=== PATIENT | male | born 1965 | race Caucasian/White ===

== ENCOUNTER 2020-11-08 11:32 | Inpatient (IN) | payer MEDICARE, MEDICAID, SELFPAY ==
[2020-11-08] VITALS (7 sets, daily range): BP systolic 86–129; BP diastolic 44–79; PULSE 81–122; RESP 12–20; TEMP 36.4–36.6; O2SAT 94–99
--- NOTE | 2020-11-08 12:13 | CT_ITS ---
WS: [id number] CT ABDOMEN AND PELVIS WITH CONTRAST HISTORY: Abdominal pain. TECHNIQUE: Imaging performed of the abdomen and pelvis with IV contrast. Single phase imaging of the abdomen. Coronal and sagittal reformats are submitted. All CT scans at [facility] use at least one of these dose optimization techniques: automated exposure control; mA and/or kV adjustment per patient size (includes targeted exams where dose is matched to clinical indication); or iterativ e reconstruction. IV CONTRAST: Omnipaque 300; 95 mL IV. Oral contrast: No DLP: 1959.2 mGy.cm COMPARISON: 07/10/2014 Lower thorax: Tree-in-bud opacifications bilaterally throughout the mid and lower lungs. No pneumotho rax. Normal size heart. No hiatal hernia. Liver/biliary system: Normal size with no intrahepatic dilatation. Gallbladder: Normal. No gallstones or wall thickening. No pericholecystic fluid. Pancreas: Normal size pancreas and pancreatic duct. No adjacent inflammation. Spleen: Normal size spleen. No mass or infarct. Adrenal glands: Normal. Right kidney: Normal renal enhancement. There is contrast within the renal pelvis and ureter due to s low injection. Mild RIGHT ureteral dilatation. Left kidney: Abnormal enhancement within the renal parenchyma. There are areas of decreased enhanceme nt and attenuation throughout the kidney. Mild dilatation of the renal pelvis and more significant di latation of the ureter. There is a hypervascular nodular focus in the distal RIGHT ureter seen best o n the coronal reformats. This was not present on the prior study. Aorta: Small caliber aorta with atherosclerotic plaque. There is a moderate stenosis within the infra renal aorta extending into the proximal common iliac arteries. Lymphadenopathy: None. Free fluid: None. GI tract: No obstruction. Abdominal wall: Unremarkable abdominal wall. No hernia. Pelvis: Marked enlarged urinary bladder extending over length of 16 cm. Stable lymph nodes since 2015 measuring 19 mm at the LEFT groin. Bones: Narrowing of the RIGHT hip joint. No osteoblastic or osteolytic bone disease. CT/CT abdomen pelvis w con* [id number] IMPRESSION: 1. Tree-in-bud airspace disease bilaterally in the mid to lower lungs. Typical ly seen with endobronchial infection or atypical infection such as mycobacteriu m avium intracellulare. 2. Multifocal areas of decreased enhancement in the LEFT kidney. Wedge-shaped ischemic infarcts versus infection. There is not a lot of perinephric stranding to suggest pyelonephritis. 3. LEFT hydroureteronephrosis. The ureter is dilated throughout its course. At the UV junction is small peripherally enhancing nodule. This may be causing ob struction of the ureter. Consider ureteroscopy to exclude neoplasm. 4. Markedly distended urinary bladder may be responsible for the bilateral ure teral dilatation.
--- NOTE | 2020-11-08 12:13 | ECG_ITS ---
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 Measurements Intervals [place] Rate: 79 P: 29 ND: 192 QRS: 7 QRSD: 103 T: -3 QT: 390 QTc: 449 Interpretive Statements SINUS RHYTHM Compared to ECG 07/09/2014 16:54:46 T-wave abnormality no longer present Electronically Signed On 11-08-2020 19:25:42 CDT by Nabil Gaming M.D. [email or web address] hospitalSynforaholmes county joel pomerene memorial hospitalApplika/store/OM/[id number]
[2020-11-08] MEDS: iohexol 300 mg/mL 100 mL Btl IV (12:41)
[2020-11-08] MEDS: sodium chloride 0.9% 1,000 ML 999 ML IV ×2 (12:55→15:50)
[2020-11-08] MEDS: ondansetron 2 mg/ML SDV 2 mL 4 MG IVP (12:55)
--- NOTE | 2020-11-08 13:02 | ED_ITS ---
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 Presents with family at the bedside with complaint of nausea and vomiting needs not been eating. Patient is incontinent of stool and bowel said usual number of wet and dirty diapers the last couple of days but has not been eating. He is nonverbal he will follow some commands but does not respond. They have not noticed a cough not noticed any fever. No hematochezia melena hematemesis or coffee-ground emesis per the family caregivers. 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 Developmental delay, profound related to adverse effect from steroids for ulcerative colitis per mother History of cardiac arrhythmia on digoxin chronically Hypothyroidism Nausea & vomiting Seizure disorder on phenobarbital chronically Ulcerative colitis on sulfasalazine Surgical History History of colonoscopy Family History Mother Cancer Currently undergoing chemotherapy Social History Smoking and tobacco status: never smoked Alcohol intake: never Substance/Drug Use: never Caregiver/support person: Yes (Mother) Household members: family Physical Exam Const: COMMON NORMALS: no acute distress Neck/C-Spine: COMMON NORMALS: no lymphadenopathy, supple and no JVD Lymph: LYMPHATIC: no lymphadenopathy noted and no lymphedema noted Resp: COMMON NORMALS: normal respiratory effort, No retractions, No use of accessory muscles and clear to auscultation bilaterally AUSCULTATION: clear to auscultation bilaterally Cardio: COMMON NORMALS: no JVD, regular rate, regular rhythm and No murmurs present (Cardio) RATE: regular rate RHYTHM: regular rhythm GI: COMMON NORMALS: No hepatosplenomegaly present AUSCULTATION: Yes normoactive bowel sounds PALPATION: Yes Tenderness to palpation present (GI) (Bladder palpable to the level of the umbilicus on initial exam patient winc), No Guarding due to palpation present (GI) and Yes No hepatosplenomegaly present Extremity: COMMON NORMALS: normal to inspection, capillary refill normal, no clubbing, cyanosis or edema, no calf tenderness and no pedal edema Skin: COMMON NORMALS: no rashes or lesions noted GENERAL SKIN EXAM: no rashes or lesions noted Course Vital Signs: Vital signs: Vital Signs Temperature 97.8 F 11/10/20 03:40 Pulse Rate 95 11/10/20 03:40 Respiratory Rate 17 11/10/20 03:40 Blood Pressure 112/69 11/10/20 03:40 Pulse Oximetry 96 11/10/20 03:40 MDM - Nausea/Vomiting/Diarrhea MDM Narrative: Medical decision making narrative: Significant urine output after placement of Logan. Patient is anemic hyponatremic and has a cystitis. Discussed with hospitalist will admit. Lab Data: Labs: Lab Results 11/08/20 11/08/20 11/08/20 Range/Units 13:16 13:16 13:16 WBC 8.1 (4.0-10.0) 10^3/ uL RBC 2.84 L (4.1-5.3) 10^6/u L Hgb 9.4 L (11.7-16.6) g/dL Hct 28.8 L (42.0-52.0) % MCV 101.4 H (80-94) fL MCH 33.1 (28.0-34.0) pg MCHC 32.6 (30.0-36.0) g/dL RDW 14.2 (12.1-15.1) % Plt Count 144 (130-400) 10^3/c mm MPV 10.7 H (7.4-10.4) fL Neut % (Auto) 80.8 % Lymph % (Auto) 9.8 % [place] % (Auto) 8.6 % Eos % (Auto) 0.4 % Baso % (Auto) 0.2 % Neut # (Auto) 6.52 (1.8-7.7) 10^3/u L Lymph # (Auto) 0.8 (0.8-4.8) 10^3/u L [place] # (Auto) 0.7 (0.2-0.9) 10^3/u L Eos # (Auto) 0.0 (0.0-0.8) 10^3/u L Baso # (Auto) 0.0 (0.0-0.1) 10^3/u L Nucleated RBC % (a uto) 0 % Nucleated RBCs # 0.0 /100WBC Sodium 118 L* (136-145) mmol/L Potassium 4.0 (3.5-5.1) mmol/L Chloride 88 L (98-107) mmol/L Carbon Dioxide 20 L (22-29) mmol/L Anion Gap 14.0 (5-19) BUN 8 (6-20) mg/dL Creatinine 0.5 L (0.7-1.2) mg/dL GFR Calculation 172.6 H (90-130) mL/min Glucose 134 H (65-115) mg/dL Calculated Osmolal ity 246 L (285-295) mOsm/k g Calcium 7.5 L (8.5-10.5) mg/dL Total Bilirubin 0.4 (0.15-1.2) mg/dL AST 24 (0-40) U/L ALT 20 (0-41) U/L Alkaline Phosphata se 119 (40-130) IU/L Troponin T Baselin e 8 (0-15) ng/L Total Protein 6.9 (6.6-8.7) g/dL Albumin 3.7 (3.5-5.2) g/dL Globulin 3.2 (1.3-4.6) g/dL Lipase 33 (13-60) U/L Urine Color (Yellow) Urine Appearance (CLEAR) Urine pH (5-7) Ur Specific Gravit y (1.005-1.030) Urine Protein (Negative) Urine Glucose (UA) (Normal) Urine Ketones (Negative) Urine Blood (Negative) Urine Nitrate (Negative) Urine Bilirubin (Negative) Urine Urobilinogen (Negative) mg/dL Ur Leukocyte Alka ase (Negative) Urine RBC (0-2) /hpf Urine WBC (0-5) /hpf Ur Squamous Epith Cells (0-5) /hpf Amorphous Sediment Urine Bacteria (NONE) /hpf 11/08/20 Range/Units 13:34 WBC (4.0-10.0) 10^3/ uL RBC (4.1-5.3) 10^6/u L Hgb (11.7-16.6) g/dL Hct (42.0-52.0) % MCV (80-94) fL MCH (28.0-34.0) pg MCHC (30.0-36.0) g/dL RDW (12.1-15.1) % Plt Count (130-400) 10^3/c mm MPV (7.4-10.4) fL Neut % (Auto) % Lymph % (Auto) % [place] % (Auto) % Eos % (Auto) % Baso % (Auto) % Neut # (Auto) (1.8-7.7) 10^3/u L Lymph # (Auto) (0.8-4.8) 10^3/u L [place] # (Auto) (0.2-0.9) 10^3/u L Eos # (Auto) (0.0-0.8) 10^3/u L Baso # (Auto) (0.0-0.1) 10^3/u L Nucleated RBC % (a uto) % Nucleated RBCs # /100WBC Sodium (136-145) mmol/L Potassium (3.5-5.1) mmol/L Chloride (98-107) mmol/L Carbon Dioxide (22-29) mmol/L Anion Gap (5-19) BUN (6-20) mg/dL Creatinine (0.7-1.2) mg/dL GFR Calculation (90-130) mL/min Glucose (65-115) mg/dL Calculated Osmolal ity (285-295) mOsm/k g Calcium (8.5-10.5) mg/dL Total Bilirubin (0.15-1.2) mg/dL AST (0-40) U/L ALT (0-41) U/L Alkaline Phosphata se (40-130) IU/L Troponin T Baselin e (0-15) ng/L Total Protein (6.6-8.7) g/dL Albumin (3.5-5.2) g/dL Globulin (1.3-4.6) g/dL Lipase (13-60) U/L Urine Color Yellow (Yellow) Urine Appearance Hazy A (CLEAR) Urine pH 5 (5-7) Ur Specific Gravit y 1.005 (1.005-1.030) Urine Protein Neg (Negative) Urine Glucose (UA) Norm (Normal) Urine Ketones Negative (Negative) Urine Blood 2+ H (Negative) Urine Nitrate Positive H (Negative) Urine Bilirubin Neg (Negative) Urine Urobilinogen Norm (Negative) mg/dL Ur Leukocyte Alka ase 2+ H (Negative) Urine RBC None (0-2) /hpf Urine WBC 55-80 H (0-5) /hpf Ur Squamous Epith Cells None (0-5) /hpf Amorphous Sediment Not Reportable Urine Bacteria 3+ H (NONE) /hpf Discharge Plan Discharge Patient Disposition: Admitted As Inpatient Admit Provider: Georgette Abel Clinical Impression: Urinary retention, Macrocytic anemia, UTI (urinary tract infection), Hydronephrosis, Seizure disorder, Developmental delay, profound Condition: Stable Coding Level of Care Code ED Soa Integration Architect for Chg Fwd Exam Comprehensive
[2020-11-08 13:26] LABS: Basophils % 0.2 %; Eosinophils % 0.4 %; Hematocrit 28.8 % (42.0-52.0); Hemoglobin 9.4 g/dL (11.7-16.6); Lymphocytes # 0.8 10^3/uL (0.8-4.8); Lymphocytes % 9.8 %; Mean Corpuscular HGB Conc 32.6 g/dL (30.0-36.0); Mean Corpuscular Hemoglobin 33.1 pg (28.0-34.0); Mean Corpuscular Volume 101.4 fL (80-94); Mean Platelet Volume 10.7 fL (7.4-10.4); Monocytes # 0.7 10^3/uL (0.2-0.9); Monocytes % 8.6 %; Neutrophils # 6.52 10^3/uL (1.8-7.7); Neutrophils % 80.8 %; Nucleated Red Blood Cells % 0 %; Platelet Count 144 10^3/cmm (130-400); Red Blood Count 2.84 10^6/uL (4.1-5.3); Red Cell Distribution Width 14.2 % (12.1-15.1); White Blood Count 8.1 10^3/uL (4.0-10.0)
[2020-11-08 13:46] LABS: Alanine Aminotransferase 20 U/L (0-41); Albumin Level 3.7 g/dL (3.5-5.2); Alkaline Phosphatase 119 IU/L (40-130); Aspartate Amino Transferase 24 U/L (0-40); Blood Urea Nitrogen 8 mg/dL (6-20); Calcium 7.5 mg/dL (8.5-10.5); Carbon Dioxide 20 mmol/L (22-29); Chloride 88 mmol/L (98-107); Globulin 3.2 g/dL (1.3-4.6); Glomerular Filtration Rate 172.6 mL/min (90-130); Glucose 134 mg/dL (65-115); Lipase 33 U/L (13-60); Osmolality Calculated 246 mOsm/kg (285-295); Total Bilirubin 0.4 mg/dL (0.15-1.2); Total Protein 6.9 g/dL (6.6-8.7); Troponin(5th) Baseline 8 ng/L (0-15)
[2020-11-08] MEDS: promethazine 25 mg/mL SDV 1 mL IM (13:53)
--- NOTE | 2020-11-08 13:57 | PC.NURSE ---
Catheter emptied at this time. 1200mL of output at this time.
[2020-11-08 14:05] LABS: Bilirubin Urine Neg (Negative); Blood Urine 2+ (Negative); Glucose Urine UA Norm (Normal); Ketones Urine Negative (Negative); Leukocyte Esterase Urine 2+ (Negative); Nitrate Urine Positive (Negative); Protein Urine Neg (Negative); Specific Gravity, Urine 1.005 (1.005-1.030); Urine Appearance Hazy (CLEAR); Urine Color Yellow (Yellow); Urobilinogen Urine Norm (Negative); pH Urine 5 (5-7)
[2020-11-08 14:06] LABS: Add Urine Culture? Yes; Add Urine Microscopic? YES; Bacteria Urine 3+ /hpf; WBC Urine 55-80 /hpf (0-5)
--- NOTE | 2020-11-08 14:13 | ECG_ITS ---
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 Measurements Intervals [place] Rate: 91 P: 34 [place]: 169 QRS: 17 QRSD: 100 T: -5 QT: 368 QTc: 455 Interpretive Statements SINUS RHYTHM Compared to ECG 11/08/2020 13:01:07 No significant changes Electronically Signed On 11-08-2020 19:32:12 CDT by Nabil Gamnig M.D. [email or web address] memorial hospitalJackRabbit Systemsfirelands regional medical center south campusWazzap/store/OM/[id number]
[2020-11-08 14:31] LABS: Sodium 118 mmol/L (136-145)
[2020-11-08] MEDS: cefTRIAXone 2,000 MG in sodium chloride 0.9% (plus) 50 ML 100 MG IV (15:49)
[2020-11-08 17:01] LABS: Troponin 5 2HR 8.17 ng/L (0-15); Troponin 5 2HR Delta 0.17 ABS# (0-10)
--- NOTE | 2020-11-08 18:13 | ECG_ITS ---
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 Measurements Intervals [place] Rate: 98 P: 37 [place]: 160 QRS: 27 QRSD: 105 T: -9 QT: 347 QTc: 445 Interpretive Statements SINUS RHYTHM POSSIBLE LATERAL MYOCARDIAL INFARCTION , PROBABLY OLD [30 ms Q WAVE IN I/aVL/V5/V6] Compared to ECG 11/08/2020 14:44:56 Myocardial infarct finding now present Electronically Signed On 11-08-2020 19:31:19 CDT by Nabil Gaming M.D. [email or web address] healthGrabbitpremier health upper [email or web address] [facility] [email or web address]/[id number]
[2020-11-08] MEDS: sodium chloride 0.9% 1,000 ML 150 ML IV (18:32)
[2020-11-08] MEDS: sodium chloride 0.9% 500 ML IV (19:16)
--- NOTE | 2020-11-08 20:35 | P.HP_ITS ---
Providers/Chief Complaint Admitting Physician: Georgette Abel MD Primary Care Provider: Dora Brady MD Chief Complaint: N/V/D History of Present Illness Awais Macias is a 55 year old male with profound developmental delay/prior brain injury who is cared for by his mother. He has had nausea, vomiting and diarrhea for the last couple of days and not eating. No reports of any fever. No known sick contacts. No change in medications recently. In retrospect when specifically asked, they realize that he had been having some facial grimacing the last few days. In the emergency room he was found to have significant urinary retention with more than 2 L out. Urinalysis was suggestive of urinary tract infection. He had hydronephrosis identified but renal function was okay. Sodium was low and he was anemic. He received some fluids and Rocephin in the emergency room. He is being admitted for further evaluation and treatment. History is obtained from his mother. She is currently undergoing chemotherapy. At baseline patient is blind, he will make some noises but is not verbal in the typical sense. They understand how he reaches for items that he wants which are organized in a structured way at home from my understanding. He does not walk very much as he has extensive muscle wasting in his lower extremities. He has no sores. Usually he will eat. Review of Systems General: Reports: ROS unobtainable due to medical condition and ROS unobtainab le due to mental status Medications/Allergies Home Medications Medication Instructions Recorded Confirmed Last Taken Type aspirin 81 mg PO DAILY 11/08/20 11/08/20 11/07/20 History cholecalciferol (vitamin D3) 125 mcg PO DAILY 11/08/20 11/08/20 11/07/20 History [Vitamin D3] cyanocobalamin (vitamin B-12) 1,000 mcg PO DAILY 11/08/20 11/08/20 11/07/20 History diazepam 5 mg PO BID PRN 11/08/20 11/08/20 Unknown History digoxin 250 mcg PO DAILY 11/08/20 11/08/20 11/07/20 History docusate sodium [DOK] 100 mg PO DAILY PRN 11/08/20 11/08/20 Unknown History ergocalciferol (vitamin D2) 50,000 unit PO Q7D 11/08/20 11/08/20 11/05/20 History [Vitamin D2] ferrous sulfate 325 mg PO DAILY 11/08/20 11/08/20 11/07/20 History folic acid 1 mg PO DAILY 11/08/20 11/08/20 11/07/20 History hydrocodone-acetaminophen 1 tab PO QID PRN 11/08/20 11/08/20 Unknown History levothyroxine 25 mcg PO DAILY 11/08/20 11/08/20 11/07/20 History metoprolol tartrate 50 mg PO BID 11/08/20 11/08/20 11/07/20 History phenobarbital See Rx Instructions .ROUTE .COMPLEX 11/08/20 11/08/20 11/07/20 History phenytoin [Dilantin Infatabs] See Rx Instructions .ROUTE .COMPLEX 11/08/20 11/08/20 11/07/20 History sulfasalazine 500 mg PO TID 11/08/20 11/08/20 11/07/20 History Allergies Allergy/AdvReac Type Severity Reaction Status Date / Time Penicillins Allergy Unknown Verified 11/08/20 11:42 PFSH Acute PFSH: Medical History (Updated 11/08/20 @ 21:00 by Georgette Abel MD) 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 Developmental delay, profound related to adverse effect from steroids for ulcerative colitis per mother History of cardiac arrhythmia on digoxin chronically Hypothyroidism Nausea & vomiting Seizure disorder on phenobarbital chronically Ulcerative colitis on sulfasalazine Surgical History (Updated 11/08/20 @ 20:49 by Georgette Abel MD) History of colonoscopy Family History (Updated 11/08/20 @ 20:54 by Georgette Abel MD) Mother Cancer Currently undergoing chemotherapy Social History (Updated 11/08/20 @ 20:54 by Georgette Abel MD) Smoking and tobacco status: never smoked Alcohol intake: never Substance/Drug Use: never Caregiver/support person: Yes (Mother) Household members: family Vitals/I&O/Wt Last Vital Signs Temp 97.8 F 11/08/20 18:00 Pulse 98 11/08/20 18:00 Resp 18 11/08/20 18:00 BP 86/44 11/08/20 18:00 Pulse Ox 94 11/08/20 18:00 11/08/20 11/08/20 11/08/20 06:59 14:59 22:59 Intake Total 1000 / 1000 1049 / 2049 Output Total 1000 / 1000 Balance 1000 / 1000 50 / 1050 Physical Exam Urinary Catheter Management^: Logan: Cath Placed During This Visit: yes Reason for Continuing Indwelling Catheter: Acute Urinary Retention or Obstructi on Urinary Catheter Date of Insertion: 11/08/20 Urinary Catheter Time of Insertion: 13:35 Data : 11/08/20 13:16 11/08/20 13:16 A&P Assessment and plan (1) Nausea & vomiting: Along with diarrhea and poor oral intake, felt secondary to urinary tract infection Status: Acute Qualifiers: Vomiting type: bilious vomiting Qualified Code(s): R11.14 - Bilious vomiting (2) Hyponatremia: Currently felt secondary to GI losses Status: Acute (3) Urinary retention: Most likely with benign prostatic hypertrophy that has not been identified. When explained how much fluid he was retaining in his bladder, mother reported that he had been facial grimacing quite a bit the last few days. Status: Acute (4) UTI (urinary tract infection): Present on admission, organism unknown Status: Acute Qualifiers: Urinary tract infection type: acute pyelonephritis Qualified Code(s): N10 - Acute pyelonephritis (5) Hydronephrosis: Secondary to degree of bladder distention although CT imaging indicated possibility of an obstruction on the left Status: Acute Qualifiers: Hydronephrosis type: other Qualified Code(s): N13.39 - Other hydronephrosis (6) Macrocytic anemia: Looks to be new, chronically on B12 and folate Status: Acute (7) Seizure disorder: Chronically on phenobarbital Status: Chronic (8) History of cardiac arrhythmia: Chronically on digoxin Status: Chronic (9) 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 Status: Chronic (10) Developmental delay, profound: Does not communicate in the same verbal way others might, uses hand gestures and such and family knows what he may want most of the time Status: Chronic Additional A&P Information CT of the abdomen with tree-in-bud appearance in the lung bases per radiology Indication of possibility of wedge-shaped infarction versus infection in the left kidney Hypothyroidism Increase in blood sugar without a known history of diabetes Extensive lower extremity muscle wasting Inpatient admission Check digoxin level and phenobarbital level IV fluids Recheck electrolytes in a few hours Continue antibiotics Follow-up urine culture Add Flomax Maintain Logan catheter secondary to extent of urinary retention Discuss with urology to review CT images and facilitate outpatient follow-up I discussed with the mother possibility of him needing a Logan catheter upon discharge. He typically pulls everything off that is on him at times so will be a challenge to maintain safely. She is willing to consider what needs to be done with guidance. Check blood cultures, lactic acid Check TSH and hemoglobin A1c Telemetry monitoring for arrhythmias Hemoccult of stool ordered from the emergency room Recheck H&H in the morning Holding sulfasalazine currently Monitor respiratory status for need to evaluate further abnormalities identified on CT, eosinophils are normal Continuing oral levothyroxine and as needed diazepam but remainder of home medications are currently held Will offer a lower dose of hydrocodone if needed for pain Hold phenobarbital and digoxin until clarify levels given clinical condition Seizure precautions Check CK level Allow family member to stay with him as only his family really can determine consistently what his needs are Lovenox for DVT prophylaxis Supportive care otherwise Findings, concerns and plans were discussed with patient's mother and she was given an opportunity to ask questions CODE STATUS reviewed with patient's mother. She would not want chest compressions or defibrillation. If he were to require temporary, meaning no more than a couple of days, intubation and mechanical ventilation that would be okay. She would also be okay with ICU level care for couple of days if needed. Attestations Medical Necessity Statement*: Anticipated stay greater than 2 midnights in a 55-year-old gentleman with issues as noted above. He has need for IV antibiotics, serial laboratory studies, IV fluids and other care as noted. Coding Level of Care Code Acute Drill Press Hand for Nathalia Hagan Diagnoses Nausea & vomiting R11.14 Vomiting type: bilious vomiting Hyponatremia E87.1 Urinary retention R33.9 UTI (urinary tract infection) N10 Urinary tract infection type: acute pyelonephritis Hydronephrosis N13.39 Hydronephrosis type: other Macrocytic anemia D53.9 Seizure disorder G40.909 History of cardiac arrhythmia Z86.79 Blindness of both eyes H54.3 Developmental delay, profound R62.50
[2020-11-08 21:25] LABS: Anion Gap 14.9 (5-19); Blood Urea Nitrogen 5 mg/dL (6-20); Calcium 7.3 mg/dL (8.5-10.5); Carbon Dioxide 21 mmol/L (22-29); Chloride 95 mmol/L (98-107); Glomerular Filtration Rate 139.9 mL/min (90-130); Glucose 133 mg/dL (65-115); Osmolality Calculated 263 mOsm/kg (285-295); Potassium 3.9 mmol/L (3.5-5.1); Sodium 127 mmol/L (136-145)
[2020-11-08 21:27] LABS: Lactic Sepsis W/Reflex 1.7 mmol/L (0.5-2.2)
[2020-11-08 21:45] LABS: Digoxin 0.3 ng/mL (0.6-1.2)
[2020-11-08 21:46] LABS: Troponin 5 6HR 11.49 ng/L (0-15); Troponin 5 6HR Delta 3.49 ng/L (0-12)
[2020-11-08] MEDS: enoxaparin 30 mg/0.3 mL Syringe SUBCUT (22:33)
[2020-11-08] MEDS: levofloxacin-dextrose 5 % 500 MG/100 ML PREMIX 100 MG IV (22:33)
[2020-11-08] MEDS: famotidine 20 mg/2 mL INJ IVP (22:57)
[2020-11-09] VITALS (9 sets, daily range): BP systolic 95–122; BP diastolic 57–76; PULSE 84–122; RESP 16–20; TEMP 36.5–37.6; O2SAT 93–97
[2020-11-09] MEDS: sodium chloride 0.9% 1,000 ML 150 ML IV (05:05)
[2020-11-09] MEDS: phenytoin 50mg Chew Tablet 100 MG PO (05:05)
[2020-11-09] MEDS: PHENobarbital 32.4 mg Tablet 24.3 MG PO (05:06)
[2020-11-09 05:42] LABS: Basophils % 0.3 %; Eosinophils % 0.1 %; Hematocrit 25.1 % (42.0-52.0); Lymphocytes # 0.9 10^3/uL (0.8-4.8); Lymphocytes % 9.2 %; Mean Corpuscular HGB Conc 31.9 g/dL (30.0-36.0); Mean Corpuscular Hemoglobin 32.8 pg (28.0-34.0); Mean Corpuscular Volume 102.9 fL (80-94); Mean Platelet Volume 9.5 fL (7.4-10.4); Monocytes # 1.3 10^3/uL (0.2-0.9); Monocytes % 12.7 %; Neutrophils # 7.72 10^3/uL (1.8-7.7); Neutrophils % 77.4 %; Nucleated Red Blood Cells % 0 %; Platelet Count 174 10^3/cmm (130-400); Red Blood Count 2.44 10^6/uL (4.1-5.3); Red Cell Distribution Width 14.4 % (12.1-15.1)
[2020-11-09 05:56] LABS: INR 1.18 (0.8-1.2)
[2020-11-09 05:57] LABS: Partial Thromboplastin Time 45.7 SECONDS (23.9-36.7)
[2020-11-09 06:34] LABS: Alanine Aminotransferase 19 U/L (0-41); Albumin Level 3.4 g/dL (3.5-5.2); Alkaline Phosphatase 102 IU/L (40-130); Anion Gap 10.7 (5-19); Aspartate Amino Transferase 25 U/L (0-40); Blood Urea Nitrogen 4 mg/dL (6-20); Calcium 7.2 mg/dL (8.5-10.5); Carbon Dioxide 25 mmol/L (22-29); Chloride 101 mmol/L (98-107); Creatine Phosphokinase 300 U/L (39-308); Globulin 3.1 g/dL (1.3-4.6); Glomerular Filtration Rate 117.1 mL/min (90-130); Glucose 108 mg/dL (65-115); Magnesium 1.3 mg/dL (1.7-2.3); Osmolality Calculated 273 mOsm/kg (285-295); Phosphorus 1.5 mg/dL (2.5-4.5); Potassium 3.7 mmol/L (3.5-5.1); Sodium 133 mmol/L (136-145); Thyroid Stimulating Hormone 1.39 uIU/mL (0.27-4.20); Total Bilirubin 0.3 mg/dL (0.15-1.2); Total Protein 6.5 g/dL (6.6-8.7)
[2020-11-09 07:48] LABS: Estmated Average Glucose 71; Hemoglobin A1C 4.1 % (4.0-6.0)
[2020-11-09] MEDS: famotidine 20 mg/2 mL INJ IVP ×2 (08:29→20:53)
[2020-11-09] MEDS: tamsulosin 0.4 mg Capsule PO (08:51)
[2020-11-09] MEDS: levothyroxine 25 mcg Tablet PO (08:51)
[2020-11-09] MEDS: digoxin 250 mcg Tablet PO (08:51)
--- NOTE | 2020-11-09 08:57 | PM.PN ---
Subjective Subjective: Interval history: Patient started babbling his usual level through the night. This morning he is eating breakfast and acting more like his usual self. No vomiting since yesterday afternoon. Logan catheter has remained in place thus far. Urine culture is pending. No diarrhea, normally has a bowel movement a day. Sister was in the room with him. Medications: Reviewed: Yes Vitals/I&O/Wt Last Vital Signs Temp 98.2 F 11/09/20 08:00 Pulse 84 11/09/20 08:00 Resp 18 11/09/20 08:00 BP 95/63 11/09/20 08:00 Pulse Ox 97 11/09/20 08:00 11/08/20 11/09/20 11/09/20 22:59 06:59 14:59 Intake Total 1550 / 2550 1100 / 3650 Output Total 1900 / 1900 650 / 2550 Balance -350 / 650 450 / 1100 Physical Exam Narrative: EXAM NARRATIVE: Constitutional: Awake, eating breakfast, keeps eyes closed, not as ill appearing HEENT: face not as flushed Respiratory: clear to auscultation Cardiovascular: regular Abdomen: soft, nontender, no left flank tenderness Extremities: no edema Neuro: no abnormal movements noted Other: Logan intact, speck of dried blood at meatus, yellow urine Urinary Catheter Management^: Logan: Cath Placed During This Visit: yes Reason for Continuing Indwelling Catheter: Acute Urinary Retention or Obstruction Urinary Catheter Date of Insertion: 11/08/20 Urinary Catheter Time of Insertion: 13:35 Data : 11/09/20 05:22 11/09/20 05:22 Other Labs: Laboratory Tests 11/08/20 11/08/20 11/09/20 21:00 21:00 05:22 MCV 102.9 H Neut % (Auto) 77.4 INR APTT Hemoglobin A1c Lactic Acid 1.7 Creatine Kinase TSH Digoxin 0.3 L Phenobarbital 26.1 11/09/20 11/09/20 11/09/20 05:22 05:22 05:22 MCV Neut % (Auto) INR 1.18 APTT 45.7 H Hemoglobin A1c 4.1 Lactic Acid Creatine Kinase 300 TSH 1.39 Digoxin Phenobarbital Micro: Microbiology 11/09/20 05:22 Blood Culture - Preliminary Blood SPECIMEN COLLECTED 11/08/20 21:00 Blood Culture - Preliminary Blood SPECIMEN COLLECTED A&P Assessment and plan (1) Nausea & vomiting: Along with diarrhea and poor oral intake, felt secondary to urinary tract infection. Much improved. Status: Resolved Qualifiers: Vomiting type: bilious vomiting Qualified Code(s): R11.14 - Bilious vomiting (2) Hyponatremia: Secondary to GI losses, improved Status: Resolved (3) Urinary retention: Most likely with benign prostatic hypertrophy that has not been identified. When explained how much fluid he was retaining in his bladder, mother reported that he had been facial grimacing quite a bit the last few days. Suspect that this has been a gradual process that was not identified due to him being nonverbal. Status: Acute (4) UTI (urinary tract infection): Present on admission, organism unknown Status: Acute Qualifiers: Urinary tract infection type: acute pyelonephritis Qualified Code(s): N10 - Acute pyelonephritis (5) Hydronephrosis: Secondary to degree of bladder distention although CT imaging indicated possibility of an obstruction on the left Status: Acute Qualifiers: Hydronephrosis type: other Qualified Code(s): N13.39 - Other hydronephrosis (6) Macrocytic anemia: Looks to be new, chronically on B12 and folate as well as iron replacement. Last available comparative labs are from 2019 when hemoglobin was 12. With hydration hemoglobin has dropped from 9-8. No gross bleeding noted here. No bleeding reported per family, including no hematochezia or melena. Status: Acute (7) Ulcerative colitis: Chronically on sulfasalazine which is presently held, no reported increased symptoms of late Status: Chronic Qualifiers: Ulcerative colitis location: unspecified ulcerative colitis location Digestive disease complication type: without complication Qualified Code(s): K51.90 - Ulcerative colitis, unspecified, without complications (8) Seizure disorder: Chronically on phenobarbital with appropriate level Status: Chronic (9) History of cardiac arrhythmia: Chronically on metoprolol as well as digoxin (with low level) Status: Chronic (10) Hypothyroidism: Chronically on levothyroxine with appropriate TSH Status: Chronic Qualifiers: Hypothyroidism type: unspecified Qualified Code(s): E03.9 - Hypothyroidism, unspecified (11) 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 Status: Chronic (12) Developmental delay, profound: Does not communicate verbally, uses hand gestures and such and family knows what he may want most of the time Status: Chronic Additional A&P Information CT of the abdomen with tree-in-bud appearance in the lung bases per radiology, no respiratory symptoms or oxygen requirement Indication of possibility of wedge-shaped infarction versus infection in the left kidney, no hematuria, not in apparent pain currently, suspect infection Hypothyroidism Increase in blood sugar without a known history of diabetes, normal hemoglobin A1c Extensive lower extremity muscle wasting Decrease IV fluids as oral intake increases Continue current antibiotics Follow-up urine culture and blood cultures Continue Flomax Monitor for postobstructive diuresis Maintain Logan catheter secondary to extent of urinary retention Have reached out to urology Family aware that he will need Logan catheter at discharge at least short-term, see how he does with the catheter while he is here, will for him Continue telemetry monitoring Continue digoxin Remains off of home beta-neema due to lower blood pressures, will consider resuming a quarter of usual dose later today Hemoccult of stool ordered from the emergency room Monitor for blood in stools Check TIBC Continue to hold home sulfasalazine Phenobarbital has been resumed and has as needed diazepam On home levothyroxine Continue to hold vitamins presently though if doing okay we will look at resuming tomorrow On a lower than usual dose of hydrocodone if needed for pain secondary to drop in pressures Seizure precautions Allow family member to stay with him as only his family can determine consistently what his needs are Lovenox for DVT prophylaxis, if any evidence of bleeding will need to hold Supportive care otherwise Findings, concerns and plans were discussed with patient sister today and she was given an opportunity to ask questions Look into increased services at home to assist with Logan care after discharge CODE STATUS reviewed with patient's mother at admission. She would not want chest compressions or defibrillation. If he were to require temporary, meaning no more than a couple of days, intubation and mechanical ventilation that would be okay. She would also be okay with ICU level care for couple of days if needed. Attestations Medical Necessity Statement*: Requires ongoing inpatient stay for continued antibiotics, IV fluids, monitoring of any evidence of bleeding or postobstructive diuresis and other care as described. Coding Level of Care Code Acute Design Maintenance Engineer for Nathalia Hagan Diagnoses Nausea & vomiting R11.14 Vomiting type: bilious vomiting Hyponatremia E87.1 Urinary retention R33.9 UTI (urinary tract infection) N10 Urinary tract infection type: acute pyelonephritis Hydronephrosis N13.39 Hydronephrosis type: other Macrocytic anemia D53.9 Ulcerative colitis K51.90 Ulcerative colitis location: unspecified ulcerative colitis location Digestive disease complication type: without complication Seizure disorder G40.909 History of cardiac arrhythmia Z86.79 Hypothyroidism E03.9 Hypothyroidism type: unspecified Blindness of both eyes H54.3 Developmental delay, profound R62.50
[2020-11-09] MEDS: sodium chlor 0.45% +KCl 20 mEq 20 MEQ/1,000 ML BAG 75 MEQ IV ×2 (09:31→23:47)
--- NOTE | 2020-11-09 12:49 | PC.CHAP ---
Pastoral Care Encounter/Spiritual Assessment Type of Contact [] Declined radio intelligence operator visit [] Patient/Family/Request visit [] Outpatient visit [] Follow-up visit [] Physician referral [] Code/Alert [xx] Routine visit [] Staff referral [] Actively dying [] Patient sleeping [] Family support [] [] Out of room [] Palliative care [] [] Receiving care in room [] Pre-surgical visit [] Trauma [] Long length of stay [] ICU visit [] Other: Relational/Emotional Strength [xx] Patient feels connected with others/family/visitors/staff [] Distress [] Loneliness/isolation [] Abandonment Spirituality of Patient [xx] Person of Fang [] Attends Anglican of their Fang [xx] Believes in Prayer [] Reads Bible or Tenriism materials [] There are Spiritual issues to be addressed Tyre Finisher And Examiner Interventions [xx] Prayer [xx] Active listening [xx] Non-anxious presence [] Spiritual/emotional support [] Crisis/trauma care [] Spiritual counseling [] Bereavement support [] Provided bereavement packet [] Provided Bible/devotional materials [] Provided toy/stuffed animal, coloring book to patient or family member [] Provided Communion [] Anointing/[place] [] Salvation [xx] Completed spiritual assessment [] Other: Impact on Illness or Injury [] Angry [] Fearful [] Anxious [] Often cries [] Exhaustion [] Unable to work [] Unable to attend evangelical [] Unable to walk/stand [] Unable to read [] Unable to drive [] Unable to eat/drink [] Unable to sleep [] Unable to be with family [] Patient intubated [] Other: Summary Patient lives with his mother due to mental deficiencies. Sister present in room with her brother. She spoke for them both. Patient drowsy and fell asleep during visit. Sister wanted prayer for whole family. Time spent with patient 5 minutes
[2020-11-09 14:08] LABS: Hematocrit 23.8 % (42.0-52.0); Hemoglobin 7.9 g/dL (11.7-16.6)
[2020-11-09] MEDS: phenytoin 50mg Chew Tablet 50 MG PO ×2 (14:25→20:53)
[2020-11-09] MEDS: magnesium sulfate premix 2 GM/50 ML PIGGYBACK IV (14:25)
[2020-11-09] MEDS: PHENobarbital 32.4 mg Tablet PO ×2 (14:26→20:53)
[2020-11-09] MEDS: metoprolol tartrate 25 mg Tablet 12.5 MG PO ×2 (14:26→20:53)
[2020-11-09 15:06] LABS: Iron 46 ug/dL (59-158); Percent Saturation 26.9 % (20-50); Total Iron Binding Capacity 171 mcg/dl; Unsaturated Iron Binding 125 ug/dL (112-347)
[2020-11-09] MEDS: enoxaparin 30 mg/0.3 mL Syringe SUBCUT (20:54)
[2020-11-09] MEDS: levofloxacin-dextrose 5 % 500 MG/100 ML PREMIX 100 MG IV (20:54)
[2020-11-10 03:40] VITALS: BP 112/69; PULSE 95; RESP 17; TEMP 36.6; O2SAT 96
[2020-11-10 05:22] LABS: Blood Urea Nitrogen 2 mg/dL (6-20); Calcium 6.4 mg/dL (8.5-10.5); Carbon Dioxide 22 mmol/L (22-29); Chloride 97 mmol/L (98-107); Glomerular Filtration Rate 139.9 mL/min (90-130); Glucose 100 mg/dL (65-115); Osmolality Calculated 264 mOsm/kg (285-295); Sodium 129 mmol/L (136-145)
[2020-11-10 05:31] LABS: Anion Gap 13.6 (5-19); Potassium 3.6 mmol/L (3.5-5.1)
[2020-11-10 06:09] LABS: Basophils % 0.3 %; Eosinophils # 0.1 10^3/uL (0.0-0.8); Eosinophils % 0.6 %; Hemoglobin 7.6 g/dL (11.7-16.6); Lymphocytes # 1.3 10^3/uL (0.8-4.8); Lymphocytes % 14.5 %; Mean Corpuscular Hemoglobin 33.9 pg (28.0-34.0); Mean Corpuscular Volume 102.7 fL (80-94); Mean Platelet Volume 9.9 fL (7.4-10.4); Monocytes % 11.8 %; Neutrophils # 6.39 10^3/uL (1.8-7.7); Neutrophils % 72.3 %; Nucleated Red Blood Cells % 0 %; Platelet Count 151 10^3/cmm (130-400); Red Blood Count 2.24 10^6/uL (4.1-5.3); Red Cell Distribution Width 14.7 % (12.1-15.1); White Blood Count 8.8 10^3/uL (4.0-10.0)
[2020-11-10] MEDS: phenytoin 50mg Chew Tablet 100 MG PO (06:20)
[2020-11-10] MEDS: PHENobarbital 32.4 mg Tablet 24.3 MG PO (06:20)
[2020-11-10 08:00] VITALS: BP 97/60; PULSE 97; RESP 18; TEMP 37.1; O2SAT 97
[2020-11-10] MEDS: famotidine 20 mg/2 mL INJ IVP ×2 (09:02→21:05)
[2020-11-10 09:03] VITALS: PULSE 97
[2020-11-10] MEDS: tamsulosin 0.4 mg Capsule PO (09:03)
[2020-11-10] MEDS: levothyroxine 25 mcg Tablet PO (09:03)
[2020-11-10] MEDS: metoprolol tartrate 25 mg Tablet 12.5 MG PO ×2 (09:03→21:14)
[2020-11-10] MEDS: digoxin 250 mcg Tablet PO (09:03)
[2020-11-10 12:00] VITALS: BP 118/60; PULSE 108; RESP 18; TEMP 37.8; O2SAT 96
[2020-11-10] MEDS: PHENobarbital 32.4 mg Tablet PO ×2 (12:39→21:09)
[2020-11-10] MEDS: phenytoin 50mg Chew Tablet 50 MG PO ×2 (12:39→21:10)
[2020-11-10] MEDS: sodium chlor 0.45% +KCl 20 mEq 20 MEQ/1,000 ML BAG 75 MEQ IV (12:43)
[2020-11-10] MEDS: diazePAM 5 mg Tablet PO (13:52)
[2020-11-10 16:00] VITALS: BP 117/70; PULSE 103; RESP 18; TEMP 36.9; O2SAT 94
[2020-11-10 19:49] VITALS: BP 108/66; PULSE 105; RESP 18; TEMP 36.7; O2SAT 95
[2020-11-10] MEDS: enoxaparin 30 mg/0.3 mL Syringe SUBCUT (21:05)
[2020-11-10] MEDS: levofloxacin-dextrose 5 % 500 MG/100 ML PREMIX 100 MG IV (21:05)
--- NOTE | 2020-11-10 21:49 | P.PN_ITS ---
Subjective Subjective: Interval history: Has not been bothering the Logan catheter thus far. Returning to his usual self. Had a couple of seizures today that are like his normal ones for which she received Valium. Tolerating oral intake. No longer having diarrhea. Reviewed with mother Logan care management. Medications: Reviewed: Yes Vitals/I&O/Wt Last Vital Signs Temp 98.1 F 11/10/20 19:49 Pulse 105 H 11/10/20 19:49 Resp 18 11/10/20 19:49 BP 108/66 11/10/20 19:49 Pulse Ox 95 11/10/20 19:49 11/10/20 11/10/20 11/10/20 06:59 14:59 22:59 Intake Total 1450 / 1450 Output Total 350 / 1625 1100 / 1100 Balance -350 / 1142 1450 / 1450 -1100 / 350 Weight last 48 hrs Weight 68.946 kg Physical Exam Narrative: EXAM NARRATIVE: Constitutional: Awake, babbling, intermittently sucking on his blanket HEENT: Keeps eyes closed Respiratory: clear to auscultation Cardiovascular: regular Abdomen: soft, nontender, no left flank tenderness Extremities: no edema Neuro: No abnormal movements noted during my examination Other: Logan intact Urinary Catheter Management^: Logan: Cath Placed During This Visit: yes Reason for Continuing Indwelling Catheter: Accurate Measurement of Urinary Output in Critically Ill Patients Urinary Catheter Date of Insertion: 11/08/20 Urinary Catheter Time of Insertion: 13:35 Data : 11/10/20 05:56 11/10/20 04:39 Micro: Microbiology 11/08/20 13:34 Urine Culture - Final Urine,Clean Catch 11/09/20 05:22 Blood Culture - Preliminary Blood NEGATIVE TO DATE 11/08/20 21:00 Blood Culture - Preliminary Blood NEGATIVE TO DATE A&P Assessment and plan (1) Nausea & vomiting: Along with diarrhea and poor oral intake, felt secondary to urinary tract infection. Much improved. Status: Resolved Qualifiers: Vomiting type: bilious vomiting Qualified Code(s): R11.14 - Bilious vomiting (2) Hyponatremia: Secondary to GI losses, improved Status: Resolved (3) Urinary retention: Most likely with benign prostatic hypertrophy that has not been identified. When explained how much fluid he was retaining in his bladder, mother reported that he had been facial grimacing quite a bit the last few days. Suspect that this has been a gradual process that was not identified due to him being nonverbal. Status: Acute (4) UTI (urinary tract infection): Present on admission, organism unknown Status: Acute (5) Hydronephrosis: Secondary to degree of bladder distention although CT imaging indicated possibility of an obstruction on the left Status: Acute (6) Macrocytic anemia: Looks to be new, chronically on B12 and folate as well as iron replacement. Last available comparative labs are from 2019 when hemoglobin was 12. With hydration hemoglobin has dropped from 9-8. No gross bleeding noted here. No bleeding reported per family, including no hematochezia or melena. Status: Acute (7) Ulcerative colitis: Chronically on sulfasalazine which is presently held, no reported increased symptoms of late Status: Chronic Qualifiers: Digestive disease complication type: without complication Ulcerative colitis location: unspecified ulcerative colitis location Qualified Code(s): K51.90 - Ulcerative colitis, unspecified, without complications (8) Seizure disorder: Chronically on phenobarbital with appropriate level Status: Chronic (9) History of cardiac arrhythmia: Chronically on metoprolol as well as digoxin (with low level) Status: Chronic (10) Hypothyroidism: Chronically on levothyroxine with appropriate TSH Status: Chronic Qualifiers: Hypothyroidism type: unspecified Qualified Code(s): E03.9 - Hypothyroidism, unspecified (11) 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 Status: Chronic (12) Developmental delay, profound: Does not communicate verbally, uses hand gestures and such and family knows what he may want most of the time Status: Chronic Additional A&P Information CT of the abdomen with tree-in-bud appearance in the lung bases per radiology, no respiratory symptoms or oxygen requirement Indication of possibility of wedge-shaped infarction versus infection in the left kidney, no hematuria, not in apparent pain currently, suspect infection Hypothyroidism Increase in blood sugar without a known history of diabetes, normal hemoglobin A1c Extensive lower extremity muscle wasting Stop IV fluids Change to oral antibiotics Continue Flomax Maintain Logan catheter secondary to extent of urinary retention Will need follow-up with urology in the next 2 weeks Home health for assistance with Logan management Continue digoxin On lower dose of home beta-blockade Hemoccult of stool ordered from the emergency room Monitor for blood in stools Resumes home vitamins Continue to hold home sulfasalazine Phenobarbital and diazepam on board On home levothyroxine On a lower than usual dose of hydrocodone if needed for pain secondary to drop in pressures Seizure precautions Allow family member to stay with him as only his family can determine consisten tly what his needs are Stop lovenox Supportive care otherwise Findings, concerns and plans were discussed with patient mother today and she was given an opportunity to ask questions Have placed order for home health at [place] CODE STATUS reviewed with patient's mother at admission. She would not want c hest compressions or defibrillation. If he were to require temporary, meaning no more than a couple of days, intubation and mechanical ventilation that would be okay. She would also be okay with ICU level care for couple of days if needed. Attestations Medical Necessity Statement*: Requires ongoing inpatient stay for management as noted above. If remains stable with resumption of other home medications anticipate discharge tomorrow. Coding Level of Care Code Acute Correction Officer Supervisor for Chg Fwd Diagnoses Nausea & vomiting R11.14 Vomiting type: bilious vomiting Hyponatremia E87.1 Urinary retention R33.9 UTI (urinary tract infection) N39.0 Hydronephrosis N13.30 Macrocytic anemia D53.9 Ulcerative colitis K51.90 Digestive disease complication type: without complication Ulcerative colitis location: unspecified ulcerative colitis location Seizure disorder G40.909 History of cardiac arrhythmia Z86.79 Hypothyroidism E03.9 Hypothyroidism type: unspecified Blindness of both eyes H54.3 Developmental delay, profound R62.50
[2020-11-11] VITALS (7 sets, daily range): BP systolic 94–122; BP diastolic 56–77; PULSE 97–103; RESP 16–21; TEMP 36.8–38; O2SAT 93–96
[2020-11-11] MEDS: PHENobarbital 32.4 mg Tablet 24.3 MG PO (05:35)
[2020-11-11] MEDS: levoFLOXacin 500 mg Tablet PO (05:35)
[2020-11-11] MEDS: phenytoin 50mg Chew Tablet 100 MG PO (05:35)
[2020-11-11 06:07] LABS: Blood Urea Nitrogen 3 mg/dL (6-20); Calcium 6.7 mg/dL (8.5-10.5); Carbon Dioxide 21 mmol/L (22-29); Chloride 96 mmol/L (98-107); Glomerular Filtration Rate 172.6 mL/min (90-130); Glucose 113 mg/dL (65-115); Magnesium 1.4 mg/dL (1.7-2.3); Osmolality Calculated 267 mOsm/kg (285-295); Phosphorus 1.8 mg/dL (2.5-4.5); Sodium 130 mmol/L (136-145)
[2020-11-11 06:08] LABS: Anion Gap 16.9 (5-19); Potassium 3.9 mmol/L (3.5-5.1)
[2020-11-11 06:51] LABS: Basophils % 0.4 %; Eosinophils # 0.1 10^3/uL (0.0-0.8); Eosinophils % 1.6 %; Hematocrit 24.7 % (42.0-52.0); Hemoglobin 8.3 g/dL (11.7-16.6); Lymphocytes # 1.3 10^3/uL (0.8-4.8); Lymphocytes % 15.3 %; Mean Corpuscular HGB Conc 33.6 g/dL (30.0-36.0); Mean Corpuscular Hemoglobin 34.3 pg (28.0-34.0); Mean Corpuscular Volume 102.1 fL (80-94); Mean Platelet Volume 10.8 fL (7.4-10.4); Monocytes # 0.9 10^3/uL (0.2-0.9); Neutrophils # 5.83 10^3/uL (1.8-7.7); Neutrophils % 71.2 %; Nucleated Red Blood Cells % 0 %; Red Blood Count 2.42 10^6/uL (4.1-5.3); Red Cell Distribution Width 14.5 % (12.1-15.1); White Blood Count 8.2 10^3/uL (4.0-10.0)
[2020-11-11 07:31] LABS: Platelet Count 160 10^3/cmm (130-400)
[2020-11-11 07:32] LABS: Slide Review Slide Review Perform
[2020-11-11] MEDS: cyanocobalamin 1,000 mcg Tablet 1000 MCG PO (08:27)
[2020-11-11] MEDS: metoprolol tartrate 25 mg Tablet 12.5 MG PO (08:27)
[2020-11-11] MEDS: folic acid 1 mg Tablet PO (08:27)
[2020-11-11] MEDS: cholecalciferol (vitamin D3) 5,000 unit Tablet 5000 UNIT PO (08:27)
[2020-11-11] MEDS: sennosides-docusate Tablet 1 TAB PO ×2 (08:27→17:41)
[2020-11-11] MEDS: digoxin 250 mcg Tablet PO (08:28)
[2020-11-11] MEDS: levothyroxine 25 mcg Tablet PO (08:28)
[2020-11-11] MEDS: ferrous sulfate EC 325 mg Tablet PO ×2 (08:28→17:42)
[2020-11-11] MEDS: famotidine 20 mg/2 mL INJ IVP (08:28)
[2020-11-11] MEDS: tamsulosin 0.4 mg Capsule PO (08:28)
[2020-11-11] MEDS: magnesium sulfate premix 2 GM/50 ML PIGGYBACK IV (08:34)
[2020-11-11] MEDS: magnesium oxide 400 mg tablet PO ×2 (08:34→17:41)
[2020-11-11] MEDS: phosphorus 250 mg Tablet PO ×2 (08:34→17:41)
--- NOTE | 2020-11-11 10:57 | PC.SOCIAL ---
Pg 2 IMM Explained to pt's mother, Pg 2 IMM. No questions voiced. Provided her a copy. Signed, dated, & timed a copy & placed in chart.
[2020-11-11] MEDS: PHENobarbital 32.4 mg Tablet PO (11:49)
[2020-11-11] MEDS: phenytoin 50mg Chew Tablet 50 MG PO (11:49)
--- NOTE | 2020-11-11 15:00 | P.DS_ITS ---
Discharge Providers Date of Admission: 11/08/20 15:41 Date of Discharge: November 11, 2020 Attending Provider at Admission: Georgette Abel MD Attending Provider at Discharge: Georgette Abel MD Primary Care Provider: Dora Brady MD Diagnoses at Discharge Discharge Diagnosis (1) Nausea & vomiting: Status: Resolved Qualifiers: Vomiting type: bilious vomiting Qualified Code(s): R11.14 - Bilious vomiting (2) Hyponatremia: Status: Resolved (3) Urinary retention: Status: Resolved (4) UTI (urinary tract infection): Status: Resolved (5) Hydronephrosis: Status: Resolved (6) Macrocytic anemia: Status: Acute (7) Ulcerative colitis: Status: Chronic Permanent problem details: on sulfasalazine Qualifiers: Digestive disease complication type: without complication Ulcerative colitis location: unspecified ulcerative colitis location Qualified Code(s): K51.90 - Ulcerative colitis, unspecified, without complications (8) Seizure disorder: Status: Chronic Permanent problem details: on phenobarbital chronically (9) History of cardiac arrhythmia: Permanent problem details: on digoxin chronically (10) Hypothyroidism: Status: Chronic Qualifiers: Hypothyroidism type: unspecified Qualified Code(s): E03.9 - Hypothyroidism, unspecified (11) Blindness of both eyes: Status: Chronic Permanent problem details: does not open eyes (12) Developmental delay, profound: Status: Chronic Permanent problem details: related to adverse effect from steroids for ulcerative colitis per mother Reason for Visit 2 Reason for Visit: N/V/D Hospital Course Hospital Course Awais presented with nausea, vomiting and diarrhea as well as poor oral intake and discomfort. He was found to have significant urinary retention of more than [address] imaging showed left hydroureteronephrosis and multifocal areas of decreased enhancement in the left kidney. Additionally there was a small peripherally enhancing nodule at the UV junction on the left possibly causing obstruction. Radiological interpretation was wedge-shaped ischemic infarct versus infection. There was not a lot of perinephric stranding noted. Urinalysis was suggestive of infection. Urine culture grew out 10-20,000 CFU's of mixed superficial roxy. With low-grade fevers and clinical scenario I did go on and treat him with Levaquin and will continue course for 5 days. While prostatic hypertrophy was not indicated on CT imaging strongly suspect it is a contributing factor. Flomax was started. Guan catheter will be maintained to allow the bladder wall time to heal. Case was discussed with Dr. Aleman who agreed to see Mr. Macias in hospital follow-up. Arrangements will be made for home health care to assist in Guan catheter management over the next couple of weeks until that appointment can be arranged. Mother understood that we will s ee how Awais does after treatment with antibiotic and alpha-neema before determining if further work-up needs to be done. Also noted on CT imaging by radiology was a tree-in-bud appearance in the lower lungs. Awais did not have any respiratory issues or need for oxygen while here. This was not further evaluated. He was noted to be anemic with hemoglobin as low as 7.6 after hydration. Iron was low at 46 so oral iron supplementation was started. In addition to anemia he had hypophosphatemia, hypomagnesemia and hypocalcemia. He is chronically on several vitamins. I have added some magnesium supplementation. Also reviewed options to fortify his diet a bit more and provided some handouts that can be used as a guide to maybe increase some variety. There was no evidence of any bleeding noted while here. He was treated with Lovenox for DVT prophylaxis. Recommended taking scheduled laxatives. Sulfasalazine was stopped while here but can be resumed for his ulcerative colitis upon discharge. Digoxin and phenobarbital levels were checked and were within appropriate ranges. TSH was normal. On the day of discharge Awais was eating and drinking well. Vocalizing at ti mes. He seemed ready to get home. He was tolerating Guan catheter without bothering it. Lungs were clear to auscultation bilaterally. He had a regular rhythm. No obvious abdominal or flank tenderness. Guan draining yellow urine. Physical Exam Urinary Catheter Management^: Guan: Cath Placed During This Visit: yes Reason for Continuing Indwelling Catheter: Accurate Measurement of Urinary Output in Critically Ill Patients Urinary Catheter Date of Insertion: 11/08/20 Urinary Catheter Time of Insertion: 13:35 Discharge Data Data Completed and Pending: Completed Studies During Hospitalization Category Date Time Status CT abdomen pelvis w con* [id number] Stat Cat Scan 11/08/20 12:13 Completed Pending at discharge Category Date Time Status Blood Culture Sta t Lab 11/08/20 21:00 Results NGTD Laboratory Results WBC 8.2 10^3/uL (4.0- 10.0) 11/11/20 06:40 Corrected WBC Cancelled 11/11/20 05:20 RBC 2.42 10^6/uL (4.1 -5.3) L 11/11/20 06:40 Hgb 8.3 g/dL (11.7-16 .6) L 11/11/20 06:40 Hct 24.7 % (42.0-52.0 ) L 11/11/20 06:40 MCV 102.1 fL (80-94) H 11/11/20 06:40 MCH 34.3 pg (28.0-34. 0) H 11/11/20 06:40 MCHC 33.6 g/dL (30.0-3 6.0) 11/11/20 06:40 RDW 14.5 % (12.1-15.1 ) 11/11/20 06:40 Plt Count 160 10^3/cmm (130 -400) 11/11/20 06:40 MPV 10.8 fL (7.4-10.4 ) H 11/11/20 06:40 Gran % Cancelled 11/11/20 05:20 Neut % (Auto) 71.2 % 11/11/20 06:40 Lymph % (Auto) 15.3 % 11/11/20 06:40 Keith % (Auto) 11.0 % 11/11/20 06:40 Eos % (Auto) 1.6 % 11/11/20 06:40 Baso % (Auto) 0.4 % 11/11/20 06:40 Neut # (Auto) 5.83 10^3/uL (1.8 -7.7) 11/11/20 06:40 Lymph # (Auto) 1.3 10^3/uL (0.8- 4.8) 11/11/20 06:40 Keith # (Auto) 0.9 10^3/uL (0.2- 0.9) 11/11/20 06:40 Eos # (Auto) 0.1 10^3/uL (0.0- 0.8) 11/11/20 06:40 Baso # (Auto) 0.0 10^3/uL (0.0- 0.1) 11/11/20 06:40 Absolute Gran (aut o) Cancelled 11/11/20 05:20 Nucleated RBC % (a uto) 0 % 11/11/20 06:40 Nucleated RBCs # 0.0 /100WBC 11/11/20 06:40 PT 15.40 SECONDS (12 .1-14.9) H 11/09/20 05:22 INR 1.18 (0.8-1.2) 11/09/20 05:22 APTT 45.7 SECONDS (23. 9-36.7) H 11/09/20 05:22 Sodium 130 mmol/L (136-1 45) L 11/11/20 05:20 Potassium 3.9 mmol/L (3.5-5 .1) 11/11/20 05:20 Chloride 96 mmol/L (98-107 ) L 11/11/20 05:20 Carbon Dioxide 21 mmol/L (22-29) L 11/11/20 05:20 Anion Gap 16.9 (5-19) 11/11/20 05:20 BUN 3 mg/dL (6-20) L 11/11/20 05:20 Creatinine 0.5 mg/dL (0.7-1. 2) L 11/11/20 05:20 GFR Calculation 172.6 mL/min (90- 130) H 11/11/20 05:20 Glucose 113 mg/dL (65-115 ) 11/11/20 05:20 Estimat Average Gl ucose 71 11/09/20 05:22 Hemoglobin A1c 4.1 % (4.0-6.0) 11/09/20 05:22 Calculated Osmolal ity 267 mOsm/kg (285- 295) L 11/11/20 05:20 Lactic Acid 1.7 mmol/L (0.5-2 .2) 11/08/20 21:00 Calcium 6.7 mg/dL (8.5-10 .5) L 11/11/20 05:20 Phosphorus 1.8 mg/dL (2.5-4. 5) L 11/11/20 05:20 Magnesium 1.4 mg/dL (1.7-2. 3) L 11/11/20 05:20 Iron 46 ug/dL (59-158) L 11/09/20 13:53 TIBC 171 mcg/dl 11/09/20 13:53 % Saturation 26.9 % (20-50) 11/09/20 13:53 Unsat Iron Binding 125 ug/dL (112-34 7) 11/09/20 13:53 Total Bilirubin 0.3 mg/dL (0.15-1 .2) 11/09/20 05:22 AST 25 U/L (0-40) 11/09/20 05:22 ALT 19 U/L (0-41) 11/09/20 05:22 Alkaline Phosphata se 102 IU/L (40-130) 11/09/20 05:22 Creatine Kinase 300 U/L (39-308) 11/09/20 05:22 Troponin T Baselin e 8 ng/L (0-15) 11/08/20 13:16 Troponin T 120 Min [place] 8.17 ng/L (0-15) 11/08/20 16:14 Delta Troponin T 0.17 ABS# (0-10) 11/08/20 16:14 Troponin T Hi Sens 6Hr 11.49 ng/L (0-15) 11/08/20 21:00 Troponin T Hi Sens 6Hr Delta 3.49 ng/L (0-12) 11/08/20 21:00 Total Protein 6.5 g/dL (6.6-8.7 ) L 11/09/20 05:22 Albumin 3.4 g/dL (3.5-5.2 ) L 11/09/20 05:22 Globulin 3.1 g/dL (1.3-4.6 ) 11/09/20 05:22 Lipase 33 U/L (13-60) 11/08/20 13:16 TSH 1.39 uIU/mL (0.27 -4.20) 11/09/20 05:22 Urine Color Yellow (Yellow) 11/08/20 13:34 Urine Appearance Hazy (CLEAR) A 11/08/20 13:34 Urine pH 5 (5-7) 11/08/20 13:34 Ur Specific Gravit y 1.005 (1.005-1.0 30) 11/08/20 13:34 Urine Protein Neg (Negative) 11/08/20 13:34 Urine Glucose (UA) Norm (Normal) 11/08/20 13:34 Urine Ketones Negative (Negati ve) 11/08/20 13:34 Urine Blood 2+ (Negative) H 11/08/20 13:34 Urine Nitrate Positive (Negati ve) H 11/08/20 13:34 Urine Bilirubin Neg (Negative) 11/08/20 13:34 Urine Urobilinogen Norm mg/dL (Negat alvaro) 11/08/20 13:34 Ur Leukocyte Alka ase 2+ (Negative) H 11/08/20 13:34 Urine RBC None /hpf (0-2) 11/08/20 13:34 Urine WBC 55-80 /hpf (0-5) H 11/08/20 13:34 Ur Squamous Epith Cells None /hpf (0-5) 11/08/20 13:34 Amorphous Sediment Not Reportable 11/08/20 13:34 Urine Bacteria 3+ /hpf (NONE) H 11/08/20 13:34 Digoxin 0.3 ng/mL (0.6-1. 2) L 11/08/20 21:00 Phenobarbital 26.1 ug/mL (10-30 ) 11/08/20 21:00 Blood Type O Positive 11/09/20 13:53 Rho(D) Type Positive / 4+ 11/09/20 13:53 Antibody Screen Negative 11/09/20 13:53 Impressions Abdomen/Pelvis CT 11/08/20 12:13 Lower thorax: Tree-in-bud opacifications bilaterally throughout the mid and lower lungs. No pneumothorax. Normal size heart. No hiatal hernia. Liver/biliary system: Normal size with no intrahepatic dilatation. Gallbladder: Normal. No gallstones or wall thickening. No pericholecystic fluid. Pancreas: Normal size pancreas and pancreatic duct. No adjacent inflammation. Spleen: Normal size spleen. No mass or infarct. Adrenal glands: Normal. Right kidney: Normal renal enhancement. There is contrast within the renal pelvis and ureter due to slow injection. Mild RIGHT ureteral dilatation. Left kidney: Abnormal enhancement within the renal parenchyma. There are areas of decreased enhancement and attenuation throughout the kidney. Mild dilatation of the renal pelvis and more significant dilatation of the ureter. There is a hypervascular nodular focus in the distal RIGHT ureter seen best on the coronal reformats. This was not present on the prior study. Aorta: Small caliber aorta with atherosclerotic plaque. There is a moderate stenosis within the infrarenal aorta extending into the proximal common iliac arteries. Lymphadenopathy: None. Free fluid: None. GI tract: No obstruction. Abdominal wall: Unremarkable abdominal wall. No hernia. Pelvis: Marked enlarged urinary bladder extending over length of 16 cm. Stable lymph nodes since 2014 measuring 19 mm at the LEFT groin. Bones: Narrowing of the RIGHT hip joint. No osteoblastic or osteolytic bone disease. IMPRESSION: 1. Tree-in-bud airspace disease bilaterally in the mid to lower lungs. Typically seen with endobronchial infection or atypical infection such as mycobacterium avium intracellulare. 2. Multifocal areas of decreased enhancement in the LEFT kidney. Wedge-shaped ischemic infarcts versus infection. There is not a lot of perinephric stranding to suggest pyelonephritis. 3. LEFT hydroureteronephrosis. The ureter is dilated throughout its course. At the UV junction is small peripherally enhancing nodule. This may be causing obstruction of the ureter. Consider ureteroscopy to exclude neoplasm. 4. Markedly distended urinary bladder may be responsible for the bilateral ureteral dilatation. Vitals: Last Vital Signs Temp 98.8 F 11/11/20 11:06 Pulse 101 H 11/11/20 11:06 Resp 17 11/11/20 11:06 BP 104/69 11/11/20 11:06 Pulse Ox 95 11/11/20 11:06 Discharge Plan Discharge Patient Disposition: Home Condition: Stable Prescriptions: New tamsulosin 0.4 mg Capsule 0.4 mg PO BID Qty: 60 RF: 0 metoprolol tartrate 25 mg Tablet 12.5 mg PO BID@0900,2100 Qty: 30 RF: 0 bisacodyl 5 mg Tablet,Delayed Release (Dr/Ec) 10 mg PO DAILY PRN (Reason: Constipation (see protocol)) Qty: 0 RF: 0 MagOx 400 mg (241.3 mg magnesium) tablet 400 mg PO BID Qty: 60 RF: 0 levofloxacin 500 mg tablet 500 mg PO DAILY 5 Days Qty: 5 RF: 0 Continued phenobarbital 16.2 mg tablet See Rx Instructions .ROUTE .COMPLEX RF: 0 cyanocobalamin (vitamin B-12) 1,000 mcg tablet extended release 1,000 mcg PO DAILY RF: 0 sulfasalazine 500 mg tablet 500 mg PO TID RF: 0 Dilantin Infatabs 50 mg tablet,chewable See Rx Instructions .ROUTE .COMPLEX RF: 0 digoxin 250 mcg (0.25 mg) tablet 250 mcg PO DAILY RF: 0 aspirin 81 mg tablet,delayed release (DR/EC) 81 mg PO DAILY RF: 0 levothyroxine 25 mcg tablet 25 mcg PO DAILY RF: 0 hydrocodone-acetaminophen 7.5-325 mg tablet 1 tab PO QID PRN (Reason: Pain) RF: 0 folic acid 1 mg tablet 1 mg PO DAILY RF: 0 Vitamin D2 1,250 mcg (50,000 unit) capsule 50,000 unit PO Q7D RF: 0 diazepam 5 mg tablet 5 mg PO BID PRN (Reason: Seizures) RF: 0 Vitamin D3 125 mcg (5,000 unit) Tablet 125 mcg PO DAILY RF: 0 Changed ferrous sulfate 325 mg (65 mg iron) tablet 325 mg PO BIDWM Qty: 0 RF: 0 DOK 100 mg capsule 100 mg PO DAILY Qty: 0 RF: 0 Discontinued metoprolol tartrate 50 mg tablet 50 mg PO BID RF: 0 Discharge Orders: Discharge Order (Routine); Ordered 11/11/20 Ordered By: Georgette Abel Referrals: [facility] [Outside] Dora Brady MD [Primary Care Provider] - 1 week (hospital follow up as needed) Young Aleman MD [Physician] - 2 weeks (New patient, urinary retention (2L), guan placed for first time, flomax started, Patient discussed with Dr Aleman by Dr Abel) Discharge Diet: Advance as tolerated Discharge Activity: Resume usual activity Patient Instructions: Metoprolol (By mouth), Levofloxacin (By mouth), Tamsulosin (By mouth), Magnesium Oxide (By mouth), Bisacodyl (By mouth), Benign Prostatic Hypertrophy (GEN), Iron Rich Diet (GEN), Guan Catheter Placement and Care (GEN), Regular Diet (GEN), Opioid Safety Activity Restrictions/Additional Instructions: Awais presented with decreased oral intake, nausea, vomiting and diarrhea. He was ultimately found to have a significantly distended urinary bladder. With Guan catheter placement he had more than 2 L urine output. Urinalysis was consistent with possibility of infection though urine culture only showed 10- 20,000 colony-forming units of bacteria. Awais is being treated with an antibiotic for an additional 5 days as there were some changes on CT imaging suggesting either infection or infarction in your left kidney. He had some dilated ureters as well which is not surprising given the degree of urinary retention you had. Other possible abnormalities were described on the CT imaging but I would like to see how he does with treatment with antibiotics for a bit before pursuing any other work-up. These included some nonspecific nodular areas in the ureters and kidney. The case was discussed with Dr. Aleman. While an enlarged prostate was not directly mentioned on CT imaging, strongly suspect prostatic hypertrophy. Flomax has been started. Due to the degree of urinary retention, Guan catheter will be maintained until follow-up with Dr. Aleman. Dr Aleman is out of town this coming week but stated that you could call the office if necessary for any issues with the catheter. If his office does not contact you with an appointment please contact them next week. Possible lung abnormalities were noted on CT of the abdomen. Awais did not have any respiratory symptoms or require any oxygen while here so no further evaluation regarding this was pursued at this point in time. I have decreased the dose of metoprolol secondary to low normal blood pressures on a quarter the usual dose while here in the hospital. Awais was noted to be anemic with initial hemoglobin of 9.4. With hydration received here, hemoglobin dropped to a low of here 7.6. It was 8.3 on the day of discharge. Iron level was low at 46. Andrade phosphorus and magnesium were also low. He received some electrolyte replacement while here. Encourage more balanced diet including with some iron rich foods. I did increase iron to twice a day and added supplemental magnesium. Continue other medications as you usually take them. Discharge information will be sent to Dr. Aleman's office as well as to Dora Duncan's office. Discharge Attestations Time Spent in Discharge Care*: greater than 30 min Specific Discharge Activities: educating and/or supporting family/caregiver, discussing with family caseworker/social workers/dc planners, documenting/other paperwork and evaluating patient/reviewing data Status at Discharge: Cognitive status at discharge: severely impaired cognition , Behavioral status at discharge: dependent in ADL's , Functional status at discharge: bed bound Overall status at discharge: patient is back to baseline Quality Metrics Clinical Quality Measures During this hospital stay, did patient experience: None Coding Level of Care Code Acute g DC note Diagnoses Nausea & vomiting R11.14 Vomiting type: bilious vomiting Hyponatremia E87.1 Urinary retention R33.9 UTI (urinary tract infection) N39.0 Hydronephrosis N13.30 Macrocytic anemia D53.9 Ulcerative colitis K51.90 Digestive disease complication type: without complication Ulcerative colitis location: unspecified ulcerative colitis location Seizure disorder G40.909 History of cardiac arrhythmia Z86.79 Hypothyroidism E03.9 Hypothyroidism type: unspecified Blindness of both eyes H54.3 Developmental delay, profound R62.50
--- NOTE | 2020-11-11 18:29 | PC.NURSE ---
Patient's IV catheter removed, tip intact, patient tolerated well. Discharge instructions given to patients family states verbal understanding, all questions answered. Patient discharged at this time in stable condition in the care of family.
== END 2020-11-11 18:32 | disposition home health service (06) | DRG 690 ==
LOC: ER 15:51 → MEDSURG 16:48
PROVIDERS: Admitting Provider Hospitalist; Emergency Provider Family Medicine; PCP Internal Medicine; Visit Provider Hospitalist
DX: N39.0 Urinary tract infection, site not specified (principal); K51.90 Ulcerative colitis, unspecified, without complications; E87.1 Hypo-osmolality and hyponatremia; N13.39 Other hydronephrosis; N10 Acute pyelonephritis; D53.9 Nutritional anemia, unspecified; F88 Other disorders of psychological development; T38.0X5S Adverse effect of glucocorticoids and synthetic analogues, sequela; R33.8 Other retention of urine; R11.14 Bilious vomiting; G40.909 Epilepsy, unspecified, not intractable, without status epilepticus; H54.3 Unqualified visual loss, both eyes; I49.9 Cardiac arrhythmia, unspecified; E03.9 Hypothyroidism, unspecified; E83.39 Other disorders of phosphorus metabolism; E83.42 Hypomagnesemia; E83.51 Hypocalcemia; Z79.891 Long term (current) use of opiate analgesic
CPT/HCPCS: 36415; 51702; 74177; 80048; 80053; 80162; 80184; 81001; 82550; 83036; 83540; 83550; 83605; 83690; 83735; 84100; 84443; 84484; 85014; 85018; 85025; 85610; 85730; 86850; 86900; 87040; 87086; 93005; 96372; J0696; J1650; J1956; J2405; J2550; J3475; J3490; J7030; J7040; Q9967

== ENCOUNTER 2020-11-22 16:12 | Emergency (ER) | payer MEDICARE, MEDICAID, SELFPAY ==
[2020-11-22 16:14] VITALS: BP 123/73; PULSE 131; RESP 20; TEMP 37.2; O2SAT 96; BMI 25.6
--- NOTE | 2020-11-22 16:27 | XRR_ITS ---
PROCEDURE INFORMATION: Exam: XR Chest Exam date and time: 11/22/2020 4:45 PM Age: 55 years old Clinical indication: Cough TECHNIQUE: Imaging protocol: XR of the chest. Views: 1 view. COMPARISON: CR Chest 1 [place] [id number] 01/15/2016 6:45 PM FINDINGS: Limitations: The study is made with less than full inspiration. Lungs: There is some subsegmental atelectasis at the left lung base. Bilateral interstitial opacities are not significantly changed from previous examinations. No focal consolidation is identified. Pleural spaces: Unremarkable. No pleural effusion. No pneumothorax. Heart/Mediastinum: Heart is within normal limits of size. Bones/joints: Unremarkable. Gastrointestinal tract: There is moderate gaseous distention of the stomach. XR/XR chest 1V portable [id number] IMPRESSION: 1. Chronic interstitial pulmonary disease. 2. Mild left basilar atelectasis.
--- NOTE | 2020-11-22 16:28 | ECG_ITS ---
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 Measurements Intervals [place] Rate: 132 P: 32 NC: 142 QRS: 2 QRSD: 89 T: 22 QT: 297 QTc: 440 Interpretive Statements SINUS TACHYCARDIA Compared to ECG 11/08/2020 15:52:16 Sinus rhythm no longer present Myocardial infarct finding no longer present Electronically Signed On 11-22-2020 18:29:46 CDT by Robyn Felix M.D. [id number]
--- NOTE | 2020-11-22 16:40 | W.ED.URI ---
HPI - URI/Sore Throat General: Chief Complaint: Upper Respiratory Infection Stated Complaint: RESPIRATORY DIFFICULTY Time Seen by Provider: 11/22/20 16:25 Source: EMS Mode of arrival: EMS Limitations: other (Significant developmental delay) History of Present Illness: HPI Narrative: This is a 55 year old male with a history of severe developmental delay, CHF, COPD, who is currently on Levaquin for likely respiratory illness. The patient is nonverbal and unable to give me history. His home health nurse felt that the patient was not in his usual state of health and so wanted him evaluated in the emergency department because she states she does not know what is wrong. He has not vomited and he has had no fever. 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 Developmental delay, profound related to adverse effect from steroids for ulcerative colitis per mother History of cardiac arrhythmia on digoxin chronically Hypothyroidism Nausea & vomiting Seizure disorder on phenobarbital chronically Ulcerative colitis on sulfasalazine Surgical History History of colonoscopy Family History Mother Cancer Currently undergoing chemotherapy Social History Smoking and tobacco status: never smoked Alcohol intake: never Caregiver/support person: Yes (Mother) Household members: family Physical Exam Const: COMMON NORMALS: no acute distress, average body habitus, no limitations, healthy appearing, alert and well nourished HENMT: COMMON NORMALS: normocephalic, atraumatic and moist oral mucous membranes HEAD & SCALP: normocephalic and atraumatic Eye: COMMON NORMALS: Equal, round and reactive pupils present, EOMs intact bilaterally, conjunctivae normal and no scleral icterus CONJUNCTIVA: Yes conjunctivae normal PUPIL: Yes Equal, round and reactive pupils present Neck/C-Spine: COMMON NORMALS: no meningeal signs and no JVD Resp: COMMON NORMALS: normal respiratory effort, No retractions, No use of accessory muscles, clear to auscultation bilaterally and percussion normal AUSCULTATION: clear to auscultation bilaterally PERCUSSION: percussion normal Cardio: COMMON NORMALS: no JVD, regular rate, regular rhythm, S1 normal heart sound present, S2 normal heart sound present, No gallops present (Cardio), No clicks present (Cardio), No murmurs present (Cardio), No rub (Cardio) and Peripheral pulses 2+ throughout RATE: regular rate RHYTHM: regular rhythm HEART SOUNDS: S1 normal heart sound present and S2 normal heart sound present PERIPHERAL PULSES: Peripheral pulses 2+ throughout GI: COMMON NORMALS: Normal to inspection, nondistended, normoactive bowel sounds present, Soft to palpation, non-tender, No hepatosplenomegaly present, no masses and no bruits PALPATION: Yes Soft to palpation and Yes No hepatosplenomegaly present Extremity: COMMON NORMALS: normal to inspection, full ROM, capillary refill normal, no calf tenderness and no pedal edema NARRATIVE EXTREMITY EXAM: contractures noted. Neuro: SENSORIUM/ORIENTATION: Yes alert MENINGEAL SIGNS: Yes no meningeal signs Skin: COMMON NORMALS: no rashes or lesions noted, no wounds, turgor normal, no jaundice, no petechiae and no mottling GENERAL SKIN EXAM: no rashes or lesions noted and turgor normal Course Reevaluation(s): Reevaluation #1: Discussed his lab and imaging findings with his caregiver. He has leukocytosis, but I cannot find an obvious source for his infection. BUN/creatinine ratio is suggestive of dehydration. He is hyponatremic and hypochloremic which I think is also consistent with dehydration. He is currently on Levaquin and he is advised to complete his dose. Otherwise I cannot find any acute illnesses and we will discharge him home. Caregiver voiced understanding and they are in agreement with the plan. Time: 20:43 Vital Signs: Vital signs: Vital Signs Temperature 98.9 F 11/22/20 16:14 Pulse Rate 120 H 11/22/20 21:01 Respiratory Rate 18 11/22/20 21:01 Blood Pressure 136/97 11/22/20 21:01 Pulse Oximetry 94 11/22/20 21:01 MDM - URI/Sore Throat MDM Narrative: Medical decision making narrative: 55-year-old male with developmental delay who was sent to the emergency department for evaluation for possible illness. In the emergency department he has leukocytosis, has signs of dehydration. Since I cannot identify any obvious source of infection or any obvious illness he is discharged home with no new orders. Medical Records: Attestation: I reviewed the patient's medical records. Lab Data: Attestation: I reviewed the patient's lab results. Labs: Lab Results 11/22/20 11/22/20 11/22/20 Range/Units 17:30 17:30 17:30 WBC 16.2 H (4.0-10.0) 10^3/ uL RBC 3.20 L (4.1-5.3) 10^6/u L Hgb 10.7 L (11.7-16.6) g/dL Hct 32.6 L (42.0-52.0) % MCV 101.9 H (80-94) fL MCH 33.4 (28.0-34.0) pg MCHC 32.8 (30.0-36.0) g/dL RDW 14.3 (12.1-15.1) % Plt Count 245 (130-400) 10^3/c mm MPV 10.3 (7.4-10.4) fL Neut % (Auto) 89.2 % Lymph % (Auto) 2.7 % [place] % (Auto) 7.5 % Eos % (Auto) 0.0 % Baso % (Auto) 0.1 % Neut # (Auto) 14.45 H (1.8-7.7) 10^3/u L Lymph # (Auto) 0.4 L (0.8-4.8) 10^3/u L [place] # (Auto) 1.2 H (0.2-0.9) 10^3/u L Eos # (Auto) 0.0 (0.0-0.8) 10^3/u L Baso # (Auto) 0.0 (0.0-0.1) 10^3/u L Nucleated RBC % (a uto) 0 % Nucleated RBCs # 0.0 /100WBC Sodium 126 L (136-145) mmol/L Potassium 4.2 (3.5-5.1) mmol/L Chloride 86 L (98-107) mmol/L Carbon Dioxide 25 (22-29) mmol/L Anion Gap 19.2 H (5-19) BUN 24 H (6-20) mg/dL Creatinine 1.0 (0.7-1.2) mg/dL GFR Calculation 77.6 L (90-130) mL/min Glucose 170 H (65-115) mg/dL Calculated Osmolal ity 270 L (285-295) mOsm/k g Calcium 8.9 (8.5-10.5) mg/dL Total Bilirubin 0.3 (0.15-1.2) mg/dL AST 34 (0-40) U/L ALT 25 (0-41) U/L Alkaline Phosphata se 106 (40-130) IU/L Troponin T Baselin e 32 H (0-15) ng/L Troponin T 120 Min [place]aver (0-15) ng/L Delta Troponin T (0-10) ABS# NT-Pro-B Natriuret Pep 1033 H (0-125) pg/mL Total Protein 7.1 (6.6-8.7) g/dL Albumin 4.2 (3.5-5.2) g/dL Globulin 2.9 (1.3-4.6) g/dL Lipase 109 H (13-60) U/L Urine Color (Yellow) Urine Appearance (CLEAR) Urine pH (5-7) Ur Specific Gravit y (1.005-1.030) Urine Protein (Negative) Urine Glucose (UA) (Normal) Urine Ketones (Negative) Urine Blood (Negative) Urine Nitrate (Negative) Urine Bilirubin (Negative) Urine Urobilinogen (Negative) mg/dL Ur Leukocyte Alka ase (Negative) Urine RBC (0-2) /hpf Urine WBC (0-5) /hpf Ur Squamous Epith Cells (0-5) /hpf Amorphous Sediment Urine Bacteria (NONE) /hpf Urine Mucus /hpf 11/22/20 11/22/20 Range/Units 18:30 20:06 WBC (4.0-10.0) 10^3/ uL RBC (4.1-5.3) 10^6/u L Hgb (11.7-16.6) g/dL Hct (42.0-52.0) % MCV (80-94) fL MCH (28.0-34.0) pg MCHC (30.0-36.0) g/dL RDW (12.1-15.1) % Plt Count (130-400) 10^3/c mm MPV (7.4-10.4) fL Neut % (Auto) % Lymph % (Auto) % [place] % (Auto) % Eos % (Auto) % Baso % (Auto) % Neut # (Auto) (1.8-7.7) 10^3/u L Lymph # (Auto) (0.8-4.8) 10^3/u L [place] # (Auto) (0.2-0.9) 10^3/u L Eos # (Auto) (0.0-0.8) 10^3/u L Baso # (Auto) (0.0-0.1) 10^3/u L Nucleated RBC % (a uto) % Nucleated RBCs # /100WBC Sodium (136-145) mmol/L Potassium (3.5-5.1) mmol/L Chloride (98-107) mmol/L Carbon Dioxide (22-29) mmol/L Anion Gap (5-19) BUN (6-20) mg/dL Creatinine (0.7-1.2) mg/dL GFR Calculation (90-130) mL/min Glucose (65-115) mg/dL Calculated Osmolal ity (285-295) mOsm/k g Calcium (8.5-10.5) mg/dL Total Bilirubin (0.15-1.2) mg/dL AST (0-40) U/L ALT (0-41) U/L Alkaline Phosphata se (40-130) IU/L Troponin T Baselin e (0-15) ng/L Troponin T 120 Min beaver 24.06 H (0-15) ng/L Delta Troponin T -7.94 L (0-10) ABS# NT-Pro-B Natriuret Pep (0-125) pg/mL Total Protein (6.6-8.7) g/dL Albumin (3.5-5.2) g/dL Globulin (1.3-4.6) g/dL Lipase (13-60) U/L Urine Color Yellow (Yellow) Urine Appearance Clear (CLEAR) Urine pH 5 (5-7) Ur Specific Gravit y 1.020 (1.005-1.030) Urine Protein 1+ H (Negative) Urine Glucose (UA) 1+ (Normal) Urine Ketones Negative (Negative) Urine Blood 3+ H (Negative) Urine Nitrate Negative (Negative) Urine Bilirubin Neg (Negative) Urine Urobilinogen Norm (Negative) mg/dL Ur Leukocyte Alka ase Negative (Negative) Urine RBC 5-10 H (0-2) /hpf Urine WBC 0-4 H (0-5) /hpf Ur Squamous Epith Cells 0-4 H (0-5) /hpf Amorphous Sediment Not Reportable Urine Bacteria 1+ H (NONE) /hpf Urine Mucus 1+ /hpf Imaging Data^: CXR: Attestation: I personally reviewed and interpreted this imaging study as follows: Radiologist's impression: [address] [id number] ReportSigned Patient: Awais Macias #: [id number]: 1965Acct#:[id number]/Sex: 55 / MADM Date: 11/22/20Loc: ERRoom/Bed:Attending Dr: Ordering Provider/Ordering MD: Dorcas Rdz MD, [facility] Date of Service: 11/22/20 Procedure(s): XR chest 1V portable [id number] Accession Number(s): [id number] Report Number: [id number] PROCEDURE INFORMATION: Exam: XR Chest Exam date and time: 11/22/2020 4:45 PM Age: 55 years old Clinical indication: Cough TECHNIQUE: Imaging protocol: XR of the chest. Views: 1 view. COMPARISON: CR Chest 1 [place] [id number] 01/15/2016 6:45 PM FINDINGS: Limitations: The study is made with less than full inspiration. Lungs: There is some subsegmental atelectasis at the left lung base. Bilateral interstitial opacities are not significantly changed from previous examinations. No focal consolidation is identified. Pleural spaces: Unremarkable. No pleural effusion. No pneumothorax. Heart/Mediastinum: Heart is within normal limits of size. Bones/joints: Unremarkable. Gastrointestinal tract: There is moderate gaseous distention of the stomach. XR/XR chest 1V portable [id number] IMPRESSION: 1. Chronic interstitial pulmonary disease. 2. Mild left basilar atelectasis. Dictated By:Nataliya Marr By:Nataliya Marr Date/Time:11/22/20 1717DD/ 15 EKG Data^: EKG 1: Attestation: I personally reviewed and interpreted this EKG as follows: EKG interpretation date: 11/22/20 EKG interpretation time: 17:02 Prior EKG tracings: not available for review Interpretation: Sinus tachycardia. Heart rate [address] changes. EKG 2: Attestation: I personally reviewed and interpreted this EKG as follows: EKG interpretation date: 11/22/20 EKG interpretation time: 19:02 Prior EKG tracings: available for review Interpretation: Sinus tachycardia. Heart rate [address] changes. No significant change from earlier Discharge Plan Discharge Patient Disposition: Home Clinical Impression: Dehydration, Tachycardia Leucocytosis Qualifiers: Leukocytosis type: unspecified Qualified Code(s): D72.829 - Elevated white blood cell count, unspecified Condition: Stable Prescriptions: Continued levofloxacin 500 mg Tablet 500 mg PO DAILY RF: 0 ferrous sulfate 325 mg (65 mg iron) tablet 325 mg PO BIDWM RF: 0 DOK 100 mg capsule 100 mg PO DAILY PRN (Reason: Constipation) RF: 0 metoprolol tartrate 25 mg tablet 12.5 mg PO BID@0900,2100 RF: 0 phenobarbital 16.2 mg tablet See Rx Instructions .ROUTE .COMPLEX RF: 0 cyanocobalamin (vitamin B-12) 1,000 mcg tablet extended release 1,000 mcg PO DAILY RF: 0 sulfasalazine 500 mg tablet 500 mg PO TID RF: 0 phenytoin [Dilantin Infatabs] 50 mg tablet,chewable See Rx Instructions .ROUTE .COMPLEX RF: 0 digoxin 250 mcg (0.25 mg) tablet 250 mcg PO DAILY RF: 0 aspirin 81 mg tablet,delayed release (DR/EC) 81 mg PO DAILY RF: 0 levothyroxine 25 mcg tablet 25 mcg PO DAILY RF: 0 hydrocodone-acetaminophen 7.5-325 mg tablet 1 tab PO QID PRN (Reason: Pain) RF: 0 folic acid 1 mg tablet 1 mg PO DAILY RF: 0 diazepam 5 mg tablet 5 mg PO BID PRN (Reason: Seizures) RF: 0 cholecalciferol (vitamin D3) [Vitamin D3] 125 mcg (5,000 unit) Tablet 125 mcg PO DAILY RF: 0 tamsulosin 0.4 mg Capsule 0.4 mg PO BID Qty: 60 RF: 0 bisacodyl 5 mg Tablet,Delayed Release (Dr/Ec) 10 mg PO DAILY PRN (Reason: Constipation (see protocol)) Qty: 0 RF: 0 magnesium oxide [MagOx] 400 mg (241.3 mg magnesium) tablet 400 mg PO BID Qty: 60 RF: 0 Discharge Orders: Discharge ED (Routine); Ordered 11/22/20 Ordered By: Dorcas Rdz Referrals: Dora Brady MD [Primary Care Provider] - 1-3 days Discharge Diet: Usual diet Discharge Activity: Resume usual activity Patient Instructions: Dehydration (ED), Upper Respiratory Infection (ED), Leukocytosis (ED) Activity Restrictions/Additional Instructions: Return for any new or worsening symptoms. Continue his medications as prescribed by his doctor. Give him plenty of fluids to drink to keep well-hydrated. Coding Level of Care Code ED Conduit Reamer Operator for Nathalia Hagan
--- NOTE | 2020-11-22 17:13 | PC.PHAR ---
PT UNABLE TO VERIFY MEDICATIONS-MEDICATIONS ENTERED ARE FROM WHAT [facility] HAS FILLED RECENTLY AND WHAT WAS ON THE PTS HOMEHEALTH LIST
[2020-11-22 17:42] LABS: Basophils % 0.1 %; Hematocrit 32.6 % (42.0-52.0); Hemoglobin 10.7 g/dL (11.7-16.6); Lymphocytes # 0.4 10^3/uL (0.8-4.8); Lymphocytes % 2.7 %; Mean Corpuscular HGB Conc 32.8 g/dL (30.0-36.0); Mean Corpuscular Hemoglobin 33.4 pg (28.0-34.0); Mean Corpuscular Volume 101.9 fL (80-94); Mean Platelet Volume 10.3 fL (7.4-10.4); Monocytes # 1.2 10^3/uL (0.2-0.9); Monocytes % 7.5 %; Neutrophils # 14.45 10^3/uL (1.8-7.7); Neutrophils % 89.2 %; Nucleated Red Blood Cells % 0 %; Platelet Count 245 10^3/cmm (130-400); Red Cell Distribution Width 14.3 % (12.1-15.1); White Blood Count 16.2 10^3/uL (4.0-10.0)
[2020-11-22 18:19] LABS: Troponin(5th) Baseline 32 ng/L (0-15)
[2020-11-22 18:22] LABS: Alanine Aminotransferase 25 U/L (0-41); Albumin Level 4.2 g/dL (3.5-5.2); Alkaline Phosphatase 106 IU/L (40-130); Anion Gap 19.2 (5-19); Aspartate Amino Transferase 34 U/L (0-40); Blood Urea Nitrogen 24 mg/dL (6-20); Calcium 8.9 mg/dL (8.5-10.5); Carbon Dioxide 25 mmol/L (22-29); Chloride 86 mmol/L (98-107); Globulin 2.9 g/dL (1.3-4.6); Glomerular Filtration Rate 77.6 mL/min (90-130); Glucose 170 mg/dL (65-115); Lipase 109 U/L (13-60); NT Pro B Type Natriuretic Pept 1033 pg/mL (0-125); Osmolality Calculated 270 mOsm/kg (285-295); Potassium 4.2 mmol/L (3.5-5.1); Sodium 126 mmol/L (136-145); Total Bilirubin 0.3 mg/dL (0.15-1.2); Total Protein 7.1 g/dL (6.6-8.7)
--- NOTE | 2020-11-22 18:28 | ECG_ITS ---
[facility] Test Date: 2020-11-22 Pat Name: Awais Macias Department: Room: Gender: Male Regulatory And Compliance Technician: : 1965 Requested By: Dorcas Rdz I Order Number: [id number] Heber MD: Robyn Felix M.D. Measurements Intervals [place] Rate: 127 P: 22 AK: 147 QRS: -9 QRSD: 90 T: 8 QT: 303 QTc: 441 Interpretive Statements SINUS TACHYCARDIA POSSIBLE ANTERIOR MYOCARDIAL INFARCTION , OF INDETERMINATE AGE [30 ms Q WAVE IN V3/V4, OR R < 0.2 mV IN V4] INFERIOR MYOCARDIAL INFARCTION , PROBABLY OLD [40+ ms Q WAVE AND/OR ST/T ABNORMALITY IN II/aVF] Compared to ECG 11/22/2020 17:02:24 Myocardial infarct finding now present Electronically Signed On 11-24-2020 9:56:18 CDT by Robyn Felix M.D. [email or web address] HotelsCantaloupe [email or web address] [email or web address].Yemeksepeti/store/OM/[id number]
[2020-11-22 18:34] VITALS: PULSE 127; RESP 18; O2SAT 94
[2020-11-22 18:50] LABS: Add Urine Microscopic? YES; Bacteria Urine 1+ /hpf; Bilirubin Urine Neg (Negative); Blood Urine 3+ (Negative); Glucose Urine UA 1+ (Normal); Ketones Urine Negative (Negative); Leukocyte Esterase Urine Negative (Negative); Mucus Urine 1+ /hpf; Nitrate Urine Negative (Negative); Protein Urine 1+ (Negative); Squamous Epithelial Cell Urine 0-4 /hpf (0-5); Urine Appearance Clear (CLEAR); Urine Color Yellow (Yellow); Urobilinogen Urine Norm (Negative); WBC Urine 0-4 /hpf (0-5); pH Urine 5 (5-7)
[2020-11-22 19:08] VITALS: BP 133/80; PULSE 125; RESP 19; O2SAT 96
[2020-11-22] MEDS: sodium chloride 0.9% 1,000 ML 999 ML IV (19:16)
[2020-11-22 20:29] LABS: Troponin 5 2HR 24.06 ng/L (0-15); Troponin 5 2HR Delta -7.94 ABS# (0-10)
[2020-11-22 20:59] VITALS: BP 136/97; PULSE 120; RESP 17; O2SAT 93
[2020-11-22 21:01] VITALS: BP 136/97; PULSE 120; RESP 18; O2SAT 94
== END 2020-11-22 21:06 | disposition home or self-care (01) ==
PROVIDERS: Emergency Provider Family Medicine; PCP Internal Medicine
DX: D72.829 Elevated white blood cell count, unspecified (principal); E86.0 Dehydration; R00.0 Tachycardia, unspecified; Z79.82 Long term (current) use of aspirin
CPT/HCPCS: 71045; 80053; 81001; 83690; 83880; 84484; 85025; 93005; 96360; 99284; J7030

== ENCOUNTER 2020-11-29 14:24 | Inpatient (IN) | payer MEDICARE, MEDICAID, SELFPAY ==
[2020-11-29 14:26] VITALS: BP 192/88; PULSE 135; RESP 18; TEMP 36.9; O2SAT 93; BMI 25.6
--- NOTE | 2020-11-29 14:31 | XR_ITS ---
WS: [id number] Portable AP semiupright chest, 11/29/2020 Clinical Data: reduced breath sounds Comparison: Portable chest, 11/22/2020. Findings: There are interstitial markings throughout both lungs. The patient has a poor inspiratory e ffort. No nodules, masses or effusions are seen. The heart is normal. No pneumothorax is seen. There is a large amount of air in the stomach small bowel and colon. XR/XR chest 1V portable [id number] Impression: 1. Interstitial markings throughout both lungs which could represent atelectasi s, consolidation or chronic interstitial change. 2. Poor inspiratory effort. 3. Probable generalized ileus.
--- NOTE | 2020-11-29 14:36 | ECG_ITS ---
[facility] Test Date: 2020-11-29 Pat Name: Awais Macias Department: Room: Gender: Male Program Engagement Director: : 1965 Requested By: Alex Massey Order Number: [id number] Buck MD: Nabil Gaming M.D. Measurements Intervals [place] Rate: 125 P: 18 PA: 157 QRS: -7 QRSD: 88 T: 8 QT: 307 QTc: 444 Interpretive Statements SINUS TACHYCARDIA POSSIBLE ANTERIOR MYOCARDIAL INFARCTION [30 ms Q WAVE IN V3/V4, OR R < 0.2 mV IN V4], OF INDETERMINATE AGE Compared to ECG 11/22/2020 19:02:41 No significant changes Electronically Signed On 11-29-2020 18:38:33 CDT by Nabil Gaming M.D. [email or web address]/store/OM/[id number]
[2020-11-29 14:58] LABS: ABG PCO2 35.4 mmHg (35-45); ABG PH Result 7.53 (7.35-7.45); Arterial Blood Gas Hematocrit 29.9 % (42-52); Base Excess ABG 6.4 mmol/L (-2.0-2.0); Blood Gas Allen Test Pos; Blood Gas Operator Identificat CAK; Blood Gas Sample Site Radial, left; Blood Gas Sample Type Arterial; Carboxyhemoglobin 0.6 %THgb (0.4-20.1); HCO3 ABG 29.5 mmol/L (22-26); Methemoglobin 3.2 % (0.4-1.5); Oxygen Device ROOM AIR; PO2 ABG 56.4 mmHg (80.0-100.0); Total Hemoglobin 9.8 g/dL (14-18)
[2020-11-29 15:01] VITALS: BP 145/81; PULSE 129; RESP 19; O2SAT 98
[2020-11-29 15:17] LABS: Add Urine Microscopic? NO; Charge for UA Resulting for Rev
[2020-11-29 15:19] LABS: Bilirubin Urine Neg (Negative); Blood Urine Neg (Negative); Glucose Urine UA Norm (Normal); Ketones Urine Negative (Negative); Leukocyte Esterase Urine Negative (Negative); Nitrate Urine Negative (Negative); Protein Urine Neg (Negative); Specific Gravity, Urine 1.005 (1.005-1.030); Urine Appearance Clear (CLEAR); Urine Color Yellow (Yellow); Urobilinogen Urine Norm (Negative); pH Urine 7 (5-7)
[2020-11-29 15:29] LABS: Basophils % 0.3 %; Eosinophils % 0.7 %; Hematocrit 29.9 % (42.0-52.0); Mean Corpuscular HGB Conc 33.4 g/dL (30.0-36.0); Mean Corpuscular Hemoglobin 33.6 pg (28.0-34.0); Mean Corpuscular Volume 100.3 fL (80-94); Mean Platelet Volume 9.1 fL (7.4-10.4); Monocytes # 0.9 10^3/uL (0.2-0.9); Monocytes % 15.5 %; Neutrophils # 3.95 10^3/uL (1.8-7.7); Neutrophils % 66.8 %; Nucleated Red Blood Cells % 0 %; Platelet Count 219 10^3/cmm (130-400); Red Blood Count 2.98 10^6/uL (4.1-5.3); Red Cell Distribution Width 13.8 % (12.1-15.1); White Blood Count 5.9 10^3/uL (4.0-10.0)
[2020-11-29 15:50] LABS: Lactic Sepsis W/Reflex 2.2 mmol/L (0.5-2.2)
[2020-11-29 15:52] LABS: Troponin(5th) Baseline 24 ng/L (0-15)
[2020-11-29 15:55] VITALS: PULSE 125
[2020-11-29 16:02] LABS: Alanine Aminotransferase 26 U/L (0-41); Albumin Level 4.2 g/dL (3.5-5.2); Alkaline Phosphatase 121 IU/L (40-130); Anion Gap 18.2 (5-19); Aspartate Amino Transferase 34 U/L (0-40); Blood Urea Nitrogen 6 mg/dL (6-20); Calcium 9.2 mg/dL (8.5-10.5); Carbon Dioxide 26 mmol/L (22-29); Chloride 88 mmol/L (98-107); Globulin 2.9 g/dL (1.3-4.6); Glomerular Filtration Rate 117.1 mL/min (90-130); Glucose 128 mg/dL (65-115); NT Pro B Type Natriuretic Pept 446 pg/mL (0-125); Osmolality Calculated 267 mOsm/kg (285-295); Potassium 3.2 mmol/L (3.5-5.1); Sodium 129 mmol/L (136-145); Total Bilirubin 0.4 mg/dL (0.15-1.2); Total Protein 7.1 g/dL (6.6-8.7)
[2020-11-29] MEDS: doxycycline 100 MG in sodium chloride 0.9% (plus) 100 ML IV (16:03)
--- NOTE | 2020-11-29 16:08 | CTR_ITS ---
PROCEDURE INFORMATION: Exam: CT Chest With Contrast; Diagnostic Exam date and time: 11/29/2020 5:49 PM Age: 55 years old Clinical indication: Abdominal tenderness; Shortness of breath; Additional info: Abd pain h/o crohns; Ileus; Hypoxia. Pe? . Resp infection x 1 week TECHNIQUE: Imaging protocol: Diagnostic computed tomography of the chest with contrast. Radiation optimization: All CT scans at this facility use at least one of these dose optimization techniques: automated exposure control; mA and/or kV adjustment per patient size (includes targeted exams where dose is matched to clinical indication); or iterative reconstruction. Contrast material: OMNI 300; Contrast volume: 95 ml; Contrast route: INTRAVENOUS (IV); COMPARISON: CR XR chest 1V portable [id number] 11/29/2020 3:15 PM RADIATION DOSE METRICS: Total DLP (mGy-cm): 1578.06 FINDINGS: Lungs: Significantly progressed scarring with calcifications in the bilateral lower lobes. Interstitial scarring with some calcifications in the upper lobes and lingula. Consolidation in the posterior lower lobes. Pleural spaces: Unremarkable. No pneumothorax. No pleural effusion. Heart: Mitral annulus calcifications. Aorta: Unremarkable. No aortic aneurysm. Lymph nodes: Unremarkable. No enlarged lymph nodes. Bones/joints: Kyphosis and scoliosis. No fracture identified. Soft tissues: Unremarkable. IMPRESSION: 1. Worsened scarring with parenchymal calcifications in both lungs. 2. Consolidation in the lower lobes could represent a combination of scarring and pneumonia versus aspiration. 3. Note: This study was not performed as a CTA and cannot exclude pulmonary embolus. PROCEDURE INFORMATION: Exam: CT Abdomen And Pelvis With Contrast Exam date and time: 11/29/2020 5:49 PM Age: 55 years old Clinical indication: Abdominal tenderness; Shortness of breath; Additional info: Abd pain h/o crohns; Ileus; Hypoxia. Pe? . Resp infection x 1 week TECHNIQUE: Imaging protocol: Computed tomography of the abdomen and pelvis with contrast. Radiation optimization: All CT scans at this facility use at least one of these dose optimization techniques: automated exposure control; mA and/or kV adjustment per patient size (includes targeted exams where dose is matched to clinical indication); or iterative reconstruction. Contrast material: OMNI 300; Contrast volume: 95 ml; Contrast route: INTRAVENOUS (IV); COMPARISON: CR XR chest 1V portable [id number] 11/29/2020 3:15 PM RADIATION DOSE METRICS: Total DLP (mGy-cm): 1578.06 FINDINGS: Liver: Normal. No mass. Gallbladder and bile ducts: Normal. No calcified stones. No ductal dilation. Pancreas: Normal. No ductal dilation. Spleen: Normal. No splenomegaly. Adrenal glands: Normal. No mass. Kidneys and ureters: Inhomogenous parenchymal enhancement in the left kidney. The right kidney is normal. Columning of the distal left ureter with mild urothelial enhancement. No calculus. No hydronephrosis. Stomach and bowel: Multiple loops of gas distended dilated small bowel with air-fluid levels measuring up to 3.7 cm. A definite transition point is not identified but the distal and terminal small bowel is decompressed. The colon is unremarkable with scattered gas and stool to the rectum. The stomach is unremarkable. Appendix: The appendix is visualized and is normal. Intraperitoneal space: Unremarkable. No free air. No significant fluid collection. Vasculature: Calcified plaque with moderate stenosis in the proximal superior mesenteric artery. Left renal artery stent suspected. Calcified plaque with severe stenosis in the distal aorta which is small in size. Lymph nodes: Unremarkable. No enlarged lymph nodes. Urinary bladder: Logan catheter in a decompressed urinary bladder. Mild wall thickening in the urinary bladder. Reproductive: Unremarkable as visualized. Bones/joints: Lumbar scoliosis. No fracture. Soft tissues: Unremarkable. Other findings: Stable 2.6 cm oval low-density lesion in the left groin, Hounsfield units 26. CT/CT chest abd pel w con* IMPRESSION: 1. Inhomogenous enhancement of the left kidney with urothelial enhancement in the distal left ureter. This is suspicious for pyelonephritis and infection of the collecting system. Clinical correlation recommended. 2. Dilated small bowel with air-fluid levels could represent ileus or partial small bowel obstruction. 3. Wall thickening in the urinary bladder could represent cystitis. 4. 2.6 cm low-density lesion in the left groin is unchanged and could represent an enlarged lymph node or complicated seroma or lymphocele. A neoplastic process cannot be entirely excluded. Radiation Dose CTDIVOL = (mGy): DLP = 1578.06~1578.06 (mGy-cm)
--- NOTE | 2020-11-29 16:36 | ECG_ITS ---
[facility] Test Date: 2020-11-29 Pat Name: Awais Macias Department: Room: Gender: Male Supervisor Microbiology Technologists: : 1965 Requested By: Alex Massey Order Number: [id number] Buck MD: Nabil Gaming M.D. Measurements Intervals [place] Rate: 116 P: 28 DE: 174 QRS: 6 QRSD: 95 T: 14 QT: 307 QTc: 427 Interpretive Statements SINUS TACHYCARDIA POSSIBLE ANTERIOR MYOCARDIAL INFARCTION [30 ms Q WAVE IN V3/V4, OR R < 0.2 mV IN V4], OF INDETERMINATE AGE Compared to ECG 11/29/2020 15:06:34 No significant changes Electronically Signed On 11-29-2020 18:58:13 CDT by Nabil Gaming M.D. [email or web address].WhiteHat Securityummc grenadaNimble Storageohiohealth grad[facility].[email or web address])/store/OM/[id number]
[2020-11-29 17:04] VITALS: BP 137/82; PULSE 118
[2020-11-29 17:13] LABS: Reflex Lactate Order REFLEX LACTIC ORDERD
[2020-11-29] MEDS: iohexol 300 mg/mL 100 mL Btl IV (18:00)
[2020-11-29 18:12] LABS: Troponin 5 2HR 30.16 ng/L (0-15); Troponin 5 2HR Delta 6.16 ABS# (0-10)
[2020-11-29] MEDS: sodium chloride 0.9% 500 ML IV (18:36)
[2020-11-29 18:49] LABS: Lactic Acid level (Lactate) 1.7 mmol/L (0.5-2.2)
--- NOTE | 2020-11-29 19:20 | W.ED.SOB ---
HPI - SOB/Dyspnea General: Chief Complaint: Shortness of Breath/Dyspnea Stated Complaint: Resp distress Time Seen by Provider: 11/29/20 14:31 History of Present Illness: HPI Narrative: The patient is a 55-year-old male with developmental delay, ulcerative colitis, blindness. He comes to the ER appearing short of breath and hypoxic. ABG shows satting 86% on room air. His baseline he is unable to communicate but drafter chief design notes he has had increasing cough and increasing face grimacing. He is usually able to motion in such a way that indicates he wants to eat and he is able to eat. He was seen in the ER a week ago and sent home with doxycycline and diagnosed with dehydration and respiratory infection.. All the pills but 2 are left in the bottle so he probably took 2 days worth of antibiotics. 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 The patient is grimacing at times in pain and forcibly closes his eyes. He has muscle wasting in his lower extremities and a Logan catheter chronically. Sinus tachycardia on exam Const: COMMON NORMALS: average body habitus ORIENTATION/CONSCIOUSNESS: Yes awake OTHER: He is at his baseline mental status plus grimacing in pain at times. HENMT: COMMON NORMALS: normocephalic, external ears normal and Normal external nose present HEAD & SCALP: normal to inspection and normocephalic NOSE: Normal external nose present EXTERNAL EAR: Yes external ears normal MOUTH: Normal oral and palatal mucosa present Eye: OTHER: Unable to examine eyes he will not open them and forcibly closes them. Neck/C-Spine: COMMON NORMALS: full ROM, no lymphadenopathy, no meningeal signs and no JVD GENERAL: Yes normal visual inspection Lymph: LYMPHATIC: no lymphadenopathy noted Chest: COMMONS NORMALS: normal inspection of the chest and normal palpation of entire chest wall Resp: COMMON NORMALS: normal respiratory effort, No retractions, No use of accessory muscles, clear to auscultation bilaterally and percussion normal EFFORT & INSPECTION: Yes able to speak in complete sentences AUSCULTATION: clear to auscultation bilaterally PERCUSSION: percussion normal Cardio: COMMON NORMALS: no JVD, regular rhythm, S1 normal heart sound present, S2 normal heart sound present and Peripheral pulses 2+ throughout RATE: tachycardic RHYTHM: regular rhythm HEART SOUNDS: S1 normal heart sound present and S2 normal heart sound present PERIPHERAL PULSES: Peripheral pulses 2+ throughout GI: COMMON NORMALS: Normal to inspection, nondistended, normoactive bowel sounds present, Soft to palpation, non-tender and no masses INSPECTION: Yes normal to inspection PALPATION: Yes Soft to palpation : COMMON NORMALS: Yes no CVA tenderness BLADDER/KIDNEY EXAM: Yes no CVA tenderness Back/Pelvis: COMMON NORMALS: no CVA tenderness, thoracic and lumbar spine normal to inspection, no thoracic nor lumbar tenderness and thoraco-lumbar ROM normal Extremity: COMMON NORMALS: normal to inspection, full ROM, capillary refill normal, no joint enlargement and no pedal edema NARRATIVE EXTREMITY EXAM: Chronic muscle wasting lower extremities bilaterally. GENERAL: Yes normal exam except as noted OTHER: Logan catheter present Neuro: COMMON NORMALS: CN's II-XII intact bilaterally, moves all extremities, no focal motor deficits and no sensory deficits noted MENINGEAL SIGNS: Yes no meningeal signs Psych: ATTITUDE: Yes calm Skin: COMMON NORMALS: no rashes or lesions noted GENERAL SKIN EXAM: no rashes or lesions noted Course Vital Signs: Vital signs: Vital Signs Temperature 98.4 F 11/29/20 14:26 Pulse Rate 118 H 11/29/20 17:04 Respiratory Rate 19 H 11/29/20 15:01 Blood Pressure 137/82 11/29/20 17:04 Pulse Oximetry 98 11/29/20 15:01 MDM - SOB/Dyspnea MDM Narrative: Medical decision making narrative: Patient is a 55-year-old male with significant mental handicap. He came in tachycardic. Likely dehydrated and possibly related to infection. He was given a liter of IV fluids. CT shows that he is has bilateral pneumonia possibly from aspiration and pyelonephritis and cystitis. He was started on IV antibiotics as well. Discussed with Dr. Silver who accepts for admission. Also has mild hypokalemia and hyponatremia which can be dealt with on the floor. Lab Data: Labs: Lab Results 11/29/20 11/29/20 11/29/20 Range/Units 14:47 14:57 15:14 WBC 5.9 (4.0-10.0) 10^3/ uL RBC 2.98 L (4.1-5.3) 10^6/u L Hgb 10.0 L (11.7-16.6) g/dL Hct 29.9 L (42.0-52.0) % MCV 100.3 H (80-94) fL MCH 33.6 (28.0-34.0) pg MCHC 33.4 (30.0-36.0) g/dL RDW 13.8 (12.1-15.1) % Plt Count 219 (130-400) 10^3/c mm MPV 9.1 (7.4-10.4) fL Neut % (Auto) 66.8 % Lymph % (Auto) 16.0 % [place] % (Auto) 15.5 % Eos % (Auto) 0.7 % Baso % (Auto) 0.3 % Neut # (Auto) 3.95 (1.8-7.7) 10^3/u L Lymph # (Auto) 1.0 (0.8-4.8) 10^3/u L [place] # (Auto) 0.9 (0.2-0.9) 10^3/u L Eos # (Auto) 0.0 (0.0-0.8) 10^3/u L Baso # (Auto) 0.0 (0.0-0.1) 10^3/u L Nucleated RBC % (a uto) 0 % Nucleated RBCs # 0.0 /100WBC Specimen Type Arterial Sample Site Radial, left ABG pH 7.53 H (7.35-7.45) ABG pCO2 35.4 (35-45) mmHg ABG pO2 56.4 L (80.0-100.0) mmH g ABG HCO3 29.5 H (22-26) mmol/L ABG Base Excess 6.4 H (-2.0-2.0) mmol/ L Wiley Test Pos Hematocrit 29.9 L (42-52) % Hgb O2 Saturation 86.0 L (95-100) % Carboxyhemoglobin 0.6 (0.4-20.1) %THgb Methemoglobin 3.2 H (0.4-1.5) % Total Hemoglobin 9.8 L (14-18) g/dL O2 Delivery Device Room air FiO2 21.0 % Funeral Pre Arrangement Specialist ID Cak Sodium (136-145) mmol/L Potassium (3.5-5.1) mmol/L Chloride (98-107) mmol/L Carbon Dioxide (22-29) mmol/L Anion Gap (5-19) BUN (6-20) mg/dL Creatinine (0.7-1.2) mg/dL GFR Calculation (90-130) mL/min Glucose (65-115) mg/dL Calculated Osmolal ity (285-295) mOsm/k g Lactic Acid (0.5-2.2) mmol/L Lactic Acid (Sepsi s) (0.5-2.2) mmol/L Calcium (8.5-10.5) mg/dL Total Bilirubin (0.15-1.2) mg/dL AST (0-40) U/L ALT (0-41) U/L Alkaline Phosphata se (40-130) IU/L Troponin T Baselin e (0-15) ng/L Troponin T 120 Min tejon (0-15) ng/L Delta Troponin T (0-10) ABS# NT-Pro-B Natriuret Pep (0-125) pg/mL Total Protein (6.6-8.7) g/dL Albumin (3.5-5.2) g/dL Globulin (1.3-4.6) g/dL Urine Color Yellow (Yellow) Urine Appearance Clear (CLEAR) Urine pH 7 (5-7) Ur Specific Gravit y 1.005 (1.005-1.030) Urine Protein Neg (Negative) Urine Glucose (UA) Norm (Normal) Urine Ketones Negative (Negative) Urine Blood Neg (Negative) Urine Nitrate Negative (Negative) Urine Bilirubin Neg (Negative) Urine Urobilinogen Norm (Negative) mg/dL Ur Leukocyte Alka ase Negative (Negative) Digoxin (0.6-1.2) ng/mL Phenytoin (10-20) ug/mL Phenobarbital (10-30) ug/mL 11/29/20 11/29/20 11/29/20 Range/Units 15:14 15:14 15:14 WBC (4.0-10.0) 10^3/ uL RBC (4.1-5.3) 10^6/u L Hgb (11.7-16.6) g/dL Hct (42.0-52.0) % MCV (80-94) fL MCH (28.0-34.0) pg MCHC (30.0-36.0) g/dL RDW (12.1-15.1) % Plt Count (130-400) 10^3/c mm MPV (7.4-10.4) fL Neut % (Auto) % Lymph % (Auto) % [place] % (Auto) % Eos % (Auto) % Baso % (Auto) % Neut # (Auto) (1.8-7.7) 10^3/u L Lymph # (Auto) (0.8-4.8) 10^3/u L [place] # (Auto) (0.2-0.9) 10^3/u L Eos # (Auto) (0.0-0.8) 10^3/u L Baso # (Auto) (0.0-0.1) 10^3/u L Nucleated RBC % (a uto) % Nucleated RBCs # /100WBC Specimen Type Sample Site ABG pH (7.35-7.45) ABG pCO2 (35-45) mmHg ABG pO2 (80.0-100.0) mmH g ABG HCO3 (22-26) mmol/L ABG Base Excess (-2.0-2.0) mmol/ L Wiley Test Hematocrit (42-52) % Hgb O2 Saturation (95-100) % Carboxyhemoglobin (0.4-20.1) %THgb Methemoglobin (0.4-1.5) % Total Hemoglobin (14-18) g/dL O2 Delivery Device FiO2 % Funeral Pre Arrangement Specialist ID Sodium 129 L (136-145) mmol/L Potassium 3.2 L (3.5-5.1) mmol/L Chloride 88 L (98-107) mmol/L Carbon Dioxide 26 (22-29) mmol/L Anion Gap 18.2 (5-19) BUN 6 (6-20) mg/dL Creatinine 0.7 (0.7-1.2) mg/dL GFR Calculation 117.1 (90-130) mL/min Glucose 128 H (65-115) mg/dL Calculated Osmolal ity 267 L (285-295) mOsm/k g Lactic Acid 2.2 (0.5-2.2) mmol/L Lactic Acid (Sepsi s) (0.5-2.2) mmol/L Calcium 9.2 (8.5-10.5) mg/dL Total Bilirubin 0.4 (0.15-1.2) mg/dL AST 34 (0-40) U/L ALT 26 (0-41) U/L Alkaline Phosphata se 121 (40-130) IU/L Troponin T Baselin e 24 H (0-15) ng/L Troponin T 120 Min tejon (0-15) ng/L Delta Troponin T (0-10) ABS# NT-Pro-B Natriuret Pep 446 H (0-125) pg/mL Total Protein 7.1 (6.6-8.7) g/dL Albumin 4.2 (3.5-5.2) g/dL Globulin 2.9 (1.3-4.6) g/dL Urine Color (Yellow) Urine Appearance (CLEAR) Urine pH (5-7) Ur Specific Gravit y (1.005-1.030) Urine Protein (Negative) Urine Glucose (UA) (Normal) Urine Ketones (Negative) Urine Blood (Negative) Urine Nitrate (Negative) Urine Bilirubin (Negative) Urine Urobilinogen (Negative) mg/dL Ur Leukocyte Alka ase (Negative) Digoxin (0.6-1.2) ng/mL Phenytoin (10-20) ug/mL Phenobarbital (10-30) ug/mL 11/29/20 11/29/20 11/29/20 Range/Units 17:42 17:42 17:42 WBC (4.0-10.0) 10^3/ uL RBC (4.1-5.3) 10^6/u L Hgb (11.7-16.6) g/dL Hct (42.0-52.0) % MCV (80-94) fL MCH (28.0-34.0) pg MCHC (30.0-36.0) g/dL RDW (12.1-15.1) % Plt Count (130-400) 10^3/c mm MPV (7.4-10.4) fL Neut % (Auto) % Lymph % (Auto) % [place] % (Auto) % Eos % (Auto) % Baso % (Auto) % Neut # (Auto) (1.8-7.7) 10^3/u L Lymph # (Auto) (0.8-4.8) 10^3/u L [place] # (Auto) (0.2-0.9) 10^3/u L Eos # (Auto) (0.0-0.8) 10^3/u L Baso # (Auto) (0.0-0.1) 10^3/u L Nucleated RBC % (a uto) % Nucleated RBCs # /100WBC Specimen Type Sample Site ABG pH (7.35-7.45) ABG pCO2 (35-45) mmHg ABG pO2 (80.0-100.0) mmH g ABG HCO3 (22-26) mmol/L ABG Base Excess (-2.0-2.0) mmol/ L Wiley Test Hematocrit (42-52) % Hgb O2 Saturation (95-100) % Carboxyhemoglobin (0.4-20.1) %THgb Methemoglobin (0.4-1.5) % Total Hemoglobin (14-18) g/dL O2 Delivery Device FiO2 % Funeral Pre Arrangement Specialist ID Sodium (136-145) mmol/L Potassium (3.5-5.1) mmol/L Chloride (98-107) mmol/L Carbon Dioxide (22-29) mmol/L Anion Gap (5-19) BUN (6-20) mg/dL Creatinine (0.7-1.2) mg/dL GFR Calculation (90-130) mL/min Glucose (65-115) mg/dL Calculated Osmolal ity (285-295) mOsm/k g Lactic Acid (0.5-2.2) mmol/L Lactic Acid (Sepsi s) 1.7 (0.5-2.2) mmol/L Calcium (8.5-10.5) mg/dL Total Bilirubin (0.15-1.2) mg/dL AST (0-40) U/L ALT (0-41) U/L Alkaline Phosphata se (40-130) IU/L Troponin T Baselin e (0-15) ng/L Troponin T 120 Min tejon 30.16 H (0-15) ng/L Delta Troponin T 6.16 (0-10) ABS# NT-Pro-B Natriuret Pep (0-125) pg/mL Total Protein (6.6-8.7) g/dL Albumin (3.5-5.2) g/dL Globulin (1.3-4.6) g/dL Urine Color (Yellow) Urine Appearance (CLEAR) Urine pH (5-7) Ur Specific Gravit y (1.005-1.030) Urine Protein (Negative) Urine Glucose (UA) (Normal) Urine Ketones (Negative) Urine Blood (Negative) Urine Nitrate (Negative) Urine Bilirubin (Negative) Urine Urobilinogen (Negative) mg/dL Ur Leukocyte Alka ase (Negative) Digoxin 1.0 (0.6-1.2) ng/mL Phenytoin 29.7 H (10-20) ug/mL Phenobarbital 52.1 H* (10-30) ug/mL Discharge Plan Discharge Patient Disposition: Admitted As Inpatient Admit Provider: Aydin Silver Clinical Impression: Acute pyelonephritis, Tachycardia, Cystitis, Pneumonia Condition: Stable Coding Level of Care Code ED Product Development Director for Chg Fwd Exam Comprehensive
--- NOTE | 2020-11-29 19:49 | P.HP_ITS ---
Providers/Chief Complaint Primary Care Provider: Dora Brady MD Chief Complaint: Resp distress History of Present Illness Awais Macias is a 55 year old male who has intellectual disability, nonambulatory since age 9(sister is not endorsing any traumatic brain injury, she is attributing his condition to excessive steroid use in the past, she is not sure about history of stroke), patient is legally blind, nonverbal, he uses hand gestures to express himself, was brought in today for chief concern of excessive cough. He was seen in the ER few days ago and was discharged with doxycycline for upper airway infection however his symptoms did not resolve. Sister is at the bedside who is endorsing that for last 4 to 5 days he has been experiencing shortness of breath, he sounds very congested, however he is not able to bring up any sputum, he is annoyed because of persistent cough, family has not noticed any fever at home. No active vomiting, he only had 1 loose stool yesterday other than that his bowel movements are regular. He has a chronic indwelling Logan catheter, which is draining clear yellow urine, it was changed 3 weeks ago. Diagnostics in the ER revealed tachypnea, tachycardia, however normal leukocyte, chronic anemia, normal ABG with mild hypoxia, hyponatremia, hypokalemia, BNP 446, chest and abdominal imaging revealed possible aspiration pneumonia and pyelonephritis, I would hold his antiepileptics because of high level, requested digoxin level , UA unremarkable Review of Systems General: Reports: ROS unobtainable due to medical condition Medications/Allergies Home Medications Medication Instructions Recorded Confirmed Last Taken Type aspirin 81 mg PO DAILY@79911/08/20 11/29/20 11/29/20 History cholecalciferol (vitamin D3) 125 mcg PO DAILY@79911/08/20 11/29/20 11/29/20 History [Vitamin D3] cyanocobalamin (vitamin B-12) 1,000 mcg PO DAILY@79911/08/20 11/29/20 11/29/20 History diazepam 5 mg PO BID PRN 11/08/20 11/29/20 11/28/20 History digoxin 250 mcg PO DAILY@79911/08/20 11/29/20 11/29/20 History folic acid 1 mg PO DAILY@79911/08/20 11/29/20 11/07/20 History hydrocodone-acetaminophen 1 tab PO QID PRN 11/08/20 11/29/20 11/28/20 History levothyroxine 25 mcg PO DAILY@0800 11/08/20 11/29/20 11/29/20 History phenobarbital See Rx Instructions .ROUTE .COMPLEX 11/08/20 11/29/20 11/29/20 History phenytoin [Dilantin Infatabs] See Rx Instructions .ROUTE .COMPLEX 11/08/20 11/29/20 11/29/20 History sulfasalazine 500 mg PO TID@08,12,20 11/08/20 11/29/20 11/29/20 History bisacodyl 10 mg PO DAILY PRN #0 tab 11/11/20 11/29/20 Unknown Rx docusate sodium [DOK] 100 mg PO DAILY PRN 11/22/20 11/29/20 11/29/20 History ferrous sulfate 325 mg PO BIDWM 11/22/20 11/29/20 11/29/20 History MagOx 400 mg PO BID@0800,199911/29/20 11/29/20 11/29/20 History doxycycline hyclate 100 mg PO BID@0800,199911/29/20 11/29/20 11/29/20 History ergocalciferol (vitamin D2) 1,250 mcg PO Q7D 11/29/20 11/29/20 11/26/20 History [Vitamin D2] metoprolol tartrate 50 mg PO BID@0800,199911/29/20 11/29/20 11/29/20 History tamsulosin 0.4 mg PO BID@0800,199911/29/20 11/29/20 11/29/20 History Allergies Allergy/AdvReac Type Severity Reaction Status Date / Time Penicillins Allergy Unknown Verified 11/15/20 14:48 PFSH Acute PFSH: Medical History 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 Developmental delay, profound related to adverse effect from steroids for ulcerative colitis per mother History of cardiac arrhythmia on digoxin chronically Hypothyroidism Nausea & vomiting Seizure disorder on phenobarbital chronically Ulcerative colitis on sulfasalazine Surgical History History of colonoscopy Family History Mother Cancer Currently undergoing chemotherapy Social History Smoking and tobacco status: never smoked Alcohol intake: never Caregiver/support person: Yes (Mother) Household members: family Vitals/I&O/Wt Last Vital Signs Temp 98.4 F 11/29/20 14:26 Pulse 118 H 11/29/20 17:04 Resp 19 H 11/29/20 15:01 BP 137/82 11/29/20 17:04 Pulse Ox 98 11/29/20 15:01 11/29/20 11/29/20 11/29/20 06:59 14:59 22:59 Intake Total 100 / 100 Balance 100 / 100 Weight last 48 hrs Weight 63.503 kg Physical Exam Narrative: EXAM NARRATIVE: male, profound intellectual disability, nonambulatory, nonverbal, blind He is able to move all of his 4 extremities, Sounds very congested bilaterally, diminished airflow with crackles S1, S2 sinus tachycardia clinically looks dehydrated Facial flushing noticed No sacral ulcers Lower extremity misuse atrophy , No facial grimacing on palpation of abdomen, bowel sounds are sluggish No acute respiratory distress No joint swelling noted Neuro exam limited Data : 11/29/20 15:14 11/29/20 15:14 Micro: Microbiology 11/29/20 15:17 Blood Culture - Preliminary Blood SPECIMEN COLLECTED 11/29/20 15:14 Blood Culture - Preliminary Blood SPECIMEN COLLECTED A&P Assessment and plan (1) Dehydration: Status: Acute (2) Leucocytosis: Status: Acute Qualifiers: Leukocytosis type: unspecified Qualified Code(s): D72.829 - Elevated w alexei blood cell count, unspecified (3) Tachycardia: Status: Acute (4) Acute pyelonephritis: Status: Acute (5) Aspiration pneumonia: Status: Acute Additional A&P Information Aspiration pneumonia Start him on ceftriaxone and Zosyn No active signs of sepsis Chest and abdominal imaging revealed concerning changes for aspiration and pyel onephritis however UA is unremarkable, normal creatinine, previous CT abdomen also revealed similar findings, highly doubt pyelonephritis Check urine antigen DuoNeb every 4 as needed Check procalcitonin Neuro exam is limited, no active emesis, no acute indication for intubation, he is able to protect his airway for now however high risk for intubation Sepsis criteria met with , tachypnea & tachycardia, lactic acid is normal Blood cultures requested Keep him on IV fluids and broad-spectrum antibiotics for now Partial small bowel obstruction: Place NG tube, sister is endorsing that he had 1 loose stool today and then afterwards had bowel movement changed to regular, no facial grimacing noticed on abdominal palpation however bowel sounds are sluggish, has history of ulcerative colitis CT abdomen pelvis:1. Inhomogenous enhancement of the left kidney with urothelial enhancement in the distal left ureter. This is suspicious for pyelonephritis and infection of the collecting system. Clinical correlation recommended. 2. Dilated small bowel with air-fluid levels could represent ileus or partial small bowel obstruction. 3. Wall thickening in the urinary bladder could represent cystitis. 4. 2.6 cm low-density lesion in the left groin is unchanged and could represent an enlarged lymph node or complicated seroma or lymphocele. A neoplastic process cannot be entirely excluded. DVT prophylaxis: Lovenox Without family member to stay with him Holding antiepileptics because of higher serum levels Check digoxin level Maintain Logan catheter He is full code At home he gets mechanical soft diet, because of concern of aspiration pneumonia we will get speech evaluation we will keep him n.p.o. for now Attestations Medical Necessity Statement*: Stay in the hospital might need more than 2 mid nights because of management of aspiration pneumonia and partial small bowel obstruction Time Spent in Patient Care: 30mins Coding Level of Care Code Acute Intake Counselor for g Fwd Diagnoses Dehydration E86.0 Leucocytosis D72.829 Leukocytosis type: unspecified Tachycardia R00.0 Acute pyelonephritis N10 Aspiration pneumonia J69.0
--- NOTE | 2020-11-29 21:10 | ECG_ITS ---
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
[2020-11-29 21:59] LABS: Phenytoin Dilantin 29.7 ug/mL (10-20)
[2020-11-30] VITALS (11 sets, daily range): BP systolic 107–143; BP diastolic 62–80; PULSE 81–108; RESP 14–19; TEMP 36.7–37.3; O2SAT 92–98
[2020-11-30] MEDS: dextrose 5%-ns + KCl 20 20 MEQ/1,000 ML BAG 75 MEQ IV (01:14)
[2020-11-30] MEDS: aztreonam 2,000 MG in sodium chloride 0.9% (plus) 100 ML 200 MG IV ×2 (01:18→12:53)
[2020-11-30] MEDS: enoxaparin 40 mg/0.4 mL Syringe SUBCUT ×2 (01:24→23:17)
--- NOTE | 2020-11-30 01:52 | XRR_ITS ---
PROCEDURE INFORMATION: Exam: XR Chest Exam date and time: 11/30/2020 1:56 AM Age: 55 years old Clinical indication: Device placement; Ng tube; Patient HX: Check for initial ng placement; Additional info: G-tube placement TECHNIQUE: Imaging protocol: XR of the chest. Views: 1 view. COMPARISON: CT chest abd pel w con* 11/29/2020 5:55 PM FINDINGS: NG tube has been placed with the tip in the stomach. Lungs: Bilateral scattered lung infiltrates are present. No consolidation. Pleural spaces: Unremarkable. No pleural effusion. No pneumothorax. Heart/Mediastinum: Unremarkable. No cardiomegaly. Bones/joints: Unremarkable. XR/XR chest 1V portable [id number] IMPRESSION: The NG tube is in good position.
[2020-11-30] MEDS: cefTRIAXone 1,000 MG in sodium chloride 0.9% (plus) 50 ML 100 MG IV ×2 (02:05→23:17)
[2020-11-30] MEDS: metroNIDAZOLE IV 500 MG/100 ML PREMIX 100 MG IV ×4 (02:48→23:58)
[2020-11-30] MEDS: ipratropium-albuterol 3 mL Neb INHALATION ×3 (04:57→20:20)
[2020-11-30] MEDS: phenytoin 50mg Chew Tablet 100 MG PO (06:14)
[2020-11-30 06:17] LABS: Blood Urea Nitrogen 8 mg/dL (6-20); Calcium 8.7 mg/dL (8.5-10.5); Carbon Dioxide 27 mmol/L (22-29); Chloride 94 mmol/L (98-107); Glomerular Filtration Rate 117.1 mL/min (90-130); Glucose 170 mg/dL (65-115); Osmolality Calculated 280 mOsm/kg (285-295); Sodium 134 mmol/L (136-145)
[2020-11-30 06:21] LABS: Basophils % 0.3 %; Eosinophils % 0.3 %; Hematocrit 33.1 % (42.0-52.0); Hemoglobin 10.4 g/dL (11.7-16.6); Lymphocytes # 0.7 10^3/uL (0.8-4.8); Lymphocytes % 10.6 %; Mean Corpuscular HGB Conc 31.4 g/dL (30.0-36.0); Mean Corpuscular Hemoglobin 32.4 pg (28.0-34.0); Mean Corpuscular Volume 103.1 fL (80-94); Mean Platelet Volume 10.9 fL (7.4-10.4); Monocytes % 14.3 %; Neutrophils # 4.95 10^3/uL (1.8-7.7); Neutrophils % 73.9 %; Nucleated Red Blood Cells % 0 %; Platelet Count 149 10^3/cmm (130-400); Red Blood Count 3.21 10^6/uL (4.1-5.3); Red Cell Distribution Width 13.9 % (12.1-15.1); White Blood Count 6.7 10^3/uL (4.0-10.0)
[2020-11-30 06:25] LABS: Anion Gap 16.8 (5-19); Potassium 3.8 mmol/L (3.5-5.1)
[2020-11-30] MEDS: tamsulosin 0.4 mg Capsule PO ×2 (08:50→23:07)
[2020-11-30] MEDS: levothyroxine 25 mcg Tablet PO (08:50)
[2020-11-30] MEDS: metoprolol tartrate 50 mg Tablet PO ×2 (08:50→23:06)
[2020-11-30] MEDS: phenytoin 50mg Chew Tablet 50 MG PO ×2 (12:56→23:09)
--- NOTE | 2020-11-30 15:45 | PC.SLP ---
Two attempts made to see patient. He could not be awakened for his evaluation. Will continue to follow patient to determine appropriate alertness level for evaluation.
--- NOTE | 2020-11-30 15:46 | PC.SLP ---
Two attempts made to evaluate patient. He was unable to be awakened for assessment. Will continue to monitor for when patient is alert enough to participate in evaluation.
--- NOTE | 2020-11-30 19:07 | PM.PN ---
Subjective Subjective: Interval history: overnight labs and H&P reviewed. No acute interim events. NGT output 600cc Vitals/I&O/Wt Last Vital Signs Temp 99.1 F 11/30/20 16:00 Pulse 94 11/30/20 16:00 Resp 16 11/30/20 16:00 BP 119/69 11/30/20 16:00 Pulse Ox 96 11/30/20 16:00 11/30/20 11/30/20 11/30/20 06:59 14:59 22:59 Intake Total 250 / 850 800 / 800 500 / 1300 Output Total 2049 Balance 250 / 850 800 / 800 -1550 / -750 Weight last 48 hrs Weight 63.503 kg Physical Exam Narrative: EXAM NARRATIVE: male, profound intellectual disability, nonambulatory, nonverbal, blind He is able to move all of his 4 extremities, B/L coarse conducted sounds , crackles diffusely S1, S2 sinus tachycardia clinically looks dehydrated Facial flushing noticed No sacral ulcers Neuro exam limited Data : 11/30/20 05:23 11/30/20 05:23 Micro: Microbiology 11/29/20 15:17 Blood Culture - Preliminary Blood NEGATIVE TO DATE 11/29/20 15:14 Blood Culture - Preliminary Blood NEGATIVE TO DATE 11/29/20 00:01 Bacterial Antigens - Final Urine,Voided 11/29/20 00:01 Legionella Urinary Antigen - Final Urine Catheterized A&P Assessment and plan (1) Dehydration: Status: Inactive (2) Leucocytosis: Status: Inactive Qualifiers: Leukocytosis type: unspecified Qualified Code(s): D72.829 - Elevated white blood cell count, unspecified (3) Tachycardia: Status: Inactive (4) Acute pyelonephritis: Status: Acute (5) Aspiration pneumonia: Status: Acute Additional A&P Information Aspiration pneumonia Currently on cfetriaxone, Aztreonam and Flagyl. Discontinue Aztreonam, continue CEftriaxone and metronidazole. Chest and abdominal imaging revealed concerning changes for aspiration and pyelonephritis however UA is unremarkable, normal creatinine, previous CT abdomen also revealed similar findings, less likely to be pyelonephritis pending urine antigen DuoNeb every 4 as needed Partial small bowel obstruction: NGT to suction, no facial grimacing noticed on abdominal palpation however bowel sounds are sluggish, has history of ulcerative colitis. check C diff PCR He is full code At home he gets mechanical soft diet, because of concern of aspiration pneumonia we will get speech evaluation we will keep him n.p.o. for now Attestations Medical Necessity Statement*: ongoing need for Iv abx, NGT to suction Coding Level of Care Code Acute Waistband Setter for Chg Fwd Diagnoses Dehydration E86.0 Leucocytosis D72.829 Leukocytosis type: unspecified Tachycardia R00.0 Acute pyelonephritis N10 Aspiration pneumonia J69.0
[2020-12-01] VITALS (15 sets, daily range): BP systolic 89–138; BP diastolic 60–83; PULSE 78–106; RESP 16–20; TEMP 36.4–36.8; O2SAT 87–99
--- NOTE | 2020-12-01 02:36 | PC.NURSE ---
NG Tube This nurse went in to check on patient, noticed that he had pulled out his NG tube which was laying on his chest. Dr. Grande notified and said we can leave it out to see how patient does.
[2020-12-01] MEDS: ipratropium-albuterol 3 mL Neb INHALATION ×3 (04:07→19:44)
[2020-12-01 07:53] LABS: Basophils % 0.3 %; Eosinophils % 0.6 %; Hematocrit 29.8 % (42.0-52.0); Hemoglobin 9.2 g/dL (11.7-16.6); Lymphocytes # 0.7 10^3/uL (0.8-4.8); Lymphocytes % 10.9 %; Mean Corpuscular HGB Conc 30.9 g/dL (30.0-36.0); Mean Corpuscular Hemoglobin 32.6 pg (28.0-34.0); Mean Corpuscular Volume 105.7 fL (80-94); Monocytes # 1.3 10^3/uL (0.2-0.9); Monocytes % 19.8 %; Neutrophils # 4.42 10^3/uL (1.8-7.7); Neutrophils % 67.9 %; Nucleated Red Blood Cells % 0 %; Platelet Count 178 10^3/cmm (130-400); Red Blood Count 2.82 10^6/uL (4.1-5.3); Red Cell Distribution Width 14.3 % (12.1-15.1); White Blood Count 6.5 10^3/uL (4.0-10.0)
[2020-12-01 08:13] LABS: Alanine Aminotransferase 26 U/L (0-41); Albumin Level 3.2 g/dL (3.5-5.2); Alkaline Phosphatase 96 IU/L (40-130); Aspartate Amino Transferase 37 U/L (0-40); Blood Urea Nitrogen 7 mg/dL (6-20); Calcium 7.7 mg/dL (8.5-10.5); Carbon Dioxide 27 mmol/L (22-29); Chloride 99 mmol/L (98-107); Globulin 3.3 g/dL (1.3-4.6); Glomerular Filtration Rate 117.1 mL/min (90-130); Glucose 147 mg/dL (65-115); Osmolality Calculated 277 mOsm/kg (285-295); Sodium 133 mmol/L (136-145); Total Bilirubin 0.3 mg/dL (0.15-1.2); Total Protein 6.5 g/dL (6.6-8.7)
--- NOTE | 2020-12-01 08:42 | PC.SLP ---
Attempted to see patient and he is unable to be awakened for his evaluation. Will check back later today. Patient's sister was present and reported the patient eats yogurt, applesauce, and drinks water. That is all he will eat/drink. He was not having any swallowing difficulties prior to admission
[2020-12-01] MEDS: dextrose 5%-ns + KCl 20 20 MEQ/1,000 ML BAG 75 MEQ IV (08:48)
[2020-12-01] MEDS: metroNIDAZOLE IV 500 MG/100 ML PREMIX 100 MG IV ×2 (08:49→16:58)
[2020-12-01 08:54] LABS: Anion Gap 10.7 (5-19)
[2020-12-01 08:55] LABS: Potassium 3.7 mmol/L (3.5-5.1)
--- NOTE | 2020-12-01 14:21 | PC.SLP ---
Attempted to see patient. He continues to be difficult to awaken or he is unable to stay awake for more than a few seconds. Patient's sister was present and provided more information. He drinks from a baby bottle. The only thing he will drink is water. Patient has all food blenderized because he chokes easily. He will eat oatmeal, scrambled eggs, yogurt, blenderized turkey. He has to be fed. Will continue to monitor for appropriate alertness level that will allow the patient to fully participate in his swallowing evaluation.
--- NOTE | 2020-12-01 23:13 | PM.PN ---
Subjective Subjective: Interval history: pulled out NGT overnight, noted to have cough with expectoration however unable to bring up sputum , no bm today Medications: Reviewed: Yes Vitals/I&O/Wt Last Vital Signs Temp 98.3 F 12/01/20 20:00 Pulse 99 12/01/20 20:00 Resp 17 12/01/20 20:00 BP 138/82 12/01/20 20:00 Pulse Ox 92 12/01/20 20:00 12/01/20 12/01/20 12/02/20 14:59 22:59 06:59 Intake Total 100 / 100 100 / 200 Output Total 600 / 600 Balance 100 / 100 -500 / -400 Physical Exam Narrative: EXAM NARRATIVE: male, profound intellectual disability, nonambulatory, nonverbal, blind He is able to move all of his 4 extremities, B/L coarse conducted sounds , crackles diffusely S1, S2 sinus tachycardia clinically looks dehydrated Facial flushing noticed No sacral ulcers Neuro exam limited Data : 12/01/20 07:39 12/01/20 07:39 A&P Assessment and plan (1) Dehydration: Status: Inactive (2) Leucocytosis: Status: Inactive Qualifiers: Leukocytosis type: unspecified Qualified Code(s): D72.829 - Elevated white blood cell count, unspecified (3) Tachycardia: Status: Inactive (4) Acute pyelonephritis: Status: Acute (5) Aspiration pneumonia: Status: Acute Additional A&P Information Aspiration pneumonia continue CEftriaxone and metronidazole. Chest and abdominal imaging revealed concerning changes for aspiration and pyelonephritis however UA is unremarkable, normal creatinine, previous CT abdomen also revealed similar findings, less likely to be pyelonephritis negtaive urine antigen DuoNeb every 4 as needed Add chest vest, noted to have coarse crackles on exam, patient unable to expectorate but pooling secretions in mouth LAst aspiration pneumonia approximately 10 years ago- trial of po intake tomorrow Partial small bowel obstruction: NGT to suction, however pulled out by patient overnight Abdominal exam is benign, non distended, non tender, BS+ Hold off on replacing for now Trial of clears tomorrow He is full code At home he gets mechanical soft diet Attestations Medical Necessity Statement*: pneumonia requiring iv abx, Time Spent in Patient Care: Greater than 35 minutes (>than 50% of time spent in counselling and/or direct pt care on unit). Coding Level of Care Code Acute [employer] Manager for Chg Fwd Diagnoses Dehydration E86.0 Leucocytosis D72.829 Leukocytosis type: unspecified Tachycardia R00.0 Acute pyelonephritis N10 Aspiration pneumonia J69.0
[2020-12-02] VITALS (12 sets, daily range): BP systolic 105–137; BP diastolic 68–79; PULSE 92–113; RESP 16–20; TEMP 36.8–37.2; O2SAT 87–98
[2020-12-02] MEDS: dextrose 5%-ns + KCl 20 20 MEQ/1,000 ML BAG 75 MEQ IV (00:10)
[2020-12-02] MEDS: cefTRIAXone 1,000 MG in sodium chloride 0.9% (plus) 50 ML 100 MG IV ×2 (00:11→23:31)
[2020-12-02] MEDS: enoxaparin 40 mg/0.4 mL Syringe SUBCUT ×2 (00:13→23:31)
[2020-12-02] MEDS: metroNIDAZOLE IV 500 MG/100 ML PREMIX 100 MG IV ×3 (00:15→15:55)
[2020-12-02] MEDS: ipratropium-albuterol 3 mL Neb INHALATION ×3 (07:33→19:48)
--- NOTE | 2020-12-02 11:35 | PC.SOCIAL ---
Pg 2 IMM Explained to pt's dad, Pg 2 IMM. No questions voiced. Provided pt a copy. Signed, dated, & timed a copy & placed in chart.
--- NOTE | 2020-12-02 12:00 | XRR_ITS ---
PROCEDURE INFORMATION: Exam: XR Abdomen Exam date and time: 12/02/2020 12:58 PM Age: 55 years old Clinical indication: Condition or disease; Intestinal condition; Obstruction; Additional info: Follw up ileus TECHNIQUE: Imaging protocol: XR of the abdomen. Views: Frontal supine view of the abdomen. 1 View. COMPARISON: CT chest abd pel w con* 11/29/2020 5:55 PM FINDINGS: Gastrointestinal tract: Significant decreased air-filled loops of distended small bowel with significant improvement. Bones/joints: Unremarkable. XR/XR abdomen 1V* [id number] IMPRESSION: Significant decreased air-filled loops of distended small bowel with significant improvement.
--- NOTE | 2020-12-02 14:06 | PC.NURSE ---
PT HAS APPEARED TO BE GOOD FOR ME TODAY. HE HAS BEEN RESTING. BREAKFAST WAS OFFERED TO PT BUT HE WOULD PUSH AWAY YOUR HAND WHEN OFFERING TO FEED HIM, SAME WHEN ATTEMPTING TO GIVE HIM SOMETHING TO DRINK. THIS NURSE WENT AND ASSESSED OTHER PTS AND CAME BACK TO OFFER PT MORE FOOD AND DRINK WELL HIS MEDICATIONS BUT HE PUSHED MY HAND AWAY. MEDICATIONS WERE RETURNED TO THE PYXIS. THE DOCTOR HAS ORDERED SOME ADDITIONAL TESTS TO BE PREFORMED AND ASKED FOR NURSING TO ATTEMPT A BEDSIDE SWALLOW EVAL. THIS NURSE ATTEMPTED TO GET PT TO DRINK SOME WATER BUT AGAIN HE PUSHED MY HAND AWAY. WILL CONTINUE TO WORK WITH PT WELL MONITOR HIM. FAMILY IS AT BEDSIDE.
--- NOTE | 2020-12-02 18:00 | PM.PN ---
Subjective Subjective: Interval history: T max 99F, on NC 2lpm, tolerated chest vest overnight, failed swallow evaluation today Medications: Reviewed: Yes Vitals/I&O/Wt Last Vital Signs Temp 99.0 F 12/02/20 15:40 Pulse 108 H 12/02/20 15:40 Resp 16 12/02/20 15:40 BP 128/77 12/02/20 15:40 Pulse Ox 98 12/02/20 15:40 12/02/20 12/02/20 12/02/20 06:59 14:59 22:59 Intake Total 50 / 1250 1100.00 / 1100.00 100 / 1200.00 Output Total 550 / 1150 Balance -500 / 100 1100.00 / 1100.00 100 / 1200.00 Physical Exam Narrative: EXAM NARRATIVE: male, profound intellectual disability, nonambulatory, nonverbal, blind He is able to move all of his 4 extremities, B/L coarse conducted sounds , crackles diffusely S1, S2 sinus tachycardia clinically looks dehydrated Facial flushing noticed No sacral ulcers Neuro exam limited Data : 12/01/20 07:39 12/01/20 07:39 A&P Assessment and plan (1) Dehydration: Status: Inactive (2) Leucocytosis: Status: Inactive Qualifiers: Leukocytosis type: unspecified Qualified Code(s): D72.829 - Elevated white blood cell count, unspecified (3) Tachycardia: Status: Inactive (4) Acute pyelonephritis: Status: Acute (5) Aspiration pneumonia: Status: Acute Additional A&P Information Aspiration pneumonia continue CEftriaxone and metronidazole fro total course of 5 days Chest and abdominal imaging revealed concerning changes for aspiration and pyelonephritis however UA is unremarkable, normal creatinine, previous CT abdomen also revealed similar findings, less likely to be pyelonephritis negtaive urine antigen DuoNeb every 4 as needed Added chest vest, noted to have coarse crackles on exam, patient unable to expectorate but pooling secretions in mouth Failed swallow evaluation today, if consistently continues to avelina, will need to consider placement of PEG to meet nutritional needs Partial small bowel obstruction: NGT to suction, however pulled out by patient overnight , no BM yet Abdominal exam is benign, non distended, non tender, BS+ X ray of the abdomen today shows significantly decreased air filled lopps of small bowel. failed swallow evaluation Elevated levels of seizure medications: Recheck level in am, will resume based on levels full code DVT ppx: lovenox Attestations Medical Necessity Statement*: aspiration pneumonia, needs iv abx, trial of oral intake, return of bowel function Coding Level of Care Code Acute Securities Settlement Processor for Chg Fwd Diagnoses Dehydration E86.0 Leucocytosis D72.829 Leukocytosis type: unspecified Tachycardia R00.0 Acute pyelonephritis N10 Aspiration pneumonia J69.0
[2020-12-02] MEDS: metoprolol tartrate 50 mg Tablet PO (20:22)
[2020-12-02] MEDS: phenytoin 50mg Chew Tablet 50 MG PO (20:22)
[2020-12-02] MEDS: tamsulosin 0.4 mg Capsule PO (20:23)
[2020-12-03] VITALS (13 sets, daily range): BP systolic 113–130; BP diastolic 75–85; PULSE 84–111; RESP 16–20; TEMP 36.4–37; O2SAT 92–98
[2020-12-03] MEDS: metroNIDAZOLE IV 500 MG/100 ML PREMIX 100 MG IV ×3 (00:46→17:16)
[2020-12-03] MEDS: ipratropium-albuterol 3 mL Neb INHALATION ×3 (07:56→20:25)
[2020-12-03] MEDS: levothyroxine 25 mcg Tablet PO (09:33)
[2020-12-03] MEDS: metoprolol tartrate 50 mg Tablet PO ×2 (09:33→20:13)
[2020-12-03] MEDS: tamsulosin 0.4 mg Capsule PO ×2 (09:33→20:14)
--- NOTE | 2020-12-03 10:15 | P.PN_ITS ---
Subjective Subjective: Interval history: mentation improving, more animated, makes more sounds, appears to respond to sister's cues. Failed swallow eval x2 Medications: Reviewed: Yes Vitals/I&O/Wt Last Vital Signs Temp 97.6 F 12/03/20 20:00 Pulse 111 H 12/03/20 20:31 Resp 18 12/03/20 20:26 BP 118/78 12/03/20 20:00 Pulse Ox 97 12/03/20 20:26 12/03/20 12/03/20 12/03/20 06:59 14:59 22:59 Intake Total 150 / 1350.00 100 / 100 100 / 200 Output Total 300 / 1300 350 / 350 200 / 550 Balance -150 / 50.00 -250 / -250 -100 / -350 Physical Exam Narrative: EXAM NARRATIVE: male, profound intellectual disability, nonambulatory, nonverbal, blind He is able to move all of his 4 extremities, B/L coarse conducted sounds , crackles diffusely S1, S2 sinus tachycardia clinically looks dehydrated Facial flushing noticed No sacral ulcers Neuro exam limited Urinary Catheter Management^: Logan: Cath Placed During This Visit: yes, but has since been removed by the nurse Reason for Continuing Indwelling Catheter: Chronic Indwelling Urinary Catheter on Admission Urinary Catheter Date of Insertion: 12/03/20 Urinary Catheter Time of Insertion: 17:48 Date Urinary Catheter Removed: 12/03/20 Time Urinary Catheter Discontinued: 17:48 Data : 12/01/20 07:39 12/01/20 07:39 Micro: Microbiology 12/03/20 11:24 C.difficile Toxin B Gene (PCR) - Final Stool Routine Collection A&P Assessment and plan (1) Dehydration: Status: Inactive (2) Leucocytosis: Status: Inactive Qualifiers: Leukocytosis type: unspecified Qualified Code(s): D72.829 - Elevated white blood cell count, unspecified (3) Tachycardia: Status: Inactive (4) Acute pyelonephritis: Status: Acute (5) Aspiration pneumonia: Status: Acute Additional A&P Information Aspiration pneumonia continue CEftriaxone and metronidazole fro total course of 5 days Chest and abdominal imaging revealed concerning changes for aspiration and p yelonephritis however UA is unremarkable, normal creatinine, previous CT abdomen also revealed similar findings, less likely to be pyelonephritis negtaive urine antigen DuoNeb every 4 as needed Added chest vest, improving with the same Failed swallow evaluation over 2 days, planned for [facility], will discuss with sister regarding PEG placement if study c/w kash aspiration Partial small bowel obstruction: Now resolved, serial AXR show improvement, abdominal exam with non distended stomach, BS+ Elevated levels of seizure medications: Recheck level in am, will resume based on levels full code DVT ppx: lovenox Attestations Medical Necessity Statement*: modified barium swallow, discussiion regarding PEG placement based on results Coding Level of Care Code Acute Chief Ii Dispatcher for Chg Fwd Diagnoses Dehydration E86.0 Leucocytosis D72.829 Leukocytosis type: unspecified Tachycardia R00.0 Acute pyelonephritis N10 Aspiration pneumonia J69.0
[2020-12-03] MEDS: phenytoin 50mg Chew Tablet 50 MG PO ×2 (11:23→20:12)
--- NOTE | 2020-12-03 17:45 | PC.NURSE ---
rcvd verbal order to change guan catheter. tag writer put order in and changed guan catheter.
[2020-12-04] VITALS (7 sets, daily range): BP systolic 121–131; BP diastolic 74–82; PULSE 89–97; RESP 14–20; TEMP 36.4–36.8; O2SAT 92–94
[2020-12-04] MEDS: enoxaparin 40 mg/0.4 mL Syringe SUBCUT (00:01)
[2020-12-04] MEDS: cefTRIAXone 1,000 MG in sodium chloride 0.9% (plus) 50 ML 100 MG IV (00:07)
[2020-12-04] MEDS: metroNIDAZOLE IV 500 MG/100 ML PREMIX 100 MG IV ×2 (00:32→08:33)
--- NOTE | 2020-12-04 05:51 | PC.NURSE ---
Shift Summary Patient rested comfortably throughout this shift. During one nursing round patient was found sitting up in bed giggling and playing with his toy ball. Patient's sister was at bedside throughout the night.
[2020-12-04] MEDS: ipratropium-albuterol 3 mL Neb INHALATION (07:47)
[2020-12-04] MEDS: tamsulosin 0.4 mg Capsule PO (08:32)
[2020-12-04] MEDS: metoprolol tartrate 50 mg Tablet PO (08:32)
[2020-12-04] MEDS: levothyroxine 25 mcg Tablet PO (09:18)
--- NOTE | 2020-12-04 11:37 | PC.SOCIAL ---
*IMM UPDATE* Gave patient's sister IMM update at bedside. Provided her copy of pg 2. Verbalized understanding. 12/04/20 @ 0901 Initialed, dated, timed and placed in chart.
[2020-12-04] MEDS: phenytoin 50mg Chew Tablet 50 MG PO (12:18)
--- NOTE | 2020-12-04 12:31 | P.DS_ITS ---
Discharge Providers Date of Admission: 11/29/20 20:37 Date of Discharge: December 04, 2020 Attending Provider at Admission: Aydin Silver MD Attending Provider at Discharge: Kiersten Rico MD Primary Care Provider: Dora Brady MD Diagnoses at Discharge Discharge Diagnosis (1) Dehydration: Status: Inactive (2) Leucocytosis: Status: Inactive Qualifiers: Leukocytosis type: unspecified Qualified Code(s): D72.829 - Elevated white blood cell count, unspecified (3) Tachycardia: Status: Inactive (4) Acute pyelonephritis: Status: Acute (5) Aspiration pneumonia: Status: Acute Reason for Visit Reason for Visit: Resp distress Hospital Course Hospital Course Awais Macias is a 55 year old male who has profound intellectual disability, nonambulatory since age 9, was brought in by family due to cough, poor appetite and lethargy.Diagnostics in the ER revealed tachypnea, tachycardia, chronic anemia, ABG with mild hypoxia, hyponatremia. CT CAP showed Consolidation in the lower lobes concerning for aspiration, dilated small bowel loops c/w ileus an incidental findings of bladder wall thickening and Inhomogenous enhancement of the left kidney with urothelial enhancement in the distal left ureter. Of note, patient had known left hydroureteronephrosis on recent admission from 11/08/2020. No hydronephrosis was seen on current admission. He is scheduled to see Dr. Aleman on 12/07/20. Logan catheter was changed on current admission. He was treated for aspiration pneumonia with ceftriaxone and metronidazole, SBO was managed conservatively, initially with NGT to suction and then subsequently removed. follow up abdomen X ray shows resolved ileus, patient is passing feces and flatus. On serial swallow evaluations, patient demonstrated aspiration, discussed with the sister that to avoid recurrent aspiration pneumonia PEG placement should be considered. However this has been declined at present as they report patient has had poor outcomes with anesthetic and surgical interventions in the past and would like to avoid any procedures as far as possible. They wish to continue modified feeding as they have been doing over past several years understanding the risk of aspiration. Patient's mentation is now back at baseline, cough is improved .Due to high level of carbamazepine, this medicatiosn was held during admission, these have been resumed at discharge, however repeat levels remain pending and will need to be followed with his PCP. Physical Exam Narrative: EXAM NARRATIVE: GEN:no acute distress, non verbal, profound intellectual disability CVS: S1S2 N RS: CTA B/L Abd: Soft, nt/nd , bs+ Urinary Catheter Management^: Logan: Cath Placed During This Visit: yes, but has since been removed by the nurse Reason for Continuing Indwelling Catheter: Chronic Indwelling Urinary Catheter on Admission Urinary Catheter Date of Insertion: 12/03/20 Urinary Catheter Time of Insertion: 17:48 Date Urinary Catheter Removed: 12/03/20 Time Urinary Catheter Discontinued: 17:48 Discharge Data Data Completed and Pending: Completed Studies During Hospitalization Category Date Time Status CT chest abd pel w con* Urgent Cat Scan 11/29/20 16:08 Completed XR abdomen 1V* 74 018 Routine Exams 12/02/20 12:00 Completed XR chest 1V feng ble [id number] Routine Exams 11/30/20 01:52 Completed XR chest 1V feng ble [id number] Urgent Exams 11/29/20 14:31 Completed Pending at discharge Category Date Time Status Blood Culture Sta t Lab 11/29/20 15:17 Results Vitals: Last Vital Signs Temp 97.7 F 12/04/20 08:30 Pulse 92 12/04/20 08:30 Resp 19 H 12/04/20 08:30 BP 124/81 12/04/20 08:30 Pulse Ox 94 12/04/20 08:30 Discharge Plan Discharge Patient Disposition: Home Condition: Stable Prescriptions: Continued ferrous sulfate 325 mg (65 mg iron) tablet 325 mg PO BIDWM RF: 0 docusate sodium [DOK] 100 mg capsule 100 mg PO DAILY PRN (Reason: Constipation) RF: 0 phenobarbital 16.2 mg tablet See Rx Instructions .ROUTE .COMPLEX RF: 0 cyanocobalamin (vitamin B-12) 1,000 mcg tablet extended release 1,000 mcg PO DAILY@0800 RF: 0 sulfasalazine 500 mg tablet 500 mg PO TID@08,,20 RF: 0 phenytoin [Dilantin Infatabs] 50 mg tablet,chewable See Rx Instructions .ROUTE .COMPLEX RF: 0 digoxin 250 mcg (0.25 mg) tablet 250 mcg PO DAILY@0800 RF: 0 aspirin 81 mg tablet,delayed release (DR/EC) 81 mg PO DAILY@0800 RF: 0 levothyroxine 25 mcg tablet 25 mcg PO DAILY@0800 RF: 0 hydrocodone-acetaminophen 7.5-325 mg tablet 1 tab PO QID PRN (Reason: Pain) RF: 0 folic acid 1 mg tablet 1 mg PO DAILY@0800 RF: 0 diazepam 5 mg tablet 5 mg PO BID PRN (Reason: Seizures) RF: 0 cholecalciferol (vitamin D3) [Vitamin D3] 125 mcg (5,000 unit) Tablet 125 mcg PO DAILY@0800 RF: 0 bisacodyl 5 mg Tablet,Delayed Release (Dr/Ec) 10 mg PO DAILY PRN (Reason: Constipation (see protocol)) Qty: 0 RF: 0 metoprolol tartrate 50 mg tablet 50 mg PO BID@799,1999 RF: 0 Vitamin D2 1,250 mcg (50,000 unit) capsule 1,250 mcg PO Q7D RF: 0 MagOx 400 mg (241.3 mg magnesium) tablet 400 mg PO BID@ RF: 0 tamsulosin 0.4 mg capsule 0.4 mg PO BID@ RF: 0 Discontinued doxycycline hyclate 100 mg capsule 100 mg PO BID@ RF: 0 Discharge Orders: Discharge Order (Routine); Ordered 12/04/20 Ordered By: Kiersten Rico Referrals: Dora Brady MD [Primary Care Provider] - 4-7 days Discharge Diet: Usual diet Discharge Activity: Resume usual activity Patient Instructions: Opioid Safety Discharge Attestations Time Spent in Discharge Care*: greater than 30 min Status at Discharge: Cognitive status at discharge: severely impaired cognition , Behavioral status at discharge: dependent in ADL's , Quality Metrics Clinical Quality Measures During this hospital stay, did patient experience: None Coding Level of Care Code Acute Chg FW DC note Diagnoses Dehydration E86.0 Leucocytosis D72.829 Leukocytosis type: unspecified Tachycardia R00.0 Acute pyelonephritis N10 Aspiration pneumonia J69.0
[2020-12-04 14:20] LABS: Phenytoin Dilantin 21.6 ug/mL (10-20)
--- NOTE | 2020-12-04 15:52 | PC.NURSE ---
discharge instructions given to patient's sister. patient's sister verbalized understanding of instructions. patient taken to private vehicle via wheelchair. scripts sent to pharmacy
== END 2020-12-04 15:54 | disposition home health service (06) | DRG 178 ==
LOC: ER 16:01 → MEDSURG 21:36
PROVIDERS: Admitting Provider Internal Medicine; Emergency Provider Family Medicine; PCP Internal Medicine; Visit Provider Student in an Organized Health Care Education/Training Program
DX: J69.0 Pneumonitis due to inhalation of food and vomit (principal); N10 Acute pyelonephritis; F73 Profound intellectual disabilities; E87.1 Hypo-osmolality and hyponatremia; K56.600 Partial intestinal obstruction, unspecified as to cause; Z88.0 Allergy status to penicillin; H54.8 Legal blindness, as defined in USA; Z96.0 Presence of urogenital implants; D64.9 Anemia, unspecified; E87.6 Hypokalemia; E03.9 Hypothyroidism, unspecified; G40.909 Epilepsy, unspecified, not intractable, without status epilepticus; E86.0 Dehydration; R00.0 Tachycardia, unspecified; Z79.891 Long term (current) use of opiate analgesic; Z79.82 Long term (current) use of aspirin
CPT/HCPCS: 36415; 36600; 51702; 71045; 71260; 74018; 74177; 80048; 80053; 80162; 80184; 80185; 81003; 82805; 83605; 83880; 84484; 85025; 86403; 87040; 87449; 87493; 92526; 92610; 93005; 94640; 94669; 96365; 96372; 99285; J0696; J1650; J3490; J7040; Q9967; S0030

== ENCOUNTER 2020-12-16 15:36 | Emergency (ER) | payer MEDICARE, MEDICAID, SELFPAY ==
[2020-12-16 15:37] VITALS: BP 115/53; PULSE 81; RESP 16; TEMP 36.5; O2SAT 95; BMI 21.9
--- NOTE | 2020-12-16 15:43 | XRR_ITS ---
PROCEDURE INFORMATION: Exam: XR Chest Exam date and time: 12/16/2020 3:43 PM Age: 55 years old Clinical indication: Other: AMS TECHNIQUE: Imaging protocol: XR of the chest. Views: 1 view. COMPARISON: CR (CHEST, ) 11/30/2020 1:55 AM FINDINGS: Lungs: Diffusely increased interstitial lung markings are more conspicuous than prior imaging. The lung volumes are decreased. Pleural spaces: Unremarkable. No pleural effusion. No pneumothorax. Heart/Mediastinum: Unremarkable. No cardiomegaly. Bones/joints: Unremarkable. XR/XR chest 1V portable [id number] IMPRESSION: Interstitial lung changes are more prominent than comparison imaging. There is most likely acute interstitial disease process superimposed on chronic interstitial lung changes. This may represent interstitial edema or atypical pneumonia features.
--- NOTE | 2020-12-16 16:29 | W.ED.AMS ---
HPI - Altered Mental Status General: Chief Complaint: Altered Mental Status Stated Complaint: AMS; WEAKNESS Time Seen by Provider: 12/16/20 15:42 Source: EMS Mode of arrival: EMS Limitations: other (developmental delay) History of Present Illness: HPI narrative: This is a 55-year-old male with a history of developmental delay who is legally blind, nonverbal, who is being cared for by his family and who presents to the emergency department because his family says he has a change in his mental status. The unable to express what has changed but he just says he is not acting right. They therefore called for an ambulance and brought him in here. As the patient is nonverbal he is able to give me history. MD complaint: altered mental status Review of Systems General: Reports: ROS unobtainable due to mental status [facility] ED PFSH: Medical History (Reviewed 12/16/20 @ 16:34 by Dorcas Rdz MD, [facility] Acute pyelonephritis 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 Cystitis Developmental delay, profound related to adverse effect from steroids for ulcerative colitis per mother History of cardiac arrhythmia on digoxin chronically Hypothyroidism Nausea & vomiting Seizure disorder on phenobarbital chronically Ulcerative colitis on sulfasalazine Surgical History History of colonoscopy Family History (Reviewed 12/16/20 @ 16:34 by Dorcas Rdz MD, [facility] Mother Cancer Currently undergoing chemotherapy Father , No problems noted. Social History (Reviewed 12/16/20 @ 16:34 by Dorcas dRz MD, [facility] Smoking and tobacco status: never smoked Alcohol intake: never Caregiver/support person: Yes (Mother) Household members: family Marital status: Single Current occupational status: disabled History of recent travel: No Physical Exam Const: COMMON NORMALS: no acute distress, average body habitus, no limitations, healthy appearing, alert and well nourished HENMT: COMMON NORMALS: normocephalic, atraumatic and moist oral mucous membranes HEAD & SCALP: normocephalic and atraumatic Neck/C-Spine: COMMON NORMALS: no meningeal signs and no JVD Chest: COMMONS NORMALS: normal inspection of the chest and normal palpation of entire chest wall Resp: COMMON NORMALS: normal respiratory effort, No retractions, No use of accessory muscles, clear to auscultation bilaterally and percussion normal AUSCULTATION: clear to auscultation bilaterally PERCUSSION: percussion normal Cardio: COMMON NORMALS: no JVD, regular rate, regular rhythm, S1 normal heart sound present, S2 normal heart sound present, No gallops present (Cardio), No clicks present (Cardio), No murmurs present (Cardio), No rub (Cardio) and Peripheral pulses 2+ throughout RATE: regular rate RHYTHM: regular rhythm HEART SOUNDS: S1 normal heart sound present and S2 normal heart sound present PERIPHERAL PULSES: Peripheral pulses 2+ throughout GI: COMMON NORMALS: Normal to inspection, nondistended, normoactive bowel sounds present, Soft to palpation, non-tender, No hepatosplenomegaly present, no masses and no bruits PALPATION: Yes Soft to palpation and Yes No hepatosplenomegaly present Extremity: COMMON NORMALS: normal to inspection, full ROM, capillary refill normal, no calf tenderness and no pedal edema Neuro: SENSORIUM/ORIENTATION: Yes alert MENINGEAL SIGNS: Yes no meningeal signs Skin: COMMON NORMALS: no rashes or lesions noted, no wounds, turgor normal, no jaundice, no petechiae and no mottling GENERAL SKIN EXAM: no rashes or lesions noted and turgor normal Course Reevaluation(s): Reevaluation #1: Discussed his lab and imaging findings with his caregiver. Advised that he appears to have aspiration pneumonia which may be acute on top of chronic. We will treat him with antibiotics and he is advised to obtain another swallow eval to see if the consistency of his diet needs to change. Caregiver voiced understanding and she is in agreement with the plan. Explained to her that his vital signs have been stable throughout the ED stay, his lab work is unremarkable and there is no indication for admission. Time: 20:36 Vital Signs: Vital signs: Vital Signs Temperature 97.7 F 12/16/20 15:37 Pulse Rate 72 12/16/20 21:21 Respiratory Rate 14 12/16/20 21:21 Blood Pressure 108/56 12/16/20 21:21 Pulse Oximetry 97 12/16/20 21:21 MDM - Altered Mental Status MDM Narrative: Medical decision making narrative: 55-year-old male who presents to the emergency department with a change in mental status. On evaluation he appears to be at his baseline, however I think he has aspiration pneumonia. Vital signs were stable throughout his ED stay and lab work was also unremarkable. He is therefore going to be managed on an outpatient basis. Caregiver advised to return for any concerns. Medical Records: Attestation: I reviewed the patient's medical records. Lab Data: Attestation: I reviewed the patient's lab results. Labs: Lab Results 12/16/20 12/16/20 12/16/20 Range/Units 16:50 16:50 16:50 WBC 7.4 (4.0-10.0) 10^3/ uL RBC 3.11 L (4.1-5.3) 10^6/u L Hgb 10.4 L (11.7-16.6) g/dL Hct 31.4 L (42.0-52.0) % MCV 101.0 H (80-94) fL MCH 33.4 (28.0-34.0) pg MCHC 33.1 (30.0-36.0) g/dL RDW 14.7 (12.1-15.1) % Plt Count 195 (130-400) 10^3/c mm MPV 10.2 (7.4-10.4) fL Neut % (Auto) 70.2 % Lymph % (Auto) 16.8 % Levy % (Auto) 11.4 % Eos % (Auto) 0.9 % Baso % (Auto) 0.4 % Neut # (Auto) 5.18 (1.8-7.7) 10^3/u L Lymph # (Auto) 1.2 (0.8-4.8) 10^3/u L Levy # (Auto) 0.8 (0.2-0.9) 10^3/u L Eos # (Auto) 0.1 (0.0-0.8) 10^3/u L Baso # (Auto) 0.0 (0.0-0.1) 10^3/u L Nucleated RBC % (a uto) 0 % Nucleated RBCs # 0.0 /100WBC Sodium 130 L (136-145) mmol/L Potassium 3.8 (3.5-5.1) mmol/L Chloride 92 L (98-107) mmol/L Carbon Dioxide 29 (22-29) mmol/L Anion Gap 12.8 (5-19) BUN 10 (6-20) mg/dL Creatinine 1.2 (0.7-1.2) mg/dL GFR Calculation 62.9 L (90-130) mL/min Glucose 124 H (65-115) mg/dL Calculated Osmolal ity 270 L (285-295) mOsm/k g Calcium 9.3 (8.5-10.5) mg/dL Total Bilirubin 0.4 (0.15-1.2) mg/dL AST 24 (0-40) U/L ALT 19 (0-41) U/L Alkaline Phosphata se 95 (40-130) IU/L C-Reactive Protein 148.0 H (0.0-4.9) mg/L NT-Pro-B Natriuret Pep 505 H (0-125) pg/mL Total Protein 7.1 (6.6-8.7) g/dL Albumin 3.8 (3.5-5.2) g/dL Globulin 3.3 (1.3-4.6) g/dL Procalcitonin 0.06 (0-0.5) ng/mL Urine Color (Yellow) Urine Appearance (CLEAR) Urine pH (5-7) Ur Specific Gravit y (1.005-1.030) Urine Protein (Negative) Urine Glucose (UA) (Normal) Urine Ketones (Negative) Urine Blood (Negative) Urine Nitrate (Negative) Urine Bilirubin (Negative) Urine Urobilinogen (Negative) mg/dL Ur Leukocyte Alka ase (Negative) SARS-CoV-2 Ag (Rap id) (Negative) 12/16/20 12/16/20 Range/Units 17:11 18:05 WBC (4.0-10.0) 10^3/ uL RBC (4.1-5.3) 10^6/u L Hgb (11.7-16.6) g/dL Hct (42.0-52.0) % MCV (80-94) fL MCH (28.0-34.0) pg MCHC (30.0-36.0) g/dL RDW (12.1-15.1) % Plt Count (130-400) 10^3/c mm MPV (7.4-10.4) fL Neut % (Auto) % Lymph % (Auto) % Levy % (Auto) % Eos % (Auto) % Baso % (Auto) % Neut # (Auto) (1.8-7.7) 10^3/u L Lymph # (Auto) (0.8-4.8) 10^3/u L Levy # (Auto) (0.2-0.9) 10^3/u L Eos # (Auto) (0.0-0.8) 10^3/u L Baso # (Auto) (0.0-0.1) 10^3/u L Nucleated RBC % (a uto) % Nucleated RBCs # /100WBC Sodium (136-145) mmol/L Potassium (3.5-5.1) mmol/L Chloride (98-107) mmol/L Carbon Dioxide (22-29) mmol/L Anion Gap (5-19) BUN (6-20) mg/dL Creatinine (0.7-1.2) mg/dL GFR Calculation (90-130) mL/min Glucose (65-115) mg/dL Calculated Osmolal ity (285-295) mOsm/k g Calcium (8.5-10.5) mg/dL Total Bilirubin (0.15-1.2) mg/dL AST (0-40) U/L ALT (0-41) U/L Alkaline Phosphata se (40-130) IU/L C-Reactive Protein (0.0-4.9) mg/L NT-Pro-B Natriuret Pep (0-125) pg/mL Total Protein (6.6-8.7) g/dL Albumin (3.5-5.2) g/dL Globulin (1.3-4.6) g/dL Procalcitonin (0-0.5) ng/mL Urine Color Straw (Yellow) Urine Appearance Clear (CLEAR) Urine pH 5 (5-7) Ur Specific Gravit y 1.005 (1.005-1.030) Urine Protein Neg (Negative) Urine Glucose (UA) Norm (Normal) Urine Ketones Negative (Negative) Urine Blood Neg (Negative) Urine Nitrate Negative (Negative) Urine Bilirubin Neg (Negative) Urine Urobilinogen Norm (Negative) mg/dL Ur Leukocyte Alka ase Negative (Negative) SARS-CoV-2 Ag (Rap id) Negative (Negative) Imaging Data^: CXR: Attestation: I personally reviewed and interpreted this imaging study as follows: Radiologist's impression: [address] [address]XPbo ReportSigned Patient: Awais Macias #: [id number]: 1965Acct#:[id number]/Sex: 55 / MADM Date: 12/16/20Loc: ERRoom/Bed:Attending Dr: Ordering Provider/Ordering MD: Dorcas Rdz MD, [facility] Date of Service: 12/16/20 Procedure(s): XR chest 1V portable [id number] Accession Number(s): [id number] Report Number: [id number] PROCEDURE INFORMATION: Exam: XR Chest Exam date and time: 12/16/2020 3:43 PM Age: 55 years old Clinical indication: Other: AMS TECHNIQUE: Imaging protocol: XR of the chest. Views: 1 view. COMPARISON: CR (CHEST, ) 11/30/2020 1:55 AM FINDINGS: Lungs: Diffusely increased interstitial lung markings are more conspicuous than prior imaging. The lung volumes are decreased. Pleural spaces: Unremarkable. No pleural effusion. No pneumothorax. Heart/Mediastinum: Unremarkable. No cardiomegaly. Bones/joints: Unremarkable. XR/XR chest 1V portable [id number] IMPRESSION: Interstitial lung changes are more prominent than comparison imaging. There is most likely acute interstitial disease process superimposed on chronic interstitial lung changes. This may represent interstitial edema or atypical pneumonia features. Dictated By:Angely Meneses By:Angely Meneses Date/Time:12/16/20 1743DD/ 41 Discharge Plan Discharge Patient Disposition: Home Clinical Impression: Aspiration pneumonia Qualifiers: Aspiration pneumonia type: unspecified Laterality: bilateral Lung location: unspecified part of lung Qualified Code(s): J69.0 - Pneumonitis due to inhalation of food and vomit Condition: Stable Prescriptions: New levofloxacin 750 mg tablet 750 mg PO DAILY 7 Days Qty: 7 RF: 0 Flagyl 500 mg tablet 250 mg PO TID Qty: 21 RF: 0 Continued ferrous sulfate 325 mg (65 mg iron) tablet 325 mg PO BIDWM RF: 0 docusate sodium [DOK] 100 mg capsule 100 mg PO DAILY PRN (Reason: Constipation) RF: 0 phenobarbital 16.2 mg tablet See Rx Instructions .ROUTE .COMPLEX RF: 0 cyanocobalamin (vitamin B-12) 1,000 mcg tablet extended release 1,000 mcg PO DAILY@0800 RF: 0 sulfasalazine 500 mg tablet 500 mg PO TID@08,,20 RF: 0 phenytoin [Dilantin Infatabs] 50 mg tablet,chewable See Rx Instructions .ROUTE .COMPLEX RF: 0 digoxin 250 mcg (0.25 mg) tablet 250 mcg PO DAILY@0800 RF: 0 aspirin 81 mg tablet,delayed release (DR/EC) 81 mg PO DAILY@0800 RF: 0 levothyroxine 25 mcg tablet 25 mcg PO DAILY@0800 RF: 0 hydrocodone-acetaminophen 7.5-325 mg tablet 1 tab PO QID PRN (Reason: Pain) RF: 0 folic acid 1 mg tablet 1 mg PO DAILY@0800 RF: 0 diazepam 5 mg tablet 5 mg PO BID PRN (Reason: Seizures) RF: 0 cholecalciferol (vitamin D3) [Vitamin D3] 125 mcg (5,000 unit) Tablet 125 mcg PO DAILY@0800 RF: 0 bisacodyl 5 mg Tablet,Delayed Release (Dr/Ec) 10 mg PO DAILY PRN (Reason: Constipation (see protocol)) Qty: 0 RF: 0 metoprolol tartrate 50 mg tablet 50 mg PO BID@799,1999 RF: 0 Vitamin D2 1,250 mcg (50,000 unit) capsule 1,250 mcg PO Q7D RF: 0 MagOx 400 mg (241.3 mg magnesium) tablet 400 mg PO BID@ RF: 0 tamsulosin 0.4 mg capsule 0.4 mg PO BID@799,1999 RF: 0 Discharge Orders: Discharge ED (Routine); Ordered 12/16/20 Ordered By: Dorcas Rdz Referrals: oDra Brady MD [Primary Care Provider] - 1-3 days Discharge Diet: As Directed Discharge Activity: Increase activity as tolerated Patient Instructions: Aspiration Pneumonia (GEN) Activity Restrictions/Additional Instructions: Return for any new or worsening symptoms. Given antibiotics as prescribed. Continue his home medications. He will need a swallow evaluation to see if the consistency of his food and drink need to be changed. Because he is appears to be having chronic aspiration this may be a good idea. Coding Level of Care Code ED Public Service Representative for Chg Fwd Exam Comprehensive
[2020-12-16 16:57] LABS: Basophils % 0.4 %; Eosinophils # 0.1 10^3/uL (0.0-0.8); Eosinophils % 0.9 %; Hematocrit 31.4 % (42.0-52.0); Hemoglobin 10.4 g/dL (11.7-16.6); Lymphocytes # 1.2 10^3/uL (0.8-4.8); Lymphocytes % 16.8 %; Mean Corpuscular HGB Conc 33.1 g/dL (30.0-36.0); Mean Corpuscular Hemoglobin 33.4 pg (28.0-34.0); Mean Platelet Volume 10.2 fL (7.4-10.4); Monocytes # 0.8 10^3/uL (0.2-0.9); Monocytes % 11.4 %; Neutrophils # 5.18 10^3/uL (1.8-7.7); Neutrophils % 70.2 %; Nucleated Red Blood Cells % 0 %; Platelet Count 195 10^3/cmm (130-400); Red Blood Count 3.11 10^6/uL (4.1-5.3); Red Cell Distribution Width 14.7 % (12.1-15.1); White Blood Count 7.4 10^3/uL (4.0-10.0)
[2020-12-16 17:18] LABS: Alanine Aminotransferase 19 U/L (0-41); Albumin Level 3.8 g/dL (3.5-5.2); Alkaline Phosphatase 95 IU/L (40-130); Anion Gap 12.8 (5-19); Aspartate Amino Transferase 24 U/L (0-40); Blood Urea Nitrogen 10 mg/dL (6-20); Calcium 9.3 mg/dL (8.5-10.5); Carbon Dioxide 29 mmol/L (22-29); Chloride 92 mmol/L (98-107); Globulin 3.3 g/dL (1.3-4.6); Glomerular Filtration Rate 62.9 mL/min (90-130); Glucose 124 mg/dL (65-115); Osmolality Calculated 270 mOsm/kg (285-295); Potassium 3.8 mmol/L (3.5-5.1); Sodium 130 mmol/L (136-145); Total Bilirubin 0.4 mg/dL (0.15-1.2); Total Protein 7.1 g/dL (6.6-8.7)
[2020-12-16 17:25] LABS: Procalcitonin 0.06 ng/mL (0-0.5)
[2020-12-16 18:00] LABS: SARS Covid-2 Antigen Negative (Negative)
[2020-12-16 18:20] VITALS: BP 89/59; PULSE 81; RESP 16; O2SAT 95
[2020-12-16 18:24] LABS: Add Urine Microscopic? NO; Charge for UA Resulting for Rev
[2020-12-16 18:26] LABS: NT Pro B Type Natriuretic Pept 505 pg/mL (0-125)
[2020-12-16 18:29] LABS: Bilirubin Urine Neg (Negative); Blood Urine Neg (Negative); Glucose Urine UA Norm (Normal); Ketones Urine Negative (Negative); Leukocyte Esterase Urine Negative (Negative); Nitrate Urine Negative (Negative); Protein Urine Neg (Negative); Specific Gravity, Urine 1.005 (1.005-1.030); Urine Appearance Clear (CLEAR); Urine Color Straw (Yellow); Urobilinogen Urine Norm (Negative); pH Urine 5 (5-7)
[2020-12-16 19:17] VITALS: BP 108/70; RESP 18; O2SAT 97
[2020-12-16] MEDS: levoFLOXacin 750 mg Tablet PO (21:18)
[2020-12-16 21:21] VITALS: BP 108/56; PULSE 72; RESP 14; O2SAT 97
[2020-12-18 10:16] LABS: Coronavirus Test Green County Not Detected
--- NOTE | 2020-12-18 18:12 | PC.NURSE ---
pts guardian called and given the results of his covid results
== END 2020-12-16 21:29 | disposition home or self-care (01) ==
PROVIDERS: Emergency Provider Family Medicine; PCP Internal Medicine
DX: J69.0 Pneumonitis due to inhalation of food and vomit (principal); Z79.82 Long term (current) use of aspirin; Z20.822 Contact with and (suspected) exposure to COVID-19
CPT/HCPCS: 36415; 71045; 80053; 81003; 83880; 84145; 85025; 86140; 87426; 87635; 99284

== ENCOUNTER 2020-12-21 11:43 | Inpatient (IN) | payer MEDICARE, MEDICAID, SELFPAY ==
[2020-12-21] VITALS (7 sets, daily range): BP systolic 95–116; BP diastolic 48–72; PULSE 70–86; RESP 12–16; TEMP 36.1–36.4; O2SAT 94–100; BMI 18.1
--- NOTE | 2020-12-21 12:09 | ECG_ITS ---
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 Measurements Intervals [place] Rate: 77 P: 17 MT: 189 QRS: 7 QRSD: 92 T: -16 QT: 346 QTc: 392 Interpretive Statements SINUS RHYTHM ST ELEVATION CONSISTENT WITH INJURY, PERICARDITIS, OR EARLY REPOLARIZATION [ST ELEVATION W/O NORMALLY INFLECTED T WAVE] Compared to ECG 11/29/2020 21:13:58 ST (T wave) deviation now present Early repolarization now present Sinus tachycardia no longer present Electronically Signed On 12-21-2020 14:13:33 CDT by Robyn Felix M.D. [id number]
--- NOTE | 2020-12-21 12:09 | XR_ITS ---
WS: [id number] PORTABLE CHEST HISTORY: dyspnea/cough COMPARISON: 12/16/2020 and 11/29/2020 Lung biopsy decreased. Coarse interstitial thickening throughout both lungs is mildly progressed sinc e 11/29/2020. No pleural effusion or pneumothorax. Cardiac size: Normal. Mediastinum/Aorta: Normal mediastinum. No osseous abnormality seen. XR/XR chest 1V portable [id number] IMPRESSION: 1. Recent progression of interstitial thickening is probably related to superi mposed pneumonitis or edema on chronic interstitial lung disease. 2. Decreased lung volumes.
--- NOTE | 2020-12-21 12:38 | ED_ITS ---
HPI - General Adult General: Chief complaint: General Medical Stated complaint: FAILURE TO THRIVE Time Seen by Provider: 12/21/20 11:59 History of Present Illness: HPI narrative: 55-year-old male who presents to the emergency room via EMS. Patient is blind and aphasic. He lives with his elderly mother. He was hospitalized for pneumonia in early November he returns today because he essentially is not been eating or drinking and has essentially been failure to thrive mother reports he is having a continued decline. When I was initially seen the patient there is no family at the bedside. Associated symptoms: Deny chest pain, dyspnea, malaise, nausea, rash or vomiting Review of Systems Const: Denies: fever(s), chills, body aches, change in appetite, fatigue or malaise ENMT: Denies: throat pain, ear or mastoid pain, nasal discharge or nasal congestion Card: Denies: chest pain, edema, dyspnea on exertion or orthopnea Resp: Denies: dyspnea, productive cough or non-productive cough GI: Denies: abdominal pain, nausea, vomiting, hematemesis, coffee ground emesis, diarrhea, constipation, bloating, hematochezia or melena : Denies: flank pain, dysuria, urinary frequency or urinary urgency Skin/Breast: Denies: rash or pruritus PFSH ED PFSH: Medical History Acute pyelonephritis 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 Cystitis Developmental delay, profound related to adverse effect from steroids for ulcerative colitis per mother History of cardiac arrhythmia on digoxin chronically Hypothyroidism Nausea & vomiting Seizure disorder on phenobarbital chronically Ulcerative colitis on sulfasalazine Surgical History History of colonoscopy Family History Mother Cancer Currently undergoing chemotherapy Father , No problems noted. Social History Smoking and tobacco status: never smoked Alcohol intake: never Caregiver/support person: Yes (Mother) Household members: family Marital status: Single Current occupational status: disabled History of recent travel: No Physical Exam Const: COMMON NORMALS: no acute distress GENERAL APPEARANCE: cooperative HENMT: COMMON NORMALS: normocephalic and atraumatic HEAD & SCALP: normocephalic and atraumatic Neck/C-Spine: COMMON NORMALS: no JVD Resp: COMMON NORMALS: normal respiratory effort and No retractions AUS CULTATION: rhonchi and wheezes Cardio: COMMON NORMALS: no JVD, regular rate, regular rhythm and No murmurs present (Cardio) RATE: regular rate RHYTHM: regular rhythm GI: COMMON NORMALS: Soft to palpation and No hepatosplenomegaly present AUSCULTATION: Yes normoactive bowel sounds PALPATION: Yes Soft to palpation, No Tenderness to palpation present (GI), No Guarding due to palpation present (GI) and Yes No hepatosplenomegaly present Extremity: COMMON NORMALS: normal to inspection, capillary refill normal, no clubbing, cyanosis or edema, no calf tenderness and no pedal edema Skin: COMMON NORMALS: no rashes or lesions noted GENERAL SKIN EXAM: no rashes or lesions noted Course Vital Signs: Vital signs: Vital Signs Temperature 97.9 F 12/25/20 14:52 Pulse Rate 84 12/25/20 14:52 Respiratory Rate 14 12/25/20 14:52 Blood Pressure 132/82 12/25/20 14:52 Pulse Oximetry 98 12/25/20 14:52 MDM - General Adult MDM Narrative: Medical decision making narrative: Admit for aspiration on discussed with hospitalist orders written Lab Data: Labs: Lab Results 12/21/20 12/21/20 12/21/20 Range/Units 12:30 12:30 13:10 WBC Cancelled 5.7 Corrected WBC Cancelled RBC Cancelled 3.26 L Hgb Cancelled 10.5 L Hct Cancelled 32.8 L MCV Cancelled 100.6 H MCH Cancelled 32.2 MCHC Cancelled 32.0 RDW Cancelled 14.2 Plt Count Cancelled 208 MPV Cancelled 9.6 Gran % Cancelled Neut % (Auto) Cancelled 68.2 Lymph % (Auto) Cancelled 20.2 Roosevelt % (Auto) Cancelled 10.6 Eos % (Auto) Cancelled 0.7 Baso % (Auto) Cancelled 0.3 Neut # (Auto) Cancelled 3.91 Lymph # (Auto) Cancelled 1.2 Roosevelt # (Auto) Cancelled 0.6 Eos # (Auto) Cancelled 0.0 Baso # (Auto) Cancelled 0.0 Absolute Gran (aut o) Cancelled Nucleated RBC % (a uto) Cancelled 0 Nucleated RBCs # Cancelled 0.0 Sodium Cancelled Potassium Cancelled Chloride Cancelled Carbon Dioxide Cancelled Anion Gap Cancelled BUN Cancelled Creatinine Cancelled GFR Calculation Cancelled Glucose Cancelled Calculated Osmolal ity Cancelled Calcium Cancelled Total Bilirubin Cancelled AST Cancelled ALT Cancelled Alkaline Phosphata se Cancelled Creatine Kinase Cancelled Total Protein Cancelled Albumin Cancelled Globulin Cancelled Lipase Cancelled Urine Color (Yellow) Urine Appearance (CLEAR) Urine pH (5-7) Ur Specific Gravit y (1.005-1.030) Urine Protein (Negative) Urine Glucose (UA) (Normal) Urine Ketones (Negative) Urine Blood (Negative) Urine Nitrate (Negative) Urine Bilirubin (Negative) Prot Sulfosalicyli c Acd (Negative) Urine Urobilinogen (Negative) mg/dL Ur Leukocyte Alka ase (Negative) Urine RBC (0-2) /hpf Urine WBC (0-5) /hpf Ur Squamous Epith Cells (0-5) /hpf Amorphous Sediment Urine Bacteria (NONE) /hpf Coarse Granular Ca sts /lpf Urine Mucus /hpf Digoxin Cancelled Phenobarbital Cancelled 12/21/20 12/21/20 Range/Units 13:10 13:48 WBC Corrected WBC RBC Hgb Hct MCV MCH MCHC RDW Plt Count MPV Gran % Neut % (Auto) Lymph % (Auto) Roosevelt % (Auto) Eos % (Auto) Baso % (Auto) Neut # (Auto) Lymph # (Auto) [place] # (Auto) Eos # (Auto) Baso # (Auto) Absolute Gran (aut o) Nucleated RBC % (a uto) Nucleated RBCs # Sodium 133 L Potassium 3.7 Chloride 92 L Carbon Dioxide 27 Anion Gap 17.7 BUN 6 Creatinine 1.0 GFR Calculation 77.6 L Glucose 121 H Calculated Osmolal ity 275 L Calcium 9.7 Total Bilirubin 0.2 AST 23 ALT 16 Alkaline Phosphata se 89 Creatine Kinase 32 L Total Protein 6.7 Albumin 3.9 Globulin 2.8 Lipase 30 Urine Color Yellow (Yellow) Urine Appearance Sl hazy (CLEAR) Urine pH 8 H (5-7) Ur Specific Gravit y 1.010 (1.005-1.030) Urine Protein Neg (Negative) Urine Glucose (UA) Norm (Normal) Urine Ketones Negative (Negative) Urine Blood Neg (Negative) Urine Nitrate Negative (Negative) Urine Bilirubin Neg (Negative) Prot Sulfosalicyli c Acd Negative (Negative) Urine Urobilinogen Norm (Negative) mg/dL Ur Leukocyte Alka ase 1+ H (Negative) Urine RBC Rare (0-2) /hpf Urine WBC 0-4 H (0-5) /hpf Ur Squamous Epith Cells 0-4 H (0-5) /hpf Amorphous Sediment Not Reportable Urine Bacteria Trace (NONE) /hpf Coarse Granular Ca sts 0-4 H /lpf Urine Mucus Trace /hpf Digoxin < 0.3 L Phenobarbital 37.0 H Discharge Plan Discharge Patient Disposition: Admitted As Inpatient Admit Provider: William Obrien Clinical Impression: Aspiration pneumonia, Seizure disorder, Macrocytic anemia, Blindness of both eyes, Developmental delay, profound, Dehydration Condition: Stable Coding Level of Care Code ED Senior Security Architect for Nathalia Hagan
[2020-12-21 13:30] LABS: Basophils % 0.3 %; Eosinophils % 0.7 %; Hematocrit 32.8 % (42.0-52.0); Hemoglobin 10.5 g/dL (11.7-16.6); Lymphocytes # 1.2 10^3/uL (0.8-4.8); Lymphocytes % 20.2 %; Mean Corpuscular Hemoglobin 32.2 pg (28.0-34.0); Mean Corpuscular Volume 100.6 fL (80-94); Mean Platelet Volume 9.6 fL (7.4-10.4); Monocytes # 0.6 10^3/uL (0.2-0.9); Monocytes % 10.6 %; Neutrophils # 3.91 10^3/uL (1.8-7.7); Neutrophils % 68.2 %; Nucleated Red Blood Cells % 0 %; Platelet Count 208 10^3/cmm (130-400); Red Blood Count 3.26 10^6/uL (4.1-5.3); Red Cell Distribution Width 14.2 % (12.1-15.1); White Blood Count 5.7 10^3/uL (4.0-10.0)
[2020-12-21] MEDS: vancomycin 1,000 MG in sodium chloride 0.9% 250 ML 250 MG IV (13:42)
[2020-12-21 13:46] LABS: Alanine Aminotransferase 16 U/L (0-41); Albumin Level 3.9 g/dL (3.5-5.2); Alkaline Phosphatase 89 IU/L (40-130); Anion Gap 17.7 (5-19); Aspartate Amino Transferase 23 U/L (0-40); Blood Urea Nitrogen 6 mg/dL (6-20); Calcium 9.7 mg/dL (8.5-10.5); Carbon Dioxide 27 mmol/L (22-29); Chloride 92 mmol/L (98-107); Creatine Phosphokinase 32 U/L (39-308); Globulin 2.8 g/dL (1.3-4.6); Glomerular Filtration Rate 77.6 mL/min (90-130); Glucose 121 mg/dL (65-115); Lipase 30 U/L (13-60); Osmolality Calculated 275 mOsm/kg (285-295); Potassium 3.7 mmol/L (3.5-5.1); Sodium 133 mmol/L (136-145); Total Bilirubin 0.2 mg/dL (0.15-1.2); Total Protein 6.7 g/dL (6.6-8.7)
[2020-12-21 13:49] LABS: Digoxin < 0.3 ng/mL (0.6-1.2)
[2020-12-21 14:10] LABS: Add Urine Microscopic? YES; Bilirubin Urine Neg (Negative); Blood Urine Neg (Negative); Glucose Urine UA Norm (Normal); Ketones Urine Negative (Negative); Leukocyte Esterase Urine 1+ (Negative); Nitrate Urine Negative (Negative); Protein Urine Neg (Negative); Sulfosalicylic Acid Urine Negative (Negative); Urine Appearance SL Hazy (CLEAR); Urine Color Yellow (Yellow); Urobilinogen Urine Norm (Negative); pH Urine 8 (5-7)
[2020-12-21 14:11] LABS: Add Urine Culture? No; Bacteria Urine TRACE /hpf; Coarse Granular Casts Urine 0-4 /lpf; Mucus Urine TRACE /hpf; RBC Urine RARE /hpf (0-2); Squamous Epithelial Cell Urine 0-4 /hpf (0-5); WBC Urine 0-4 /hpf (0-5)
[2020-12-21] MEDS: aztreonam 2,000 MG in sodium chloride 0.9% (plus) 100 ML 200 MG IV (15:13)
[2020-12-21] MEDS: D5-NS 0.45% + KCL 20 mEq 20 MEQ/1,000 ML BAG 50 MEQ IV (17:22)
--- NOTE | 2020-12-21 17:44 | PM.HP ---
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 Patient was recently discharged from the hospital after the management of aspiration pneumonia with ceftriaxone and metronidazole.During the last admission serial swallow evaluations was done, patient is at risk for aspiration, it was discussed with the sister that to avoid recurrent aspiration pneumonia PEG placement should be considered.Family declined PEG tube placement. Upon Arrival in the ER he was worked up for above-mentioned complaint. Xray chest : Worsening interstitial thickening, likely chronic, with possible aspiration pneumonitis. Pertinent labs: H&H: 10.5/32, WBC : 5.7, Na: 133, ANGELES/SCR: 6/1 , Serum phenytoin level:38, serum phenobarbital level: 37, serum digoxin level:< 0.3. Review of Systems General: Reports: ROS unobtainable due to mental status Medications/Allergies Home Medications Medication Instructions Recorded Confirmed Last Taken Type aspirin 81 mg PO DAILY@79911/08/20 12/21/20 12/21/20 History cholecalciferol (vitamin D3) 125 mcg PO DAILY@79911/08/20 12/21/20 12/21/20 History [Vitamin D3] cyanocobalamin (vitamin B-12) 1,000 mcg PO DAILY@79911/08/20 12/21/20 12/21/20 History diazepam 5 mg PO BID PRN 11/08/20 12/21/20 11/28/20 History folic acid 1 mg PO DAILY@79911/08/20 12/21/20 12/21/20 History hydrocodone-acetaminophen 1 tab PO QID PRN 11/08/20 12/21/20 11/28/20 History levothyroxine 25 mcg PO DAILY@79911/08/20 12/21/20 12/21/20 History phenobarbital 32.4 mg PO TID 11/08/20 12/21/20 12/21/20 History phenytoin [Dilantin Infatabs] 100 mg PO TID 11/08/20 12/21/20 12/21/20 History sulfasalazine 500 mg PO TID@08,12,20 11/08/20 12/21/20 12/21/20 History bisacodyl 10 mg PO DAILY PRN #0 tab 11/11/20 12/21/20 Unknown Rx docusate sodium [DOK] 100 mg PO DAILY PRN 11/22/20 12/21/20 11/29/20 History ferrous sulfate 325 mg PO DAILY@0800 11/22/20 12/21/20 12/21/20 History ergocalciferol (vitamin D2) 1,250 mcg PO Q7D 11/29/20 12/21/20 12/17/20 History [Vitamin D2] magnesium oxide [MagOx] 400 mg PO BID@0800,199911/29/20 12/21/20 12/21/20 History metoprolol tartrate 50 mg PO BID@0800,199911/29/20 12/21/20 12/21/20 History tamsulosin 0.4 mg PO BID@0800,199911/29/20 12/21/20 12/21/20 History levofloxacin 750 mg PO DAILY 7 Days #7 tab 12/16/20 12/21/20 12/21/20 Rx metronidazole [Flagyl] 250 mg PO TID #21 tab 12/16/20 12/21/20 12/21/20 Rx nystatin 1 applic TOPICAL TID 12/21/20 12/21/20 12/21/20 History Allergies Allergy/AdvReac Type Severity Reaction Status Date / Time Penicillins Allergy Unknown Verified 12/07/20 09:36 PFSH Acute PFSH: Medical History Acute pyelonephritis 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 Cystitis Developmental delay, profound related to adverse effect from steroids for ulcerative colitis per mother History of cardiac arrhythmia on digoxin chronically Hypothyroidism Nausea & vomiting Seizure disorder on phenobarbital chronically Ulcerative colitis on sulfasalazine Surgical History History of colonoscopy Family History Mother Cancer Currently undergoing chemotherapy Father , No problems noted. Social History Smoking and tobacco status: never smoked Alcohol intake: never Caregiver/support person: Yes (Mother) Household members: family Marital status: Single Current occupational status: disabled History of recent travel: No Vitals/I&O/Wt Last Vital Signs Temp 97.4 F L 12/21/20 17:06 Pulse 70 12/21/20 17:06 Resp 16 12/21/20 17:06 BP 102/68 12/21/20 17:06 Pulse Ox 94 12/21/20 17:06 12/21/20 12/21/20 12/21/20 06:59 14:59 22:59 Intake Total 250 / 250 100 / 350 Balance 250 / 250 100 / 350 Weight last 48 hrs Weight 44.906 kg Physical Exam HENMT: COMMON NORMALS: normocephalic and atraumatic HEAD & SCALP: normocephalic and atraumatic Resp: COMMON NORMALS: normal respiratory effort and clear to auscultation bilaterally EFFORT & INSPECTION: Yes symmetric chest movement AUSCULTATION: clear to auscultation bilaterally Cardio: COMMON NORMALS: regular rate, regular rhythm, S1 normal heart sound present, S2 normal heart sound present, No gallops present (Cardio), No murmurs present (Cardio), No rub (Cardio) and Peripheral pulses 2+ throughout RATE: regular rate RHYTHM: regular rhythm HEART SOUNDS: S1 normal heart sound present and S2 normal heart sound present PERIPHERAL PULSES: Peripheral pulses 2+ throughout GI: COMMON NORMALS: Normal to inspection, nondistended, normoactive bowel sounds present, Soft to palpation, non-tender, No hepatosplenomegaly present and no masses AUSCULTATION: Yes normoactive bowel sounds PALPATION: Yes Soft to palpation and Yes No hepatosplenomegaly present RECTAL EXAM: Yes deferred Extremity: COMMON NORMALS: no clubbing, cyanosis or edema and no pedal edema Neuro: COMMON NORMALS: patient oriented x3 Data : 12/22/20 06:42 12/22/20 06:42 Micro: Microbiology 12/21/20 13:15 Blood Culture - Preliminary Blood SPECIMEN COLLECTED 12/21/20 13:10 Blood Culture - Preliminary Blood SPECIMEN COLLECTED A&P Assessment and plan (1) Aspiration pneumonia: Patient is at risk for recurrent aspiration PNA.Xray chest is too suspicious for aspiration PNA with underlying chronic changees.Has been on cef and metro in past, is allergic to penicillin. Will start him on levofloxacin and metronidazole. Aspiration precaution. Status: Acute Qualifiers: Aspiration pneumonia type: unspecified Laterality: bilateral Lung location: unspecified part of lung Qualified Code(s): J69.0 - Pneumonitis due to inhalation of food and vomit (2) Severe dehydration: Continue I.V Hydration Status: Acute (3) Failure to thrive: [facility]. Status: Acute (4) Seizure disorder: Supratherapeutic Dilantin Supratherapeutic Phenobarbital Continue to monitor Levels. Status: Chronic (5) Ulcerative colitis: Continue sulfasalazine Status: Chronic Qualifiers: Ulcerative colitis location: unspecified ulcerative colitis location Digestive disease complication type: without complication Qualified Code(s): K51.90 - Ulcerative colitis, unspecified, without complications (6) Hypothyroidism: Status: Chronic Qualifiers: Hypothyroidism type: unspecified Qualified Code(s): E03.9 - Hypothyroidism, unspecified (7) Macrocytic anemia: Status: Acute (8) Developmental delay, profound: Status: Chronic (9) Blindness of both eyes: Status: Chronic Additional A&P Information Supratherapeutic Dilantin Supratherapeutic Phenobarbital Code Status :Full code DVT PPX: Lovenox 40 mg sc daily Attestations Medical Necessity Statement*: Patient needs to be in hospital for the management of Aspiration PNA, dehydration.Anticipated LOS Greater then 2 midnights. Coding Level of Care Code Acute Coil Placer for [facility] Fwd Diagnoses Aspiration pneumonia J69.0 Aspiration pneumonia type: unspecified Laterality: bilateral Lung location: unspecified part of lung Severe dehydration E86.0 Failure to thrive Seizure disorder G40.909 Ulcerative colitis K51.90 Ulcerative colitis location: unspecified ulcerative colitis location Digestive disease complication type: without complication Hypothyroidism E03.9 Hypothyroidism type: unspecified Macrocytic anemia D53.9 Developmental delay, profound R62.50 Blindness of both eyes H54.3
[2020-12-21] MEDS: levofloxacin-dextrose 5 % 750 MG/150 ML PREMIX 100 MG IV (18:19)
[2020-12-21] MEDS: sulfaSALAzine 500 mg Tablet PO (20:34)
[2020-12-21] MEDS: metoprolol tartrate 50 mg Tablet PO (20:35)
[2020-12-21] MEDS: tamsulosin 0.4 mg Capsule PO (20:35)
[2020-12-21] MEDS: enoxaparin 40 mg/0.4 mL Syringe SUBCUT (20:35)
[2020-12-21] MEDS: metroNIDAZOLE IV 500 MG/100 ML PREMIX 100 MG IV (21:23)
[2020-12-21] MEDS: ondansetron 2 mg/ML SDV 2 mL 4 MG IVP (21:51)
[2020-12-22] VITALS (9 sets, daily range): BP systolic 92–112; BP diastolic 54–75; PULSE 80–86; RESP 16–18; TEMP 36.1–36.8; O2SAT 92–97; BMI 24.3
[2020-12-22] MEDS: metroNIDAZOLE IV 500 MG/100 ML PREMIX 100 MG IV ×3 (04:47→20:37)
--- NOTE | 2020-12-22 05:50 | PC.NURSE ---
SHIFT SUMMARY Has rested well tonight. Sister at bedside. Pt is MR and is nonverbal. Drinks from a baby bottle. Does take meds in pudding. Had small emesis in the evening and none further after reciving IV Zofran. Required new IV start at shift start. Had accidentally gotten pulled out. IV fluids infusing and receiving IV antibiotics. Logan catheter in place. Has been incont BM's
[2020-12-22 07:01] LABS: Basophils % 0.2 %; Eosinophils % 0.2 %; Hematocrit 34.2 % (42.0-52.0); Hemoglobin 10.8 g/dL (11.7-16.6); Lymphocytes # 1.2 10^3/uL (0.8-4.8); Lymphocytes % 19.3 %; Mean Corpuscular HGB Conc 31.6 g/dL (30.0-36.0); Mean Corpuscular Hemoglobin 32.2 pg (28.0-34.0); Mean Corpuscular Volume 102.1 fL (80-94); Mean Platelet Volume 10.2 fL (7.4-10.4); Monocytes # 0.7 10^3/uL (0.2-0.9); Monocytes % 11.8 %; Neutrophils # 4.18 10^3/uL (1.8-7.7); Neutrophils % 68.2 %; Nucleated Red Blood Cells % 0 %; Platelet Count 191 10^3/cmm (130-400); Red Blood Count 3.35 10^6/uL (4.1-5.3); White Blood Count 6.1 10^3/uL (4.0-10.0)
[2020-12-22 07:19] LABS: Alanine Aminotransferase 16 U/L (0-41); Albumin Level 3.6 g/dL (3.5-5.2); Alkaline Phosphatase 90 IU/L (40-130); Aspartate Amino Transferase 25 U/L (0-40); Blood Urea Nitrogen 6 mg/dL (6-20); Calcium 9.1 mg/dL (8.5-10.5); Carbon Dioxide 23 mmol/L (22-29); Chloride 97 mmol/L (98-107); Globulin 3.3 g/dL (1.3-4.6); Glomerular Filtration Rate 87.6 mL/min (90-130); Glucose 140 mg/dL (65-115); Total Bilirubin 0.2 mg/dL (0.15-1.2); Total Protein 6.9 g/dL (6.6-8.7)
[2020-12-22 07:24] LABS: Osmolality Calculated 270 mOsm/kg (285-295); Sodium 130 mmol/L (136-145)
[2020-12-22 07:26] LABS: Procalcitonin 0.15 ng/mL (0-0.5)
[2020-12-22 07:44] LABS: Anion Gap 13.9 (5-19); Potassium 3.9 mmol/L (3.5-5.1)
[2020-12-22 07:48] LABS: Phenytoin Dilantin 38.6 ug/mL (10-20)
[2020-12-22] MEDS: sulfaSALAzine 500 mg Tablet PO ×3 (08:36→20:23)
[2020-12-22] MEDS: cyanocobalamin 1,000 mcg Tablet 1000 MCG PO (08:37)
[2020-12-22] MEDS: cholecalciferol (vitamin D3) 5,000 unit Tablet 5000 UNIT PO (08:37)
[2020-12-22] MEDS: folic acid 1 mg Tablet PO (08:37)
[2020-12-22] MEDS: tamsulosin 0.4 mg Capsule PO ×2 (08:37→20:23)
[2020-12-22] MEDS: levothyroxine 25 mcg Tablet PO (08:37)
[2020-12-22] MEDS: metoprolol tartrate 50 mg Tablet PO ×2 (08:37→20:23)
[2020-12-22] MEDS: ferrous sulfate EC 325 mg Tablet PO (08:38)
[2020-12-22] MEDS: aspirin 81 mg EC Tablet PO (08:38)
--- NOTE | 2020-12-22 11:57 | PC.NUTR ---
Nutrition consult per physician d/t dx FTT and nutritional optimization. Wt of 99 lbs indicated in EMR, however reweighed pt at time of RD visit with wt of 133.1 lbs noted. Indicates approx 12% weight loss X past 1 mo. (152 lbs on 11/09/20). Recommend to change to Pureed diet with nectar-thick liquids, and MEDICAL LEGAL INVESTIGATOR consult for further evaluation. Communicated recommendations to Dr. Obrien, received verbal order for diet which has been entered at this time. Did not receive verbal order for MEDICAL LEGAL INVESTIGATOR eval. Also added Magic Cup with meals for additional kcal, and noted pt preferences for mashed potatoes/gravy, yogurt, and pudding in dietary information. See RD assessment for further details.
[2020-12-22] MEDS: dextrose 5%-sod chloride 0.9% 1,000 ML 50 ML IV (14:50)
[2020-12-22] MEDS: sodium chloride 0.9% 500 ML IV (17:05)
[2020-12-22] MEDS: levofloxacin-dextrose 5 % 750 MG/150 ML PREMIX 100 MG IV (18:13)
--- NOTE | 2020-12-22 19:27 | PM.PN ---
Subjective Subjective: Interval history: Patient sister at his bed side, according to her he is little better today, more active, has better po intake. Vitals/I&O/Wt Last Vital Signs Temp 97.6 F 12/22/20 16:00 Pulse 84 12/22/20 16:04 Resp 18 12/22/20 16:00 BP 98/64 12/22/20 18:46 Pulse Ox 92 12/22/20 16:04 12/22/20 12/22/20 12/22/20 06:59 14:59 22:59 Intake Total 220 / 820 1949 / 1950 500 / 2450 Output Total 550 / 550 250 / 250 Balance -330 / 270 1949 / 1950 250 / 2200 Weight last 48 hrs Weight 60.373 kg Weight 44.906 kg Physical Exam Narrative: EXAM NARRATIVE: Awake HENMT: COMMON NORMALS: normocephalic and atraumatic HEAD & SCALP: normocephalic and atraumatic Resp: COMMON NORMALS: normal respiratory effort and clear to auscultation bilaterally EFFORT & INSPECTION: Yes symmetric chest movement AUSCULTATION: clear to auscultation bilaterally Cardio: COMMON NORMALS: regular rate, regular rhythm, S1 normal heart sound present, S2 normal heart sound present, No gallops present (Cardio), No murmurs present (Cardio), No rub (Cardio) and Peripheral pulses 2+ throughout RATE: regular rate RHYTHM: regular rhythm HEART SOUNDS: S1 normal heart sound present and S2 normal heart sound present PERIPHERAL PULSES: Peripheral pulses 2+ throughout GI: COMMON NORMALS: Normal to inspection, nondistended, normoactive bowel sounds present, Soft to palpation, non-tender, No hepatosplenomegaly present and no masses AUSCULTATION: Yes normoactive bowel sounds PALPATION: Yes Soft to palpation and Yes No hepatosplenomegaly present RECTAL EXAM: Yes deferred Extremity: COMMON NORMALS: no clubbing, cyanosis or edema and no pedal edema Data : 12/22/20 06:42 12/22/20 06:42 Micro: Microbiology 12/21/20 13:15 Blood Culture - Preliminary Blood NEGATIVE TO DATE 12/21/20 13:10 Blood Culture - Preliminary Blood NEGATIVE TO DATE A&P Assessment and plan (1) Aspiration pneumonia: Patient is at risk for recurrent aspiration PNA.Xray chest is too suspicious for aspiration PNA with underlying chronic changees.Has been on cef and metro in past, is allergic to penicillin. Will start him on levofloxacin and metronidazole. Aspiration precaution. Status: Acute Qualifiers: Aspiration pneumonia type: unspecified Laterality: bilateral Lung location: unspecified part of lung Qualified Code(s): J69.0 - Pneumonitis due to inhalation of food and vomit (2) Severe dehydration: Continue I.V Hydration Status: Acute (3) Failure to thrive: Nutrition consult for [facility] nutritional goals. Status: Acute (4) Seizure disorder: Supratherapeutic Dilantin Supratherapeutic Phenobarbital Continue to monitor Levels. Status: Chronic (5) Ulcerative colitis: Continue sulfasalazine Status: Chronic Qualifiers: Ulcerative colitis location: unspecified ulcerative colitis location Digestive disease complication type: without complication Qualified Code(s): K51.90 - Ulcerative colitis, unspecified, without complications (6) Hypothyroidism: Status: Chronic Qualifiers: Hypothyroidism type: unspecified Qualified Code(s): E03.9 - Hypothyroidism, unspecified (7) Macrocytic anemia: Status: Acute (8) Developmental delay, profound: Status: Chronic (9) Blindness of both eyes: Status: Chronic Additional A&P Information Supratherapeutic Dilantin Supratherapeutic Phenobarbital Code Status :Full code DVT PPX: Lovenox 40 mg sc daily Attestations Medical Necessity Statement*: PPatient needs to be in hospital for the management of Aspiration PNA, dehydration, poor oral intake. Coding Level of Care Code Acute Healthcare Corporate Account Director for [facility] Fwd Diagnoses Aspiration pneumonia J69.0 Aspiration pneumonia type: unspecified Laterality: bilateral Lung location: unspecified part of lung Severe dehydration E86.0 Failure to thrive Seizure disorder G40.909 Ulcerative colitis K51.90 Ulcerative colitis location: unspecified ulcerative colitis location Digestive disease complication type: without complication Hypothyroidism E03.9 Hypothyroidism type: unspecified Macrocytic anemia D53.9 Developmental delay, profound R62.50 Blindness of both eyes H54.3
[2020-12-22] MEDS: enoxaparin 40 mg/0.4 mL Syringe SUBCUT (20:24)
[2020-12-23 04:00] VITALS: BP 113/68; PULSE 85; RESP 17; TEMP 36.4; O2SAT 96
[2020-12-23 06:04] LABS: Basophils % 0.4 %; Eosinophils % 0.7 %; Hematocrit 30.1 % (42.0-52.0); Hemoglobin 9.5 g/dL (11.7-16.6); Lymphocytes # 1.4 10^3/uL (0.8-4.8); Mean Corpuscular HGB Conc 31.6 g/dL (30.0-36.0); Mean Corpuscular Hemoglobin 32.2 pg (28.0-34.0); Mean Platelet Volume 10.6 fL (7.4-10.4); Monocytes # 0.7 10^3/uL (0.2-0.9); Monocytes % 12.4 %; Neutrophils # 3.27 10^3/uL (1.8-7.7); Neutrophils % 60.3 %; Nucleated Red Blood Cells % 0 %; Platelet Count 132 10^3/cmm (130-400); Red Blood Count 2.95 10^6/uL (4.1-5.3); Red Cell Distribution Width 14.4 % (12.1-15.1); White Blood Count 5.4 10^3/uL (4.0-10.0)
[2020-12-23] MEDS: metroNIDAZOLE IV 500 MG/100 ML PREMIX 100 MG IV ×3 (06:22→20:06)
[2020-12-23 06:53] LABS: Blood Urea Nitrogen 5 mg/dL (6-20); Calcium 7.6 mg/dL (8.5-10.5); Carbon Dioxide 21 mmol/L (22-29); Chloride 100 mmol/L (98-107); Glomerular Filtration Rate 100.4 mL/min (90-130); Glucose 101 mg/dL (65-115); Osmolality Calculated 275 mOsm/kg (285-295); Sodium 134 mmol/L (136-145)
[2020-12-23 06:58] LABS: Anion Gap 16.7 (5-19); Potassium 3.7 mmol/L (3.5-5.1)
[2020-12-23 07:19] LABS: Phenytoin Dilantin 32.2 ug/mL (10-20)
[2020-12-23 07:29] LABS: Slide Review Slide Review Perform
[2020-12-23 07:49] VITALS: BP 116/75; PULSE 88; RESP 17; TEMP 36.8; O2SAT 94
[2020-12-23] MEDS: aspirin 81 mg EC Tablet PO (08:42)
[2020-12-23] MEDS: cyanocobalamin 1,000 mcg Tablet 1000 MCG PO (08:43)
[2020-12-23] MEDS: tamsulosin 0.4 mg Capsule PO ×2 (08:43→19:56)
[2020-12-23] MEDS: metoprolol tartrate 50 mg Tablet PO ×2 (08:43→19:56)
[2020-12-23] MEDS: folic acid 1 mg Tablet PO (08:43)
[2020-12-23] MEDS: ferrous sulfate EC 325 mg Tablet PO (08:43)
[2020-12-23] MEDS: cholecalciferol (vitamin D3) 5,000 unit Tablet 5000 UNIT PO (08:43)
[2020-12-23] MEDS: levothyroxine 25 mcg Tablet PO (08:44)
[2020-12-23] MEDS: sulfaSALAzine 500 mg Tablet PO ×3 (09:13→19:56)
[2020-12-23 11:25] VITALS: BP 120/75; PULSE 84; RESP 18; TEMP 36.8; O2SAT 93
[2020-12-23] MEDS: dextrose 5%-sod chloride 0.9% 1,000 ML 50 ML IV (11:51)
--- NOTE | 2020-12-23 14:21 | PC.CHAP ---
Pastoral Care Encounter/Spiritual Assessment Type of Contact [] Declined animal humane agent supervisor visit [] Patient/Family/Request visit [] Outpatient visit [] Follow-up visit [] Physician referral [] Code/Alert [XX] Routine visit [] Staff referral [] Actively dying [] Patient sleeping [] Family support [] [] Out of room [] Palliative care [] [] Receiving care in room [] Pre-surgical visit [] Trauma [] Long length of stay [] ICU visit [XX] Other: Visited with Namrata persaud Relational/Emotional Strength [XX] Patient feels connected with others/family/visitors/staff [] Distress [] Loneliness/isolation [] Abandonment Spirituality of Patient [] Person of Fang [] Attends Religion of their Fang [] Believes in Prayer [] Reads Bible or Restorationist materials [] There are Spiritual issues to be addressed Custom Stock Maker Interventions [XX] Prayer [XX] Active listening [XX] Non-anxious presence [] Spiritual/emotional support [] Crisis/trauma care [] Spiritual counseling [] Bereavement support [] Provided bereavement packet [XX] Provided Bible/devotional materials [] Provided toy/stuffed animal, coloring book to patient or family member [] Provided Communion [] Anointing/[place] [] Salvation [XX] Completed spiritual assessment [] Other: Impact on Illness or Injury [] Angry [] Fearful [] Anxious [] Often cries [] Exhaustion [] Unable to work [] Unable to attend tenriism [] Unable to walk/stand [] Unable to read [] Unable to drive [] Unable to eat/drink [] Unable to sleep [] Unable to be with family [] Patient intubated [] Other: Summary: Pt is nonverbal so the visit was with his primary caregiver and sister, SHERWIN. Sister is also cargiver for their mother who has cancer. All three currently live together so that SHERWIN can take care of them. Focus shifted to DW and her needs. She expressed that she tries to take care of herself but that it is difficult sometimes. She also provides care for an unrelated pt. When she accepted the offer for prayer, she asked for animal humane agent supervisor to include her brother who is active duty in [place]. This led to a discussion of great needs with him and his daughter, all of which weighs on DW. Prayer offered. DW felt better and pt even vocalized during prayer. Time spent with patient: 45 mins
--- NOTE | 2020-12-23 15:10 | P.PN_ITS ---
Subjective Subjective: Interval history: Patient was Seen and examined this morning, sister and mother by the bedside, he is slightly more active today, p.o. intake is improving.Vitals and labs have been reviewed. Vitals/I&O/Wt Last Vital Signs Temp 98.3 F 12/23/20 11:25 Pulse 84 12/23/20 11:25 Resp 18 12/23/20 11:25 BP 120/75 12/23/20 11:25 Pulse Ox 93 12/23/20 11:25 12/23/20 12/23/20 12/23/20 06:59 14:59 22:59 Intake Total 1580 / 1580 100 / 1680 Output Total 400 / 650 Balance -400 / 2050 1580 / 1580 100 / 1680 Weight last 48 hrs Weight 60.373 kg Physical Exam Narrative: EXAM NARRATIVE: Awake Const: COMMON NORMALS: patient oriented x3 HENMT: COMMON NORMALS: normocephalic and atraumatic HEAD & SCALP: normocephalic and atraumatic Resp: COMMON NORMALS: normal respiratory effort and clear to auscultation bilaterally EFFORT & INSPECTION: Yes symmetric chest movement AUSCULT ATION: clear to auscultation bilaterally Cardio: COMMON NORMALS: regular rate, regular rhythm, S1 normal heart sound present, S2 normal heart sound present, No gallops present (Cardio), No murmurs present (Cardio), No rub (Cardio) and Peripheral pulses 2+ throughout RATE: regular rate RHYTHM: regular rhythm HEART SOUNDS: S1 normal heart sound present and S2 normal heart sound present PERIPHERAL PULSES: Peripheral pulses 2+ throughout GI: COMMON NORMALS: Normal to inspection, nondistended, normoactive bowel sounds present, Soft to palpation, non-tender, No hepatosplenomegaly present and no masses AUSCULTATION: Yes normoactive bowel sounds PALPATION: Yes Soft to palpation and Yes No hepatosplenomegaly present RECTAL EXAM: Yes deferred Extremity: COMMON NORMALS: no clubbing, cyanosis or edema and no pedal edema Neuro: COMMON NORMALS: patient oriented x3 Data : 12/23/20 04:47 12/23/20 04:47 Micro: Microbiology 12/21/20 13:15 Blood Culture - Preliminary Blood NEGATIVE TO DATE 12/21/20 13:10 Blood Culture - Preliminary Blood NEGATIVE TO DATE A&P Assessment and plan (1) Aspiration pneumonia: Patient is at risk for recurrent aspiration PNA.Xray chest is too suspicious for aspiration PNA with underlying chronic changees.Has been on cef and metro in past, is allergic to penicillin. Will start him on levofloxacin and metronidazole. Aspiration precaution. Status: Acute Qualifiers: Aspiration pneumonia type: unspecified Laterality: bilateral Lung location: unspecified part of lung Qualified Code(s): J69.0 - Pneumonitis due to inhalation of food and vomit (2) Severe dehydration: Continue I.V Hydration Status: Acute (3) Failure to thrive: Nutrition consult for [facility] nutritional goals. Status: Acute (4) Seizure disorder: Supratherapeutic Dilantin Supratherapeutic Phenobarbital Continue to monitor Levels. Status: Chronic (5) Ulcerative colitis: Continue sulfasalazine Status: Chronic Qualifiers: Ulcerative colitis location: unspecified ulcerative colitis location Digestive disease complication type: without complication Qualified Code(s): K51.90 - Ulcerative colitis, unspecified, without complications (6) Hypothyroidism: Continue levothyroxine 25 mcg p.o. daily. TSH: Status: Chronic Qualifiers: Hypothyroidism type: unspecified Qualified Code(s): E03.9 - Hypothyroidism, unspecified (7) Macrocytic anemia: H&H is stable: Monitor CBC for now No need for transfusion Status: Acute (8) Developmental delay, profound: Status: Chronic (9) Blindness of both eyes: Status: Chronic Additional A&P Information Supratherapeutic Dilantin Supratherapeutic Phenobarbital Code Status :Full code DVT PPX: Lovenox 40 mg sc daily Attestations Medical Necessity Statement*: Patient needs to be in hospital for the management of Aspiration PNA, dehydration, poor oral intake. Need for IV hydration and IV antibiotics. Coding Level of Care Code Acute Sheet Metal Shop Foreman for [facility] Fwd Diagnoses Aspiration pneumonia J69.0 Aspiration pneumonia type: unspecified Laterality: bilateral Lung location: unspecified part of lung Severe dehydration E86.0 Failure to thrive Seizure disorder G40.909 Ulcerative colitis K51.90 Ulcerative colitis location: unspecified ulcerative colitis location Digestive disease complication type: without complication Hypothyroidism E03.9 Hypothyroidism type: unspecified Macrocytic anemia D53.9 Developmental delay, profound R62.50 Blindness of both eyes H54.3
[2020-12-23 16:00] VITALS: BP 122/72; PULSE 83; RESP 18; TEMP 36.4; O2SAT 91
[2020-12-23] MEDS: levofloxacin-dextrose 5 % 750 MG/150 ML PREMIX 100 MG IV (17:47)
[2020-12-23 19:33] VITALS: BP 113/73; PULSE 94; RESP 16; TEMP 36.6; O2SAT 96
[2020-12-23] MEDS: enoxaparin 40 mg/0.4 mL Syringe SUBCUT (19:56)
[2020-12-24] VITALS: BP 108/66; PULSE 96; RESP 16; TEMP 36.4; O2SAT 95
[2020-12-24 04:00] VITALS: BP 125/76; PULSE 84; RESP 16; TEMP 36.8; O2SAT 91
[2020-12-24] MEDS: metroNIDAZOLE IV 500 MG/100 ML PREMIX 100 MG IV ×3 (04:44→21:47)
[2020-12-24 07:43] VITALS: BP 135/79; PULSE 86; RESP 18; TEMP 36.6; O2SAT 96
[2020-12-24 08:17] LABS: Basophils % 0.3 %; Eosinophils # 0.1 10^3/uL (0.0-0.8); Eosinophils % 1.2 %; Hematocrit 29.8 % (42.0-52.0); Hemoglobin 9.4 g/dL (11.7-16.6); Lymphocytes # 1.3 10^3/uL (0.8-4.8); Lymphocytes % 16.9 %; Mean Corpuscular HGB Conc 31.5 g/dL (30.0-36.0); Mean Corpuscular Volume 101.4 fL (80-94); Mean Platelet Volume 10.2 fL (7.4-10.4); Monocytes % 13.1 %; Neutrophils % 68.2 %; Nucleated Red Blood Cells % 0 %; Platelet Count 143 10^3/cmm (130-400); Red Blood Count 2.94 10^6/uL (4.1-5.3); Red Cell Distribution Width 14.2 % (12.1-15.1); White Blood Count 7.5 10^3/uL (4.0-10.0)
[2020-12-24 08:37] LABS: Blood Urea Nitrogen 4 mg/dL (6-20); Calcium 7.8 mg/dL (8.5-10.5); Carbon Dioxide 21 mmol/L (22-29); Chloride 102 mmol/L (98-107); Glomerular Filtration Rate 139.9 mL/min (90-130); Glucose 119 mg/dL (65-115); Osmolality Calculated 272 mOsm/kg (285-295); Sodium 132 mmol/L (136-145); Thyroid Stimulating Hormone 2.02 uIU/mL (0.27-4.20)
[2020-12-24 08:47] LABS: Anion Gap 12.5 (5-19); Phenytoin Dilantin 33.2 ug/mL (10-20); Potassium 3.5 mmol/L (3.5-5.1)
[2020-12-24] MEDS: sulfaSALAzine 500 mg Tablet PO ×3 (09:13→21:46)
[2020-12-24] MEDS: cyanocobalamin 1,000 mcg Tablet 1000 MCG PO (09:13)
[2020-12-24] MEDS: folic acid 1 mg Tablet PO (09:13)
[2020-12-24] MEDS: ferrous sulfate EC 325 mg Tablet PO (09:13)
[2020-12-24] MEDS: levothyroxine 25 mcg Tablet PO (09:14)
[2020-12-24] MEDS: metoprolol tartrate 50 mg Tablet PO ×2 (09:14→21:45)
[2020-12-24] MEDS: aspirin 81 mg EC Tablet PO (09:14)
[2020-12-24] MEDS: tamsulosin 0.4 mg Capsule PO ×2 (09:14→21:46)
[2020-12-24] MEDS: cholecalciferol (vitamin D3) 5,000 unit Tablet 5000 UNIT PO (09:14)
[2020-12-24] MEDS: ergocalciferol (vitamin D2) 50,000 Unit Capsule 50000 UNIT PO (09:21)
[2020-12-24] MEDS: dextrose 5%-sod chloride 0.9% 1,000 ML 50 ML IV (09:28)
--- NOTE | 2020-12-24 11:39 | PC.SOCIAL ---
Addendum entered by Rosibel Landa 12/24/20 11:40: IMM update Pg. 2 of IMM updated with patient and sister at bedside. Verbalized an understanding. Copy provided, initialed, dated, and timed in chart. Original Note: IMM Update Pg. 2 of IMM updated and reviewed with patient. Verbalized understanding. Copy provided. Initialed, dated, and timed in chart.
[2020-12-24 12:00] VITALS: BP 102/65; PULSE 89; RESP 18; TEMP 36.6; O2SAT 95
--- NOTE | 2020-12-24 13:25 | PM.PN ---
Subjective Subjective: Interval history: Patient was seen this morning, his sister is at bedside, patient is nonverbal, she tells me that he is much more alert, much more like his normal self this morning, no fevers overnight, normotensive on room air Vitals/I&O/Wt Last Vital Signs Temp 97.8 F 12/24/20 12:00 Pulse 89 12/24/20 12:00 Resp 18 12/24/20 12:00 BP 102/65 12/24/20 12:00 Pulse Ox 95 12/24/20 12:00 12/23/20 12/24/20 12/24/20 22:59 06:59 14:59 Intake Total 830 / 2410 100 / 2510 1360 / 1360 Output Total 1999 / 1999 800 / 2800 Balance -1170 / 410 -700 / -290 1360 / 1360 Physical Exam Narrative: EXAM NARRATIVE: Nonverbal, does not follow commands Const: COMMON NORMALS: no acute distress ORIENTATION/CONSCIOUSNESS: Yes awake; not oriented to person, not oriented to place and not oriented to time Resp: COMMON NORMALS: normal respiratory effort, No retractions, No use of accessory muscles and clear to auscultation bilaterally AUSCULTATION: clear to auscultation bilaterally Cardio: COMMON NORMALS: regular rate, regular rhythm, S1 normal heart sound present, S2 normal heart sound present and No murmurs present (Cardio) RATE: regular rate RHYTHM: regular rhythm HEART SOUNDS: S1 normal heart sound present and S2 normal heart sound present GI: COMMON NORMALS: Normal to inspection, nondistended, normoactive bowel sounds present, Soft to palpation and non-tender PALPATION: Yes Soft to palpation Extremity: COMMON NORMALS: no pedal edema Neuro: SENSORIUM/ORIENTATION: No oriented to person, No oriented to place and No oriented to time Data : 12/24/20 07:43 12/24/20 07:43 A&P Assessment and plan (1) Aspiration pneumonia: Patient is at risk for recurrent aspiration PNA.Xray chest is too suspicious for aspiration PNA with underlying chronic changees.Has been on cef and metro in past, is allergic to penicillin. Continue Levaquin and Flagyl Aspiration precautions We will have speech therapy see patient again Discussed PEG tube placement again with patient's sister at bedside, advised of the risks and benefits, she voiced understanding, all questions answered, declined We can certainly try it chronic suppressive antibiotics Full code Lovenox for DVT prophylaxis Status: Acute Qualifiers: Aspiration pneumonia type: unspecified Laterality: bilateral Lung location: unspecified part of lung Qualified Code(s): J69.0 - Pneumonitis due to inhalation of food and vomit (2) Severe dehydration: Continue I.V Hydration Status: Acute (3) Failure to thrive: Nutrition consult for maitainig nutritional goals. Status: Acute (4) Seizure disorder: Supratherapeutic Dilantin 32.2, Supratherapeutic Phenobarbital 27.7 Continue to monitor Levels. Status: Chronic (5) Ulcerative colitis: Continue sulfasalazine Status: Chronic Qualifiers: Ulcerative colitis location: unspecified ulcerative colitis location Digestive disease complication type: without complication Qualified Code(s): K51.90 - Ulcerative colitis, unspecified, without complications (6) Hypothyroidism: Continue levothyroxine 25 mcg p.o. daily. TSH: 2 Status: Chronic Qualifiers: Hypothyroidism type: unspecified Qualified Code(s): E03.9 - Hypothyroidism, unspecified (7) Macrocytic anemia: H&H is stable: Monitor CBC for now No need for transfusion Status: Acute (8) Developmental delay, profound: Status: Chronic (9) Blindness of both eyes: Status: Chronic Additional A&P Information Supratherapeutic Dilantin Supratherapeutic Phenobarbital Code Status :Full code DVT PPX: Lovenox 40 mg sc daily Attestations Medical Necessity Statement*: Patient requires hospitalization for recurrent aspiration pneumonia, failure to thrive, dehydration, supratherapeutic Dilantin and phenobarbital Coding Level of Care Code Acute [employer] Sales Representative for Chg Fwd Diagnoses Aspiration pneumonia J69.0 Aspiration pneumonia type: unspecified Laterality: bilateral Lung location: unspecified part of lung Severe dehydration E86.0 Failure to thrive Seizure disorder G40.909 Ulcerative colitis K51.90 Ulcerative colitis location: unspecified ulcerative colitis location Digestive disease complication type: without complication Hypothyroidism E03.9 Hypothyroidism type: unspecified Macrocytic anemia D53.9 Developmental delay, profound R62.50 Blindness of both eyes H54.3
[2020-12-24 16:00] VITALS: BP 127/67; PULSE 93; RESP 18; TEMP 36.8; O2SAT 93
[2020-12-24] MEDS: levofloxacin-dextrose 5 % 750 MG/150 ML PREMIX 100 MG IV (17:29)
[2020-12-24 19:39] VITALS: BP 110/70; PULSE 91; RESP 16; TEMP 36.4; O2SAT 95
[2020-12-24] MEDS: enoxaparin 40 mg/0.4 mL Syringe SUBCUT (21:44)
[2020-12-25] VITALS: BP 110/72; PULSE 87; RESP 15; TEMP 36.4; O2SAT 95
[2020-12-25 04:00] VITALS: BP 144/78; PULSE 84; RESP 17; TEMP 36.7; O2SAT 94
[2020-12-25 06:11] LABS: Basophils % 0.2 %; Eosinophils # 0.1 10^3/uL (0.0-0.8); Eosinophils % 1.7 %; Hematocrit 31.2 % (42.0-52.0); Hemoglobin 10.2 g/dL (11.7-16.6); Lymphocytes # 1.3 10^3/uL (0.8-4.8); Lymphocytes % 20.2 %; Mean Corpuscular HGB Conc 32.7 g/dL (30.0-36.0); Mean Corpuscular Hemoglobin 32.6 pg (28.0-34.0); Mean Corpuscular Volume 99.7 fL (80-94); Monocytes # 0.8 10^3/uL (0.2-0.9); Monocytes % 12.2 %; Neutrophils # 4.34 10^3/uL (1.8-7.7); Neutrophils % 65.4 %; Nucleated Red Blood Cells % 0 %; Platelet Count 161 10^3/cmm (130-400); Red Blood Count 3.13 10^6/uL (4.1-5.3); Red Cell Distribution Width 14.2 % (12.1-15.1); White Blood Count 6.6 10^3/uL (4.0-10.0)
[2020-12-25 06:25] LABS: Alanine Aminotransferase 12 U/L (0-41); Albumin Level 3.6 g/dL (3.5-5.2); Alkaline Phosphatase 85 IU/L (40-130); Anion Gap 16.1 (5-19); Aspartate Amino Transferase 20 U/L (0-40); Blood Urea Nitrogen 4 mg/dL (6-20); Calcium 7.3 mg/dL (8.5-10.5); Carbon Dioxide 23 mmol/L (22-29); Chloride 98 mmol/L (98-107); Glomerular Filtration Rate 139.9 mL/min (90-130); Glucose 109 mg/dL (65-115); Magnesium 1.3 mg/dL (1.7-2.3); Osmolality Calculated 275 mOsm/kg (285-295); Phosphorus 1.9 mg/dL (2.5-4.5); Potassium 3.1 mmol/L (3.5-5.1); Sodium 134 mmol/L (136-145); Total Bilirubin 0.3 mg/dL (0.15-1.2); Total Protein 6.6 g/dL (6.6-8.7)
[2020-12-25] MEDS: metroNIDAZOLE IV 500 MG/100 ML PREMIX 100 MG IV (06:25)
[2020-12-25] MEDS: dextrose 5%-sod chloride 0.9% 1,000 ML 50 ML IV (06:27)
[2020-12-25 06:35] LABS: Procalcitonin 0.22 ng/mL (0-0.5)
[2020-12-25 07:55] VITALS: BP 121/74; PULSE 84; RESP 14; TEMP 37.1; O2SAT 95
[2020-12-25 08:00] VITALS: BP 121/74; PULSE 84; RESP 14; TEMP 37.1
[2020-12-25] MEDS: tamsulosin 0.4 mg Capsule PO (08:26)
[2020-12-25] MEDS: metoprolol tartrate 50 mg Tablet PO (08:26)
[2020-12-25] MEDS: cyanocobalamin 1,000 mcg Tablet 1000 MCG PO (08:26)
[2020-12-25] MEDS: folic acid 1 mg Tablet PO (08:26)
[2020-12-25] MEDS: sulfaSALAzine 500 mg Tablet PO ×2 (08:27→14:20)
[2020-12-25] MEDS: aspirin 81 mg EC Tablet PO (08:27)
[2020-12-25] MEDS: ferrous sulfate EC 325 mg Tablet PO (08:27)
[2020-12-25] MEDS: cholecalciferol (vitamin D3) 5,000 unit Tablet 5000 UNIT PO (08:27)
[2020-12-25] MEDS: levothyroxine 25 mcg Tablet PO (08:28)
[2020-12-25] MEDS: magnesium sulfate premix 4 GM/100 ML PREMIX IV (10:19)
[2020-12-25 12:00] VITALS: BP 132/82; PULSE 84; RESP 14; TEMP 36.6; O2SAT 98
--- NOTE | 2020-12-25 13:14 | P.DS_ITS ---
Discharge Providers Date of Admission: 12/21/20 14:24 Date of Discharge: December 25, 2020 Attending Provider at Admission: William Obrien MD Attending Provider at Discharge: Дмитрий Bernal MD Primary Care Provider: Dora Brady MD Diagnoses at Discharge Discharge Diagnosis (1) Aspiration pneumonia: Status: Acute Qualifiers: Aspiration pneumonia type: unspecified Laterality: bilateral Lung location: unspecified part of lung Qualified Code(s): J69.0 - Pneumonitis due to inhalation of food and vomit (2) Severe dehydration: Status: Acute (3) Failure to thrive: Status: Acute (4) Seizure disorder: Status: Chronic Permanent problem details: on phenobarbital chronically (5) Ulcerative colitis: Status: Chronic Permanent problem details: on sulfasalazine Qualifiers: Ulcerative colitis location: unspecified ulcerative colitis location Digestive disease complication type: without complication Qualified Code(s): K51.90 - Ulcerative colitis, unspecified, without complications (6) Hypothyroidism: Status: Chronic Qualifiers: Hypothyroidism type: unspecified Qualified Code(s): E03.9 - Hypothyroidism, unspecified (7) Macrocytic anemia: Status: Acute (8) Developmental delay, profound: Status: Chronic Permanent problem details: related to adverse effect from steroids for ulcerative colitis per mother (9) Blindness of both eyes: Status: Chronic Permanent problem details: does not open eyes Reason for Visit Reason for Visit: FAILURE TO THRIVE Hospital Course Hospital Course this is a pleasant 55-year-old male with a past medical history of cerebral palsy, nonverbal, does not follow commands, blindness, nonambulatory, ulcerative colitis on sulfasalazine, hypothyroidism, requires full assistance with activities of daily living, his primary caregiver since his mom and his sister, history of seizures, on phenobarbital and Dilantin, recent hospitalization for aspiration pneumonia, family declines PEG tube placement, who presents to [facility] due to poor oral intake and lethargy, not behaving appropriately Patient was admitted to [facility] due to recurrent aspiration pneumonia, received broad-spectrum antibiotic therapy, aspiration precautions, and clinically monitored. Patient clinically improved, mentation improved, normally at baseline he is interactive, playful, smiles, and family believe that he was back to his normal baseline. He remained afebrile, cultures have been unremarkable, has not had any significant oxygen requirement throughout his hospitalization. Again after discussion of the risks and benefits of PEG tube placement, family declined PEG tube placement. Advised of recurrent risk of recurrent aspiration, morbidity and mortality associated, recurrent hospitalizations associated, they voiced understanding, all questions answered, declined PEG tube placement. In addition chronic antibiotic prophylaxis is not routinely indicated. I have discharged him on Levaquin and Flagyl. Patient's family was advised that if he were to have recurrent fevers, changes in mentation, poor appetite, come back to emergency room. Stressed the importance of aspiration precautions, dysphagia diet,. For his history of seizures, he is on phenobarbital and Dilantin. During this hospitalization, like the previous hospitalization his phenobarbital and Dilantin levels were high, these medications were held. Phenytoin and Dilantin levels decreased to normal levels before discharge. He did have 1 breakthrough seizure the morning of 12/25/2020 seen by family members, lasting a second. He was behaving appropriately afterwards, phenobarbital and Dilantin were discontinued on discharge. Patient has been switched to Keppra 1000 mg twice daily with close follow-up with neurology as outpatient. Physical Exam Narrative: EXAM NARRATIVE: Nonverbal, does not follow commands Const: COMMON NORMALS: no acute distress ORIENTATION/CONSCIOUSNESS: Yes awake; not oriented to person, not oriented to place and not oriented to time Resp: COMMON NORMALS: normal respiratory effort, No retractions, No use of accessory muscles and clear to auscultation bilaterally AUSCULTATION: clear to auscultation bilaterally Cardio: COMMON NORMALS: regular rate, regular rhythm, S1 normal heart sound present, S2 normal heart sound present and No murmurs present (Cardio) RATE: regular rate RHYTHM: regular rhythm HEART SOUNDS: S1 normal heart sound present and S2 normal heart sound present GI: COMMON NORMALS: Normal to inspection, nondistended, normoactive bowel sounds present, Soft to palpation and non-tender PALPATION: Yes Soft to palpation Extremity: COMMON NORMALS: no pedal edema Neuro: SENSORIUM/ORIENTATION: No oriented to person, No oriented to place and No oriented to time Discharge Data Data Completed and Pending: Completed Studies During Hospitalization Category Date Time Status XR chest 1V feng ble [id number] Stat Exams 12/21/20 12:09 Completed Pending at discharge Category Date Time Status Blood Culture Sta t Lab 12/21/20 13:15 Results Complete Blood Co unt w/Auto AM LABS Lab 12/26/20 04:00 Ordered Complete Blood Co unt w/Auto AM LABS Lab 12/27/20 04:00 Ordered Comprehensive Met abolic Panel AM LA BS Lab 12/26/20 04:00 Ordered Comprehensive Met abolic Panel AM LA BS Lab 12/27/20 04:00 Ordered Magnesium AM LABS Lab 12/26/20 04:00 Ordered Magnesium AM LABS Lab 12/27/20 04:00 Ordered Phosphorus AM LAB S Lab 12/26/20 04:00 Ordered Phosphorus AM LAB S Lab 12/27/20 04:00 Ordered Procalcitonin AM LABS Lab 12/26/20 04:00 Ordered Procalcitonin AM LABS Lab 12/27/20 04:00 Ordered Labs from last 24 hours 12/25/20 12/25/20 12/25/20 05:30 05:30 05:30 WBC 6.6 RBC 3.13 L Hgb 10.2 L Hct 31.2 L MCV 99.7 H MCH 32.6 MCHC 32.7 RDW 14.2 Plt Count 161 MPV 10.0 Neut % (Auto) 65.4 Lymph % (Auto) 20.2 [place] % (Auto) 12.2 Eos % (Auto) 1.7 Baso % (Auto) 0.2 Neut # (Auto) 4.34 Lymph # (Auto) 1.3 [place] # (Auto) 0.8 Eos # (Auto) 0.1 Baso # (Auto) 0.0 Nucleated RBC % (a uto) 0 Nucleated RBCs # 0.0 Sodium 134 L Potassium 3.1 L Chloride 98 Carbon Dioxide 23 Anion Gap 16.1 BUN 4 L Creatinine 0.6 L GFR Calculation 139.9 H Glucose 109 Calculated Osmolal ity 275 L Calcium 7.3 L Phosphorus 1.9 L Magnesium 1.3 L Total Bilirubin 0.3 AST 20 ALT 12 Alkaline Phosphata se 85 Total Protein 6.6 Albumin 3.6 Globulin 3.0 Procalcitonin 0.22 Phenytoin 27.0 H Phenobarbital 24.4 Vitals: Last Vital Signs Temp 97.9 F 12/25/20 12:00 Pulse 84 12/25/20 12:00 Resp 14 12/25/20 12:00 BP 132/82 12/25/20 12:00 Pulse Ox 98 12/25/20 12:00 Discharge Plan Discharge Patient Disposition: Home Condition: Stable Prescriptions: New levetiracetam 500 mg Tablet 1,000 mg PO BID 30 Days Qty: 120 RF: 0 Continued ferrous sulfate 325 mg (65 mg iron) tablet 325 mg PO DAILY@0800 RF: 0 docusate sodium [DOK] 100 mg capsule 100 mg PO DAILY PRN (Reason: Constipation) RF: 0 metronidazole [Flagyl] 500 mg tablet 250 mg PO TID Qty: 21 RF: 0 nystatin 100,000 unit/gram Cream 1 applic TOPICAL TID RF: 0 cyanocobalamin (vitamin B-12) 1,000 mcg tablet extended release 1,000 mcg PO DAILY@0800 RF: 0 sulfasalazine 500 mg tablet 500 mg PO TID@08,, RF: 0 aspirin 81 mg tablet,delayed release (DR/EC) 81 mg PO DAILY@0800 RF: 0 levothyroxine 25 mcg tablet 25 mcg PO DAILY@0800 RF: 0 hydrocodone-acetaminophen 7.5-325 mg tablet 1 tab PO QID PRN (Reason: Pain) RF: 0 folic acid 1 mg tablet 1 mg PO DAILY@0800 RF: 0 diazepam 5 mg tablet 5 mg PO BID PRN (Reason: Seizures) RF: 0 cholecalciferol (vitamin D3) [Vitamin D3] 125 mcg (5,000 unit) Tablet 125 mcg PO DAILY@0800 RF: 0 bisacodyl 5 mg Tablet,Delayed Release (Dr/Ec) 10 mg PO DAILY PRN (Reason: Constipation (see protocol)) Qty: 0 RF: 0 metoprolol tartrate 50 mg tablet 50 mg PO BID@799,1999 RF: 0 ergocalciferol (vitamin D2) [Vitamin D2] 1,250 mcg (50,000 unit) capsule 1,250 mcg PO Q7D RF: 0 magnesium oxide [MagOx] 400 mg (241.3 mg magnesium) tablet 400 mg PO BID@799,1999 RF: 0 tamsulosin 0.4 mg capsule 0.4 mg PO BID@799,1999 RF: 0 Discontinued levofloxacin 750 mg tablet 750 mg PO DAILY 7 Days Qty: 7 RF: 0 phenobarbital 16.2 mg tablet 32.4 mg PO TID RF: 0 phenytoin [Dilantin Infatabs] 50 mg tablet,chewable 100 mg PO TID RF: 0 Discharge Orders: Discharge Order (Routine); Ordered 12/25/20 Ordered By: Дмитрий Bernal Referrals: Barb Ghotra MD [Physician] - 7-10 days (seizures, on dilatin and phenobarbital, switched to keppra) Discharge Diet: As Directed Discharge Activity: Resume usual activity Patient Instructions: Aspiration Pneumonia (DC), Opioid Safety Activity Restrictions/Additional Instructions: -Feed with aspiration precautions, chin tuck, keep head of bed elevated -Monitor for recurrent aspiration pneumonia -Phenobarbital and Dilantin have been stopped -He has been switched to Keppra 1000 mg twice daily, follow-up with Dr. Jeremy pettit -Follow-up with Dr. Duncan -If fevers, cough, shortness of breath go to emergency room Discharge Attestations Time Spent in Discharge Care*: less than 30 min Status at Discharge: Cognitive status at discharge: severely impaired cognition , Behavioral status at discharge: dependent in ADL's , Quality Metrics Clinical Quality Measures During this hospital stay, did patient experience: None Coding Level of Care Code Acute Chg FW DC note Diagnoses Aspiration pneumonia J69.0 Aspiration pneumonia type: unspecified Laterality: bilateral Lung location: unspecified part of lung Severe dehydration E86.0 Failure to thrive Seizure disorder G40.909 Ulcerative colitis K51.90 Ulcerative colitis location: unspecified ulcerative colitis location Digestive disease complication type: without complication Hypothyroidism E03.9 Hypothyroidism type: unspecified Macrocytic anemia D53.9 Developmental delay, profound R62.50 Blindness of both eyes H54.3
[2020-12-25] MEDS: levETIRAcetam 500 mg Tablet 1000 MG PO (14:20)
[2020-12-25 14:52] VITALS: BP 132/82; PULSE 84; RESP 14; TEMP 36.6; O2SAT 98
== END 2020-12-25 14:53 | disposition home or self-care (01) | DRG 178 ==
LOC: ER 13:02 → MEDSURG 15:16
PROVIDERS: Admitting Provider Internal Medicine; Emergency Provider Family Medicine; PCP Internal Medicine; Visit Provider Family Medicine
DX: J69.0 Pneumonitis due to inhalation of food and vomit (principal); F73 Profound intellectual disabilities; K51.90 Ulcerative colitis, unspecified, without complications; G40.909 Epilepsy, unspecified, not intractable, without status epilepticus; H54.3 Unqualified visual loss, both eyes; E03.9 Hypothyroidism, unspecified; Z87.01 Personal history of pneumonia (recurrent); E86.0 Dehydration; R62.7 Adult failure to thrive; Z68.24 Body mass index [BMI] 24.0-24.9, adult; D53.9 Nutritional anemia, unspecified; Z79.82 Long term (current) use of aspirin; Z79.891 Long term (current) use of opiate analgesic
CPT/HCPCS: 36415; 71045; 80048; 80053; 80162; 80184; 80185; 81001; 82550; 83690; 83735; 84100; 84145; 84443; 85025; 87040; 92610; 93005; 96365; 96366; 96367; 96372; 99285; J1650; J1956; J2405; J3370; J3475; J3490; J7040; J7050; S0030

== ENCOUNTER 2021-01-06 04:53 | Inpatient (IN) | payer MEDICARE, MEDICAID, SELFPAY ==
[2021-01-06] VITALS (29 sets, daily range): BP systolic 84–170; BP diastolic 60–98; PULSE 114–160; RESP 10–26; TEMP 36.6–37.4; O2SAT 91–99; BMI 18.1
--- NOTE | 2021-01-06 05:16 | XRR_ITS ---
PROCEDURE INFORMATION: Exam: XR Chest Exam date and time: 01/06/2021 5:16 AM Age: 55 years old Clinical indication: Other: Seizure TECHNIQUE: Imaging protocol: XR of the chest. Views: 1 view. COMPARISON: CR XR chest 1V portable [id number] 12/21/2020 12:09 PM FINDINGS: Lungs: Low lung volumes. Coarse interstitial markings are again seen bilaterally, involving mainly the lower lungs. Pleural spaces: Unremarkable. No pleural effusion. No pneumothorax. Heart/Mediastinum: Stable cardiomediastinal silhouette. Bones/joints: Degenerative changes of the spine seen. XR/XR chest 1V portable [id number] IMPRESSION: Persistent interstitial thickening, involving mainly the lower lungs. These findings are nonspecific and can be seen with pulmonary congestion, interstitial lung disease or pneumonia.
--- NOTE | 2021-01-06 05:18 | ECG_ITS ---
[facility] Test Date: 2021-01-06 Pat Name: Awais Macias Department: Room: Gender: Male Compliance Advisor: : 1965 Requested By: Fuad Live Order Number: [id number] Heber MD: Nabil Gaming M.D. Measurements Intervals [place] Rate: 147 P: 31 OK: 132 QRS: 6 QRSD: 89 T: 15 QT: 273 QTc: 427 Interpretive Statements SINUS TACHYCARDIA Compared to ECG 12/21/2020 13:24:33 ST (T wave) deviation no longer present Early repolarization no longer present Electronically Signed On 01-06-2021 17:06:53 CDT by Nabil Gaming M.D. [id number]
--- NOTE | 2021-01-06 05:22 | ED_ITS ---
HPI - Seizure General: Chief Complaint: Seizure Stated Complaint: SEIZURES Time Seen by Provider: 01/06/21 05:01 History of Present Illness: HPI Narrative: 55-year-old male with a history of CP, seizure disorder, nonambulatory, blind. He presents after having several seizures at home. His mother, who is his chair car attendant, and is quite frail herself undergoing chemotherapy and wheelchair-bound, called ahead. She was worried for him given the frequency of his seizures. He was discharged from his previous admission recently on Keppra, and his phenobarbital and Depakote were discontinued. She states he has not done well, and has had several seizures. The patient presents awake, following commands MD complaint: seizure Onset (ago): hour(s) Description of Episode: tonic-clonic movement Witnessed: Yes - by Other Trauma: No Seizure History: Yes Place: Home Treatments prior to arrival: none Review of Systems General: Reports: ROS unobtainable due to medical condition PFS ED PFSH: Medical History Acute pyelonephritis 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 Cystitis Developmental delay, profound related to adverse effect from steroids for ulcerative colitis per mother History of cardiac arrhythmia on digoxin chronically Hypothyroidism Nausea & vomiting Seizure disorder on phenobarbital chronically Ulcerative colitis on sulfasalazine Surgical History History of colonoscopy Family History Mother Cancer Currently undergoing chemotherapy Father , No problems noted. Social History Smoking and tobacco status: never smoked Alcohol intake: never Caregiver/support person: Yes (Mother) Household members: family Marital status: Single Current occupational status: disabled History of recent travel: No Physical Exam Const: COMMON NORMALS: no acute distress and alert EXAM LIMITATIONS: physical limitations GENERAL APPEARANCE: cooperative and frail appearing NUTRITIONAL APPEARANCE: thin ORIENTATION/CONSCIOUSNESS: Yes awake HENMT: COMMON NORMALS: atraumatic HEAD & SCALP: atraumatic Chest: COMMONS NORMALS: normal inspection of the chest Resp: COMMON NORMALS: normal respiratory effort, No use of accessory muscles and clear to auscultation bilaterally AUSCULTATION: clear to auscultation bilaterally Cardio: COMMON NORMALS: regular rhythm RATE: tachycardic RHYTHM: regular rhythm GI: COMMON NORMALS: Normal to inspection, nondistended, normoactive bowel sounds present and Soft to palpation PALPATION: Yes Soft to palpation Extremity: GENERAL: No edema Neuro: SENSORIUM/ORIENTATION: Yes alert Course Vital Signs: Vital signs: Vital Signs Temperature 97.8 F 01/06/21 04:55 Pulse Rate 128 H 01/06/21 06:30 Respiratory Rate 18 01/06/21 06:30 Blood Pressure 157/81 01/06/21 06:30 Pulse Oximetry 97 01/06/21 06:30 MDM - Seizure MDM Narrative: Medical decision making narrative: 55-year-old male with increased number of seizures, tachycardia, dehydration, and urinary tract infec tion his mother, who is his chair car attendant has been unable to care for him at home. He had a recent admission for aspiration pneumonitis. His chest x-ray appears improved. However with his heart rate, and urinary tract infection, as well as increased number of seizures, he will have to be admitted. Lab Data: Labs: Lab Results 01/06/21 01/06/21 01/06/21 Range/Units 05:01 05:01 05:35 WBC 6.7 (4.0-10.0) 10^3/ uL RBC 3.53 L (4.1-5.3) 10^6/u L Hgb 11.5 L (11.7-16.6) g/dL Hct 35.1 L (42.0-52.0) % MCV 99.4 H (80-94) fL MCH 32.6 (28.0-34.0) pg MCHC 32.8 (30.0-36.0) g/dL RDW 15.4 H (12.1-15.1) % Plt Count 116 L (130-400) 10^3/c mm MPV 11.3 H (7.4-10.4) fL Neut % (Auto) 78.1 % Lymph % (Auto) 10.7 % [place] % (Auto) 9.8 % Eos % (Auto) 0.9 % Baso % (Auto) 0.3 % Neut # (Auto) 5.20 (1.8-7.7) 10^3/u L Lymph # (Auto) 0.7 L (0.8-4.8) 10^3/u L [place] # (Auto) 0.7 (0.2-0.9) 10^3/u L Eos # (Auto) 0.1 (0.0-0.8) 10^3/u L Baso # (Auto) 0.0 (0.0-0.1) 10^3/u L Nucleated RBC % (a uto) 0 % Nucleated RBCs # 0.0 /100WBC Specimen Type Arterial Sample Site Radial, left ABG pH 7.42 (7.35-7.45) ABG pCO2 40.3 (35-45) mmHg ABG pO2 76.7 L (80.0-100.0) mmH g ABG HCO3 26.3 H (22-26) mmol/L ABG Base Excess 1.7 (-2.0-2.0) mmol/ L Wiley Test Pos Hematocrit 35.9 L (42-52) % O2 Delivery Device None Supervisor [employer] ID [email or web address] Sodium 136 (136-145) mmol/L Potassium 3.8 (3.5-5.1) mmol/L Chloride 97 L (98-107) mmol/L Carbon Dioxide 23 (22-29) mmol/L Anion Gap 19.8 H (5-19) BUN 8 (6-20) mg/dL Creatinine 0.8 (0.7-1.2) mg/dL GFR Calculation 100.4 (90-130) mL/min Glucose 122 H (65-115) mg/dL Calculated Osmolal ity 282 L (285-295) mOsm/k g Calcium 9.5 (8.5-10.5) mg/dL Magnesium 1.6 L (1.7-2.3) mg/dL Total Bilirubin 0.4 (0.15-1.2) mg/dL AST 41 H (0-40) U/L ALT 33 (0-41) U/L Alkaline Phosphata se 98 (40-130) IU/L Creatine Kinase 75 (39-308) U/L C-Reactive Protein 40.3 H (0.0-4.9) mg/L Total Protein 7.3 (6.6-8.7) g/dL Albumin 4.0 (3.5-5.2) g/dL Globulin 3.3 (1.3-4.6) g/dL Urine Color (Yellow) Urine Appearance (CLEAR) Urine pH (5-7) Ur Specific Gravit y (1.005-1.030) Urine Protein (Negative) Urine Glucose (UA) (Normal) Urine Ketones (Negative) Urine Blood (Negative) Urine Nitrate (Negative) Urine Bilirubin (Negative) Urine Urobilinogen (Negative) mg/dL Ur Leukocyte Alka ase (Negative) Urine RBC (0-2) /hpf Urine WBC (0-5) /hpf Ur Squamous Epith Cells (0-5) /hpf Amorphous Sediment Urine Bacteria (NONE) /hpf 01/06/21 Range/Units 05:42 WBC (4.0-10.0) 10^3/ uL RBC (4.1-5.3) 10^6/u L Hgb (11.7-16.6) g/dL Hct (42.0-52.0) % MCV (80-94) fL MCH (28.0-34.0) pg MCHC (30.0-36.0) g/dL RDW (12.1-15.1) % Plt Count (130-400) 10^3/c mm MPV (7.4-10.4) fL Neut % (Auto) % Lymph % (Auto) % [place] % (Auto) % Eos % (Auto) % Baso % (Auto) % Neut # (Auto) (1.8-7.7) 10^3/u L Lymph # (Auto) (0.8-4.8) 10^3/u L [place] # (Auto) (0.2-0.9) 10^3/u L Eos # (Auto) (0.0-0.8) 10^3/u L Baso # (Auto) (0.0-0.1) 10^3/u L Nucleated RBC % (a uto) % Nucleated RBCs # /100WBC Specimen Type Sample Site ABG pH (7.35-7.45) ABG pCO2 (35-45) mmHg ABG pO2 (80.0-100.0) mmH g ABG HCO3 (22-26) mmol/L ABG Base Excess (-2.0-2.0) mmol/ L Wiley Test Hematocrit (42-52) % O2 Delivery Device Supervisor [employer] ID Sodium (136-145) mmol/L Potassium (3.5-5.1) mmol/L Chloride (98-107) mmol/L Carbon Dioxide (22-29) mmol/L Anion Gap (5-19) BUN (6-20) mg/dL Creatinine (0.7-1.2) mg/dL GFR Calculation (90-130) mL/min Glucose (65-115) mg/dL Calculated Osmolal ity (285-295) mOsm/k g Calcium (8.5-10.5) mg/dL Magnesium (1.7-2.3) mg/dL Total Bilirubin (0.15-1.2) mg/dL AST (0-40) U/L ALT (0-41) U/L Alkaline Phosphata se (40-130) IU/L Creatine Kinase (39-308) U/L C-Reactive Protein (0.0-4.9) mg/L Total Protein (6.6-8.7) g/dL Albumin (3.5-5.2) g/dL Globulin (1.3-4.6) g/dL Urine Color Dark yellow (Yellow) Urine Appearance Hazy A (CLEAR) Urine pH 5 (5-7) Ur Specific Gravit y 1.025 (1.005-1.030) Urine Protein 1+ H (Negative) Urine Glucose (UA) Norm (Normal) Urine Ketones 1+ H (Negative) Urine Blood 2+ H (Negative) Urine Nitrate Negative (Negative) Urine Bilirubin Neg (Negative) Urine Urobilinogen Norm (Negative) mg/dL Ur Leukocyte Alka ase 2+ H (Negative) Urine RBC 5-10 H (0-2) /hpf Urine WBC >100 H (0-5) /hpf Ur Squamous Epith Cells None (0-5) /hpf Amorphous Sediment Not Reportable Urine Bacteria 2+ H (NONE) /hpf Discharge Plan Discharge Patient Disposition: Admitted As Inpatient Clinical Impression: Seizure disorder Urinary tract infection Qualifiers: Urinary tract infection type: acute cystitis Hematuria presence: with hematuria Qualified Code(s): N30.01 - Acute cystitis with hematuria Condition: Fair Coding Level of Care Code ED Juvenile Court Judge for [facility] Fwd Exam Detailed
[2021-01-06 05:29] LABS: Basophils % 0.3 %; Eosinophils # 0.1 10^3/uL (0.0-0.8); Eosinophils % 0.9 %; Hematocrit 35.1 % (42.0-52.0); Hemoglobin 11.5 g/dL (11.7-16.6); Lymphocytes # 0.7 10^3/uL (0.8-4.8); Lymphocytes % 10.7 %; Mean Corpuscular HGB Conc 32.8 g/dL (30.0-36.0); Mean Corpuscular Hemoglobin 32.6 pg (28.0-34.0); Mean Corpuscular Volume 99.4 fL (80-94); Mean Platelet Volume 11.3 fL (7.4-10.4); Monocytes # 0.7 10^3/uL (0.2-0.9); Monocytes % 9.8 %; Neutrophils % 78.1 %; Nucleated Red Blood Cells % 0 %; Platelet Count 116 10^3/cmm (130-400); Red Blood Count 3.53 10^6/uL (4.1-5.3); Red Cell Distribution Width 15.4 % (12.1-15.1); White Blood Count 6.7 10^3/uL (4.0-10.0)
[2021-01-06] MEDS: sodium chloride 0.9% 1,000 ML 999 ML IV ×2 (05:35→07:22)
[2021-01-06 05:37] LABS: Alanine Aminotransferase 33 U/L (0-41); Alkaline Phosphatase 98 IU/L (40-130); Anion Gap 19.8 (5-19); Aspartate Amino Transferase 41 U/L (0-40); Blood Urea Nitrogen 8 mg/dL (6-20); C Reactive Protein 40.3 mg/L (0.0-4.9); Calcium 9.5 mg/dL (8.5-10.5); Carbon Dioxide 23 mmol/L (22-29); Chloride 97 mmol/L (98-107); Creatine Phosphokinase 75 U/L (39-308); Globulin 3.3 g/dL (1.3-4.6); Glomerular Filtration Rate 100.4 mL/min (90-130); Glucose 122 mg/dL (65-115); Magnesium 1.6 mg/dL (1.7-2.3); Osmolality Calculated 282 mOsm/kg (285-295); Potassium 3.8 mmol/L (3.5-5.1); Sodium 136 mmol/L (136-145); Total Bilirubin 0.4 mg/dL (0.15-1.2); Total Protein 7.3 g/dL (6.6-8.7)
[2021-01-06 05:46] LABS: ABG PCO2 40.3 mmHg (35-45); ABG PH Result 7.42 (7.35-7.45); Arterial Blood Gas Hematocrit 35.9 % (42-52); Base Excess ABG 1.7 mmol/L (-2.0-2.0); Blood Gas Allen Test Pos; Blood Gas Sample Site Radial, left; Blood Gas Sample Type Arterial; HCO3 ABG 26.3 mmol/L (22-26); PO2 ABG 76.7 mmHg (80.0-100.0)
--- NOTE | 2021-01-06 05:49 | PC.NURSE ---
Chest X-Ray obtained. UA sent to lab via cath.
[2021-01-06 06:03] LABS: Glucose Urine UA Norm (Normal); Ketones Urine 1+ (Negative); Protein Urine 1+ (Negative); Specific Gravity, Urine 1.025 (1.005-1.030); Urine Appearance Hazy (CLEAR); Urine Color Dark Yellow (Yellow); pH Urine 5 (5-7)
[2021-01-06 06:04] LABS: Add Urine Culture? Yes; Add Urine Microscopic? YES; Bacteria Urine 2+ /hpf; Bilirubin Urine Neg (Negative); Blood Urine 2+ (Negative); Leukocyte Esterase Urine 2+ (Negative); Nitrate Urine Negative (Negative); Urobilinogen Urine Norm (Negative); WBC Urine >100 /hpf (0-5)
--- NOTE | 2021-01-06 06:30 | PC.NURSE ---
Mother present at bedside. Updated on plan of care
--- NOTE | 2021-01-06 09:37 | PC.NURSE ---
Pt arrived to ICU room 4 via stretcher with ED Nurse Onelia at bedside. Pt transferred from stretcher to bed with total assist. Pt admitting V/S as follows: Temp: 99.0, HR: 129, RR: 26, BP: 123/76, and O2 96% on RA. Pt curled on in a ball to his comfort. Mom states he lays like this when he isn't feeling good. Pt lungs sound clear bilaterally, bowel sounds active. Logan catheter in place and draining. No signs of pain noted. Physician notified of patient's arrival. Admission assessment completed over phone with assistance mother at approximately 0845. Will continue to monitor.
--- NOTE | 2021-01-06 10:13 | P.HP_ITS ---
Providers/Chief Complaint Admitting Physician: Anil Lyon Primary Care Provider: Dora Brady MD Chief Complaint: SEIZURES History of Present Illness 55-year-old gentleman with history of cerebral palsy, bedridden since age 9, with intellectual disability, bilateral blindness, history of cardiac arrhythmia, seizure disorder, was recently discharged after hospitalization for treatment of aspiration pneumonia with noted seizure episode prior to discharge, and with noted repeat supratherapeutic phenytoin and phenobarbital levels these were discontinued and he was started on Keppra 1000 mg twice daily. His mother states that he subsequently did well for about 2-3 days, and then started having seizures. She contacted his primary care provider, and additional dose increased to 1500 mg twice daily was recommended which they did, despite that she reports he had had recurrent seizures. He was brought in for evaluation to ER due to this. A brief seizure episode was noted in the ER resolving spontaneously. He was noted tachycardic, dehydrated, was given IV fluid bolus, with UA suggestive of urinary tract infection. Chest x-ray with persistent interstitial thickening involving mainly lower lungs. Admission to the hospital for assessment management was requested. Review of Systems Const: Denies: fever(s), chills, body aches or malaise Eyes: Denies: change in vision or eye redness ENMT: Denies: throat pain, oral sores or ear or mastoid pain Card: Denies: chest pain, edema, pre-syncope or dyspnea on exertion Resp: Denies: dyspnea, productive cough, change in phlegm color or hemoptysis GI: Denies: abdominal pain, nausea, vomiting, diarrhea, constipation, hematochezia or melena : Denies: flank pain, difficulty urinating, urinary frequency or hematuria Musc: Denies: back pain, joint swelling or joint redness Skin/Breast: Denies: rash, sores or new lesions Neuro: Reports: seizure-like activity; Denies: headache(s), numbness in extremities, weakness in extremities, dizziness or confusion Endo: Denies: polyuria or polydipsia Sheng/Lymph: Denies: easy bleeding or purpura All/Imm: Denies: urticaria, throat swelling or tongue swelling Medications/Allergies Home Medications Medication Instructions Recorded Confirmed Last Taken Type aspirin 81 mg PO DAILY@0800 11/08/20 01/06/21 12/21/20 History cholecalciferol (vitamin D3) 125 mcg PO DAILY@0800 11/08/20 12/21/20 12/21/20 History [Vitamin D3] diazepam 5 mg PO BID PRN 11/08/20 12/21/20 11/28/20 History folic acid 1 mg PO DAILY@0800 11/08/20 12/21/20 12/21/20 History hydrocodone-acetaminophen 1 tab PO QID PRN 11/08/20 12/21/20 11/28/20 History levothyroxine 25 mcg PO DAILY@0800 11/08/20 12/21/20 12/21/20 History sulfasalazine 500 mg PO TID@,,11/08/20 12/21/20 12/21/20 History docusate sodium [DOK] 100 mg PO DAILY PRN 11/22/20 12/21/20 11/29/20 History ferrous sulfate 325 mg PO DAILY@0811/22/20 12/21/20 12/21/20 History magnesium oxide [MagOx] 400 mg PO BID@08,199911/29/20 12/21/20 12/21/20 History metoprolol tartrate 50 mg PO BID@0800,199911/29/20 12/21/20 12/21/20 History tamsulosin 0.4 mg PO BID@0800,199911/29/20 12/21/20 12/21/20 History levetiracetam 1,000 mg PO BID 30 Days #120 tab 12/25/20 Unknown Rx cyanocobalamin (vitamin B-12) 1,000 mcg PO DAILY 01/06/21 01/06/21 Unknown History levetiracetam 500 mg PO BID 01/06/21 01/06/21 Unknown History Allergies Allergy/AdvReac Type Severity Reaction Status Date / Time Penicillins Allergy Unknown Verified 01/06/21 10:06 PFSH Acute PFSH: Medical History Acute pyelonephritis 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 Cystitis Developmental delay, profound related to adverse effect from steroids for ulcerative colitis per mother History of cardiac arrhythmia on digoxin chronically Hypothyroidism Nausea & vomiting Seizure disorder on phenobarbital chronically Ulcerative colitis on sulfasalazine Surgical History History of colonoscopy Family History Mother Cancer Currently undergoing chemotherapy Father , No problems noted. Social History Smoking and tobacco status: never smoked Alcohol intake: never Caregiver/support person: Yes (Mother) Household members: family Marital status: Single Current occupational status: disabled History of recent travel: No Vitals/I&O/Wt Last Vital Signs Temp 99.0 F 01/06/21 08:40 Pulse 129 H 01/06/21 09:00 Resp 25 H 01/06/21 09:00 BP 123/76 01/06/21 09:00 Pulse Ox 96 01/06/21 09:00 01/05/21 01/06/21 01/06/21 22:59 06:59 14:59 Intake Total 1999 Balance 1999 Weight last 48 hrs Weight 44.906 kg Physical Exam Const: COMMON NORMALS: no acute distress ORIENTATION/CONSCIOUSNESS: Yes lethargic (No seizure like activity during my assessment. Later starting to open eyes) HENMT: COMMON NORMALS: oropharynx normal Neck/C-Spine: COMMON NORMALS: no JVD Resp: COMMON NORMALS: normal respiratory effort and clear to auscultation bilaterally AUSCULTATION: clear to auscultation bilaterally Cardio: COMMON NORMALS: no JVD, regular rhythm, S1 normal heart sound present, S2 normal heart sound present and No murmurs present (Cardio) RATE: tachycardic RHYTHM: regular rhythm HEART SOUNDS: S1 normal heart sound present and S2 normal heart sound present GI: COMMON NORMALS: Normal to inspection, nondistended, normoactive bowel sounds present, Soft to palpation and non-tender PALPATION: Yes Soft to palpation Extremity: COMMON NORMALS: no joint enlargement and no pedal edema OTHER: Muscular atrophy Neuro: SENSORIUM/ORIENTATION: Yes lethargic Skin: COMMON NORMALS: no rashes or lesions noted GENERAL SKIN EXAM: no rashes or lesions noted Data : 01/06/21 05:01 01/06/21 05:01 A&P Assessment and plan (1) Seizure disorder: Multiple generalized tonoclonic seizure episodes despite increasing Keppra dose. Start valproic acid. Keppra 2000 mg twice daily. After last discharge had an appointment scheduled with neurology for January. Status: Chronic (2) Urinary tract infection: Cefepime, follow urine culture Status: Acute Qualifiers: Hematuria presence: with hematuria Urinary tract infection type: acute cystitis Qualified Code(s): N30.01 - Acute cystitis with hematuria (3) Aspiration pneumonia: Discussed with mother concern regarding possible recurrent aspiration. May have had aspiration episodes with seizures. Bilateral infiltrates noted on CT. Cefepime, vancomycin. Aspiration precautions. Discussed with her consideration of recurrent aspiration, she may consider feeding tube placement. Consideration of tracheostomy discussed as well, although she seems more reluctant regarding this. ST evaluation. Hold p.o. diet and meds for now until waking up little bit more. She normally gives him liquids with thickener via baby bottle. She states he takes medications without crushing. Status: Acute Additional A&P Information Tachycardia: Multifactorial secondary to dehydration, UTI, possible pneumonia, seizures. Dehydration: IV hydration Anemia: Monitor We will need to resume oral medications once tolerating for: Ulcerative colitis Hypothyroidism Also noted Bilateral blindness Developmental delay: Mother unable to care for him at home further due to [facility], will need to consider placement after discharge. DC planning consult. Attestations Medical Necessity Statement*: Admission of over 2 midnights is going to be needed for assessment of management of recurrent seizure Coding Level of Care Code Acute Chemical Dependency Attendant for [facility] Diagnoses Seizure disorder G40.909 Urinary tract infection N30.01 Hematuria presence: with hematuria Urinary tract infection type: acute cystitis Aspiration pneumonia J69.0
--- NOTE | 2021-01-06 10:25 | PC.PHAR ---
PT UNABLE TO CONFIRM MEDICATIONS-PTS MOTHER RISHI VERIFIED MEDS
[2021-01-06] MEDS: cefepime 1,000 MG in sodium chloride 0.9% (plus) 50 ML 100 MG IV ×2 (11:43→22:59)
[2021-01-06] MEDS: famotidine 20 mg/2 mL INJ IVP ×2 (13:09→22:55)
[2021-01-06] MEDS: lactated ringers 1,000 ML 50 ML IV (15:32)
[2021-01-06] MEDS: vancomycin 750 MG in sodium chloride 0.9% 250 ML 250 MG IV (17:31)
[2021-01-07] VITALS (25 sets, daily range): BP systolic 100–198; BP diastolic 64–114; PULSE 83–153; RESP 13–26; TEMP 36.7–36.8; O2SAT 92–98
[2021-01-07 03:42] LABS: Basophils % 0.4 %; Eosinophils # 0.1 10^3/uL (0.0-0.8); Eosinophils % 1.3 %; Hematocrit 32.2 % (42.0-52.0); Hemoglobin 10.3 g/dL (11.7-16.6); Lymphocytes # 0.6 10^3/uL (0.8-4.8); Lymphocytes % 11.5 %; Mean Corpuscular Hemoglobin 32.5 pg (28.0-34.0); Mean Corpuscular Volume 101.6 fL (80-94); Mean Platelet Volume 10.6 fL (7.4-10.4); Monocytes # 0.6 10^3/uL (0.2-0.9); Monocytes % 11.1 %; Neutrophils # 4.15 10^3/uL (1.8-7.7); Neutrophils % 75.5 %; Nucleated Red Blood Cells % 0 %; Platelet Count 157 10^3/cmm (130-400); Red Blood Count 3.17 10^6/uL (4.1-5.3); Red Cell Distribution Width 15.5 % (12.1-15.1); White Blood Count 5.5 10^3/uL (4.0-10.0)
[2021-01-07 04:20] LABS: Alanine Aminotransferase 31 U/L (0-41); Albumin Level 3.5 g/dL (3.5-5.2); Alkaline Phosphatase 91 IU/L (40-130); Aspartate Amino Transferase 37 U/L (0-40); Blood Urea Nitrogen 4 mg/dL (6-20); Carbon Dioxide 21 mmol/L (22-29); Chloride 103 mmol/L (98-107); Creatine Phosphokinase 81 U/L (39-308); Globulin 3.2 g/dL (1.3-4.6); Glomerular Filtration Rate 139.9 mL/min (90-130); Glucose 120 mg/dL (65-115); Osmolality Calculated 280 mOsm/kg (285-295); Sodium 136 mmol/L (136-145); Thyroid Stimulating Hormone 1.02 uIU/mL (0.27-4.20); Total Bilirubin 0.5 mg/dL (0.15-1.2); Total Protein 6.7 g/dL (6.6-8.7)
[2021-01-07 04:21] LABS: Anion Gap 15.9 (5-19); Potassium 3.9 mmol/L (3.5-5.1)
[2021-01-07 04:23] LABS: Slide Review Slide Review Perform
[2021-01-07] MEDS: vancomycin 750 MG in sodium chloride 0.9% 250 ML 250 MG IV ×2 (05:02→16:13)
[2021-01-07] MEDS: metoprolol tartrate 1 mg/1 mL SDV 5 mL 5 MG IV ×4 (08:40→20:49)
--- NOTE | 2021-01-07 09:21 | PC.NURSE ---
Pt HR noted to be in 150s this am. Physician notified. New orders to give 5mg IV of Metoprolol. DREW Lozano gave Mr. Macias the IV metoprolol as ordered. Pt HR currently at 90bpm. Will continue to monitor.
[2021-01-07] MEDS: cefepime 1,000 MG in sodium chloride 0.9% (plus) 50 ML 100 MG IV (10:38)
[2021-01-07] MEDS: famotidine 20 mg/2 mL INJ IVP ×2 (10:48→22:55)
--- NOTE | 2021-01-07 10:56 | PC.NURSE ---
Pt o2 level dropped to 68% while using the urinal in bed. Dr. Carrillo on floor. Currently in room with pt discussing his wishes and next plan of action
[2021-01-07 10:57] LABS: Valproic Acid Level 27.2 ug/mL (50-100)
[2021-01-07] MEDS: LORazepam 2 mg/mL INJ 1 mL IVP (11:55)
--- NOTE | 2021-01-07 12:01 | ECG_ITS ---
[facility] Test Date: 2021-01-07 Pat Name: Awais Macias Department: Room: [facility] Gender: Male [employer] Records Supervisor: : 1965 Requested By: Emmanuelle Dos Santos Order Number: [id number] Heber MD: Nabil Gaming M.D. Measurements Intervals [place] Rate: 114 P: 31 NV: 161 QRS: 1 QRSD: 81 T: -5 QT: 332 QTc: 459 Interpretive Statements SINUS TACHYCARDIA Compared to ECG 01/06/2021 05:34:26 No significant changes Electronically Signed On 01-07-2021 18:11:40 CDT by Nabil Gaming M.D. [id number]
[2021-01-07] MEDS: LORazepam 2 mg/mL INJ 1 mL 1 MG IVP ×2 (12:30→20:49)
[2021-01-07 12:51] LABS: Magnesium 2.1 mg/dL (1.7-2.3)
--- NOTE | 2021-01-07 12:58 | PC.CHAP ---
Pastoral Care Encounter/Spiritual Assessment Type of Contact [] Declined tank house operator helper visit [] Patient/Family/Request visit [] Outpatient visit [] Follow-up visit [] Physician referral [] Code/Alert [] Routine visit [] Staff referral [] Actively dying [] Patient sleeping [] Family support [] [] Out of room [] Palliative care [] [] Receiving care in room [] Pre-surgical visit [] Trauma [] Long length of stay [] ICU visit [] Other: Relational/Emotional Strength [] Patient feels connected with others/family/visitors/staff [] Distress [] Loneliness/isolation [] Abandonment Spirituality of Patient [] Person of Fang [] Attends Church of their Fang [] Believes in Prayer [] Reads Bible or Alevism materials [] There are Spiritual issues to be addressed Day Care Supervisor Interventions [] Prayer [] Active listening [] Non-anxious presence [] Spiritual/emotional support [] Crisis/trauma care [] Spiritual counseling [] Bereavement support [] Provided bereavement packet [] Provided Bible/devotional materials [] Provided toy/stuffed animal, coloring book to patient or family member [] Provided Communion [] Anointing/[place] [] Salvation [] Completed spiritual assessment [] Other: Impact on Illness or Injury [] Angry [] Fearful [] Anxious [] Often cries [] Exhaustion [] Unable to work [] Unable to attend alevism [] Unable to walk/stand [] Unable to read [] Unable to drive [] Unable to eat/drink [] Unable to sleep [] Unable to be with family [] Patient intubated [] Other: Summary Time spent with patient Pastoral Care Encounter/Spiritual Assessment Type of Contact [] Declined tank house operator helper visit [] Patient/Family/Request visit [] Outpatient visit [x] Follow-up visit [] Physician referral [] Code/Alert [] Routine visit [] Staff referral [] Actively dying [] Patient sleeping [] Family support [] [] Out of room [] Palliative care [] [] Receiving care in room [] Pre-surgical visit [] Trauma [] Long length of stay [] ICU visit [] Other: Relational/Emotional Strength [] Patient feels connected with others/family/visitors/staff [] Distress [] Loneliness/isolation [] Abandonment Spirituality of Patient [] Person of Fang [] Attends Church of their Fang [] Believes in Prayer [] Reads Bible or Alevism materials [] There are Spiritual issues to be addressed Day Care Supervisor Interventions [] Prayer [] Active listening [] Non-anxious presence [] Spiritual/emotional support [] Crisis/trauma care [] Spiritual counseling [] Bereavement support [] Provided bereavement packet [] Provided Bible/devotional materials [] Provided toy/stuffed animal, coloring book to patient or family member [] Provided Communion [] Anointing/[place] [] Salvation [] Completed spiritual assessment [] Other: Impact on Illness or Injury [] Angry [] Fearful [] Anxious [] Often cries [] Exhaustion [] Unable to work [] Unable to attend alevism [] Unable to walk/stand [] Unable to read [] Unable to drive [] Unable to eat/drink [] Unable to sleep [] Unable to be with family [] Patient intubated [] Other: Summary Time spent with patient
[2021-01-07] MEDS: lactated ringers 1,000 ML 50 ML IV (13:20)
--- NOTE | 2021-01-07 13:29 | PM.PN ---
Subjective Subjective: Interval history: This is a 55-year-old male with history of cerebral palsy, bedridden since age 9, intellectual disability, blindness, history of cardiac arrhythmias, seizure disorder who was recently discharged from the hospital for aspiration pneumonia with seizures prior to discharge as well as supratherapeutic phenytoin and phenobarbital levels. He returned to the hospital for having seizures. He had a documented seizure in the ER. He also was noted to be tachycardic. He has been admitted to the ICU for this. He is also being treated for a UTI. The patient was also noted to have an abnormal TSH. Thyroid medication dose was adjusted. This morning the patient was seen in the ICU for tachycardia. IV metoprolol was given. This was also scheduled. Nursing staff also reported multiple seizures in the ICU. When evaluated the patient was not postictal and did not appear to have a seizure. As needed Ativan was ordered. It is noted that he also receives diazepam outside of the hospital. We also ordered scheduled Ativan today. Vitals/I&O/Wt Last Vital Signs Temp 98.0 F 01/07/21 08:00 Pulse 122 H 01/07/21 12:00 Resp 22 H 01/07/21 12:00 BP 136/84 01/07/21 12:00 Pulse Ox 95 01/07/21 12:00 01/06/21 01/07/21 01/07/21 22:59 06:59 14:59 Intake Total 250 / 2473.25 525.25 / 2998.50 1290 / 1290 Output Total 550 / 550 800 / 1350 Balance -300 / 1923.25 -274.75 / 1648.50 1290 / 1290 Weight last 48 hrs Weight 134 lb 8 oz Weight 99 lb Physical Exam Const: EXAM LIMITATIONS: physical limitations and other limitations Resp: COMMON NORMALS: normal respiratory effort and No retractions Cardio: COMMON NORMALS: regular rhythm RATE: tachycardic RHYTHM: regular rhythm GI: COMMON NORMALS: Soft to palpation and non-tender PALPATION: Yes Soft to palpation Extremity: OTHER: contactures Neuro: OTHER: does not follow commands Data : 01/07/21 03:05 01/07/21 03:05 Micro: Microbiology 01/06/21 05:42 Urine Culture - Preliminary Urine,Clean Catch Enterococcus species 01/06/21 20:15 C.difficile Toxin B Gene (PCR) - Final Stool Routine Collection 01/06/21 20:15 Occult Blood (FIT) - Final Stool Routine Collection cxr IMPRESSION: Persistent interstitial thickening, involving mainly the lower lungs. These findings are nonspecific and can be seen with pulmonary congestion, interstitial lung disease or pneumonia. A&P Assessment and plan (1) Urinary tract infection: cx enterococcus await sensitivity continue Status: Acute Qualifiers: Hematuria presence: with hematuria Urinary tract infection type: acute cystitis Qualified Code(s): N30.01 - Acute cystitis with hematuria (2) Pneumonia: continue vanc and cefepime Status: Acute (3) Ulcerative colitis: on SSA at home Status: Chronic Qualifiers: Ulcerative colitis location: unspecified ulcerative colitis location Digestive disease complication type: without complication Qualified Code(s): K51.90 - Ulcerative colitis, unspecified, without complications (4) Hypothyroidism: restart PO thyroid replacement when mroe oriented Status: Chronic Qualifiers: Hypothyroidism type: unspecified Qualified Code(s): E03.9 - Hypothyroidism, unspecified (5) Seizure disorder: active continue PRN ativan, and add scheduled continue Keppra , valproic acid Status: Chronic (6) Tachycardia: on metoprolol Status: Acute Attestations Medical Necessity Statement*: Awais Macias's hospital stay will require greater than 2 midnights for Coding Level of Care Code Acute Nuclear Weapons Specialist for [employer] Fwd Diagnoses Urinary tract infection N30.01 Hematuria presence: with hematuria Urinary tract infection type: acute cystitis Pneumonia J18.9 Ulcerative colitis K51.90 Ulcerative colitis location: unspecified ulcerative colitis location Digestive disease complication type: without complication Hypothyroidism E03.9 Hypothyroidism type: unspecified Seizure disorder G40.909 Tachycardia R00.0
--- NOTE | 2021-01-07 14:19 | PC.NURSE ---
Pt HR in 150's and maintaining. Beta neema has already been given approx. [address] Dos Santos notified, new orders for Cardizem 10mg x 1.
--- NOTE | 2021-01-07 15:29 | PC.NURSE ---
Seizure x5 at 1100 Upon entering the patient's room to administer the 1100 scheduled keppra. Pt began having a seizure, HR noted to be 180s at this time. Pt rolled over to left side with arms and legs extended and stiff. Pt seizure lasted approximately 20-35 seconds and then repeated for a total of 5 seizures. Physician notified, orders placed. DREW Ling administered 5mg of IV metoprolol and DREW Andrade administered 2mg IV of Ativan. See Aug. Pt HR lowered to 113bpm and O2 remained 98% on RA. Pt now resting in bed listening to cartoons. Patient's mother called and notified. Will continue to monitor.
[2021-01-08] VITALS (24 sets, daily range): BP systolic 83–171; BP diastolic 43–96; PULSE 76–150; RESP 12–24; TEMP 36.4–37; O2SAT 95–100
[2021-01-08] MEDS: lactated ringers 1,000 ML 50 ML IV (04:28)
[2021-01-08] MEDS: metoprolol tartrate 1 mg/1 mL SDV 5 mL 5 MG IV ×5 (04:29→20:31)
[2021-01-08] MEDS: LORazepam 2 mg/mL INJ 1 mL 1 MG IVP (04:29)
[2021-01-08] MEDS: vancomycin 750 MG in sodium chloride 0.9% 250 ML 250 MG IV ×2 (05:15→17:13)
[2021-01-08] MEDS: famotidine 20 mg/2 mL INJ IVP ×2 (10:27→22:29)
--- NOTE | 2021-01-08 10:41 | PC.NUTR ---
Nutrition note: Pt triggered for assessment due to low BMI, however per chart review, wt of 99 lbs appears to be in error. MST score of 0. Will assess at 5 day LOS or as needed per further consult.
--- NOTE | 2021-01-08 16:47 | PM.PN ---
Subjective Subjective: Interval history: This is a 55-year-old male with history of cerebral palsy, bedridden since age 9, intellectual disability, blindness, history of cardiac arrhythmias, seizure disorder who was recently discharged from the hospital for aspiration pneumonia with seizures prior to discharge as well as supratherapeutic phenytoin and phenobarbital levels. He returned to the hospital for having seizures. He had a documented seizure in the ER. He also was noted to be tachycardic. He has been admitted to the ICU for this. He is also being treated for a UTI. The patient was also noted to have an abnormal TSH. Thyroid medication dose was adjusted. heart rate better no reported seizure activity unable to draw labs Vitals/I&O/Wt Last Vital Signs Temp 98.6 F 01/08/21 16:00 Pulse 99 01/08/21 16:00 Resp 16 01/08/21 16:00 BP 106/53 01/08/21 16:00 Pulse Ox 100 01/08/21 16:00 01/08/21 01/08/21 01/08/21 06:59 14:59 22:59 Intake Total 1229.917 / 2823.167 290 / 290 Output Total 775 / 1775 Balance 454.917 / 1048.167 290 / 290 Weight last 48 hrs Weight 136 lb 14.4 oz Weight 134 lb 8 oz Physical Exam Const: EXAM LIMITATIONS: physical limitations and other limitations Resp: COMMON NORMALS: normal respiratory effort and No retractions Cardio: COMMON NORMALS: regular rhythm RATE: tachycardic RHYTHM: regular rhythm GI: COMMON NORMALS: Soft to palpation and non-tender PALPATION: Yes Soft to palpation Extremity: OTHER: contactures Neuro: OTHER: does not follow commands Data : 01/07/21 03:05 01/07/21 03:05 Micro: Microbiology 01/06/21 05:42 Urine Culture - Final Urine,Clean Catch Enterococcus faecalis 01/06/21 10:30 MRSA Culture - Final Nose A&P Assessment and plan (1) Dehydration: Status: Acute (2) Tachycardia: Status: Acute (3) Urinary tract infection: Status: Acute Qualifiers: Hematuria presence: with hematuria Urinary tract infection type: acute cystitis Qualified Code(s): N30.01 - Acute cystitis with hematuria (4) Ulcerative colitis: Status: Chronic Qualifiers: Ulcerative colitis location: unspecified ulcerative colitis location Digestive disease complication type: without complication Qualified Code(s): K51.90 - Ulcerative colitis, unspecified, without complications (5) Seizure disorder: Status: Chronic Additional A&P Information Seizures --stable --continue Keppra, valproic acid --PRN ativan UTI --cx enterococcus --continue abx, currently on vancomycin and cefepime Hypothyroidism --restart levothyroxine PNA --vanc cefepime --check procalcitonin Tachycardia --scheduled metoprolol --better Attestations Medical Necessity Statement*: Awais Miley Macias's hospital stay will require greater than 2 midnights for uti, pneumonia Coding Level of Care Code Acute Dredge Boat Engineer for g Fwd Diagnoses Dehydration E86.0 Tachycardia R00.0 Urinary tract infection N30.01 Hematuria presence: with hematuria Urinary tract infection type: acute cystitis Ulcerative colitis K51.90 Ulcerative colitis location: unspecified ulcerative colitis location Digestive disease complication type: without complication Seizure disorder G40.909
[2021-01-08 17:02] LABS: Vancomycin Trough 13.1 ug/mL (10-15)
[2021-01-08] MEDS: ondansetron 2 mg/ML SDV 2 mL 4 MG IVP (22:29)
--- NOTE | 2021-01-08 22:31 | PC.NURSE ---
Entered pts room, pt heart rate increased to 165. Pt was clapping hands and leaning forward with head in his hands. Pt then had seizure which lasted 30-35 seconds. Post seizure pt did have some spurratic behavior with verbal outburts. Pt given ativan as prescribed and pt relaxed. Pt safe and no other concerns at this time. Upon exit, pt appears to be resting comfortably. VS stable and charted.
[2021-01-08] MEDS: LORazepam 2 mg/mL INJ 1 mL IVP (22:34)
[2021-01-09] VITALS (23 sets, daily range): BP systolic 81–172; BP diastolic 51–106; PULSE 90–135; RESP 13–26; TEMP 36.8–37.1; O2SAT 96–99
[2021-01-09] MEDS: metoprolol tartrate 1 mg/1 mL SDV 5 mL 5 MG IV ×6 (00:13→21:07)
[2021-01-09] MEDS: lactated ringers 1,000 ML 50 ML IV (00:14)
[2021-01-09] MEDS: vancomycin 750 MG in sodium chloride 0.9% 250 ML 250 MG IV ×2 (05:12→16:21)
--- NOTE | 2021-01-09 08:40 | PC.SOCIAL ---
IMM UPDATE Gave patient's mom/guardian verbal IMM update. She verbalized understanding. 01/09/21 @ 0840. Initialed, dated, timed and placed in chart.
--- NOTE | 2021-01-09 08:48 | XR_ITS ---
WS: [id number] Portable AP upright chest, 01/09/2021 Clinical Data: followup abnormal cxr Comparison: Portable chest, 01/06/2021. Findings: The bilateral patchy opacities involving mostly the lower lobes remains same. The patient's head obscures detail over the upper lobes. No nodules, masses or effusions are seen. The heart is no rmal. No pneumothorax is seen. Monitor leads are on the chest wall. XR/XR chest 1V portable [id number] Impression: No change in bilateral lower lobe opacities consistent with pneumonia.
[2021-01-09 09:05] LABS: Basophils % 0.4 %; Eosinophils # 0.1 10^3/uL (0.0-0.8); Eosinophils % 2.2 %; Hematocrit 35.3 % (42.0-52.0); Lymphocytes # 1.1 10^3/uL (0.8-4.8); Lymphocytes % 23.7 %; Mean Corpuscular HGB Conc 31.2 g/dL (30.0-36.0); Mean Corpuscular Hemoglobin 32.4 pg (28.0-34.0); Mean Corpuscular Volume 103.8 fL (80-94); Mean Platelet Volume 10.7 fL (7.4-10.4); Monocytes # 0.6 10^3/uL (0.2-0.9); Monocytes % 12.2 %; Neutrophils # 2.76 10^3/uL (1.8-7.7); Neutrophils % 61.3 %; Nucleated Red Blood Cells % 0 %; Platelet Count 163 10^3/cmm (130-400); Positive C 1; White Blood Count 4.5 10^3/uL (4.0-10.0)
--- NOTE | 2021-01-09 09:19 | PC.CHAP ---
Pastoral Care Encounter/Spiritual Assessment Type of Contact [] Declined banking attorney visit [] Patient/Family/Request visit [] Outpatient visit [] Follow-up visit [] Physician referral [] Code/Alert [x] Routine visit [] Staff referral [] Actively dying [x] Patient sleeping [] Family support [] [] Out of room [] Palliative care [] [] Receiving care in room [] Pre-surgical visit [] Trauma [] Long length of stay [x] ICU visit [] Other: Relational/Emotional Strength [] Patient feels connected with others/family/visitors/staff [] Distress [] Loneliness/isolation [] Abandonment Spirituality of Patient [] Person of Fang [] Attends Jainism of their Fang [] Believes in Prayer [] Reads Bible or Advent materials [] There are Spiritual issues to be addressed Simulation Educator Interventions [x] Prayer [] Active listening [] Non-anxious presence [] Spiritual/emotional support [] Crisis/trauma care [] Spiritual counseling [] Bereavement support [] Provided bereavement packet [] Provided Bible/devotional materials [] Provided toy/stuffed animal, coloring book to patient or family member [] Provided Communion [] Anointing/[place] [] Salvation [x] Completed spiritual assessment [] Other: Impact on Illness or Injury [] Angry [] Fearful [] Anxious [] Often cries [] Exhaustion [] Unable to work [] Unable to attend mosque [] Unable to walk/stand [] Unable to read [] Unable to drive [] Unable to eat/drink [] Unable to sleep [] Unable to be with family [] Patient intubated [] Other: Summary Time spent with patient
[2021-01-09 09:34] LABS: Alanine Aminotransferase 25 U/L (0-41); Albumin Level 3.7 g/dL (3.5-5.2); Alkaline Phosphatase 80 IU/L (40-130); Blood Urea Nitrogen 3 mg/dL (6-20); Carbon Dioxide 22 mmol/L (22-29); Chloride 103 mmol/L (98-107); Globulin 3.2 g/dL (1.3-4.6); Glomerular Filtration Rate 139.9 mL/min (90-130); Glucose 77 mg/dL (65-115); Osmolality Calculated 279 mOsm/kg (285-295); Sodium 137 mmol/L (136-145); Total Bilirubin 0.4 mg/dL (0.15-1.2); Total Protein 6.9 g/dL (6.6-8.7)
[2021-01-09 09:36] LABS: Anion Gap 15.6 (5-19); Aspartate Amino Transferase 34 U/L (0-40); Potassium 3.6 mmol/L (3.5-5.1)
[2021-01-09 09:41] LABS: Procalcitonin 0.02 ng/mL (0-0.5)
[2021-01-09] MEDS: famotidine 20 mg/2 mL INJ IVP ×2 (10:41→21:36)
--- NOTE | 2021-01-09 13:07 | PM.PN ---
Subjective Subjective: Interval history: This is a 55-year-old male with history of cerebral palsy, bedridden since age 9, intellectual disability, blindness, history of cardiac arrhythmias, seizure disorder who was recently discharged from the hospital for aspiration pneumonia with seizures prior to discharge as well as supratherapeutic phenytoin and phenobarbital levels. He returned to the hospital for having seizures. He had a documented seizure in the ER. He also was noted to be tachycardic. He has been admitted to the ICU for this. He is also being treated for a UTI. The patient was also noted to have an abnormal TSH. Thyroid medication dose was adjusted. heart rate better no reported seizure activity behavior unchanged Vitals/I&O/Wt Last Vital Signs Temp 98.6 F 01/08/21 16:00 Pulse 99 01/09/21 06:00 Resp 24 H 01/09/21 04:00 BP 119/82 01/09/21 04:00 Pulse Ox 98 01/09/21 04:00 01/08/21 01/09/21 01/09/21 22:59 06:59 14:59 Intake Total 310 / 653.25 1461.583 / 2114.833 Output Total 650 / 650 850 / 1500 Balance -340 / 3.25 611.583 / 614.833 Weight last 48 hrs Weight 137 lb 6.4 oz Weight 136 lb 14.4 oz Physical Exam Const: EXAM LIMITATIONS: physical limitations and other limitations Resp: COMMON NORMALS: normal respiratory effort and No retractions Cardio: COMMON NORMALS: regular rhythm RATE: tachycardic RHYTHM: regular rhythm GI: COMMON NORMALS: Soft to palpation and non-tender PALPATION: Yes Soft to palpation Extremity: OTHER: contactures Neuro: OTHER: does not follow commands Data : 01/09/21 08:15 01/09/21 08:15 Micro: Microbiology 01/06/21 05:42 Urine Culture - Final Urine,Clean Catch Enterococcus faecalis A&P Assessment and plan (1) Dehydration: Status: Acute (2) Ulcerative colitis: Status: Chronic Qualifiers: Ulcerative colitis location: unspecified ulcerative colitis location Digestive disease complication type: without complication Qualified Code(s): K51.90 - Ulcerative colitis, unspecified, without complications (3) Hypothyroidism: Status: Chronic Qualifiers: Hypothyroidism type: unspecified Qualified Code(s): E03.9 - Hypothyroidism, unspecified Additional A&P Information Seizures --stable --continue Keppra, valproic acid --PRN ativan UTI --cx enterococcus --continue abx, currently on vancomycin and cefepime Hypothyroidism --restart levothyroxine PNA --vanc cefepime Tachycardia --scheduled metoprolol --better Dispo: awaiting placement Attestations Medical Necessity Statement*: Awais Macias's hospital stay will require greater than 2 midnights for seizure Coding Level of Care Code Acute Survey Research Manager for Chg Fwd Diagnoses Dehydration E86.0 Ulcerative colitis K51.90 Ulcerative colitis location: unspecified ulcerative colitis location Digestive disease complication type: without complication Hypothyroidism E03.9 Hypothyroidism type: unspecified
[2021-01-09] MEDS: cefepime 1,000 MG in sodium chloride 0.9% (plus) 100 ML 100 MG IV (22:12)
[2021-01-10] VITALS (26 sets, daily range): BP systolic 117–163; BP diastolic 74–113; PULSE 88–151; RESP 10–25; TEMP 36.6–37.1; O2SAT 92–99; BMI 24.2
[2021-01-10] MEDS: metoprolol tartrate 1 mg/1 mL SDV 5 mL 5 MG IV ×5 (01:16→21:06)
--- NOTE | 2021-01-10 06:45 | PC.NURSE ---
Addendum entered by Chrissie Bar RN 01/10/21 06:59: Phlebotomists did not notify nurse that trough was not drawn before leaving the floor on timed lab. Original Note: Vancomycin Trough Timed vancomycin trough was not drawn at 0400 by lab. Vancomycin was due to be given at 0500 this morning, vanc was scanned by this nurse in the MAR but it is not yet infusing.
--- NOTE | 2021-01-10 07:01 | PC.NURSE ---
Shift Summary Patient had an uneventful night. No seizure activity noted throughout the shift. Patient has LR infusing at 50 mls/hr in the right upper arm IV site. He had no bowel movement overnight and the guan catheter drained 1500 mls of bright yellow urine with sediment. No wounds or skin issues noted at this time.
[2021-01-10 07:54] LABS: Vancomycin Trough 11.2 ug/mL (10-15)
[2021-01-10] MEDS: vancomycin 750 MG in sodium chloride 0.9% 250 ML 250 MG IV ×2 (09:13→21:06)
--- NOTE | 2021-01-10 09:15 | PC.CHAP ---
Pastoral Care Encounter/Spiritual Assessment Type of Contact [] Declined spinning machine tender visit [] Patient/Family/Request visit [] Outpatient visit [] Follow-up visit [] Physician referral [] Code/Alert [x] Routine visit [] Staff referral [] Actively dying [x] Patient sleeping [] Family support [] [] Out of room [] Palliative care [] [] Receiving care in room [] Pre-surgical visit [] Trauma [] Long length of stay [x] ICU visit [] Other: Relational/Emotional Strength [] Patient feels connected with others/family/visitors/staff [] Distress [] Loneliness/isolation [] Abandonment Spirituality of Patient [] Person of Fang [] Attends Mormon of their Fang [] Believes in Prayer [] Reads Bible or Moravian materials [] There are Spiritual issues to be addressed Net Application Architect Interventions [x] Prayer [] Active listening [] Non-anxious presence [] Spiritual/emotional support [] Crisis/trauma care [] Spiritual counseling [] Bereavement support [] Provided bereavement packet [] Provided Bible/devotional materials [] Provided toy/stuffed animal, coloring book to patient or family member [] Provided Communion [] Anointing/Obion [] Salvation [x] Completed spiritual assessment [] Other: Impact on Illness or Injury [] Angry [] Fearful [] Anxious [] Often cries [] Exhaustion [] Unable to work [] Unable to attend druze [] Unable to walk/stand [] Unable to read [] Unable to drive [] Unable to eat/drink [] Unable to sleep [] Unable to be with family [] Patient intubated [] Other: Summary Time spent with patient
[2021-01-10] MEDS: famotidine 20 mg/2 mL INJ IVP ×2 (10:57→22:42)
[2021-01-10] MEDS: cefepime 1,000 MG in sodium chloride 0.9% (plus) 100 ML 100 MG IV ×2 (11:59→23:58)
--- NOTE | 2021-01-10 14:52 | P.PN_ITS ---
Subjective Subjective: Interval history: This is a 55-year-old male with history of cerebral palsy, bedridden since age 9, intellectual disability, blindness, history of cardiac arrhythmias, seizure disorder who was recently discharged from the hospital for aspiration pneumonia with seizures prior to discharge as well as supratherapeutic phenytoin and phenobarbital levels. He returned to the hospital for having seizures. He had a documented seizure in the ER. He also was noted to be tachycardic. He has been admitted to the ICU for this. He is also being treated for a UTI. The patient was also noted to have an abnormal TSH. Thyroid medication dose was adjusted. heart rate better no reported seizure activity behavior unchanged tolerating PO with assist Medications: Reviewed: Yes Vitals/I&O/Wt Last Vital Signs Temp 98.4 F 01/10/21 04:00 Pulse 113 H 01/10/21 13:00 Resp 18 01/10/21 13:00 BP 136/91 01/10/21 12:30 Pulse Ox 99 01/10/21 13:56 01/09/21 01/10/21 01/10/21 22:59 06:59 14:59 Intake Total 250 / 473.25 273.25 / 746.50 710 / 710 Output Total 1200 / 1200 1500 / 2700 Balance -950 / -726.75 -1226.75 / -1953.50 710 / 710 Weight last 48 hrs Weight 132 lb 4 oz Weight 137 lb 6.4 oz Physical Exam Const: COMMON NORMALS: no acute distress Neck/C-Spine: COMMON NORMALS: no JVD Resp: COMMON NORMALS: normal respiratory effort and No retractions Cardio: COMMON NORMALS: no JVD and regular rate RATE: regular rate GI: COMMON NORMALS: Soft to palpation PALPATION: Yes Soft to palpation Extremity: OTHER: contracted Data : 01/09/21 08:15 01/09/21 08:15 A&P Assessment and plan (1) Ulcerative colitis: Status: Chronic Qualifiers: Ulcerative colitis location: unspecified ulcerative colitis location Digestive disease complication type: without complication Qualified Code(s): K51.90 - Ulcerative colitis, unspecified, without complications (2) Hypothyroidism: Status: Chronic Qualifiers: Hypothyroidism type: unspecified Qualified Code(s): E03.9 - Hypothyroidism, unspecified (3) Aspiration pneumonia: Status: Acute (4) Urinary tract infection: Status: Acute Qualifiers: Hematuria presence: with hematuria Urinary tract infection type: acute cystitis Qualified Code(s): N30.01 - Acute cystitis with hematuria Additional A&P Information Seizures --stable --continue Keppra, valproic acid --PRN ativan UTI --cx enterococcus --continue abx, currently on vancomycin and cefepime Hypothyroidism --restart levothyroxine PNA --vanc cefepime Tachycardia --scheduled metoprolol --better Ulcerative colitis --restart SSA Dispo: awaiting placement transfer to floor Attestations Medical Necessity Statement*: Awais Trent Gilberto's hospital stay will require greater than 2 midnights for pna Coding Level of Care Code Acute Aircraft Sheet Metal Mechanic for Chg Fwd Diagnoses Ulcerative colitis K51.90 Ulcerative colitis location: unspecified ulcerative colitis location Digestive disease complication type: without complication Hypothyroidism E03.9 Hypothyroidism type: unspecified Aspiration pneumonia J69.0 Urinary tract infection N30.01 Hematuria presence: with hematuria Urinary tract infection type: acute cystitis
[2021-01-10] MEDS: tamsulosin 0.4 mg Capsule PO (21:03)
[2021-01-10] MEDS: magnesium oxide 400 mg tablet PO (21:04)
[2021-01-10] MEDS: sulfaSALAzine 500 mg Tablet PO (21:05)
[2021-01-11] MEDS: metoprolol tartrate 1 mg/1 mL SDV 5 mL 5 MG IV ×3 (01:24→10:33)
[2021-01-11 04:00] VITALS: BP 102/55; PULSE 80; RESP 20; TEMP 36.9; O2SAT 93
[2021-01-11] MEDS: lactated ringers 1,000 ML 50 ML IV ×2 (05:23→23:00)
[2021-01-11 07:24] VITALS: BP 120/86; PULSE 111; RESP 18; TEMP 36.7; O2SAT 97
[2021-01-11] MEDS: aspirin 81 mg EC Tablet PO (08:41)
[2021-01-11] MEDS: levothyroxine 25 mcg Tablet PO (08:41)
[2021-01-11] MEDS: magnesium oxide 400 mg tablet PO ×2 (08:41→20:52)
[2021-01-11] MEDS: cholecalciferol (vitamin D3) 5,000 unit Tablet 5000 UNIT PO (08:41)
[2021-01-11] MEDS: tamsulosin 0.4 mg Capsule PO ×2 (08:41→20:52)
[2021-01-11] MEDS: vancomycin 750 MG in sodium chloride 0.9% 250 ML 250 MG IV (08:48)
[2021-01-11] MEDS: famotidine 20 mg/2 mL INJ IVP ×2 (10:33→23:00)
[2021-01-11] MEDS: cefepime 1,000 MG in sodium chloride 0.9% (plus) 100 ML 100 MG IV (11:17)
[2021-01-11 11:33] VITALS: BP 123/80; PULSE 98; RESP 18; TEMP 36.4; O2SAT 99
--- NOTE | 2021-01-11 12:13 | PC.SOCIAL ---
IMM Update Pg.2 of IMM updated and reviewed with patient's mom over the phone, copy left at bedside.
--- NOTE | 2021-01-11 13:54 | PM.PN ---
Subjective Subjective: Interval history: This is a 55-year-old male with history of cerebral palsy, bedridden since age 9, intellectual disability, blindness, history of cardiac arrhythmias, seizure disorder who was recently discharged from the hospital for aspiration pneumonia with seizures prior to discharge as well as supratherapeutic phenytoin and phenobarbital levels. He returned to the hospital for having seizures. He had a documented seizure in the ER. He also was noted to be tachycardic. He has been admitted to the ICU for this. He is also being treated for a UTI. The patient was also noted to have an abnormal TSH. Thyroid medication dose was adjusted. heart rate better no reported seizure activity behavior unchanged tolerating PO with assist family wanting patient to come home or go to facility closer to her home Medications: Reviewed: Yes Vitals/I&O/Wt Last Vital Signs Temp 97.6 F 01/11/21 11:33 Pulse 98 01/11/21 11:33 Resp 18 01/11/21 11:33 BP 123/80 01/11/21 11:33 Pulse Ox 99 01/11/21 11:33 01/10/21 01/11/21 01/11/21 22:59 06:59 14:59 Intake Total 1720 / 2483.25 523.25 / 3006.50 870 / 870 Output Total 2100 / 2100 700 / 2800 Balance -380 / 383.25 -176.75 / 206.50 870 / 870 Weight last 48 hrs Weight 138 lb 11.2 oz Weight 132 lb 4 oz Physical Exam Const: COMMON NORMALS: no acute distress Neck/C-Spine: COMMON NORMALS: no JVD Resp: COMMON NORMALS: normal respiratory effort and No retractions Cardio: COMMON NORMALS: no JVD and regular rate RATE: regular rate GI: COMMON NORMALS: Soft to palpation PALPATION: Yes Soft to palpation Extremity: OTHER: contracted Data : 01/09/21 08:15 01/09/21 08:15 A&P Assessment and plan (1) Aspiration pneumonia: Status: Acute (2) Dehydration: Status: Acute (3) Urinary tract infection: Status: Acute Qualifiers: Hematuria presence: with hematuria Urinary tract infection type: acute cystitis Qualified Code(s): N30.01 - Acute cystitis with hematuria (4) Sepsis: Status: Acute (5) Ulcerative colitis: Status: Chronic Qualifiers: Ulcerative colitis location: unspecified ulcerative colitis location Digestive disease complication type: without complication Qualified Code(s): K51.90 - Ulcerative colitis, unspecified, without complications (6) Hypothyroidism: Status: Chronic Qualifiers: Hypothyroidism type: unspecified Qualified Code(s): E03.9 - Hypothyroidism, unspecified Additional A&P Information Seizures --stable --continue Keppra, valproic acid. change to PO --PRN ativan UTI --cx enterococcus --DC abx, currently on vancomycin and cefepime Hypothyroidism --restart levothyroxine PNA --vanc cefepime. stop today Tachycardia --scheduled metoprolol --better Ulcerative colitis -- SSA Dispo: awaiting placement Attestations Medical Necessity Statement*: Awais Miley Macias's hospital stay will require greater than 2 midnights for seizure Coding Level of Care Code Acute Purchasing Expeditor for Chg Fwd Diagnoses Aspiration pneumonia J69.0 Dehydration E86.0 Urinary tract infection N30.01 Hematuria presence: with hematuria Urinary tract infection type: acute cystitis Sepsis A41.9 Ulcerative colitis K51.90 Ulcerative colitis location: unspecified ulcerative colitis location Digestive disease complication type: without complication Hypothyroidism E03.9 Hypothyroidism type: unspecified
[2021-01-11 15:56] VITALS: BP 116/71; PULSE 101; RESP 16; TEMP 36.7; O2SAT 95
--- NOTE | 2021-01-11 16:15 | PC.NUTR ---
Nutrition assessment completed for LOS. Recommend Magic Cup with meals. Recommend to encourage intake of meals/fluids (at pudding consistency), particularly given dehydration dx. See RD assessment for further details.
[2021-01-11] MEDS: levETIRAcetam 500 mg Tablet 2000 MG PO (18:49)
[2021-01-11 20:00] VITALS: BP 97/62; PULSE 110; RESP 16; TEMP 36.7; O2SAT 97
[2021-01-11] MEDS: sulfaSALAzine 500 mg Tablet PO (20:52)
[2021-01-12] VITALS (8 sets, daily range): BP systolic 84–134; BP diastolic 49–90; PULSE 101–135; RESP 16–18; TEMP 36.7–37.5; O2SAT 93–98; BMI 24.9
[2021-01-12] MEDS: sulfaSALAzine 500 mg Tablet PO ×3 (08:53→20:40)
[2021-01-12] MEDS: magnesium oxide 400 mg tablet PO ×2 (08:53→20:41)
[2021-01-12] MEDS: levETIRAcetam 500 mg Tablet 2000 MG PO ×2 (08:53→17:22)
[2021-01-12] MEDS: levothyroxine 25 mcg Tablet PO (08:54)
[2021-01-12] MEDS: tamsulosin 0.4 mg Capsule PO ×2 (08:54→20:40)
[2021-01-12] MEDS: metoprolol succinate ER (24 HR) 25 mg Tablet PO (08:54)
[2021-01-12] MEDS: cholecalciferol (vitamin D3) 5,000 unit Tablet 5000 UNIT PO (08:54)
[2021-01-12] MEDS: aspirin 81 mg EC Tablet PO (08:54)
[2021-01-12] MEDS: famotidine 20 mg/2 mL INJ IVP ×2 (10:39→22:49)
[2021-01-12] MEDS: lactated ringers 1,000 ML 50 ML IV (17:22)
--- NOTE | 2021-01-12 17:24 | P.PN_ITS ---
Subjective Subjective: Interval history: Noted to have slight confusion. Sitting upright in eating lunch. Medications: Reviewed: Yes Vitals/I&O/Wt Last Vital Signs Temp 98.6 F 01/12/21 16:00 Pulse 120 H 01/12/21 16:00 Resp 18 01/12/21 16:00 BP 98/64 01/12/21 16:58 Pulse Ox 97 01/12/21 16:00 01/12/21 01/12/21 01/12/21 06:59 14:59 22:59 Intake Total 880.833 / 1924.083 918.333 / 918.333 Output Total 400 / 2600 Balance 480.833 / -675.917 918.333 / 918.333 Weight last 48 hrs Weight 61.887 kg Weight 62.913 kg Physical Exam Const: COMMON NORMALS: no acute distress GENERAL APPEARANCE: lethargic ORIENTATION/CONSCIOUSNESS: Yes lethargic HENMT: COMMON NORMALS: oropharynx normal Neck/C-Spine: COMMON NORMALS: no JVD Resp: COMMON NORMALS: normal respiratory effort, No retractions and clear to auscultation bilaterally AUSCULTATION: clear to auscultation bilaterally Cardio: COMMON NORMALS: no JVD, regular rate, S1 normal heart sound present, S2 normal heart sound present and No murmurs present (Cardio) RATE: regular rate HEART SOUNDS: S1 normal heart sound present and S2 normal heart sound present GI: COMMON NORMALS: Normal to inspection, nondistended, normoactive bowel sounds present and Soft to palpation PALPATION: Yes Soft to palpation Extremity: COMMON NORMALS: no joint enlargement and no pedal edema OTHER: contracted Neuro: SENSORIUM/ORIENTATION: Yes lethargic OTHER: does not follow commands Skin: COMMON NORMALS: no rashes or lesions noted GENERAL SKIN EXAM: no rashes or lesions noted Data : 01/09/21 08:15 01/09/21 08:15 A&P Assessment and plan (1) Aspiration pneumonia: Monitoring off antibiotics Status: Acute (2) Dehydration: Status: Acute (3) Urinary tract infection: cx enterococcus await sensitivity continue IV vancomycin Status: Acute Qualifiers: Hematuria presence: with hematuria Urinary tract infection type: acute cystitis Qualified Code(s): N30.01 - Acute cystitis with hematuria (4) Sepsis: Status: Acute (5) Ulcerative colitis: on SSA at home Status: Chronic Qualifiers: Ulcerative colitis location: unspecified ulcerative colitis location Digestive disease complication type: without complication Qualified Code(s): K51.90 - Ulcerative colitis, unspecified, without complications (6) Hypothyroidism: restart PO thyroid replacement when mroe oriented Status: Chronic Qualifiers: Hypothyroidism type: unspecified Qualified Code(s): E03.9 - Hypothyroidism, unspecified Additional A&P Information Seizures --stable --continue Keppra, valproic acid. --PRN ativan UTI --cx enterococcus --DC abx, currently on vancomycin Hypothyroidism -- levothyroxine PNA --vanc cefepime. stop today Tachycardia --scheduled metoprolol --better Ulcerative colitis -- SSA Dispo: awaiting placement Attestations Medical Necessity Statement*: continue hospitalization for IV antibiotics Time Spent in Patient Care: Greater than 35 minutes Coding Level of Care Code Acute Debt Collection Specialist for g Fwd Diagnoses Aspiration pneumonia J69.0 Dehydration E86.0 Urinary tract infection N30.01 Hematuria presence: with hematuria Urinary tract infection type: acute cystitis Sepsis A41.9 Ulcerative colitis K51.90 Ulcerative colitis location: unspecified ulcerative colitis location Digestive disease complication type: without complication Hypothyroidism E03.9 Hypothyroidism type: unspecified
[2021-01-13] VITALS: BP 125/75; PULSE 99; RESP 17; TEMP 36.7; O2SAT 96
[2021-01-13 04:00] VITALS: BP 122/76; PULSE 104; RESP 17; TEMP 37.1; O2SAT 90
[2021-01-13 07:26] VITALS: BP 114/80; PULSE 97; RESP 16; TEMP 37; O2SAT 94
[2021-01-13] MEDS: levETIRAcetam 500 mg Tablet 2000 MG PO ×2 (09:01→17:40)
[2021-01-13] MEDS: magnesium oxide 400 mg tablet PO (09:01)
[2021-01-13] MEDS: sulfaSALAzine 500 mg Tablet PO ×2 (09:01→12:03)
[2021-01-13] MEDS: cholecalciferol (vitamin D3) 5,000 unit Tablet 5000 UNIT PO (09:01)
[2021-01-13] MEDS: levothyroxine 25 mcg Tablet PO (09:01)
[2021-01-13] MEDS: tamsulosin 0.4 mg Capsule PO (09:02)
[2021-01-13] MEDS: famotidine 20 mg/2 mL INJ IVP ×2 (09:02→22:17)
[2021-01-13] MEDS: metoprolol succinate ER (24 HR) 25 mg Tablet PO (09:02)
[2021-01-13] MEDS: aspirin 81 mg EC Tablet PO (09:02)
[2021-01-13 11:17] VITALS: BP 110/63; PULSE 103; RESP 16; TEMP 37.2; O2SAT 95
--- NOTE | 2021-01-13 11:24 | P.PN_ITS ---
Subjective Subjective: Interval history: 55-year-old gentleman with history of cerebral palsy, bedridden since age 9, with intellectual disability, bilateral blindness, history of cardiac arrhythmia, seizure disorder, was recently discharged after hospitalization for treatment of aspiration pneumonia with noted seizure episode prior to discharge, and with noted repeat supratherapeutic phenytoin and phenobarbital levels these were discontinued, and he was started on Keppra 1000 mg twice daily. His mother states that he subsequently did well for about 2-3 days, and then started having seizures. She contacted his primary care provider, and additional dose increased to 1500 mg twice daily was recommended which they did, despite that she reports he had had recurrent seizures. He was brought in for evaluation to ER due to this. A brief seizure episode was noted in the ER resolving spontaneously. He was noted tachycardic, dehydrated, was given IV fluid bolus, with UA suggestive of urinary tract infection. Chest x- ray with persistent interstitial thickening involving mainly lower lungs. Upon admission to the hospital patient was started on IV antibiotics. This included vancomycin and cefepime. Was found to have Enterococcus faecalis in urinary culture obtained on 01/06/2021. Addition patient was continued on Keppra however dose was increased to 2 g b.i.d. in addition to Depakote 250 mg oral q.i.d.. Medications: Reviewed: Yes Vitals/I&O/Wt Last Vital Signs Temp 98.9 F 01/13/21 11:17 Pulse 103 H 01/13/21 11:17 Resp 16 01/13/21 11:17 BP 110/63 01/13/21 11:17 Pulse Ox 95 01/13/21 11:17 01/12/21 01/13/21 01/13/21 22:59 06:59 14:59 Intake Total 1158.333 / 1158.333 Output Total 400 / 400 450 / 850 Balance 758.333 / 758.333 -450 / 308.333 Weight last 48 hrs Weight 61.598 kg Weight 61.887 kg Physical Exam Const: COMMON NORMALS: no acute distress GENERAL APPEARANCE: lethargic ORIENTATION/CONSCIOUSNESS: Yes lethargic HENMT: COMMON NORMALS: oropharynx normal Neck/C-Spine: COMMON NORMALS: no JVD Resp: COMMON NORMALS: normal respiratory effort, No retractions and clear to auscultation bilaterally AUSCULTATION: clear to auscultation bilaterally Cardio: COMMON NORMALS: no JVD, regular rate, S1 normal heart sound present, S2 normal heart sound present and No murmurs present (Cardio) RATE: regular rate HEART SOUNDS: S1 normal heart sound present and S2 normal heart sound pr esent GI: COMMON NORMALS: Normal to inspection, nondistended, normoactive bowel sounds present and Soft to palpation PALPATION: Yes Soft to palpation Extremity: COMMON NORMALS: no joint enlargement and no pedal edema OTHER: contracted Neuro: SENSORIUM/ORIENTATION: Yes lethargic OTHER: does not follow commands Skin: COMMON NORMALS: no rashes or lesions noted GENERAL SKIN EXAM: no r ashes or lesions noted Data : 01/09/21 08:15 01/09/21 08:15 A&P Assessment and plan (1) Aspiration pneumonia: Monitoring off antibiotics Status: Acute (2) Dehydration: Status: Acute (3) Urinary tract infection: cx enterococcus await sensitivity continue IV vancomycin Status: Acute Qualifiers: Hematuria presence: with hematuria Urinary tract infection type: acute cystitis Qualified Code(s): N30.01 - Acute cystitis with hematuria (4) Sepsis: Status: Acute (5) Ulcerative colitis: on SSA at home Status: Chronic Qualifiers: Ulcerative colitis location: unspecified ulcerative colitis location Digestive disease complication type: without complication Qualified Code(s): K51.90 - Ulcerative colitis, unspecified, without complications (6) Hypothyroidism: Continue replacement Status: Chronic Qualifiers: Hypothyroidism type: unspecified Qualified Code(s): E03.9 - Hypothyroidism, unspecified Additional A&P Information Seizures --stable --continue Keppra, valproic acid. --PRN ativan -- levels ordered today UTI --cx enterococcus --DC abx, Hypothyroidism -- levothyroxine PNA -- monitor off antibiotics Ulcerative colitis -- SSA Attestations Medical Necessity Statement*: require further hospitalization for management of seizure break through Time Spent in Patient Care: Greater than 35 minutes (>than 50% of time spent in counselling and/or direct pt care on unit) . Coding Level of Care Code Acute Auto Body Repair Technician for Chg Fwd Diagnoses Aspiration pneumonia J69.0 Dehydration E86.0 Urinary tract infection N30.01 Hematuria presence: with hematuria Urinary tract infection type: acute cystitis Sepsis A41.9 Ulcerative colitis K51.90 Ulcerative colitis location: unspecified ulcerative colitis location Digestive disease complication type: without complication Hypothyroidism E03.9 Hypothyroidism type: unspecified
[2021-01-13 12:48] LABS: Valproic Acid Level 52.9 ug/mL (50-100)
[2021-01-13] MEDS: lactated ringers 1,000 ML 50 ML IV (13:00)
--- NOTE | 2021-01-13 14:34 | PC.SOCIAL ---
IMM Updated Updated pt's family on Pg 2 IMM. No questions voiced. Provided pt/family a copy. Initialed, dated, & timed copy in chart.
[2021-01-13 16:00] VITALS: BP 109/78; PULSE 112; RESP 16; TEMP 37.7; O2SAT 95
[2021-01-13 20:00] VITALS: BP 104/65; PULSE 93; RESP 16; TEMP 36.7; O2SAT 96
[2021-01-14] VITALS (7 sets, daily range): BP systolic 99–136; BP diastolic 60–70; PULSE 98–118; RESP 16–18; TEMP 36.6–37.4; O2SAT 92–96
[2021-01-14 06:51] LABS: Hematocrit 31.6 % (42.0-52.0); Hemoglobin 10.1 g/dL (11.7-16.6); Lymphocytes # 0.6 10^3/uL (0.8-4.8); Lymphocytes % 24.3 %; Mean Corpuscular Hemoglobin 32.2 pg (28.0-34.0); Mean Corpuscular Volume 100.6 fL (80-94); Mean Platelet Volume 10.4 fL (7.4-10.4); Monocytes # 0.4 10^3/uL (0.2-0.9); Monocytes % 16.6 %; Neutrophils # 1.53 10^3/uL (1.8-7.7); Neutrophils % 59.1 %; Nucleated Red Blood Cells % 0 %; Platelet Count 105 10^3/cmm (130-400); Red Blood Count 3.14 10^6/uL (4.1-5.3); Red Cell Distribution Width 15.6 % (12.1-15.1); White Blood Count 2.6 10^3/uL (4.0-10.0)
[2021-01-14 07:17] LABS: Alanine Aminotransferase 51 U/L (0-41); Albumin Level 3.5 g/dL (3.5-5.2); Alkaline Phosphatase 68 IU/L (40-130); Aspartate Amino Transferase 62 U/L (0-40); Blood Urea Nitrogen 5 mg/dL (6-20); Calcium 8.1 mg/dL (8.5-10.5); Carbon Dioxide 27 mmol/L (22-29); Chloride 103 mmol/L (98-107); Globulin 2.7 g/dL (1.3-4.6); Glomerular Filtration Rate 139.9 mL/min (90-130); Glucose 97 mg/dL (65-115); Osmolality Calculated 287 mOsm/kg (285-295); Sodium 140 mmol/L (136-145); Total Bilirubin 0.3 mg/dL (0.15-1.2); Total Protein 6.2 g/dL (6.6-8.7)
[2021-01-14 07:58] LABS: Slide Review Slide Review Perform
[2021-01-14] MEDS: levothyroxine 25 mcg Tablet PO (08:37)
[2021-01-14] MEDS: levETIRAcetam 500 mg Tablet 2000 MG PO ×2 (08:37→17:39)
[2021-01-14] MEDS: aspirin 81 mg EC Tablet PO (08:37)
[2021-01-14] MEDS: magnesium oxide 400 mg tablet PO ×2 (08:37→20:16)
[2021-01-14] MEDS: tamsulosin 0.4 mg Capsule PO ×2 (08:37→20:16)
[2021-01-14] MEDS: sulfaSALAzine 500 mg Tablet PO ×3 (08:37→20:16)
[2021-01-14] MEDS: metoprolol succinate ER (24 HR) 25 mg Tablet PO (08:37)
[2021-01-14] MEDS: cholecalciferol (vitamin D3) 5,000 unit Tablet 5000 UNIT PO (08:37)
[2021-01-14] MEDS: lactated ringers 1,000 ML 50 ML IV (08:38)
[2021-01-14] MEDS: famotidine 20 mg/2 mL INJ IVP ×2 (10:35→23:00)
[2021-01-14 12:44] LABS: Valproic Acid Level 75.2 ug/mL (50-100)
--- NOTE | 2021-01-14 16:03 | PM.PN ---
Subjective Subjective: Interval history: Patient was seen and examined this morning, continues to be afebrile , a.m. labs has shown decreased WBC and platelet count. Medications: Reviewed: Yes Vitals/I&O/Wt Last Vital Signs Temp 99.1 F 01/14/21 12:00 Pulse 103 H 01/14/21 12:00 Resp 18 01/14/21 12:00 BP 133/67 01/14/21 12:00 Pulse Ox 95 01/14/21 12:00 01/14/21 01/14/21 01/14/21 06:59 14:59 22:59 Intake Total 756.667 / 756.667 Output Total 550 / 1000 Balance -550 / 986.667 756.667 / 756.667 Weight last 48 hrs Weight 63.231 kg Weight 61.598 kg Physical Exam HENMT: COMMON NORMALS: normocephalic and atraumatic HEAD & SCALP: normocephalic and atraumatic Resp: COMMON NORMALS: clear to auscultation bilaterally AUSCULTATION: clear to auscultation bilaterally Cardio: COMMON NORMALS: regular rate, regular rhythm, S1 normal heart sound present, S2 normal heart sound present, No gallops present (Cardio), No murmurs present (Cardio), No rub (Cardio) and Peripheral pulses 2+ throughout RATE: regular rate RHYTHM: regular rhythm HEART SOUNDS: S1 normal heart sound present and S2 normal heart sound present PERIPHERAL PULSES: Peripheral pulses 2+ throughout GI: COMMON NORMALS: Normal to inspection, nondistended, normoactive bowel sounds present, Soft to palpation, non-tender, No hepatosplenomegaly present and no masses AUSCULTATION: Yes normoactive bowel sounds PALPATION: Yes Soft to palpation and Yes No hepatosplenomegaly present RECTAL EXAM: Yes deferred Extremity: COMMON NORMALS: no clubbing, cyanosis or edema and no pedal edema Data : 01/14/21 06:20 01/14/21 06:20 A&P Assessment and plan (1) Aspiration pneumonia: Monitoring off antibiotics Status: Acute (2) Dehydration: Status: Acute (3) Urinary tract infection: cx enterococcus await sensitivity continue IV vancomycin Status: Acute Qualifiers: Hematuria presence: with hematuria Urinary tract infection type: acute cystitis Qualified Code(s): N30.01 - Acute cystitis with hematuria (4) Sepsis: Status: Acute (5) Ulcerative colitis: on SSA at home Status: Chronic Qualifiers: Ulcerative colitis location: unspecified ulcerative colitis location Digestive disease complication type: without complication Qualified Code(s): K51.90 - Ulcerative colitis, unspecified, without complications (6) Hypothyroidism: Continue replacement Status: Chronic Qualifiers: Hypothyroidism type: unspecified Qualified Code(s): E03.9 - Hypothyroidism, unspecified (7) Leukopenia: Status: Acute (8) Thrombocytopenia: Status: Acute Additional A&P Information Seizures --stable --continue Keppra, valproic acid. --PRN ativan -Follow-up Keppra and valproic acid level UTI --cx enterococcus --DC abx, Hypothyroidism -- levothyroxine PNA -- monitor off antibiotics Ulcerative colitis -- SSA --- Leukopenia Continue to monitor CBC, rule out any possible medication side effect. --- Thrombocytopenia Monitor CBC for now, rule out any possible medication side effect Attestations Medical Necessity Statement*: Patient needs to be in hospital for management of, seizure , leukopenia , thrombocytopenia. Coding Level of Care Code Acute Stamping Die Maker for [facility] Fwd Diagnoses Aspiration pneumonia J69.0 Dehydration E86.0 Urinary tract infection N30.01 Hematuria presence: with hematuria Urinary tract infection type: acute cystitis Sepsis A41.9 Ulcerative colitis K51.90 Ulcerative colitis location: unspecified ulcerative colitis location Digestive disease complication type: without complication Hypothyroidism E03.9 Hypothyroidism type: unspecified Leukopenia D72.819 Thrombocytopenia D69.6
[2021-01-15 03:46] VITALS: BP 99/63; PULSE 103; RESP 16; TEMP 36.6; O2SAT 94
[2021-01-15 06:55] LABS: Basophils % 0.5 %; Hematocrit 32.4 % (42.0-52.0); Hemoglobin 10.4 g/dL (11.7-16.6); Lymphocytes # 0.6 10^3/uL (0.8-4.8); Lymphocytes % 28.2 %; Mean Corpuscular HGB Conc 32.1 g/dL (30.0-36.0); Mean Corpuscular Hemoglobin 32.2 pg (28.0-34.0); Mean Corpuscular Volume 100.3 fL (80-94); Mean Platelet Volume 10.8 fL (7.4-10.4); Monocytes # 0.3 10^3/uL (0.2-0.9); Monocytes % 14.6 %; Neutrophils # 1.17 10^3/uL (1.8-7.7); Neutrophils % 56.7 %; Nucleated Red Blood Cells % 0 %; Platelet Count 88 10^3/cmm (130-400); Red Blood Count 3.23 10^6/uL (4.1-5.3); Red Cell Distribution Width 15.3 % (12.1-15.1); White Blood Count 2.1 10^3/uL (4.0-10.0)
[2021-01-15 07:19] LABS: Alanine Aminotransferase 49 U/L (0-41); Albumin Level 3.3 g/dL (3.5-5.2); Alkaline Phosphatase 65 IU/L (40-130); Anion Gap 13.1 (5-19); Aspartate Amino Transferase 58 U/L (0-40); Blood Urea Nitrogen 7 mg/dL (6-20); Calcium 8.2 mg/dL (8.5-10.5); Carbon Dioxide 29 mmol/L (22-29); Chloride 101 mmol/L (98-107); Globulin 2.9 g/dL (1.3-4.6); Glomerular Filtration Rate 172.6 mL/min (90-130); Glucose 102 mg/dL (65-115); Osmolality Calculated 288 mOsm/kg (285-295); Potassium 3.1 mmol/L (3.5-5.1); Sodium 140 mmol/L (136-145); Total Bilirubin 0.3 mg/dL (0.15-1.2); Total Protein 6.2 g/dL (6.6-8.7)
[2021-01-15 08:00] VITALS: BP 122/61; PULSE 74; RESP 18; TEMP 37.1; O2SAT 96
[2021-01-15 08:07] LABS: Slide Review Slide Review Perform
[2021-01-15] MEDS: metoprolol succinate ER (24 HR) 25 mg Tablet PO (08:18)
[2021-01-15] MEDS: lactated ringers 1,000 ML 50 ML IV (08:18)
[2021-01-15] MEDS: levothyroxine 25 mcg Tablet PO (08:18)
[2021-01-15] MEDS: cholecalciferol (vitamin D3) 5,000 unit Tablet 5000 UNIT PO (08:18)
[2021-01-15] MEDS: aspirin 81 mg EC Tablet PO (08:18)
[2021-01-15] MEDS: sulfaSALAzine 500 mg Tablet PO ×2 (08:18→21:07)
[2021-01-15] MEDS: magnesium oxide 400 mg tablet PO ×2 (08:18→21:07)
[2021-01-15] MEDS: tamsulosin 0.4 mg Capsule PO ×2 (08:19→21:07)
[2021-01-15] MEDS: levETIRAcetam 500 mg Tablet 2000 MG PO ×2 (08:19→17:27)
--- NOTE | 2021-01-15 10:49 | PC.SOCIAL ---
IMM UPDATE Gave patient's mother verbal IMM update. Verbalized understanding. 01/15/21 @ 0958. Initialed, dated, timed and placed in chart.
[2021-01-15] MEDS: lidocaine 1% 5 ML in potassium chloride premix 100 ML 50 ML IV (10:55)
[2021-01-15] MEDS: famotidine 20 mg/2 mL INJ IVP ×2 (10:56→23:19)
[2021-01-15 11:51] VITALS: BP 124/75; PULSE 105; RESP 18; TEMP 36.8; O2SAT 96
--- NOTE | 2021-01-15 12:02 | P.PN_ITS ---
Subjective Subjective: Interval history: Patient was seen and examined this morning, WBC and platelet count has continued to trend down, though the patient has remained afebrile, ccurrently no signs of active infection,patient is at his baseline mentation, nursing report states that he is eating and drinking fine. Though he needs to be fed. Medications: Reviewed: Yes Vitals/I&O/Wt Last Vital Signs Temp 98.3 F 01/15/21 11:51 Pulse 105 H 01/15/21 11:51 Resp 18 01/15/21 11:51 BP 124/75 01/15/21 11:51 Pulse Ox 96 01/15/21 11:51 01/14/21 01/15/21 01/15/21 22:59 06:59 14:59 Intake Total 60 / 871.265 9723 / 1816.667 40 / 40 Output Total 1450 / 1450 1600 / 3050 Balance -1390 / -633.333 -600 / -1233.333 40 / 40 Weight last 48 hrs Weight 61.915 kg Weight 63.231 kg Physical Exam HENMT: COMMON NORMALS: normocephalic and atraumatic HEAD & SCALP: normo cephalic and atraumatic Resp: COMMON NORMALS: clear to auscultation bilaterally AUSCULTATION: clear to auscultation bilaterally Cardio: COMMON NORMALS: regular rate, regular rhythm, S1 normal heart sound present, S2 normal heart sound present, No gallops present (Cardio), No murmurs present (Cardio), No rub (Cardio) and Peripheral pulses 2+ throughout RATE: regular rate RHYTHM: regular rhythm HEART SOUNDS: S1 normal heart sound present and S2 normal heart sound present PERIPHERAL PULSES: Peripheral pulses 2+ throughout GI: COMMON NORMALS: Normal to inspection, nondistended, normoactive bowel soun ds present, Soft to palpation, non-tender, No hepatosplenomegaly present and no masses AUSCULTATION: Yes normoactive bowel sounds PALPATION: Yes Soft to palpation and Yes No hepatosplenomegaly present RECTAL EXAM: Yes deferred Extremity: COMMON NORMALS: no clubbing, cyanosis or edema and no pedal edema Data : 01/15/21 06:00 01/15/21 06:00 A&P Assessment and plan (1) Aspiration pneumonia: Monitoring off antibiotics Status: Acute (2) Dehydration: Status: Acute (3) Urinary tract infection: cx enterococcus await sensitivity continue IV vancomycin Status: Acute Qualifiers: Hematuria presence: with hematuria Urinary tract infection type: acute cystitis Qualified Code(s): N30.01 - Acute cystitis with hematuria (4) Sepsis: Status: Acute (5) Ulcerative colitis: on SSA at home Status: Chronic Qualifiers: Ulcerative colitis location: unspecified ulcerative colitis location Digestive disease complication type: without complication Qualified Code(s): K51.90 - Ulcerative colitis, unspecified, without complications (6) Hypothyroidism: Continue replacement Status: Chronic Qualifiers: Hypothyroidism type: unspecified Qualified Code(s): E03.9 - Hypothyroidism, unspecified (7) Leukopenia: Status: Acute (8) Thrombocytopenia: Status: Acute Additional A&P Information Seizures --stable --continue Keppra, valproic acid. --PRN ativan - Keppra Level :Pending -valproic acid level: 75.2 UTI --cx enterococcus --DC abx, Hypothyroidism -- levothyroxine PNA -- monitor off antibiotics Ulcerative colitis -- SSA --- Leukopenia Continue to monitor CBC, rule out any possible medication side effect. --- Thrombocytopenia Monitor CBC for now, rule out any possible medication side effect Aspirin has been discontinued. Attestations Medical Necessity Statement*: Patient needs to be in hospital for worsening leukopenia as well as thrombocytopenia. Coding Level of Care Code Acute Density Control [facility] Diagnoses Aspiration pneumonia J69.0 Dehydration E86.0 Urinary tract infection N30.01 Hematuria presence: with hematuria Urinary tract infection type: acute cystitis Sepsis A41.9 Ulcerative colitis K51.90 Ulcerative colitis location: unspecified ulcerative colitis location Digestive disease complication type: without complication Hypothyroidism E03.9 Hypothyroidism type: unspecified Leukopenia D72.819 Thrombocytopenia D69.6
[2021-01-15 16:00] VITALS: BP 119/81; PULSE 103; RESP 18; TEMP 37.3; O2SAT 93
[2021-01-15 20:00] VITALS: BP 89/57; PULSE 107; RESP 16; TEMP 36.7; O2SAT 92
[2021-01-15 23:55] VITALS: BP 108/65; PULSE 114; RESP 20; TEMP 36.7; O2SAT 92
[2021-01-16 04:00] VITALS: BP 102/68; PULSE 105; RESP 16; TEMP 36.7; O2SAT 95
[2021-01-16 05:40] LABS: Hematocrit 31.4 % (42.0-52.0); Hemoglobin 9.9 g/dL (11.7-16.6); Lymphocytes # 0.5 10^3/uL (0.8-4.8); Lymphocytes % 18.5 %; Mean Corpuscular HGB Conc 31.5 g/dL (30.0-36.0); Mean Corpuscular Hemoglobin 32.4 pg (28.0-34.0); Mean Corpuscular Volume 102.6 fL (80-94); Mean Platelet Volume 10.4 fL (7.4-10.4); Monocytes # 0.3 10^3/uL (0.2-0.9); Monocytes % 10.5 %; Neutrophils # 1.75 10^3/uL (1.8-7.7); Neutrophils % 70.6 %; Nucleated Red Blood Cells % 0 %; Platelet Count 78 10^3/cmm (130-400); Red Blood Count 3.06 10^6/uL (4.1-5.3); Red Cell Distribution Width 15.3 % (12.1-15.1); White Blood Count 2.5 10^3/uL (4.0-10.0)
[2021-01-16 06:01] LABS: Blood Urea Nitrogen 6 mg/dL (6-20); Calcium 7.9 mg/dL (8.5-10.5); Carbon Dioxide 25 mmol/L (22-29); Chloride 102 mmol/L (98-107); Glomerular Filtration Rate 139.9 mL/min (90-130); Glucose 133 mg/dL (65-115); Osmolality Calculated 284 mOsm/kg (285-295); Sodium 137 mmol/L (136-145)
[2021-01-16 06:04] LABS: Anion Gap 13.2 (5-19); Potassium 3.2 mmol/L (3.5-5.1)
[2021-01-16 07:37] VITALS: BP 119/70; PULSE 117; RESP 20; TEMP 37.8; O2SAT 93
--- NOTE | 2021-01-16 10:19 | PM.DCS ---
Discharge Providers Date of Admission: 01/06/21 07:12 Date of Discharge: January 16, 2021 Attending Provider at Admission: Anil Lyon Attending Provider at Discharge: William Obrien MD Primary Care Provider: Dora Brady MD Diagnoses at Discharge Discharge Diagnosis (1) Aspiration pneumonia: Status: Resolved (2) Dehydration: Status: Resolved (3) Urinary tract infection: Status: Resolved Qualifiers: Hematuria presence: with hematuria Urinary tract infection type: acute cystitis Qualified Code(s): N30.01 - Acute cystitis with hematuria (4) Sepsis: Status: Resolved (5) Ulcerative colitis: Status: Chronic Permanent problem details: on sulfasalazine Qualifiers: Digestive disease complication type: without complication Ulcerative colitis location: unspecified ulcerative colitis location Qualified Code(s): K51.90 - Ulcerative colitis, unspecified, without complications (6) Hypothyroidism: Status: Chronic Qualifiers: Hypothyroidism type: unspecified Qualified Code(s): E03.9 - Hypothyroidism, unspecified (7) Leukopenia: Status: Acute (8) Thrombocytopenia: Status: Acute Reason for Visit Reason for Visit: SEIZURES Hospital Course Hospital Course 55-year-old gentleman with history of cerebral palsy, bedridden since age 9, with intellectual disability, bilateral blindness, history of cardiac arrhythmia, seizure disorder, was recently discharged after hospitalization for treatment of aspiration pneumonia with noted seizure episode prior to discharge, and with noted repeat supratherapeutic phenytoin and phenobarbital levels these were discontinued, and he was started on Keppra 1000 mg twice daily. His mother states that he subsequently did well for about 2-3 days, and then started having seizures. She contacted his primary care provider, and additional dose increased to 1500 mg twice daily was recommended which they did, despite that she reports he had had recurrent seizures. He was brought in for evaluation to ER due to this. A brief seizure episode was noted in the ER resolving spontaneously. He was noted tachycardic, dehydrated, was given IV fluid bolus, with UA suggestive of urinary tract infection. Chest x-ray with persistent interstitial thickening involving mainly lower lungs. Upon admission to the hospital patient was started on IV antibiotics. This included vancomycin and cefepime. Was found to have Enterococcus faecalis in urinary culture obtained on 01/06/2021.Patient was continued on Keppra however dose was increased to 2 g b.i.d. in addition to Depakote 250 mg oral q.i.d. Hospital course was also complicated by development of leukopenia as well as thrombocytopenia, aspirin was stopped because of thrombocytopenia, no bleeding episodes noted, no petechiae ,no rash, at the time of discharge WBC count was improving, platelet count was still down trending.Valproic acid level was therapeutic. Possible Causes of leukopenia and thrombocytopenia could be, possible medication side effects.Current plan is to do repeat CBC and CMP as an outpatient in 1 week and if needed will have to discontinue valproic acid as it is known to cause, thrombocytopenia, as well as hepatic dysfunction. Patient currently is at his baseline.Family wants to take him home 1 more time and see how he does at home 1 more time.Patient will always be at risk for aspiration and he will likely need PEG tube placement in the future. Physical Exam Narrative: EXAM NARRATIVE: Patient is at his baseline mentation, response with persistent name calling, moans at times. HENMT: COMMON NORMALS: normocephalic and atraumatic HEAD & SCALP: normocephalic and atraumatic Resp: COMMON NORMALS: clear to auscultation bilaterally AUSCULTATION: clear to auscultation bilaterally Cardio: COMMON NORMALS: regular rate, regular rhythm, S1 normal heart sound present, S2 normal heart sound present, No gallops present (Cardio), No murmurs present (Cardio), No rub (Cardio) and Peripheral pulses 2+ throughout RATE: regular rate RHYTHM: regular rhythm HEART SOUNDS: S1 normal heart sound present and S2 normal heart sound present PERIPHERAL PULSES: Peripheral pulses 2+ throughout GI: COMMON NORMALS: Normal to inspection, nondistended, normoactive bowel sounds present, Soft to palpation, non-tender, No hepatosplenomegaly present and no masses AUSCULTATION: Yes normoactive bowel sounds PALPATION: Yes Soft to palpation and Yes No hepatosplenomegaly present RECTAL EXAM: Yes deferred Extremity: COMMON NORMALS: no clubbing, cyanosis or edema and no pedal edema Discharge Data Data Completed and Pending: Completed Studies During Hospitalization Category Date Time Status XR chest 1V feng ble [id number] Routine Exams 01/09/21 08:48 Completed XR chest 1V feng ble [id number] Urgent Exams 01/06/21 05:16 Completed Pending at discharge Category Date Time Status Basic Metabolic P tiffany AM LABS Lab 01/17/21 04:00 Ordered Basic Metabolic P tiffany AM LABS Lab 01/18/21 04:00 Ordered Complete Blood Co unt w/Auto AM LABS Lab 01/17/21 04:00 Ordered Complete Blood Co unt w/Auto AM LABS Lab 01/18/21 04:00 Ordered Levetiracetam Kep pra Routine Lab 01/13/21 13:45 Received Labs from last 24 hours 01/16/21 01/16/21 05:10 05:10 WBC 2.5 L RBC 3.06 L Hgb 9.9 L Hct 31.4 L MCV 102.6 H MCH 32.4 MCHC 31.5 RDW 15.3 H Plt Count 78 L MPV 10.4 Neut % (Auto) 70.6 Lymph % (Auto) 18.5 Edgar % (Auto) 10.5 Eos % (Auto) 0.0 Baso % (Auto) 0.0 Neut # (Auto) 1.75 L Lymph # (Auto) 0.5 L Edgar # (Auto) 0.3 Eos # (Auto) 0.0 Baso # (Auto) 0.0 Nucleated RBC % (a uto) 0 Nucleated RBCs # 0.0 Sodium 137 Potassium 3.2 L Chloride 102 Carbon Dioxide 25 Anion Gap 13.2 BUN 6 Creatinine 0.6 L GFR Calculation 139.9 H Glucose 133 H Calculated Osmolal ity 284 L Calcium 7.9 L Vitals: Last Vital Signs Temp 100.0 F H 01/16/21 07:37 Pulse 117 H 01/16/21 07:37 Resp 20 H 01/16/21 07:37 BP 119/70 01/16/21 07:37 Pulse Ox 93 01/16/21 07:37 Discharge Plan Discharge Patient Disposition: Home Condition: Stable Prescriptions: New valproic acid 250 mg Capsule 250 mg PO QID 30 Days Qty: 120 RF: 1 Continued ferrous sulfate 325 mg (65 mg iron) tablet 325 mg PO DAILY@0800 RF: 0 docusate sodium [DOK] 100 mg capsule 100 mg PO DAILY PRN (Reason: Constipation) RF: 0 cyanocobalamin (vitamin B-12) 1,000 mcg capsule 1,000 mcg PO DAILY RF: 0 sulfasalazine 500 mg tablet 500 mg PO TID@08,12,20 RF: 0 levothyroxine 25 mcg tablet 25 mcg PO DAILY@0800 RF: 0 hydrocodone-acetaminophen 7.5-325 mg tablet 1 tab PO Q8H PRN (Reason: Pain) RF: 0 folic acid 1 mg tablet 1 mg PO DAILY@0800 RF: 0 diazepam 5 mg tablet 5 mg PO BID PRN (Reason: Seizures) RF: 0 cholecalciferol (vitamin D3) [Vitamin D3] 125 mcg (5,000 unit) Tablet 125 mcg PO DAILY@0800 RF: 0 metoprolol tartrate 50 mg tablet 50 mg PO BID@799,1999 RF: 0 magnesium oxide [MagOx] 400 mg (241.3 mg magnesium) tablet 400 mg PO BID@799,1999 RF: 0 tamsulosin 0.4 mg capsule 0.4 mg PO BID@799,1999 RF: 0 Changed levetiracetam 500 mg Tablet 2,000 mg PO BID 30 Days Qty: 120 RF: 3 Discontinued levetiracetam 500 mg tablet extended release 24 hr 500 mg PO BID RF: 0 aspirin 81 mg tablet,delayed release (DR/EC) 81 mg PO DAILY@0800 RF: 0 Discharge Orders: Discharge Order (Routine); Ordered 01/16/21 Ordered By: William Obrien Other Ambulatory Orders: Complete Blood Count w/Auto (Routine) Timeframe: 1 Week Location: Determined by Patient Ordered By: William Obrien Comprehensive Metabolic Panel (Routine) Timeframe: 1 Week Facility: [facility] - Location: Lab - Main Lab Ordered By: William Obrien Referrals: [facility] [Outside] Barb Ghotra MD [Physician] - 01/28/21 3:00 pm Dora Brady MD [Primary Care Provider] - 01/18/21 10:00 am (APPOINTMENT WITH ROD RASMUSSEN) Discharge Diet: Soft Mechanical Discharge Activity: Increase activity as tolerated Patient Instructions: Divalproex (By mouth), Opioid Safety, Seizures Discharge Attestations Time Spent in Discharge Care*: less than 30 min Specific Discharge Activities: educating and/or supporting family/caregiver, discussing with child welfare caseworker/social workers/dc planners, documenting/other paperwork and evaluating patient/reviewing data Status at Discharge: Cognitive status at discharge: severely impaired cognition, Behavioral status at discharge: dependent in ADL's, Quality Metrics Clinical Quality Measures During this hospital stay, did patient experience: None Coding Level of Care Code Acute Chg FW DC note Exam Detailed Diagnoses Aspiration pneumonia J69.0 Dehydration E86.0 Urinary tract infection N30.01 Hematuria presence: with hematuria Urinary tract infection type: acute cystitis Sepsis A41.9 Ulcerative colitis K51.90 Digestive disease complication type: without complication Ulcerative colitis location: unspecified ulcerative colitis location Hypothyroidism E03.9 Hypothyroidism type: unspecified Leukopenia D72.819 Thrombocytopenia D69.6
[2021-01-16 13:01] VITALS: BP 119/70; PULSE 117; RESP 20; TEMP 37.8; O2SAT 93
--- NOTE | 2021-01-16 13:02 | PC.NURSE ---
PT HAS DONE WELL FOR ME TODAY. PT DID NOT WANT TO TAKE HIS MEDICATIONS THIS MORNING SO MORNING MEDICATIONS WERE NOT ADMINISTERED. PT WILL DISCHARGE TODAY PER MD. IV WAS REMOVED. CATHETER TIP INTACT. DISCHARGE PAPERWORK WAS GONE OVER WITH GUARDIAN. ALL QUESTIONS ANSWERED. MEDICATIONS WERE SENT TO PHARMACY OF PT'S CHOICE. THE AID ASSISTED THE UNIX DEVELOPER IN CHANGING THE PT AND SAFELY DISCHARGING PT FROM THE HOSPITAL AT APPROXIMATELY 1240.
[2021-01-17 11:03] LABS: Levetiracetam Keppra 69.5 mcg/mL
== END 2021-01-16 12:40 | disposition home health service (06) | DRG 100 ==
LOC: ER 06:51 → ICU 07:18 → MEDSURG 01-10 16:24
PROVIDERS: Hospitalist; Internal Medicine; Admitting Provider Internal Medicine; Emergency Provider Emergency Medicine; PCP Internal Medicine; Visit Provider Internal Medicine
DX: G40.909 Epilepsy, unspecified, not intractable, without status epilepticus (principal); A41.9 Sepsis, unspecified organism; J69.0 Pneumonitis due to inhalation of food and vomit; F73 Profound intellectual disabilities; N30.01 Acute cystitis with hematuria; K51.90 Ulcerative colitis, unspecified, without complications; G80.9 Cerebral palsy, unspecified; E86.0 Dehydration; E03.9 Hypothyroidism, unspecified; D64.9 Anemia, unspecified; R00.0 Tachycardia, unspecified; B95.2 Enterococcus as the cause of diseases classified elsewhere; D69.6 Thrombocytopenia, unspecified; Z79.891 Long term (current) use of opiate analgesic
CPT/HCPCS: 36415; 36600; 71045; 80048; 80053; 80164; 80177; 80202; 81001; 82274; 82550; 82803; 83735; 84145; 84443; 85025; 86140; 87077; 87086; 87186; 87493; 87641; 92526; 92610; 93005; 94664; 96360; 96361; 99285; J0692; J1953; J2060; J2405; J3370; J3475; J3480; J3490; J7030; J7050

== ENCOUNTER 2021-01-17 16:05 | Inpatient (IN) | payer MEDICARE, MEDICAID, SELFPAY ==
[2021-01-17 16:14] VITALS: BP 106/67; PULSE 96; RESP 18; TEMP 37.7; O2SAT 94; BMI 18.3
[2021-01-17 16:18] VITALS: BP 93/51; PULSE 97; TEMP 37.7; O2SAT 90
--- NOTE | 2021-01-17 17:43 | XRR_ITS ---
PROCEDURE INFORMATION: Exam: XR Chest Exam date and time: 01/17/2021 5:43 PM Age: 55 years old Clinical indication: Other: Possible aspiration TECHNIQUE: Imaging protocol: XR of the chest. Views: 1 view. COMPARISON: CR XR chest 1V portable [id number] 01/09/2021 9:39 AM FINDINGS: The lungs are underinflated. The left basilar opacity has mildly worsened since the prior study. No other significant change since the prior study. XR/XR chest 1V portable [id number] IMPRESSION: Mild interval worsening of the left basilar opacity, which may be pneumonia. No other significant change.
[2021-01-17 19:32] LABS: Hematocrit 32.2 % (42.0-52.0); Hemoglobin 10.3 g/dL (11.7-16.6); Lymphocytes # 0.6 10^3/uL (0.8-4.8); Lymphocytes % 24.5 %; Mean Corpuscular Hemoglobin 32.2 pg (28.0-34.0); Mean Corpuscular Volume 100.6 fL (80-94); Mean Platelet Volume 11.7 fL (7.4-10.4); Monocytes # 0.4 10^3/uL (0.2-0.9); Monocytes % 14.5 %; Neutrophils # 1.51 10^3/uL (1.8-7.7); Neutrophils % 60.6 %; Nucleated Red Blood Cells % 0 %; Platelet Count 42 10^3/cmm (130-400); Positive C 1; Positive M 1; Red Cell Distribution Width 15.3 % (12.1-15.1); White Blood Count 2.5 10^3/uL (4.0-10.0)
[2021-01-17 19:48] LABS: Lactate (Lactic Acid level) 1.8 mmol/L (0.5-2.2)
[2021-01-17 19:49] LABS: Alanine Aminotransferase 79 U/L (0-41); Albumin Level 3.4 g/dL (3.5-5.2); Alkaline Phosphatase 66 IU/L (40-130); Aspartate Amino Transferase 105 U/L (0-40); Blood Urea Nitrogen 14 mg/dL (6-20); C Reactive Protein 120.6 mg/L (0.0-4.9); Calcium 8.4 mg/dL (8.5-10.5); Carbon Dioxide 23 mmol/L (22-29); Chloride 91 mmol/L (98-107); Globulin 3.3 g/dL (1.3-4.6); Glomerular Filtration Rate 100.4 mL/min (90-130); Glucose 101 mg/dL (65-115); Osmolality Calculated 267 mOsm/kg (285-295); Sodium 128 mmol/L (136-145); Total Bilirubin 0.3 mg/dL (0.15-1.2); Total Protein 6.7 g/dL (6.6-8.7)
[2021-01-17 19:56] LABS: Procalcitonin 0.06 ng/mL (0-0.5)
--- NOTE | 2021-01-17 21:22 | P.HP_ITS ---
Providers/Chief Complaint Primary Care Provider: Dora Brady MD Chief Complaint: POSSIBLE ASPIRATION History of Present Illness 55-year-old gentleman with history of cerebral palsy, bedridden since age 9, with intellectual disability, bilateral blindness, history of cardiac arrhythmia, seizure disorder, recurrent aspiration pneumonia and recent hospitalization for Enterococcus faecalis urinary tract infection treated with IV antibiotics discharged on 01/16 to home now again be admitted to the hospital due to family's in ability to care for patient. Family also requested PEG tube placement due to recurrent aspiration. Laboratory workup on arrival showed a WBC of 2.5, hemoglobin of 10.3, hematocrit of 32.2 and platelet count of 42. Sodium 128, potassium 3.0, chloride 91, bicarb 23, BUN 14 and creatinine of 0.8. Lactic acid of 1.8. AST of 105, ALT of 79 and alkaline phosphatase of 66. C reactive protein of 120.Imaging studies included a chest x-ray which showed mild interval worsening of the left basilar opacity, which maybe pneumonia. No other significant change. Shortly after admission patient was noted to have fever of up to 101. Blood cultures were drawn and patient was initiated on broad-spectrum antibiotics. Review of Systems General: Reports: ROS unobtainable due to medical condition and ROS unobtainable due to mental status Medications/Allergies Home Medications Medication Instructions Recorded Confirmed Last Taken Type cholecalciferol (vitamin D3) 125 mcg PO DAILY@0800 11/08/20 01/17/21 01/17/21 History [Vitamin D3] diazepam 5 mg PO BID PRN 11/08/20 01/17/21 01/17/21 History folic acid 1 mg PO DAILY@0811/08/20 01/17/21 01/17/21 History hydrocodone-acetaminophen 1 tab PO Q8H PRN 11/08/20 01/17/21 11/28/20 History levothyroxine 25 mcg PO DAILY@0811/08/20 01/17/21 01/17/21 History sulfasalazine 500 mg PO TID@,,11/08/20 01/17/21 01/17/21 History docusate sodium [DOK] 100 mg PO DAILY PRN 11/22/20 01/17/21 01/17/21 History ferrous sulfate 325 mg PO DAILY@0800 11/22/20 01/17/21 01/17/21 History magnesium oxide [MagOx] 400 mg PO BID@0800,199911/29/20 01/17/21 01/17/21 History metoprolol tartrate 50 mg PO BID@0800,199911/29/20 01/17/21 01/17/21 History tamsulosin 0.4 mg PO BID@0800,199911/29/20 01/17/21 01/17/21 History cyanocobalamin (vitamin B-12) 1,000 mcg PO DAILY 01/06/21 01/17/21 01/17/21 History valproic acid 250 mg PO QID 30 Days #120 cap 01/16/21 01/17/21 01/17/21 Rx levetiracetam 2,000 mg PO BID@0800,199901/17/21 01/17/21 01/17/21 History Allergies Allergy/AdvReac Type Severity Reaction Status Date / Time Penicillins Allergy Unknown Verified 01/17/21 16:18 PFSH Acute PFSH: Medical History Acute pyelonephritis Aspiration pneumonia 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 Social History Smoking and tobacco status: never smoked Alcohol intake: never Caregiver/support person: Yes (Mother) Household members: family Marital status: Single Current occupational status: disabled History of recent travel: No Vitals/I&O/Wt Last Vital Signs Temp 99.8 F H 01/17/21 16:18 Pulse 97 01/17/21 16:18 Resp 18 01/17/21 16:14 BP 93/51 01/17/21 16:18 Pulse Ox 90 01/17/21 16:18 Weight last 48 hrs Weight 45.359 kg Physical Exam Narrative: EXAM NARRATIVE: General- Nonverbal chronically ill-appearing HEENT- grossly unremarkable CVS- normal sinus rhythm Chest- decreased at bases Abdomen nontender nondistended Extremities- no edema Data : 01/17/21 19:20 01/17/21 19:20 A&P Assessment and plan (1) Sepsis: Recently treated for Enterococcus faecalis urinary tract infection Has a history of recurrent aspiration pneumonia Blood cultures x2 Urine analysis, urine culture Started on broad-spectrum antibiotics Vancomycin pharmacy to dose Primaxin 500 mg IV q.6h Tylenol p.r.n. for fever Status: Acute (2) Hypokalemia: Replaced potassium Recheck BMP in am Status: Acute (3) Aspiration of food: General surgery consulted Plan for possible PEG placement NPO for now Status: Acute (4) DVT prophylaxis: SCDs only Risk of bleeding due to low plt Status: Acute Attestations Medical Necessity Statement*: Anticipate over 2 midnights stay in hospital for evaluation treatment of sepsis, aspiration pneumonia, Time Spent in Patient Care: Greater than 35 minutes (>than 50% of time spent in counselling and/or direct pt care on unit) . Coding Level of Care Code Acute Manager [employer] for [employer] Diagnoses Sepsis A41.9 Hypokalemia E87.6 Aspiration of food T17.920A DVT prophylaxis Z29.9
[2021-01-17 21:24] VITALS: BP 121/63; PULSE 114; RESP 16; TEMP 38.6; O2SAT 91
[2021-01-17 23:05] VITALS: BP 113/66; PULSE 108; RESP 16; TEMP 36.6; O2SAT 94
--- NOTE | 2021-01-17 23:13 | W.ED.GENADLT ---
HPI - General Adult General: Chief complaint: General Medical Stated complaint: POSSIBLE ASPIRATION Time Seen by Provider: 01/17/21 16:38 Source: family (mother and menagerie caretaker), RN notes reviewed and old records reviewed Mode of arrival: EMS Limitations: other (cerebral palsy) History of Present Illness: HPI narrative: This 55-year-old male has a history of cerebral palsy and has had multiple hospital admissions for aspiration pneumonia recently. He was discharged from this facility yesterday after being admitted and managed as a case of aspiration pneumonia. During his hospital stay it was discussed with his mother that he might benefit from a feeding tube to prevent recurrent aspiration, however at that time the mother declined and wanted to see how he was going to do at home. Today the mother called for an ambulance because she said she thought the patient may have aspirated again. She also states that she is now ready for the patient to have a feeding tube and to be placed in a [facility] as she is unable to care for him any longer. Onset (ago): hour(s) Review of Systems General: Reports: ROS unobtainable due to mental status PFS ED PFSH: Medical History Acute pyelonephritis Aspiration pneumonia 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 Social History Smoking and tobacco status: never smoked Alcohol intake: never Caregiver/support person: Yes (Mother) Household members: family Marital status: Single Current occupational status: disabled History of recent travel: No Physical Exam Const: COMMON NORMALS: no acute distress, average body habitus, no limitations, healthy appearing, alert and well nourished HENMT: COMMON NORMALS: normocephalic, atraumatic and moist oral mucous membranes HEAD & SCALP: normocephalic and atraumatic Neck/C-Spine: COMMON NORMALS: no meningeal signs and no JVD Resp: COMMON NORMALS: normal respiratory effort, No retractions, No use of accessory muscles, clear to auscultation bilaterally and percussion normal AUSCULTATION: clear to auscultation bilaterally PERCUSSION: percussion normal Cardio: COMMON NORMALS: no JVD, regular rate, regular rhythm, S1 normal heart sound present, S2 normal heart sound present, No gallops present (Cardio), No clicks present (Cardio), No murmurs present (Cardio), No rub (Cardio) and Peripheral pulses 2+ throughout RATE: regular rate RHYTHM: regular rhythm HEART SOUNDS: S1 normal heart sound present and S2 normal heart sound present PERIPHERAL PULSES: Peripheral pulses 2+ throughout GI: COMMON NORMALS: Normal to inspection, nondistended, normoactive bowel sounds present, Soft to palpation, non-tender, No hepatosplenomegaly present, no masses and no bruits PALPATION: Yes Soft to palpation and Yes No hepatosplenomegaly present : COMMON NORMALS: Yes no CVA tenderness BLADDER/KIDNEY EXAM: Yes no CVA tenderness Back/Pelvis: COMMON NORMALS: no CVA tenderness Extremity: COMMON NORMALS: normal to inspection, full ROM, capillary refill normal, no calf tenderness and no pedal edema NARRATIVE EXTREMITY EXAM: Contractures in multiple limbs. Neuro: SENSORIUM/ORIENTATION: Yes alert MENINGEAL SIGNS: Yes no meningeal signs Skin: COMMON NORMALS: no rashes or lesions noted, no wounds, turgor normal, no jaundice, no petechiae and no mottling GENERAL SKIN EXAM: no rashes or lesions noted and turgor normal Procedures EJ/Peripheral Line Arm L: Time Out Performed: Yes Skin Cleansed in Sterile Fashion: Yes Size (gauge): 20 IV Secured and Dressing Applied: Yes Patient Tolerated Procedure: well Additional Comments: Patient is a difficult IV stick. I placed a 20-gauge peripheral IV in his left forearm using ultrasound guidance. Course Consultations: Consultation #1: Call the hospitalist, Dr. Silver to discuss the patient and he will call me back. Time: 17:43 Consultation #2: Discussed the patient with Dr. Silvre, hospitalist and he kindly accepted patient to his service. Time: 18:00 Consultation #3: Discussed the patient with Dr. Bae, surgeon and he will evaluate the patient in the hospital for PEG tube placement Time: 18:03 Vital Signs: Vital signs: Vital Signs Temperature 98 F 01/17/21 23:05 Pulse Rate 108 H 01/17/21 23:05 Respiratory Rate 16 01/17/21 23:05 Blood Pressure 113/66 01/17/21 23:05 Pulse Oximetry 94 01/17/21 23:05 MDM - General Adult MDM Narrative: Medical decision making narrative: 55-year-old gentleman with cerebral palsy and multiple episodes of aspiration pneumonia. He was discharged yesterday from this facility after being admitted for aspiration pneumonia. During hospital stay he was discussed with the mother that the patient may benefit from a feeding tube and while she initially declined she is now agreeable to have the patient have the PEG tube. She also says she is unable to care for this patient any longer and would like him to be discharged to a nursing facility for long-term placement after his discharge from the hospital. Imaging shows he still has pneumonia and he is continued on IV antibiotics. Medical Records: Attestation: I reviewed the patient's medical records. Lab Data: Attestation: I reviewed the patient's lab results. Labs: Lab Results 01/17/21 01/17/21 01/17/21 Range/Units 19:20 19:20 19:20 WBC 2.5 L (4.0-10.0) 10^3/ uL RBC 3.20 L (4.1-5.3) 10^6/u L Hgb 10.3 L (11.7-16.6) g/dL Hct 32.2 L (42.0-52.0) % MCV 100.6 H (80-94) fL MCH 32.2 (28.0-34.0) pg MCHC 32.0 (30.0-36.0) g/dL RDW 15.3 H (12.1-15.1) % Plt Count 42 L (130-400) 10^3/c mm MPV 11.7 H (7.4-10.4) fL Neut % (Auto) 60.6 % Lymph % (Auto) 24.5 % Glenn % (Auto) 14.5 % Eos % (Auto) 0.0 % Baso % (Auto) 0.0 % Neut # (Auto) 1.51 L (1.8-7.7) 10^3/u L Lymph # (Auto) 0.6 L (0.8-4.8) 10^3/u L Glenn # (Auto) 0.4 (0.2-0.9) 10^3/u L Eos # (Auto) 0.0 (0.0-0.8) 10^3/u L Baso # (Auto) 0.0 (0.0-0.1) 10^3/u L Nucleated RBC % (a uto) 0 % Nucleated RBCs # 0.0 /100WBC Sodium 128 L (136-145) mmol/L Potassium 3.0 L (3.5-5.1) mmol/L Chloride 91 L (98-107) mmol/L Carbon Dioxide 23 (22-29) mmol/L Anion Gap 17.0 (5-19) BUN 14 (6-20) mg/dL Creatinine 0.8 (0.7-1.2) mg/dL GFR Calculation 100.4 (90-130) mL/min Glucose 101 (65-115) mg/dL Calculated Osmolal ity 267 L (285-295) mOsm/k g Lactate 1.8 (0.5-2.2) mmol/L Calcium 8.4 L (8.5-10.5) mg/dL Total Bilirubin 0.3 (0.15-1.2) mg/dL AST 105 H (0-40) U/L ALT 79 H (0-41) U/L Alkaline Phosphata se 66 (40-130) IU/L C-Reactive Protein 120.6 H (0.0-4.9) mg/L Total Protein 6.7 (6.6-8.7) g/dL Albumin 3.4 L (3.5-5.2) g/dL Globulin 3.3 (1.3-4.6) g/dL Procalcitonin 0.06 (0-0.5) ng/mL Imaging Data^: CXR: Attestation: I personally reviewed and interpreted this imaging study as follows: Radiologist's impression: [address] [id number] ReportSigned Patient: Awais Macias #: [id number]: 1965Acct#:[id number]/Sex: 55 / MADM Date: 01/17/21Loc: ERRoom/Bed:Attending Dr: Ordering Provider/Ordering MD: Dorcas Rdz MD, [facility] [place] of Service: 01/17/21 Procedure(s): XR chest 1V portable [id number] Accession Number(s): [id number] Report Number: [id number] PROCEDURE INFORMATION: Exam: XR Chest Exam date and time: 01/17/2021 5:43 PM Age: 55 years old Clinical indication: Other: Possible aspiration TECHNIQUE: Imaging protocol: XR of the chest. Views: 1 view. COMPARISON: CR XR chest 1V portable [id number] 01/09/2021 9:39 AM FINDINGS: The lungs are underinflated. The left basilar opacity has mildly worsened since the prior study. No other significant change since the prior study. XR/XR chest 1V portable [id number] IMPRESSION: Mild interval worsening of the left basilar opacity, which may be pneumonia. No other significant change. Dictated By:Irving Archer MDSigned By:Irving Archer MDSigned Date/Time:01/17/211899DD/ 57 Discharge Plan Discharge Patient Disposition: Admitted As Inpatient Admit Provider: Michael Grande Clinical Impression: Acute hyponatremia, Hypokalemia Aspiration pneumonia Qualifiers: Aspiration pneumonia type: unspecified Laterality: left Lung location: unspecified part of lung Qualified Code(s): J69.0 - Pneumonitis due to inhalation of food and vomit Condition: Stable Coding Level of Care Code ED Printed Circuit Board Pcb Designer for [facility] Fwd Exam Comprehensive
[2021-01-17] MEDS: pantoprazole 40 mg SDV IVP (23:29)
[2021-01-17] MEDS: heparin 5,000 unit/mL INJ 1 mL 5000 UNIT SUBCUT (23:40)
[2021-01-17] MEDS: sodium chloride 0.9% 1,000 ML 50 ML IV (23:41)
[2021-01-18] VITALS (11 sets, daily range): BP systolic 90–134; BP diastolic 56–67; PULSE 92–113; RESP 16–20; TEMP 36.6–39.2; O2SAT 90–97
--- NOTE | 2021-01-18 05:17 | PC.PHAR ---
Vancomycin is dosed at 1250mg IVPB every 24 hours to produce a predicted trough level of 12.7 (population based pharmacokinetic analysis). A trough level has been ordered from the lab to be collected before the fourth dose to confirm and adjust if needed.
[2021-01-18] MEDS: acetaminophen 650 mg Supp PR ×2 (06:15→11:42)
[2021-01-18] MEDS: vancomycin 1,250 MG/250 ML PIGGYBACK 250 MG IV (08:55)
--- NOTE | 2021-01-18 08:56 | PM.CONSULT ---
Providers/Reason For Consult Consulting Physician/Specialty*: General Surgery Andrew Bae MD Reason for Consult*: Consideration of PEG tube placement for recurrent aspiration. Attending Physician: Aydin Silver MD Primary Care Provider: Dora Brady MD History of Present Illness History of Present Illness Awais Macias is a 55 year old male who was just discharged the day before yesterday after being treated for aspiration pneumonia. His mother brought him back to the emergency room believing that he may have had another episode of aspiration. A gastrostomy had apparently been discussed with her during the last hospitalization, but she elected to hold off. She now would like to have the gastrostomy placed. While the patient was being admitted he apparently spiked a temperature to 101 degrees and was started on some broad-spectrum antibiotics. Review of Systems General: Reports: ROS unobtainable due to mental status Meds/Allergies Home Medications and Allergies Home Medications Medication Instructions Recorded Confirmed Last Taken Type cholecalciferol (vitamin D3) 125 mcg PO DAILY@0800 11/08/20 01/17/21 01/17/21 History [Vitamin D3] diazepam 5 mg PO BID PRN 11/08/20 01/17/21 01/17/21 History folic acid 1 mg PO DAILY@0800 11/08/20 01/17/21 01/17/21 History hydrocodone-acetaminophen 1 tab PO Q8H PRN 11/08/20 01/17/21 11/28/20 History levothyroxine 25 mcg PO DAILY@0800 11/08/20 01/17/21 01/17/21 History sulfasalazine 500 mg PO TID@08,12,20 11/08/20 01/17/21 01/17/21 History docusate sodium [DOK] 100 mg PO DAILY PRN 11/22/20 01/17/21 01/17/21 History ferrous sulfate 325 mg PO DAILY@0800 11/22/20 01/17/21 01/17/21 History magnesium oxide [MagOx] 400 mg PO BID@0800,199911/29/20 01/17/21 01/17/21 History metoprolol tartrate 50 mg PO BID@0800,199911/29/20 01/17/21 01/17/21 History tamsulosin 0.4 mg PO BID@0800,199911/29/20 01/17/21 01/17/21 History cyanocobalamin (vitamin B-12) 1,000 mcg PO DAILY 01/06/21 01/17/21 01/17/21 History valproic acid 250 mg PO QID 30 Days #120 cap 01/16/21 01/17/21 01/17/21 Rx levetiracetam 2,000 mg PO BID@0800,199901/17/21 01/17/21 01/17/21 History Allergies Allergy/AdvReac Type Severity Reaction Status Date / Time Penicillins Allergy Unknown Verified 01/17/21 16:18 Current Medications Current Medications Generic Name Dose Route Start Last Admin Trade Name Freq PRN Reason Stop Dose Admin Acetaminophen 650 mg 01/18/21 04:44 01/18/21 06:15 Acetaminophen 650 Mg Supp OR 650 mg Q4H PRN Administration MILD PAIN OR INCREASE TEMP Sodium Chloride 1,000 mls @ 50 mls/hr 01/17/21 21:30 01/17/21 23:41 Sodium Chloride 0.9% IV 50 mls/hr .Q20H DOMONIQUE Administration Imipenem/Cilastatin Sodium 500 100 mls @ 200 mls/hr 01/18/21 05:00 01/18/21 06:14 mg/ Sodium Chloride IV 200 mls/hr Q6H DOMONIQUE Administration Protocol Pantoprazole Sodium 40 mg 01/17/21 21:30 01/17/21 23:29 Pantoprazole 40 Mg Sdv IVP 40 mg Q24H DOMONIQUE Administration PFSH Acute PFSH: Medical History (Reviewed 01/17/21 @ 23:22 by Dorcas Rdz MD, [facility] [place]) Acute pyelonephritis Aspiration pneumonia 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 Social History (Reviewed 01/17/21 @ 23:22 by Dorcas Rdz MD, [facility] [place]) Smoking and tobacco status: never smoked Alcohol intake: never Caregiver/support person: Yes (Mother) Household members: family Marital status: Single Current occupational status: disabled History of recent travel: No Vitals/I&O/Wt Last Vital Signs Temp 102.6 F H 01/18/21 08:00 Pulse 102 H 01/18/21 08:00 Resp 18 01/18/21 08:00 BP 90/59 01/18/21 08:00 Pulse Ox 92 01/18/21 08:00 Weight last 48 hrs Weight 92 lb 4.8 oz Weight 100 lb Physical Exam Narrative: EXAM NARRATIVE: The patient was encountered in his hospital room. No family members are present. The cooker chip is attempting to draw some blood from his right upper extremity. The patient keeps his eyes closed. He will grunt and make some other noises but does not make any meaningful conversation. The chest reveals a few rhonchi. He seems to have some bowel sounds up into his chest. The heart seems regular. The abdomen reveals normal bowel sounds. He is somewhat kyphotic. The extremities are somewhat contracted but reveal no edema. Data Imaging^: CXR: Radiologist's impression: CXR IMPRESSION: Mild interval worsening of the left basilar opacity, which may be pneumonia. No other significant change. A&P Assessment and plan (1) Aspiration of food: Status: Acute (2) Aspiration pneumonia: I have been asked to see the patient for consideration of PEG tube placement due to recurrent aspiration/pneumonia. Currently no family members are present, but the patient has a temperature of over 102 degrees, anyway. I would suggest we continue treatment with antibiotics and when he becomes a little bit more stable then consideration could be given to a PEG tube attempt. He has some kyphosis and his stomach appears to be up above his rib cage somewhat on CAT scans that he has had in the past, but I think a PEG attempt is at least worthwhile if a gastrostomy is needed. Otherwise, an open procedure or at least laparoscopic assisted PEG tube could be entertained. I will be discussing this with the patient/family as the days progress. The patient remains on broad-spectrum antibiotics. Status: Acute Qualifiers: Aspiration pneumonia type: unspecified Laterality: left Lung location: unspecified part of lung Qualified Code(s): J69.0 - Pneumonitis due to inhalation of food and vomit Consult Attestations Medical Necessity Statement: See admitting service's notation. Coding Level of Care Code Acute Operations Logistics Analyst for [facility] Diagnoses Aspiration of food T17.920A Aspiration pneumonia J69.0 Aspiration pneumonia type: unspecified Laterality: left Lung location: unspecified part of lung
[2021-01-18 09:53] LABS: Hematocrit 29.3 % (42.0-52.0); Hemoglobin 9.6 g/dL (11.7-16.6); Lymphocytes # 0.4 10^3/uL (0.8-4.8); Lymphocytes % 15.3 %; Mean Corpuscular HGB Conc 32.8 g/dL (30.0-36.0); Mean Corpuscular Hemoglobin 31.8 pg (28.0-34.0); Mean Platelet Volume 12.2 fL (7.4-10.4); Monocytes # 0.3 10^3/uL (0.2-0.9); Monocytes % 10.6 %; Neutrophils # 2.03 10^3/uL (1.8-7.7); Neutrophils % 74.1 %; Nucleated Red Blood Cells % 0 %; Platelet Count 47 10^3/cmm (130-400); Red Blood Count 3.02 10^6/uL (4.1-5.3); White Blood Count 2.7 10^3/uL (4.0-10.0)
--- NOTE | 2021-01-18 10:03 | PC.OT ---
Occupational therapy evaluation attempted. Patient unable to follow commands, verbal or tactile prompts and was unable to demonstrate functional ability. Patient is not a rehabilitation candidate at this time. No further occupational therapy indicated.
[2021-01-18 10:11] LABS: Alanine Aminotransferase 75 U/L (0-41); Albumin Level 3.4 g/dL (3.5-5.2); Alkaline Phosphatase 61 IU/L (40-130); Anion Gap 15.9 (5-19); Aspartate Amino Transferase 104 U/L (0-40); Blood Urea Nitrogen 9 mg/dL (6-20); Calcium 7.7 mg/dL (8.5-10.5); Carbon Dioxide 25 mmol/L (22-29); Chloride 93 mmol/L (98-107); Globulin 2.8 g/dL (1.3-4.6); Glomerular Filtration Rate 100.4 mL/min (90-130); Glucose 98 mg/dL (65-115); Osmolality Calculated 271 mOsm/kg (285-295); Sodium 131 mmol/L (136-145); Total Bilirubin 0.3 mg/dL (0.15-1.2); Total Protein 6.2 g/dL (6.6-8.7)
[2021-01-18 10:16] LABS: Potassium 2.9 mmol/L (3.5-5.1)
[2021-01-18 10:17] LABS: Procalcitonin 0.06 ng/mL (0-0.5)
[2021-01-18 11:30] LABS: Slide Review Slide Review Perform
[2021-01-18] MEDS: dextrose 5%-sod chloride 0.9% 1,000 ML 75 ML IV (11:30)
--- NOTE | 2021-01-18 12:28 | PM.PN ---
Subjective Subjective: Interval history: No family member at the bedside, patient is nonverbal, kept pulling his bed sheets, does not open his eyes Persistent fever currently on Primaxin, procalcitonin unremarkable chest x-ray showing worsening of left basilar pneumonia Vitals/I&O/Wt Last Vital Signs Temp 102.1 F H 01/18/21 11:57 Pulse 92 01/18/21 11:57 Resp 20 H 01/18/21 11:57 BP 105/67 01/18/21 11:57 Pulse Ox 91 01/18/21 11:57 01/17/21 01/18/21 01/18/21 22:59 06:59 14:59 Intake Total 350 / 350 Balance 350 / 350 Weight last 48 hrs Weight 41.867 kg Weight 45.359 kg Physical Exam Narrative: EXAM NARRATIVE: Limited exam Patient is nonverbal, does not make eye contact, He is in position in his bed laying on his left lateral position Makes incomprehensible sounds Family not at the bedside Abdominal palpation did not elicit facial grimacing Lower extremities with misuse atrophy Looks euvolemic Skin warm to touch Severe kyphosis Data : 01/18/21 09:00 01/18/21 09:00 Micro: Microbiology 01/18/21 09:03 Blood Culture - Preliminary Blood SPECIMEN COLLECTED 01/18/21 09:00 Blood Culture - Preliminary Blood SPECIMEN COLLECTED A&P Assessment and plan (1) Aspiration pneumonia: Status: Acute Qualifiers: Aspiration pneumonia type: unspecified Laterality: left Lung location: unspecified part of lung Qualified Code(s): J69.0 - Pneumonitis due to inhalation of food and vomit (2) Hypokalemia: Status: Acute (3) Sepsis: Status: Acute (4) Blindness of both eyes: Status: Chronic Additional A&P Information Sepsis with aspiration pneumonia Continue Primaxin plus vancomycin Persistent fever noted Tylenol for as needed use Blood culture obtained Keep him n.p.o. Dr. Bae with plan for intervention once his sepsis resolves I will keep him on D5 normal saline for now Morphine for analgesia Protonix 40 IV daily Chest x-ray showing chronic aspiration pneumonea changes Hypokalemia: Repleted Full code DVT prophylaxis SCDs, thrombocytopenia N.p.o. Attestations Medical Necessity Statement*: Continue medical management for sepsis will need PEG tube placement once stable Time Spent in Patient Care: 15-30mins Coding Level of Care Code Acute International Project Engineer for [facility] Fwd Diagnoses Aspiration pneumonia J69.0 Aspiration pneumonia type: unspecified Laterality: left Lung location: unspecified part of lung Hypokalemia E87.6 Sepsis A41.9 Blindness of both eyes H54.3
--- NOTE | 2021-01-18 13:07 | PC.PT ---
Dr. Silver requested defer physical therapy evaluation, as patient inappropriate for physical therapy and bedbound for greater than 30 years. Discharge physical therapy order, verbal from Dr. Silver
[2021-01-18] MEDS: dextrose 5%-ns + KCl 40 40 MEQ/1,000 ML BAG 75 MEQ IV (15:04)
[2021-01-18] MEDS: lidocaine 1% 5 ML in potassium chloride premix 100 ML 25 ML IV (15:05)
[2021-01-18] MEDS: ketorolac 30 mg/mL INJ 15 MG IVP (15:06)
--- NOTE | 2021-01-18 20:41 | PC.NURSE ---
SZ MEDS Was found at shift change that pt had not been continued on any of his sz meds. Is here for asp pneumonia and is NPO. Has long history of szs. Dr Grande was notified and would like pharmacist to convert po meds to IV doses and continue. Notified pharmacist of pts po meds of Keppra 2000mg BID and Depakote 250mg QID and stated he will order meds at proper dosages.
[2021-01-18] MEDS: pantoprazole 40 mg SDV IVP (21:53)
[2021-01-18] MEDS: valproic acid inj 500 MG in sodium chloride 0.9% 50 ML 55 MG IV (22:24)
[2021-01-19] VITALS (8 sets, daily range): BP systolic 102–134; BP diastolic 59–69; PULSE 109–134; RESP 18–28; TEMP 36.8–38.9; O2SAT 86–96
[2021-01-19] MEDS: dextrose 5%-ns + KCl 40 40 MEQ/1,000 ML BAG 75 MEQ IV ×2 (05:48→22:19)
[2021-01-19] MEDS: vancomycin 1,250 MG/250 ML PIGGYBACK 250 MG IV (06:26)
[2021-01-19 08:08] LABS: Hemoglobin 9.3 g/dL (11.7-16.6); Lymphocytes # 0.3 10^3/uL (0.8-4.8); Mean Corpuscular Hemoglobin 31.6 pg (28.0-34.0); Monocytes # 0.3 10^3/uL (0.2-0.9); Monocytes % 13.2 %; Neutrophils % 72.4 %; Nucleated Red Blood Cells % 0 %; Platelet Count 42 10^3/cmm (130-400); Red Blood Count 2.94 10^6/uL (4.1-5.3); Red Cell Distribution Width 15.1 % (12.1-15.1); White Blood Count 2.4 10^3/uL (4.0-10.0)
--- NOTE | 2021-01-19 09:18 | P.PN_ITS ---
Subjective Subjective: Interval history: The patient is nonverbal. He is laying on his left side in bed and keeps his eyes closed. Vitals/I&O/Wt Last Vital Signs Temp 100.0 F H 01/19/21 07:50 Pulse 111 H 01/19/21 07:50 Resp 18 01/19/21 07:50 BP 117/59 01/19/21 07:50 Pulse Ox 90 01/19/21 07:50 01/18/21 01/19/21 01/19/21 22:59 06:59 14:59 Intake Total 1258.333 / 2883.333 1275 / 2883.333 Output Total 1550 / 2100 550 / 2100 Balance -291.667 / 783.333 725 / 783.333 Weight last 48 hrs Weight 92 lb 4.8 oz Weight 100 lb Physical Exam Narrative: EXAM NARRATIVE: The patient currently has a temperature of 100 degrees. He is mildly tachycardic but blood pressure is adequate. Data : 01/18/21 09:00 01/19/21 07:30 Micro: Microbiology 01/18/21 09:03 Blood Culture - Preliminary Blood SPECIMEN COLLECTED 01/18/21 09:00 Blood Culture - Preliminary Blood SPECIMEN COLLECTED A&P Assessment and plan (1) Aspiration of food: Status: Acute (2) Aspiration pneumonia: Plan gastrostomy placement following defervesence of elevated temperatures. Status: Acute Qualifiers: Aspiration pneumonia type: unspecified Laterality: left Lung location: unspecified part of lung Qualified Code(s): J69.0 - Pneumonitis due to inhalation of food and vomit Attestations Medical Necessity Statement*: See admitting service's notation. Coding Level of Care Code Acute Police Patrol Lieutenant for [facility] Fwd Diagnoses Aspiration of food T17.920A Aspiration pneumonia J69.0 Aspiration pneumonia type: unspecified Laterality: left Lung location: unspecified part of lung
[2021-01-19] MEDS: valproic acid inj 500 MG in sodium chloride 0.9% 50 ML 55 MG IV (09:53)
[2021-01-19 11:29] LABS: Slide Review Slide Review Perform
--- NOTE | 2021-01-19 11:30 | CTR_ITS ---
PROCEDURE INFORMATION: Exam: CT Chest Without Contrast; Diagnostic Exam date and time: 01/19/2021 11:30 AM Age: 55 years old Clinical indication: Patient HX: Fever - sepsis; Additional info: Sepsis fever TECHNIQUE: Imaging protocol: Diagnostic computed tomography of the chest without contrast. Sagittal and coronal reformatted images were created and reviewed. Radiation optimization: All CT scans at this facility use at least one of these dose optimization techniques: automated exposure control; mA and/or kV adjustment per patient size (includes targeted exams where dose is matched to clinical indication); or iterative reconstruction. COMPARISON: CT chest abd pel w con* 11/29/2020 5:55 PM RADIATION DOSE METRICS: Total DLP (mGy-cm): 573.57 FINDINGS: Limitations: Evaluation of the mediastinum and vasculature is limited without intravenous contrast. Lungs: Tracheobronchial structures are patent. Numerous calcifications in the posterior lower lobes are stable. Extensive airspace disease with air bronchograms in both lungs, predominantly in the center of both lungs. Few small areas of airspace disease are also seen in the periphery of the left upper lobe. Pleural spaces: No pneumothorax. No pleural effusion. Heart: Calcification of the aortic valve and mitral valve annulus. The heart is normal in size. Mediastinal space: The esophagus is unremarkable. No mediastinal hematoma. No pneumomediastinum. Aorta: Mild atherosclerotic changes in the visualized arteries. No evidence for aortic aneurysm. Lymph nodes: No lymphadenopathy. Liver: The liver is unremarkable. Gallbladder and bile ducts: The gallbladder is unremarkable. No biliary ductal dilatation. Pancreas: The visualized pancreas is unremarkable. No pancreatic ductal dilatation. Spleen: The spleen is unremarkable. Small splenule in the left upper quadrant. Adrenal glands: The right adrenal gland is unremarkable. The visualized left adrenal gland is unremarkable. Kidneys and ureters: The visualized right and left kidneys are unremarkable. Bones/joints: Multilevel degenerative changes of varying severity in the visualized spine. Mild scoliosis in the visualized spine. Soft tissues: No acute abnormality in the extrathoracic soft tissues. CT/CT chest wo con [id number] IMPRESSION: 1. Extensive airspace disease with air bronchograms in both lungs, predominantly in the center of both lungs. Few small areas of airspace disease are also seen in the periphery of the left upper lobe. Findings are suspicious for pneumonia. Recommend clinical correlation. Recommend followup chest imaging to ensure resolution. 2. Numerous calcifications in the posterior lower lobes are stable. 3. Incidental/nonacute findings are listed in the report. Radiation Dose CTDIVOL = (mGy): DLP = 573.57 (mGy-cm)
[2021-01-19 11:41] LABS: Alanine Aminotransferase 72 U/L (0-41); Albumin Level 3.3 g/dL (3.5-5.2); Alkaline Phosphatase 58 IU/L (40-130); Blood Urea Nitrogen 6 mg/dL (6-20); Calcium 7.3 mg/dL (8.5-10.5); Carbon Dioxide 20 mmol/L (22-29); Chloride 105 mmol/L (98-107); Globulin 2.4 g/dL (1.3-4.6); Glomerular Filtration Rate 117.1 mL/min (90-130); Glucose 113 mg/dL (65-115); Osmolality Calculated 284 mOsm/kg (285-295); Sodium 138 mmol/L (136-145); Total Bilirubin 0.4 mg/dL (0.15-1.2); Total Protein 5.7 g/dL (6.6-8.7)
[2021-01-19 11:44] LABS: Anion Gap 17.2 (5-19); Aspartate Amino Transferase 130 U/L (0-40); Potassium 4.2 mmol/L (3.5-5.1)
[2021-01-19] MEDS: ketorolac 30 mg/mL INJ 15 MG IVP (11:57)
[2021-01-19] MEDS: acetaminophen 650 mg Supp PR (11:58)
--- NOTE | 2021-01-19 14:08 | P.PN_ITS ---
Subjective Subjective: Interval history: PatientPatient was seen and examined this morning, making incomprehensible sounds seemed in distress, Logan catheter draining concentrated urine with some sediments I requested CT chest which showed bilateral pneumonia left worse than right Added clindamycin for staph strep and anaerobic coverage I would schedule him for ketorolac for anti-inflammatory effect, watch kidney function closely request BMP on daily basis Awaiting PEG tube placement by Dr. Bae once his fever subsides Vitals/I&O/Wt Last Vital Signs Temp 102.1 F H 01/19/21 12:00 Pulse 115 H 01/19/21 12:00 Resp 18 01/19/21 12:00 BP 120/67 01/19/21 12:00 Pulse Ox 91 01/19/21 12:00 01/18/21 01/19/21 01/19/21 22:59 06:59 14:59 Intake Total 1258.333 / 7649.030 4576 / 2883.333 350 / 350 Output Total 1550 / 1550 550 / 2100 650 / 650 Balance -291.667 / 58.333 725 / 783.333 -300 / -300 Weight last 48 hrs Weight 41.867 kg Weight 45.359 kg Physical Exam Narrative: EXAM NARRATIVE: Patient was laying in left lateral position with his eyes closed making incomprehensible sounds seem to be in distress Skin is warm Logan catheter draining concentrated urine with some sediment It is hard to assess his cardiac sounds, no murmur appreciated Clinical looks dehydrated Lower extremity disuse atrophy Eyes closed Neuro exam limited Data : 01/19/21 07:30 01/19/21 10:42 Micro: Microbiology 01/18/21 09:03 Blood Culture - Preliminary Blood NEGATIVE TO DATE 01/18/21 09:00 Blood Culture - Preliminary Blood NEGATIVE TO DATE A&P Assessment and plan (1) Aspiration of food: Status: Acute (2) Aspiration pneumonia: Status: Acute Qualifiers: Aspiration pneumonia type: unspecified Laterality: left Lung location: unspecified part of lung Qualified Code(s): J69.0 - Pneumonitis due to inhalation of food and vomit (3) Acute hyponatremia: Status: Acute (4) Hypokalemia: Status: Acute (5) Sepsis: Status: Acute Additional A&P Information Sepsis secondary to aspiration pneumonia I would request another set of blood cultures, urine culture, added clindamycin to vancomycin and Primaxin regimen Ketorolac to be used for as needed anti-inflammatory effect watch kidney func tion on daily basis Continue IV fluid resuscitation PEG tube placement by Dr. Bae Pancytopenia seems secondary to sepsis, watch closely as broad-spectrum antibiotics are also associated with the side effects Acute hyponatremia: Improved with fluid resuscitation Hypokalemia: Improved/resolved Full code DVT prophylaxis SCDs Attestations Medical Necessity Statement*: Awaiting PEG tube placement currently in sepsis Time Spent in Patient Care: 15 minutes Coding Level of Care Code Acute Jewel Setter for Chrisg Fwd Diagnoses Aspiration of food T17.920A Aspiration pneumonia J69.0 Aspiration pneumonia type: unspecified Laterality: left Lung location: unspecified part of lung Acute hyponatremia E87.1 Hypokalemia E87.6 Sepsis A41.9
[2021-01-19] MEDS: clindamycin 900 MG/50 ML PREMIX 100 MG IV ×2 (14:49→22:59)
--- NOTE | 2021-01-19 19:44 | PC.NURSE ---
PATIENT OXYGEN WAS AT 71% ON 2L NC. DRIVER SERVICE TECHNICIAN CAME TO THIS NURSE AND REPORTED THE LOW OXYGEN LEVEL. THIS NURSE WENT INTO ROOM. TURNED O2 UP TO 4L WITH NO IMPROVEMENT AND DRIVER SERVICE TECHNICIAN WENT DOWN THE [place] TO GET RESPIRATORY. RT CAME IN AND HAD THIS NURSE TURN HIM UP TO 6L, WENT AND GOT AN OXYMASK AND PUT OXYGEN UP TO 15L WHICH RAISED O2 LEVEL TO 81%. THIS NURSE CALLED DR. MENDEZ AND REPORTED PATIENT STATUS. PUT DOCTOR GAVE ORDERS, THIS NURSE PUT ORDERS IN PER
[2021-01-19 19:54] LABS: ABG PCO2 32.8 mmHg (35-45); ABG PH Result 7.44 (7.35-7.45); Alveolar-Arterial Oxygen Gradi 6.7 mmHg (5-10); Arterial Blood Gas Hematocrit 31.5 % (42-52); Base Excess ABG -1.1 mmol/L (-2.0-2.0); Blood Gas Allen Test Pos; Blood Gas Operator Identificat HARKR; Blood Gas Sample Site Radial, right; Blood Gas Sample Type Arterial; Carboxyhemoglobin 0.5 %THgb (0.4-20.1); HCO3 ABG 22.5 mmol/L (22-26); HGB O2 Sat 87.8 % (95-100); Ionized Calcium Level - ABG 1.1 mmol/L (1.1-1.4); Methemoglobin 0.9 % (0.4-1.5); Oxygen Device OXY MASK; PO2 ABG 57.1 mmHg (80.0-100.0); Potassium Level - ABG 3.9 mmol/L (3.5-5.0); Total Hemoglobin 10.3 g/dL (14-18)
[2021-01-19 20:24] LABS: Add Urine Microscopic? YES; Bilirubin Urine Neg (Negative); Blood Urine 2+ (Negative); Glucose Urine UA Norm (Normal); Ketones Urine 1+ (Negative); Leukocyte Esterase Urine Negative (Negative); Nitrate Urine Negative (Negative); Protein Urine Trace (Negative); Specific Gravity, Urine 1.005 (1.005-1.030); Urine Appearance SL Hazy (CLEAR); Urine Color Yellow (Yellow); Urobilinogen Urine Norm (Negative); pH Urine 7 (5-7)
[2021-01-19 20:25] LABS: Bacteria Urine 2+ /hpf; Calcium Oxalate Crystals Urine 0-4 /hpf; Squamous Epithelial Cell Urine 0-4 /hpf (0-5)
[2021-01-19 20:26] LABS: Add Urine Culture? Yes
--- NOTE | 2021-01-19 20:39 | PC.NURSE ---
THIS NURSE CALLED PATIENTS GUARDIAN RISHI MUNOZ AND GAVE AN UPDATE ABOUT PATIENT STATUS AND TO INFORM AN EDUCATE ABOUT SOFT RESTRAINTS. GUARDIAN VERBALIZED UNDERSTANDING WAS AGREEABLE TO CARE.
--- NOTE | 2021-01-19 20:51 | PC.NUTR ---
Tube feeding recommendations: Noted plan for PEG placement when fever/sepsis resolves. Recommend the following: Jevity 1.2, starting at 10 ml/hr, increasing by 10 ml/hr q 6 hours to goal of 50 ml/hr, with 130 ml H2O flushes q 6 hours, to provide 1440 kcal, 66 g protein, and 1488 ml/H2O. If bolus feedings desired, recommend 300 ml bolus Jevity 1.2 QID, with 130 ml H2O flushes, starting with 1/2 goal volume at first feeding and increasing by 50 ml per feeding to goal of 300 ml. Recommend decrease D5W NS as TF increases. TF recommendations to be modified given further information on weight and based upon TF tolerance. See RD assessment for further details.
[2021-01-19] MEDS: pantoprazole 40 mg SDV IVP (22:28)
[2021-01-20] VITALS (11 sets, daily range): BP systolic 126–137; BP diastolic 66–90; PULSE 109–131; RESP 18–30; TEMP 36.7–38.7; O2SAT 90–95
[2021-01-20] MEDS: vancomycin 1,250 MG/250 ML PIGGYBACK 250 MG IV (05:34)
[2021-01-20] MEDS: clindamycin 900 MG/50 ML PREMIX 100 MG IV (06:38)
--- NOTE | 2021-01-20 08:16 | PC.NURSE ---
restraints pt released and did range of motion then restrained again at 0800.
--- NOTE | 2021-01-20 09:14 | PM.PN ---
Subjective Subjective: Interval history: The patient is sitting up slightly in his bed with a CPAP/BiPAP mask on. Vitals/I&O/Wt Last Vital Signs Temp 99.5 F 01/20/21 08:00 Pulse 109 H 01/20/21 08:01 Resp 20 H 01/20/21 08:00 BP 137/69 01/20/21 08:00 Pulse Ox 93 01/20/21 08:01 01/19/21 01/20/21 01/20/21 22:59 06:59 14:59 Intake Total 1151.25 / 2275.00 773.75 / 2275.00 50 / 50 Output Total 150 / 1475 675 / 1475 300 / 300 Balance 1001.25 / 800.00 98.75 / 800.00 -250 / -250 Physical Exam Narrative: EXAM NARRATIVE: The patient is afebrile so far today. He is wearing a CPAP/BiPAP mask this morning. No significant change on abdominal exam. Data : 01/19/21 07:30 01/19/21 10:42 Micro: Microbiology 01/19/21 14:20 Blood Culture - Preliminary Blood SPECIMEN COLLECTED 01/19/21 14:25 Blood Culture - Preliminary Blood SPECIMEN COLLECTED 01/18/21 09:03 Blood Culture - Preliminary Blood NEGATIVE TO DATE 01/18/21 09:00 Blood Culture - Preliminary Blood NEGATIVE TO DATE A&P Assessment and plan (1) Aspiration of food: The patient has been afebrile so far today. I am going to tentatively try to put him on the schedule tomorrow for a PEG tube/gastrostomy tube placement. Status: Acute (2) Aspiration pneumonia: Plan gastrostomy placement following defervesence of elevated temperatures. Status: Acute Qualifiers: Aspiration pneumonia type: unspecified Laterality: left Lung location: unspecified part of lung Qualified Code(s): J69.0 - Pneumonitis due to inhalation of food and vomit (3) Thrombocytopenia: The patient's platelet count continues to drop. This may need to be addressed prior to any procedures. Hold ketorolac for now. I will recheck a CBC tomorrow morning. Status: Acute Attestations Medical Necessity Statement*: See admitting service's notation. Coding Level of Care Code Acute Icebox Worker for Nathalia Hagan Diagnoses Aspiration of food T17.920A Aspiration pneumonia J69.0 Aspiration pneumonia type: unspecified Laterality: left Lung location: unspecified part of lung Thrombocytopenia D69.6
--- NOTE | 2021-01-20 13:46 | P.PN_ITS ---
Subjective Subjective: Interval history: Low-grade temperature last night and this morning one 1.6 he has been getting vancomycin, Primaxin and clindamycin IV line looks infiltrated no other source of infection identified Plan for PEG tube placement tomorrow Overnight event noted he was hypoxic on 15 L nonrebreather mask and required BiPAP which improved with O2 saturation Vitals/I&O/Wt Last Vital Signs Temp 101.6 F H 01/20/21 11:30 Pulse 122 H 01/20/21 12:16 Resp 20 H 01/20/21 11:30 BP 135/90 01/20/21 11:30 Pulse Ox 93 01/20/21 12:16 01/19/21 01/20/21 01/20/21 22:59 06:59 14:59 Intake Total 1151.25 / 1501.25 773.75 / 2275.00 50 / 50 Output Total 150 / 800 675 / 1475 300 / 300 Balance 1001.25 / 701.25 98.75 / 800.00 -250 / -250 Physical Exam Narrative: EXAM NARRATIVE: Patient was laying on his back today with BiPAP He keeps his eyes closed Nonverbal Does look slightly dehydrated Lower extremity muscle mass loss Logan catheter draining concentrated urine Abdomen soft S1, S2 Assisted bilateral breath sounds with rhonchi Data : 01/19/21 07:30 01/19/21 10:42 Micro: Microbiology 01/19/21 14:20 Blood Culture - Preliminary Blood SPECIMEN COLLECTED 01/19/21 14:25 Blood Culture - Preliminary Blood SPECIMEN COLLECTED 01/18/21 09:03 Blood Culture - Preliminary Blood NEGATIVE TO DATE 01/18/21 09:00 Blood Culture - Preliminary Blood NEGATIVE TO DATE A&P Assessment and plan (1) Thrombocytopenia: Status: Acute (2) Aspiration of food: Status: Acute (3) Aspiration pneumonia: Status: Acute Qualifiers: Aspiration pneumonia type: unspecified Laterality: left Lung location: unspecified part of lung Qualified Code(s): J69.0 - Pneumonitis due to inhalation of food and vomit (4) Acute respiratory failure with hypoxia: Status: Acute Additional A&P Information Aspiration pneumonia Sepsis Currently on clindamycin, vancomycin and Primaxin, I do not see any indication to start antifungal treatment, IV line looked infiltrated as per the nursing staff, no active skin ulcers or rash noted Neuro exam limited Became hypoxic last night currently on BiPAP for acute hypoxic respiratory failure ABG reviewed continue BiPAP for now Keep him n.p.o. Possibly PEG tube placement tomorrow by Dr. Santos He is not on any DVT prophylaxis Increase normal saline rate to 100 mL/h he was tachycardic this morning I will also give him a bolus however his tachycardia is appropriate with his fever Disposition to a chcf after PEG tube placed Attestations Medical Necessity Statement*: PEG placement tomorrow Time Spent in Patient Care: less than 15 minutes Coding Level of Care Code Acute Web Systems Developer for g Fwd Diagnoses Thrombocytopenia D69.6 Aspiration of food T17.920A Aspiration pneumonia J69.0 Aspiration pneumonia type: unspecified Laterality: left Lung location: unspecified part of lung Acute respiratory failure with hypoxia J96.01
[2021-01-20 15:24] LABS: Alanine Aminotransferase 50 U/L (0-41); Alkaline Phosphatase 60 IU/L (40-130); Blood Urea Nitrogen 5 mg/dL (6-20); Calcium 7.5 mg/dL (8.5-10.5); Carbon Dioxide 19 mmol/L (22-29); Chloride 107 mmol/L (98-107); Glomerular Filtration Rate 139.9 mL/min (90-130); Glucose 101 mg/dL (65-115); Osmolality Calculated 283 mOsm/kg (285-295); Sodium 138 mmol/L (136-145); Total Bilirubin 0.5 mg/dL (0.15-1.2)
[2021-01-20 15:29] LABS: Anion Gap 15.8 (5-19); Aspartate Amino Transferase 111 U/L (0-40); Potassium 3.8 mmol/L (3.5-5.1)
[2021-01-20 15:31] LABS: Basophils % 0.2 %; Eosinophils % 0.6 %; Hematocrit 33.6 % (42.0-52.0); Hemoglobin 11.1 g/dL (11.7-16.6); Lymphocytes # 0.5 10^3/uL (0.8-4.8); Lymphocytes % 9.7 %; Mean Corpuscular Hemoglobin 31.9 pg (28.0-34.0); Mean Corpuscular Volume 96.6 fL (80-94); Monocytes # 0.5 10^3/uL (0.2-0.9); Monocytes % 10.4 %; Neutrophils # 3.61 10^3/uL (1.8-7.7); Neutrophils % 78.2 %; Nucleated Red Blood Cells % 0 %; Platelet Count 68 10^3/cmm (130-400); Red Blood Count 3.48 10^6/uL (4.1-5.3); Red Cell Distribution Width 15.3 % (12.1-15.1); White Blood Count 4.6 10^3/uL (4.0-10.0)
--- NOTE | 2021-01-20 20:18 | PC.NURSE ---
rom and restraints reapplied to prevent pt from pulling off bipap, continuous oxygen applied, he keeps pulling it off. Oxygen monitor reapplied
[2021-01-20] MEDS: LORazepam 2 mg/mL INJ 1 mL IM (20:20)
--- NOTE | 2021-01-20 20:20 | PC.NURSE ---
Addendum entered by Stephanie Blackwood RN 01/20/21 23:51: IV ACCESS PT REQUIRED MULTIPLE ATTEMPTS (MORE THAN 8) AND SEVERAL NURSES TO GAIN IV ACCESS. HIS RIGHT WRIST NOW HAS 20G PATENT IV, FLUSHES WELL. WRAPPED IN COBAN AT THE MOMENT. Original Note: Seizure/physician notified seizure lasting approximately 45 seconds noted, dr Grande notified at bedside, order for IM 2mg Ativan once one ordered,called pharmacy. No IV access at this time, nursing will attempt to place one now. Picc line scheduled for am.
--- NOTE | 2021-01-20 20:38 | PC.NURSE ---
family notified Spoke wih mother Kirti and guilherme Ott, at 0839, notified of pt seizure and change of unit from [facility] 253-2 to ICU 12. Pt stable. IV being placed by tank house operator helper and Charge nurse on the floor at this time.
[2021-01-20] MEDS: pantoprazole 40 mg SDV IVP (21:17)
--- NOTE | 2021-01-20 23:48 | PC.NURSE ---
COMMUNITY DEVELOPMENT PLANNER/Nursing Sitting with pt pts right wrist is restraint free, pulls at bipap, guan, seems uncomfortable. unable to leave unattended. pt to be transferred to ICU bed 12. Calling report to Dagoberto in ICU
[2021-01-21] VITALS (27 sets, daily range): BP systolic 99–146; BP diastolic 62–84; PULSE 93–156; RESP 14–38; TEMP 36.1–36.8; O2SAT 73–98
[2021-01-21] MEDS: ondansetron 2 mg/ML SDV 2 mL 4 MG IVP (00:37)
[2021-01-21] MEDS: LORazepam 2 mg/mL INJ 1 mL 0.5 MG IVP ×2 (00:37→03:48)
--- NOTE | 2021-01-21 00:44 | PC.NURSE ---
ativan 0.5mg IM given for anxiety/agitation non verbal pt, seized earlier, grunting, drawing up, aggitated, spoke with Dr. Grande in the nurses station, obtained an order for this medication from him. pt received this dose and is beginning to relax. IA 130, spo2 87, HOB at 45 degree angle pt fights with bipap, oxygen stats are 88-92, and pr ranging fo 120-130. at shift change patient was in soft bilateral wrist restraints. Pt is now only restrained on left wrist, right wrist has a new IV.
[2021-01-21] MEDS: dextrose 5%-ns + KCl 40 40 MEQ/1,000 ML BAG 100 MEQ IV (02:37)
[2021-01-21] MEDS: acetaminophen 650 mg Supp PR (03:47)
--- NOTE | 2021-01-21 08:27 | PM.PN ---
Subjective Subjective: Interval history: The patient remains nonverbal. Vitals/I&O/Wt Last Vital Signs Temp 97.7 F 01/21/21 08:00 Pulse 102 H 01/21/21 08:14 Resp 18 01/21/21 08:00 BP 100/67 01/21/21 08:00 Pulse Ox 98 01/21/21 08:14 01/20/21 01/21/21 01/21/21 22:59 06:59 14:59 Intake Total 625 / 875 200 / 875 Output Total 0 / 600 300 / 600 Balance 625 / 275 -100 / 275 Physical Exam Narrative: EXAM NARRATIVE: The patient ran some fevers around midday yesterday but has been afebrile since. He is laying in his bed with his BiPAP mask on. He is easily arousable. The abdomen is nondistended. Data : 01/20/21 14:30 01/20/21 14:30 Micro: Microbiology 01/19/21 14:20 Blood Culture - Preliminary Blood NEGATIVE TO DATE 01/19/21 14:25 Blood Culture - Preliminary Blood NEGATIVE TO DATE A&P Assessment and plan (1) Aspiration of food: The patient ran some fevers midday yesterday but has been afebrile since. Platelet count is improved. Planning on proceeding with a feeding tube placement later today. Status: Acute (2) Aspiration pneumonia: Plan gastrostomy placement following defervesence of elevated temperatures. Status: Acute Qualifiers: Aspiration pneumonia type: unspecified Laterality: left Lung location: unspecified part of lung Qualified Code(s): J69.0 - Pneumonitis due to inhalation of food and vomit (3) Thrombocytopenia: Improved. Status: Acute Attestations Medical Necessity Statement*: See admitting service's notation. Coding Level of Care Code Acute Home Housekeeper for [facility] Diagnoses Aspiration of food T17.920A Aspiration pneumonia J69.0 Aspiration pneumonia type: unspecified Laterality: left Lung location: unspecified part of lung Thrombocytopenia D69.6
--- NOTE | 2021-01-21 09:32 | PC.NURSE ---
attempted to call Dr Silver and notify him that IV access was lost, and request IM ativivan for patient. will reattempt to call shortly.
[2021-01-21 09:35] LABS: Basophils % 0.2 %; Hematocrit 30.9 % (42.0-52.0); Hemoglobin 9.9 g/dL (11.7-16.6); Lymphocytes # 0.4 10^3/uL (0.8-4.8); Lymphocytes % 7.6 %; Mean Corpuscular Hemoglobin 32.1 pg (28.0-34.0); Mean Corpuscular Volume 100.3 fL (80-94); Mean Platelet Volume 11.5 fL (7.4-10.4); Monocytes # 0.6 10^3/uL (0.2-0.9); Monocytes % 10.8 %; Neutrophils # 4.11 10^3/uL (1.8-7.7); Neutrophils % 80.6 %; Nucleated Red Blood Cells % 0 %; Platelet Count 76 10^3/cmm (130-400); Red Blood Count 3.08 10^6/uL (4.1-5.3); Red Cell Distribution Width 15.4 % (12.1-15.1); White Blood Count 5.1 10^3/uL (4.0-10.0)
[2021-01-21 10:41] LABS: Blood Urea Nitrogen 11 mg/dL (6-20); Calcium 7.1 mg/dL (8.5-10.5); Carbon Dioxide 22 mmol/L (22-29); Chloride 114 mmol/L (98-107); Glomerular Filtration Rate 100.4 mL/min (90-130); Glucose 109 mg/dL (65-115); Osmolality Calculated 302 mOsm/kg (285-295); Sodium 146 mmol/L (136-145)
[2021-01-21 10:45] LABS: Anion Gap 14.1 (5-19); Potassium 4.1 mmol/L (3.5-5.1)
--- NOTE | 2021-01-21 11:12 | PC.NURSE ---
Dr Silver said he want's PICC line placed. screen writer looked at chart and it looks like previous order was cancelled. screen writer entered order again as requested.
[2021-01-21] MEDS: LORazepam 2 mg/mL INJ 1 mL 0.5 MG IM ×2 (11:58→17:16)
--- NOTE | 2021-01-21 12:17 | PC.NURSE ---
Patient taken to preop room 2 by myself, Talia TERRY, and Estela FUNEZ for picc line placement. Babatunde RUSSELL requested Dr. Silver be called to ask about a midline instead of a PICC. Dr. Silver verbalized that a PICC line is what is ideal for the patient, he stated that if a picc is unatainable, a midline could work, but would be as a last resort. Estela FUNEZ remained with patient to assist Babatunde in placing the Picc line.
--- NOTE | 2021-01-21 13:27 | P.ANESASSM_ITS ---
Pre-Anesthetic Assessment Pre-Anesthetic Assessment: Height/Weight: Height 1.57 m Weight 41.867 kg Temp Pulse Resp BP Pulse Ox 97.7 F 112 H 18 100/67 97 01/21/21 08:00 01/21/21 11:40 01/21/21 08:00 01/21/21 08:00 01/21/21 11:40 Proposed Procedure: Operation Date: 01/21/21 11:10 Proposed Procedures p PEG Tube Insertion(Not Applicable) - Andrew Bae MD Was Beta Saeed taken within 24 hours: Yes Was Clonidine taken within 24 hours: N/A Social: Social History: No alcohol and No tobacco Exam: Pre-Anes Outpt Exam: alert, oriented x 3, clear to auscultation bilaterally and regular rate & rhythm Airway: Submandibular: WNL Cervical ROM: WNL MP: 2 Pulmonary: Comments: Chronic aspiration, pneumonia CV/HEM: CV/HEM: Anemia, DVT and HTN Metabolic: Metabolic: Thyroid Neuropsych: Neuropsych: Deficit Comments: CP, wheel chair bound Anesthetic Plan: ASA status: 3 Anesthesia: General Risk of > 500 ml blood loss (7ml/kg in children): No Meds/Allergies Current Medications: Current Medications Generic Name Dose Route Start Last Admin Trade Name Freq PRN Reason Stop Dose Admin Acetaminophen 650 mg 01/18/21 04:44 01/21/21 03:47 Acetaminophen 65 0 Mg Supp PA 650 mg Q4H PRN Administration MILD PAIN OR INCR EASE TEMP Vancomycin/PEG/NAD A/Lysine/Water 1,250 mg in 250 m ls @ 250 mls/hr 01/18/21 06:00 01/21/21 06:43 Vancocin IV Not Given Q24H DOMONQIUE Imipenem/Cilastati n Sodium 500 100 mls @ 200 mls /hr 01/18/21 13:00 01/21/21 05:46 mg/ Sodium Chlor vikas IV Infused Q8H DOMONIQUE Infusion Protocol Valproic Acid 500 mg/ Sodium 55 mls @ 55 mls/h r 01/18/21 22:00 01/19/21 09:53 Chloride IV 55 mls/hr BID DOMONIQUE Administration Levetiracetam 2,00 0 mg/ Sodium 120 mls @ 100 mls /hr 01/18/21 23:00 01/19/21 11:12 Chloride IV 100 mls/hr Q12H DOMONIQUE Administration Clindamycin HCl/De xtrose 900 mg in 50 mls @ 100 mls/hr 01/19/21 14:30 01/21/21 06:42 Cleocin IV Not Given Q8H DOMONIQUE Protocol Potassium Chloride /Dextrose/Sod Cl 40 meq in 1,000 m ls @ 100 mls/hr 01/20/21 10:45 01/21/21 02:37 Dextrose 5%-Ns + Kcl 40 IV 100 mls/hr .Q10H DOMONIQUE Administration Fluconazole 200 mg in 100 mls @ 100 mls/hr 01/20/21 15:30 01/20/21 16:39 Diflucan Premix IV Not Given Q24H DOMONIQUE Lorazepam 0.5 mg 01/21/21 11:53 01/21/21 11:58 Lorazepam 2 Mg/M l Inj 1 Ml IM 0.5 mg Q4H PRN Administration ANXIETY Ondansetron HCl 4 mg 01/17/21 21:24 01/21/21 00:37 Ondansetron 2 Mg /Ml Sdv 2 Ml IVP 4 mg Q8H PRN Administration vomiting, or N/V if npo Pantoprazole Sodiu m 40 mg 01/17/21 21:30 01/20/21 21:17 Pantoprazole 40 Mg Sdv IVP 40 mg Q24H DOMONIQUE Administration PFSH Anesthesia PFSH: Medical History (Updated 01/20/21 @ 13:50 by Aydin Silver MD) Acute pyelonephritis Aspiration pneumonia 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 Social History Smoking and tobacco status: never smoked Alcohol intake: never Caregiver/support person: Yes (Mother) Household members: family Marital status: Single Current occupational status: disabled History of recent travel: No Data Anesthesia CBC & Chem 7: 01/21/21 09:20 01/21/21 09:20 Other Labs: Laboratory Results - last 48 hr 01/19/21 01/19/21 01/20/21 14:56 19:43 14:30 WBC 4.6 RBC 3.48 L Hgb 11.1 L Hct 33.6 L MCV 96.6 H MCH 31.9 MCHC 33.0 RDW 15.3 H Plt Count 68 L MPV 11.0 H Neut % (Auto) 78.2 Lymph % (Auto) 9.7 [place] % (Auto) 10.4 Eos % (Auto) 0.6 Baso % (Auto) 0.2 Neut # (Auto) 3.61 Lymph # (Auto) 0.5 L [place] # (Auto) 0.5 Eos # (Auto) 0.0 Baso # (Auto) 0.0 Nucleated RBC % (auto) 0 Nucleated RBCs # 0.0 Specimen Type Arterial Sample Site Radial, right ABG pH 7.44 ABG pCO2 32.8 L ABG pO2 57.1 L ABG HCO3 22.5 ABG O2 Saturation 89.0 ABG Base Excess -1.1 Wiley Test Pos A-a O2 Gradient 6.7 Hematocrit 31.5 L Hgb O2 Saturation 87.8 L Carboxyhemoglobin 0.5 Methemoglobin 0.9 Total Hemoglobin 10.3 L Sodium 142.0 Potassium 3.9 Glucose 119.0 H Ionized Calcium 1.1 O2 Delivery Device Oxy mask O2 Liters/Min 15.0 Personal Coach ID Harkr Chloride Carbon Dioxide Anion Gap BUN Creatinine GFR Calculation Calculated Osmolality Calcium Total Bilirubin AST ALT Alkaline Phosphatase Total Protein Albumin Globulin Urine Color Yellow Urine Appearance Sl hazy Urine pH 7 Ur Specific [place] 1.005 Urine Protein Trace Urine Glucose (UA) Norm Urine Ketones 1+ H Urine Blood 2+ H Urine Nitrate Negative Urine Bilirubin Neg Urine Urobilinogen Norm Ur Leukocyte Esterase Negative Urine RBC 5-10 H Urine WBC None Ur Squamous Epith Cells 0-4 H Calcium Oxalate Crystal 0-4 H Amorphous Sediment Not Reportable Urine Bacteria 2+ H Urine Yeast 1+ H 01/20/21 01/21/21 01/21/21 14:30 09:20 09:20 WBC 5.1 RBC 3.08 L Hgb 9.9 L Hct 30.9 L MCV 100.3 H MCH 32.1 MCHC 32.0 RDW 15.4 H Plt Count 76 L MPV 11.5 H Neut % (Auto) 80.6 Lymph % (Auto) 7.6 [place] % (Auto) 10.8 Eos % (Auto) 0.0 Baso % (Auto) 0.2 Neut # (Auto) 4.11 Lymph # (Auto) 0.4 L [place] # (Auto) 0.6 Eos # (Auto) 0.0 Baso # (Auto) 0.0 Nucleated RBC % (auto) 0 Nucleated RBCs # 0.0 Specimen Type Sample Site ABG pH ABG pCO2 ABG pO2 ABG HCO3 ABG O2 Saturation ABG Base Excess Wiley Test A-a O2 Gradient Hematocrit Hgb O2 Saturation Carboxyhemoglobin Methemoglobin Total Hemoglobin Sodium 138 146 H Potassium 3.8 4.1 Glucose 101 109 Ionized Calcium O2 Delivery Device O2 Liters/Min Personal Coach ID Chloride 107 114 H Carbon Dioxide 19 L 22 Anion Gap 15.8 14.1 BUN 5 L 11 Creatinine 0.6 L 0.8 GFR Calculation 139.9 H 100.4 Calculated Osmolality 283 L 302 H Calcium 7.5 L 7.1 L Total Bilirubin 0.5 AST 111 H ALT 50 H Alkaline Phosphatase 60 Total Protein 6.0 L Albumin 3.0 L Globulin 3.0 Urine Color Urine Appearance Urine pH Ur Specific [place] Urine Protein Urine Glucose (UA) Urine Ketones Urine Blood Urine Nitrate Urine Bilirubin Urine Urobilinogen Ur Leukocyte Esterase Urine RBC Urine WBC Ur Squamous Epith Cells Calcium Oxalate Crystal Amorphous Sediment Urine Bacteria Urine Yeast Micro: Microbiology 01/19/21 14:56 Urine Culture - Preliminary Urine Catheterized Yeast species 01/19/21 14:20 Blood Culture - Preliminary Blood NEGATIVE TO DATE 01/19/21 14:25 Blood Culture - Preliminary Blood NEGATIVE TO DATE Cardiac Studies: No Data to Display
--- NOTE | 2021-01-21 13:44 | PM.PN ---
Subjective Subjective: Interval history: Patient seen and examined this morning, his second IV also got infiltrated, PICC line and midline attempts failed, unable to pass the guidewire without resistance Requested central line placement, PEG tube placement today as well Vitals/I&O/Wt Last Vital Signs Temp 97.7 F 01/21/21 08:00 Pulse 112 H 01/21/21 11:40 Resp 18 01/21/21 08:00 BP 100/67 01/21/21 08:00 Pulse Ox 97 01/21/21 11:40 01/20/21 01/21/21 01/21/21 22:59 06:59 14:59 Intake Total 625 / 675 200 / 875 Output Total 0 / 300 300 / 600 Balance 625 / 375 -100 / 275 Physical Exam Narrative: EXAM NARRATIVE: Patient seen very agitated today, he was laying on his back with his legs facing towards his abdomen Still requiring BiPAP to decrease work of breathing and improve oxygenation Dehydration signs Logan catheter draining concentrated urine Assisted bilateral breath sounds IV line infiltrated Data : 01/21/21 09:20 01/21/21 09:20 Micro: Microbiology 01/19/21 14:56 Urine Culture - Preliminary Urine Catheterized Yeast species 01/19/21 14:20 Blood Culture - Preliminary Blood NEGATIVE TO DATE 01/19/21 14:25 Blood Culture - Preliminary Blood NEGATIVE TO DATE A&P Assessment and plan (1) Acute respiratory failure with hypoxia: Status: Acute (2) Thrombocytopenia: Status: Acute (3) Aspiration of food: Status: Acute (4) Acute hyponatremia: Status: Acute (5) Hypokalemia: Status: Acute (6) Sepsis: Status: Acute Additional A&P Information Sepsis with aspiration pneumonia Patient still spiking fever has not received scheduled antimicrobials because of his poor IV access, PICC line and midline attempts fail today will need central line Sepsis criteria being met with fever and tachycardia however leukocytosis improved Hemoglobin 9.9, thrombocytopenia platelet count stable no active bleeding No need of blood transfusion or platelet transfusion before surgery today I would continue him on broad-spectrum antibiotics, plan to switch him to p.o. fluconazole after PEG tube placement, noted yeast in his urine Hypokalemia: Potassium repleted Will need skilled nursing placement after PEG tube placement Full code Protein calorie malnourishment Dietary consult placed Attestations Medical Necessity Statement*: We will go to skilled nursing after PEG tube placement Time Spent in Patient Care: less than 15 minutes Coding Level of Care Code Acute Gill Box Fixer for Chg Fwd Diagnoses Acute respiratory failure with hypoxia J96.01 Thrombocytopenia D69.6 Aspiration of food T17.920A Acute hyponatremia E87.1 Hypokalemia E87.6 Sepsis A41.9
[2021-01-21] MEDS: ceFAZolin 1,000 MG in sodium chloride 0.9% (plus) 50 ML 100 MG IV (18:12)
--- NOTE | 2021-01-21 18:23 | ANES.PROC ---
Anesthesia Procedures Procedure/Date: 01/21/21 Central Venous Insert: Central Venous Line: RIJ 7fr. 3-lumen Time Out Performed: Yes Consent: requested by attending/covering physician, risks and benefits reviewed and patient agrees to proceed Central Line: New Anesthesia monitors: pulse oximetry, EKG, BP cuff and oxygen Vein cannulated: right internal jugular Post procedure: Obtain Chest X-Ray Additional Comments: Seldinger tech, seeker needle, sutured in place with sterile dressing. Procedure done while patient under GETA.
--- NOTE | 2021-01-21 18:50 | ANE.PACU2 ---
Inpatient post-anesthesia follow up: Airway intact: Yes Vital signs: Temperature 98.1 F Pulse Rate [Apical ] 96 Pulse Rate 135 Respiratory Rate 20 Blood Pressure [Le ft Arm] 106/67 Blood Pressure 130/84 Pulse Oximetry 92 Oxygen Delivery Me thod [ Nasal Cannula Current Rate & Del sonu] Oxygen Delivery Me thod BiPAP Oxygen Flow Rate [ Current Rate 3 & Delivery] Oxygen Flow Rate 18 Fraction of Inspir ed Oxygen 70 Hydration adequate: Yes Nausea and vomiting: No Pain level: 2 Mental status: Baseline Additional Comments: PACU CXR no PTX.
--- NOTE | 2021-01-21 18:56 | XR_ITS ---
WS: [id number] Exam: XR chest 1V portable [id number] Date/Time of Exam: 01/21/2021 6:57 PM Reason For Exam: POST OP Comparison 01/17/2021. Widespread bilateral groundglass infiltrates in both lungs have developed since previous study. Heart size remains normal. A right IJ catheter appears to end at the cavoatrial junction. The lungs are fu lly expanded. No pleural effusions. The mediastinum and osseous thorax are intact. XR/XR chest 1V portable [id number] IMPRESSION: 1. Development of widespread bilateral groundglass infiltrates in both lungs si nce previous study. This would suggest pneumonia.
[2021-01-21] MEDS: midazolam 1 mg/mL INJ 2 mL 2 MG IVP (19:10)
--- NOTE | 2021-01-21 19:31 | PC.NURSE ---
TRANSFER FROM OR Received from OR at 1925. Thrashing around in bed. Throws his head back and forth on pillow. OR nurse reports he had Versed short time ago. 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 Does not open his eyes. Right IJ in place. PEG tube to RUQ abd with dresing D&I. ABD binder in place. On BIPAP with O2 at 100%. Difficulty picking up sat due to thrashing. RT at bedside. Most accurate reading appears 86%. Doing ABG for confirmation. Soft restraints in place to bilat wrists. Logan in place and draining edna urine. Lungs congested with rhonchi Resp 30-34/min. HR is in 150's
[2021-01-21 20:09] LABS: ABG PH Result 7.28 (7.35-7.45); Alveolar-Arterial Oxygen Gradi 77.6 mmHg (5-10); Arterial Blood Gas Hematocrit 31.4 % (42-52); Base Excess ABG -3.9 mmol/L (-2.0-2.0); Blood Gas Allen Test Pos; Blood Gas Operator Identificat MONRO; Blood Gas Sample Site Brachial, left; Blood Gas Sample Type Arterial; Carboxyhemoglobin 0.3 %THgb (0.4-20.1); HGB O2 Sat 80.8 % (95-100); Ionized Calcium Level - ABG 1.3 mmol/L (1.1-1.4); Methemoglobin 0.6 % (0.4-1.5); Oxygen Device BIPAP; Oxygen Saturation ABG 81.5; PO2 ABG 54.9 mmHg (80.0-100.0); Potassium Level - ABG 3.6 mmol/L (3.5-5.0); Total Hemoglobin 10.3 g/dL (14-18)
[2021-01-21] MEDS: FUROsemide 10 mg/mL SDV 2mL 20 MG IVP (20:38)
[2021-01-21] MEDS: metoprolol tartrate 1 mg/1 mL SDV 5 mL 5 MG IV (20:38)
[2021-01-21] MEDS: pantoprazole 40 mg SDV IVP (20:57)
[2021-01-21] MEDS: LORazepam 2 mg/mL INJ 1 mL 0.5 MG IV (20:57)
--- NOTE | 2021-01-21 20:58 | PC.NURSE ---
MEDS Pt has had IV Metoprolol 5mg total, Lasix 20mg IV and Ativan 0.5mg IV. Monitoring VS. Is calmer than before with HR down to 112. Resp 28-30 and much easier. Not thrashing around as much at present. O2 sat 88% briefly then 85-86%
--- NOTE | 2021-01-21 21:09 | PM.EVENT ---
Event Note Event Note: Patient returned from the OR this evening. I was called by respiratory therapist to report respiratory distress. Patient's O2 sat dropped to 73%. He was placed on BiPAP, currently on 100% FiO2 saturating 88%. Also noted to have tachycardia, not on telemetry at the time of initial evaluation but heart rate at 170 when checked manually. He does have a history of A. fib. Telemetry ordered. Start metoprolol 2.5 mg IV and Lasix 20 mg IV given. Stat chest x-ray ordered. Coarse crackles to auscultation bilaterally. Patient's ABG shows 7.2 8/49/54/80 0.8 100% FiO2 on BiPAP. He is agitated, fighting BiPAP, after receiving Ativan 2 mg he is calmer. With metoprolol 2.5 IV, heart rate now settled at 114. After being placed on telemetry it shows sinus tachycardia. I called the mother to have an goals of care discussion. Prior chart was also reviewed. Mother is understandably distraught. However she understands that escalating from [place] would mean putting patient on mechanical ventilation, endotracheal intubation and connecting to a ventilator. Additionally if he is to develop a cardiac arrhythmia overnight, he is at a significant risk of cardiac arrest which may require CPR. Neither of these interventions would add any meaningful quality of life to the patient. Per review of notes, he has had worsening respiratory status and recurrent admissions since the past few months. His mother states that they wanted to give 1 last shot by placing the PEG and see if patient improves, however now with developing respiratory distress she does not wish to pursue any further escalation. Patient has been made DNR/DNI. This translates into no chest compressions, no intubation, no ICU admission or pressors. If respiratory status continues to deteriorate in spite of BiPAP and medical management with Lasix, BiPAP, nebulizations, then she is agreeable to proceeding with comfort care measures. Last vital signs at this present time: Blood pressure 105/73 Heart rate 112 Respiratory rate 30 O2 sat 86% Chest x-ray shows diffuse bilateral infiltrates, no pneumothorax per my read Start Covid antigen to be checked now
[2021-01-21 22:01] LABS: SARS Covid-2 Antigen Positive (Negative)
[2021-01-21] MEDS: clindamycin 900 MG/50 ML PREMIX 100 MG IV (22:36)
--- NOTE | 2021-01-21 22:46 | PC.NURSE ---
+ COVID + Covid result received. Pt placed on proper isolation precautions and room mate was moved from room. Dr Rico ordered discontinuation of BIPAP and to use O2 generously. Will be transitioned to comfort care if desaturations occur. To use Ativan and Haldol as needed
[2021-01-21] MEDS: haloperidol inj 5 mg/mL INJ 1 mL 1 MG IVP (23:30)
[2021-01-22] VITALS (18 sets, daily range): BP systolic 89–113; BP diastolic 62–74; PULSE 105–155; RESP 14–34; TEMP 36.6–37.3; O2SAT 50–84
[2021-01-22] MEDS: LORazepam 2 mg/mL INJ 1 mL 0.5 MG IV ×2 (00:50→18:49)
[2021-01-22] MEDS: remdesivir 200 MG in sodium chloride 0.9% (100 ml) 100 ML 100 MG IV (01:09)
[2021-01-22] MEDS: dexamethasone 4 mg/mL INJ 6 MG IVP (01:28)
[2021-01-22] MEDS: metoprolol tartrate 1 mg/1 mL SDV 5 mL 5 MG IV ×2 (01:31→08:36)
[2021-01-22] MEDS: morphine 4 mg/mL SDV 1 mL 2 MG IVP ×4 (01:55→18:06)
--- NOTE | 2021-01-22 02:11 | PC.NURSE ---
AGITATION/RESTLESSNESS Has been noted to be more agitated and restless again despite IV Haldol and Ativan given. Is on heated high flow oxygen per RT. Had alot of oral secretions since BIPAP was removed. Lungs very wet. Unable to clear secretions well with oral yankeurs sx. O2 sat gradually decreasing and is presently in 50's and 60's. Has received another dose of IV Metoprolol for HR in 140-150 range. Given IV Morphine for comfort which does appear to have helped some. Nurse is at bedside. Was unable to reach sister at this time for update on pts deterioration. Message was left.
--- NOTE | 2021-01-22 03:21 | PC.NURSE ---
UPDATE Resting better. Will occ try to raise up off bed but settles right back. Requiring freq suctioning of mouth for white foamy secretions that come up back of throat. Responds to sx by shaking head back & forth
[2021-01-22] MEDS: lanolin oint 7 gm 1 APPLIC TOPICAL (03:41)
[2021-01-22] MEDS: glycopyrrolate 0.2 mg/mL SDV 2 mL 0.1 MG IV ×4 (04:13→18:05)
[2021-01-22] MEDS: vancomycin 1,250 MG/250 ML PIGGYBACK 250 MG IV (05:26)
--- NOTE | 2021-01-22 06:30 | PC.NURSE ---
UPDATE Is resting well this am. Has done better with IV Morphine than either the IV Ativan or Haldol. Telemetry showing ST with HR in 120's. Is on heated high flow with O2 at 100%. O2 sat is running in 70's. Resp are much easier now than during most of the shift. Oral secretions have decreased after receiving IV Robinol and lungs sound better. Continues to receive IV antibiotics. Both mother & sister have called this am and have been updated on pts status.
[2021-01-22 06:39] LABS: Alanine Aminotransferase 31 U/L (0-41); Albumin Level 2.8 g/dL (3.5-5.2); Alkaline Phosphatase 62 IU/L (40-130); Anion Gap 15.1 (5-19); Aspartate Amino Transferase 104 U/L (0-40); Blood Urea Nitrogen 14 mg/dL (6-20); Calcium 7.7 mg/dL (8.5-10.5); Carbon Dioxide 26 mmol/L (22-29); Chloride 115 mmol/L (98-107); Globulin 2.7 g/dL (1.3-4.6); Glomerular Filtration Rate 87.3 mL/min (90-130); Glucose 116 mg/dL (65-115); Osmolality Calculated 315 mOsm/kg (285-295); Potassium 4.1 mmol/L (3.5-5.1); Sodium 152 mmol/L (136-145); Total Bilirubin 0.7 mg/dL (0.15-1.2); Total Protein 5.5 g/dL (6.6-8.7)
--- NOTE | 2021-01-22 07:33 | P.PN_ITS ---
Subjective Subjective: Interval history: Positive Covid test results and events of last night noted. Vitals/I&O/Wt Last Vital Signs Temp 97.9 F 01/22/21 03:56 Pulse 121 H 01/22/21 05:59 Resp 20 H 01/22/21 05:31 BP 92/62 01/22/21 05:31 Pulse Ox 71 L 01/22/21 05:31 01/21/21 01/22/21 01/22/21 22:59 06:59 14:59 Intake Total 200 / 600 400 / 600 1150 / 1150 Output Total 1210 / 1560 350 / 1560 Balance -1010 / -960 50 / -960 1150 / 1150 Data : 01/21/21 09:20 01/22/21 05:39 Micro: Microbiology 01/19/21 14:56 Urine Culture - Preliminary Urine Catheterized Yeast species A&P Assessment and plan (1) Aspiration of food: Status post PEG tube placement on 01/21/2021. Unfortunately, the patient is deteriorating secondary to respiratory issues and has been made DNR. I will be available if needed. Please call if I can be of further assistance. Status: Acute (2) Aspiration pneumonia: Plan gastrostomy placement following defervesence of elevated temperatures. Status: Acute Qualifiers: Aspiration pneumonia type: unspecified Laterality: left Lung location: unspecified part of lung Qualified Code(s): J69.0 - Pneumonitis due to inhalation of food and vomit (3) Thrombocytopenia: Improved. Status: Acute Attestations Medical Necessity Statement*: See admitting service's notation. 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
--- NOTE | 2021-01-22 09:53 | PC.NUTR ---
Tube feeding consults received X 2, from Dr. Bae and Dr. Silver. This RD assessed pt on 01/19/21 and provided TF recs at that time, as PEG placement was pending. However, pt currently on comfort care per Dr. Silver. If TF recs needed at later time, see note from 01/19/21. See full RD assessments for further details.
--- NOTE | 2021-01-22 14:19 | PM.PN ---
Subjective Subjective: Interval history: Overnight events noted Covid positive currently hypoxic on 100% humidified high flow saturating 60-70% He was made DNR/DNI by his mother, I spoke with with his mother today and updated her about worsening clinical status of Mr. Macias, her questions were answered to her satisfaction, she was explained guarded prognosis and poor quality of life which she seemed to understand and comprehend. She was very tearful and mentioned that Dr. Rico explained in detail last night as well. Vitals/I&O/Wt Last Vital Signs Temp 99.2 F 01/22/21 08:00 Pulse 112 H 01/22/21 12:02 Resp 16 01/22/21 12:02 BP 92/62 01/22/21 12:00 Pulse Ox 63 L 01/22/21 12:02 01/21/21 01/22/21 01/22/21 22:59 06:59 14:59 Intake Total 200 / 200 400 / 600 1150 / 1150 Output Total 1210 / 1210 350 / 1560 Balance -1010 / -1010 50 / -960 1150 / 1150 Physical Exam Narrative: EXAM NARRATIVE: Hypoxic 60% on humidified high flow 60 L 100% FiO2 Patient nonverbal, Patient laying on his back PEG tube in place, abdominal binder in place Right IJ seems to be slightly displaced, Appears tachypneic Sinus tachycardic S1-S2 Neuro exam limited Data : 01/21/21 09:20 01/22/21 05:39 Micro: Microbiology 01/19/21 14:56 Urine Culture - Preliminary Urine Catheterized Yeast species A&P Assessment and plan (1) Acute respiratory failure with hypoxia: Status: Acute (2) Thrombocytopenia: Status: Acute (3) Aspiration of food: Status: Acute (4) Aspiration pneumonia: Status: Acute Qualifiers: Aspiration pneumonia type: unspecified Laterality: left Lung location: unspecified part of lung Qualified Code(s): J69.0 - Pneumonitis due to inhalation of food and vomit (5) Sepsis: Status: Acute (6) COVID-19: Status: Acute Additional A&P Information Worsening hypoxic respiratory failure secondary to COVID-19 pneumonia with underlying aspiration pneumonia Mother opted for comfort measures considering worsening hypoxia on 100% humidified high flow, she is against aggressive interventions at this point. 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
--- NOTE | 2021-01-22 14:44 | DCPLANNER ---
Pg 2 of IM withheld due to pt's status, d/c is not likely within the next 48 hours.
--- NOTE | 2021-01-22 16:30 | PC.NURSE ---
discussed patient condition with patients mother. she stated to me that she did not want the patient to suffer. this conversation was relayed to Dr. Silver. Dr. Silver stated that he would call the patients mother to confirm that she wants the patient on comfort care.
--- NOTE | 2021-01-22 19:41 | PC.NURSE ---
patient passed at 191. verified with Nam SHARMA. building insulation supervisor notified. notified patients mother July of time of . verbal consent given to take patient to [facility] in [place]
--- NOTE | 2021-01-22 20:43 | PC.NURSE ---
[facility] released body from donation per MTS coordinator.
--- NOTE | 2021-01-23 12:35 | PC.NURSE ---
1.5 mg ativan wasted with Kaila at 1850 on 01/22/21
--- NOTE | 2021-01-23 13:23 | PC.NURSE ---
1.5mg wasted with Jemma Carter RN at 1850 01/22/21.
--- NOTE | 2021-01-23 14:48 | P.DS_ITS ---
Discharge Providers Date of Admission: 01/17/21 20:15 Date of Discharge: January 23, 2021 Attending Provider at Admission: Michael Grande Attending Provider at Discharge: Aydin Silver MD Primary Care Provider: Dora Brady MD Diagnoses at Discharge Discharge Diagnosis (1) Acute respiratory failure with hypoxia: Status: Acute (2) Thrombocytopenia: Status: Acute (3) Aspiration of food: Status: Acute (4) Aspiration pneumonia: Status: Acute Qualifiers: Aspiration pneumonia type: unspecified Laterality: left Lung location: unspecified part of lung Qualified Code(s): J69.0 - Pneumonitis due to inhalation of food and vomit (5) Sepsis: Status: Acute (6) COVID-19: Status: Acute Reason for Visit Reason for Visit: POSSIBLE ASPIRATION Hospital Course Hospital Course 56-year-old male who was admitted for management of sepsis secondary to aspiration pneumonia, mother sent him to the hospital for placement of PEG tube placement. Patient remains septic which postponed his PEG tube procedure. 01/21 PEG tube was placed, central line was placed by the anesthesia on that day as well. Around evening his hypoxia worsened and Covid test was requested which came back positive. Casing Crew called his mother and discussed goals of care, mother opted for comfort measures. There is a detailed note by Dr. Rico on 01/21. Patient unfortunately on 01/22 at 7:20 PM due to sepsis, septic shock, hypoxia related to COVID-19 with underlying aspiration pneumonia Physical Exam Narrative: EXAM NARRATIVE: Patient Discharge Data Data Completed and Pending: Completed Studies During Hospitalization Category Date Time Status CT chest wo con 7 1250 Stat Cat Scan 01/19/21 11:30 Completed XR chest 1V feng ble [id number] Routine Exams 01/21/21 18:56 Completed XR chest 1V feng ble [id number] Urgent Exams 01/17/21 17:43 Completed Pending at discharge Category Date Time Status ABG FULL [Arteria l Blood Gas Full] Stat Lab 01/19/21 19:47 Ordered Blood Culture Sta t Lab 01/19/21 14:20 Results Urine Culture Sta t Lab 01/19/21 14:56 Results Vitals: Last Vital Signs Temp 99.2 F 01/22/21 08:00 Pulse 127 H 01/22/21 16:00 Resp 20 H 01/22/21 18:06 BP 103/70 01/22/21 16:00 Pulse Ox 60 L 01/22/21 16:00 Discharge Plan Discharge Patient Disposition: Home Condition: Stable Prescriptions: Continued ferrous sulfate 325 mg (65 mg iron) tablet 325 mg PO DAILY@0800 RF: 0 docusate sodium [DOK] 100 mg capsule 100 mg PO DAILY PRN (Reason: Constipation) RF: 0 cyanocobalamin (vitamin B-12) 1,000 mcg capsule 1,000 mcg PO DAILY RF: 0 valproic acid 250 mg Capsule 250 mg PO QID 30 Days Qty: 120 RF: 1 levetiracetam 1,000 mg tablet 2,000 mg PO BID@799,1999 RF: 0 sulfasalazine 500 mg tablet 500 mg PO TID@, RF: 0 levothyroxine 25 mcg tablet 25 mcg PO DAILY@0800 RF: 0 hydrocodone-acetaminophen 7.5-325 mg tablet 1 tab PO Q8H PRN (Reason: Pain) RF: 0 folic acid 1 mg tablet 1 mg PO DAILY@0800 RF: 0 diazepam 5 mg tablet 5 mg PO BID PRN (Reason: Seizures) RF: 0 metoprolol tartrate 50 mg tablet 50 mg PO BID@799,1999 RF: 0 magnesium oxide [MagOx] 400 mg (241.3 mg magnesium) tablet 400 mg PO BID@ RF: 0 tamsulosin 0.4 mg capsule 0.4 mg PO BID@799,1999 RF: 0 Discontinued cholecalciferol (vitamin D3) [Vitamin D3] 125 mcg (5,000 unit) Tablet 125 mcg PO DAILY@0800 RF: 0 Discharge Orders: Discharge Order (Routine); Ordered 01/22/21 Ordered By: Aydin Silver Patient Instructions: Opioid Safety Discharge Attestations Time Spent in Discharge Care*: less than 30 min Status at Discharge: Cognitive status at discharge: severely impaired cognition , Behavioral status at discharge: dependent in ADL's , Quality Metrics Clinical Quality Measures During this hospital stay, did patient experience: None Coding Level of Care Code Acute g FW DC note Diagnoses Acute respiratory failure with hypoxia J96.01 Thrombocytopenia D69.6 Aspiration of food T17.920A Aspiration pneumonia J69.0 Aspiration pneumonia type: unspecified Laterality: left Lung location: unspecified part of lung Sepsis A41.9 COVID-19 U07.1
== END 2021-01-22 19:20 | disposition expired | DRG 871 ==
LOC: ER 17:09 → MEDSURG 22:07
PROVIDERS: Student in an Organized Health Care Education/Training Program; Surgery; Admitting Provider Hospitalist; Emergency Provider Family Medicine; PCP Internal Medicine; Visit Provider Internal Medicine
PROC: 0DH63UZ Insertion of Feeding Device into Stomach, Percutaneous Approach (ICD-10-PCS; CPT 43246; principal; 2021-01-21 11:00)
DX: A41.9 Sepsis, unspecified organism (principal); U07.1 COVID-19; J69.0 Pneumonitis due to inhalation of food and vomit; J96.01 Acute respiratory failure with hypoxia; F73 Profound intellectual disabilities; E87.1 Hypo-osmolality and hyponatremia; G80.9 Cerebral palsy, unspecified; Z74.01 Bed confinement status; H54.3 Unqualified visual loss, both eyes; G40.909 Epilepsy, unspecified, not intractable, without status epilepticus; Z87.01 Personal history of pneumonia (recurrent); E03.9 Hypothyroidism, unspecified; Z87.440 Personal history of urinary (tract) infections; E87.6 Hypokalemia; D69.6 Thrombocytopenia, unspecified; Z51.5 Encounter for palliative care; Z66 Do not resuscitate; I48.91 Unspecified atrial fibrillation
CPT/HCPCS: 36415; 36592; 36600; 43246; 71045; 71250; 80048; 80051; 80053; 81001; 82330; 82805; 83605; 84145; 85025; 86140; 87040; 87086; 87106; 87426; 94660; 94664; 96365; 96372; 96375; 99285; C9113; J0330; J0690; J0743; J1100; J1630; J1644; J1885; J1940; J1953; J2060; J2250; J2270; J2405; J2704; J3010; J3370; J3480; J3490; J7030; P9041